=== PATIENT | male | born 1945 | race Caucasian/White ===

== ENCOUNTER → 2020-07-21 10:27 | Outpatient (BNVA) | payer MEDICARE, SELFPAY | PROVIDERS: PCP Internal Medicine; Visit Provider Internal Medicine | DX: J45.909 Unspecified asthma, uncomplicated (principal); G47.33 Obstructive sleep apnea (adult) (pediatric); E66.9 Obesity, unspecified; Z68.39 Body mass index [BMI] 39.0-39.9, adult; Z99.89 Dependence on other enabling machines and devices | CPT/HCPCS: 99213 ==

== ENCOUNTER → 2020-08-18 09:42 | Outpatient (BNVA) | payer MEDICARE, SELFPAY | PROVIDERS: PCP Internal Medicine; Visit Provider Internal Medicine | DX: J45.909 Unspecified asthma, uncomplicated (principal); G47.33 Obstructive sleep apnea (adult) (pediatric); E66.9 Obesity, unspecified; Z68.38 Body mass index [BMI] 38.0-38.9, adult; Z99.89 Dependence on other enabling machines and devices | CPT/HCPCS: 99212 ==

== ENCOUNTER → 2020-11-18 10:21 | Outpatient (BNVA) | payer MEDICARE, SELFPAY | PROVIDERS: PCP Internal Medicine; Visit Provider Internal Medicine | DX: E66.9 Obesity, unspecified (principal); G47.33 Obstructive sleep apnea (adult) (pediatric); J45.20 Mild intermittent asthma, uncomplicated; J30.9 Allergic rhinitis, unspecified | CPT/HCPCS: 99212 ==

== ENCOUNTER 2020-12-15 09:33 | Outpatient (REF) | payer MEDICARE, SELFPAY ==
[2020-12-15 11:18] LABS: MANUAL DIFF FLAG NO
[2020-12-15 11:33] LABS: Basophils Percent Auto 0.5 % (0-2); Eosinophils Absolute Auto 0.4 X10*3/uL (0.0-0.4); Eosinophils Percent Auto 6.4 % (0-4); Hematocrit 39.7 % (42-52); Imm Gran Abs Auto 0.01 X10*3/uL (0.00-0.03); Imm Gran Pct Auto 0.2 % (0.0-0.4); Lymphocytes Absolute Auto 1.7 X10*3/uL (1.2-4.9); Lymphocytes Percent Auto 30.5 % (20-40); Mean Corpuscular HGB Conc 32.7 g/dl (31.0-36.0); Mean Corpuscular Hemoglobin 27.8 pg (27.0-33.0); Mean Platelet Volume 11.2 fL (9.4-12.4); Monocytes Absolute Auto 0.6 X10*3/uL (0.1-1.2); Monocytes Percent Auto 10.4 % (2-11); Neutrophils Absolute Auto 2.9 X10*3/uL (2.0-8.3); Platelet Count 146 X10*3/uL (160-400); Red Blood Count 4.67 X10*6/uL (4.60-5.80); Red Cell Distribution Width 13.7 % (11.0-16.0); White Blood Count 5.5 X10*3/uL (4.8-10.8)
[2020-12-15 11:48] LABS: Estimated Average Glucose 194 mg/dL; Hemoglobin A1c % 8.4 %
[2020-12-15 12:05] LABS: Alanine Aminotransferase 31 U/L (0-40); Alkaline Phosphatase 93 U/L (39-117); Anion Gap 14 (12-20); Aspartate Amino Transferase 21 U/L (5-37); Bilirubin Total 1.3 mg/dL (0.0-1.0); Blood Urea Nitrogen 16 mg/dL (9-16); Calcium 8.1 mg/dL (8.4-10.2); Carbon Dioxide 26 mmol/L (22-29); Chloride 103 mmol/L (96-108); Cholesterol 124 mg/dL; Estimated Glomerular Filt Rate > 60; Glucose Random 177 mg/dL (60-115); HDL Cholesterol 26 mg/dL; LDL Cholesterol Calculated 71 mg/dl; Potassium 4.3 mmol/L (3.3-5.1); Sodium 139 mmol/L (135-145); Total Protein 6.6 g/dL (6.5-8.0); Triglycerides 138 mg/dL
== END 2020-12-15 09:34 | disposition home or self-care (01) ==
LOC: HO.HMGCLDS 09:33
PROVIDERS: PCP Internal Medicine; Visit Provider Internal Medicine
DX: E11.65 Type 2 diabetes mellitus with hyperglycemia (principal); Z79.4 Long term (current) use of insulin; E87.5 Hyperkalemia; E78.00 Pure hypercholesterolemia, unspecified
CPT/HCPCS: 36415; 80053; 80061; 83036; 85025

== ENCOUNTER → 2021-03-31 09:38 | Outpatient (BNVA) | payer MEDICARE, SELFPAY | PROVIDERS: PCP Internal Medicine; Visit Provider Internal Medicine | DX: G47.33 Obstructive sleep apnea (adult) (pediatric) (principal); J45.20 Mild intermittent asthma, uncomplicated; E66.9 Obesity, unspecified | CPT/HCPCS: 99212 ==

== ENCOUNTER 2021-08-13 05:00 | Outpatient (REF) | payer MEDICARE, SELFPAY ==
--- NOTE | ~2021-08-13 | XR_ITS ---
EXAMINATION: XR SHOULDER, RIGHT CLINICAL INFORMATION: Pain COMPARISON: Previous x-ray July 2014 TECHNIQUE: Two views of the right shoulder. FINDINGS: Bone alignment is normal. No fracture or dislocation is seen. The glenohumeral joint is normal. There is arthritis at the acromioclavicular joint. Soft tissues are unremarkable. 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
== END 2021-08-13 05:01 | disposition home or self-care (01) ==
LOC: HO.HOSX 05:00
PROVIDERS: Visit Provider Physician Assistant
DX: M75.41 Impingement syndrome of right shoulder (principal)
CPT/HCPCS: 20610; 73030; 99212; J1020

== ENCOUNTER → 2021-09-23 09:16 | Outpatient (BNVA) | payer MEDICARE, SELFPAY | PROVIDERS: PCP Internal Medicine; Visit Provider Internal Medicine | DX: G47.33 Obstructive sleep apnea (adult) (pediatric) (principal); J30.9 Allergic rhinitis, unspecified; J45.20 Mild intermittent asthma, uncomplicated; E66.9 Obesity, unspecified; Z68.38 Body mass index [BMI] 38.0-38.9, adult | CPT/HCPCS: 99212 ==

== ENCOUNTER 2021-12-13 07:06 | Inpatient (IN) | payer MEDICARE, SELFPAY ==
[2021-12-13] VITALS (12 sets, daily range): BP systolic 120–188; BP diastolic 62–101; PULSE 79–105; RESP 14–20; TEMP 36.1–37.2; O2SAT 86–98; BMI 38.0
--- NOTE | ~2021-12-13 | CT_ITS ---
EXAMINATION: CT ABDOMEN AND PELVIS WITHOUT CONTRAST CLINICAL INFORMATION: Right-sided abdominal pain. History of stones. COMPARISON: Previous CT of the abdomen and pelvis December 2017 TECHNIQUE: Multidetector volumetric imaging was performed from the superior aspect of the liver through the pubic symphysis. Sagittal and coronal reformatted images were obtained on the technologist's workstation. This CT examination was performed using dose optimization techniques as appropriate, variously including the following: *Automated exposure control *Adjustment of mA and/or kV according to patient size (this includes techniques or standardized protocols for targeted exams where dose is matched to indication/reason for exam; i.e. extremities or head) *Use of iterative reconstruction technique DLP: 886 mGy-cm FINDINGS: LUNG BASES: There are increased peripheral interstitial markings at the lung bases suggestive of interstitial lung disease. LIVER, GALLBLADDER, AND BILIARY TREE: The liver is normal in size, shape, and attenuation. No focal hepatic lesion or biliary ductal dilatation is present. The gallbladder is unremarkable with no evidence of radiopaque gallstones, gallbladder wall thickening, or obvious pericholecystic inflammatory changes. PANCREAS: Unremarkable. SPLEEN: Unremarkable. ADRENAL GLANDS: Unremarkable. KIDNEYS AND URETERS: There is moderate right hydronephrosis and ureteral dilatation from a 5 mm right mid ureteral stone. There is a small 1 mm stone in the central right kidney. There is stranding of the fat surrounding the right kidney and maximal ureter. There are multiple left renal stones. Largest stones measure 3 to 4 mm in the upper and lower pole of the left kidney. There are bilateral peripelvic cysts. There is a 10 mm left pelvic calcification axial image 74 series 3 coronal reconstructed image 76. There is no left hydronephrosis. The left proximal ureter does not appear dilated. There may be some dilatation of the left distal ureter adjacent to the calcification. Calcification is increased in size from approximately 5 mm and 2018 exam. It is uncertain whether this represents a calcified phlebolith next to the ureter or could represent a distal left ureteral stone. BLADDER: Unremarkable. GASTROINTESTINAL TRACT: There is mild diverticulosis of the colon. Small and large bowel is otherwise unremarkable. There is a low-attenuation lesion in the right lateral abdomen adjacent to the ascending colon with peripheral calcification. The peripheral calcification is new or increased from previous exam. This is stable in size from previous exam and measures approximately 1.5 cm axial image 43 series 3 is probably represents change from old inflammation or fat necrosis. The appendix is not seen. ABDOMINAL WALL: There is a very small umbilical hernia containing fat. LYMPH NODES: Normal. VASCULAR: There is evidence of atherosclerotic disease. No aneurysm is seen. PELVIC VISCERA: Unremarkable. OSSEOUS STRUCTURES: There are degenerative changes of the spine. CT/CT abdomen pelvis wo con IMPRESSION: Right hydronephrosis and ureteral dilatation from a 5 mm right mid ureteral stone. Bilateral renal stones, left greater than right. No left hydronephrosis or proximal ureteral dilatation. 10 mm calcification in the left pelvis, question representing a left distal ureteral stone versus calcified phlebolith. This is increased in size from 5 mm on December 2017 exam. Fleischner guidelines were followed.
--- NOTE | ~2021-12-13 | FL_ITS ---
EXAMINATION: XR FLUOROSCOPY WITH IMAGES CLINICAL INFORMATION: Urinary tract calculi. Urologic procedure is, cystoscopy, ureteroscopy, retro, laser, stent right COMPARISON: CT abdomen and pelvis noncontrast 12/13/2021 TECHNIQUE: Fluoroscopy performed by Dr. Nakul Serna. Fluoroscopy time: 0.7 minutes DAP: 12.3 Gycm2 Images: 3 FINDINGS: There is guidewire right urinary tract. Contrast is present in distended extrarenal pelvis. FL/FL guidance in OR IMPRESSION: Fluoroscopy for urologic procedures.
--- NOTE | 2021-12-13 07:19 | ED.ABDPAIN ---
HPI - Abdominal Pain General Chief Complaint: Abdominal Pain Stated Complaint: abd pain Time Seen by Provider: 12/13/21 07:12 Source: patient Mode of arrival: ambulatory Limitations: no limitations History of Present Illness MD elicited complaint: abdominal pain Pertinent past history: kidney stones Onset (ago): day(s) (7) Pain Consistency: constant Location: R flank (R middle abdomen) Severity: severe Quality: stabbing Radiation: none Migration to: no migration Exacerbating factors: movement Relieving factors: nothing Context: history of similar episodes (?unsure if it was a stone, tried to drink a lot of water) Associated symptoms: nausea and vomiting Related Data Home Medications Medication Instructions Recorded Confirmed insulin degludec 200 unit/mL (3 50 unit SUBCUT DAILY cap 05/31/21 12/13/21 mL) subcutaneous pen (Tresiba FlexTouch U-200 insulin) albuterol sulfate 2.5 mg INHALATION Q6H 08/13/21 12/13/21 cetirizine 10 mg tablet (Zyrtec) 10 mg PO DAILY 08/13/21 12/13/21 Prevagen 1 cap PO DAILY 12/13/21 12/13/21 aspirin 81 mg chewable tablet 81 mg PO DAILY 12/13/21 12/13/21 cholecalciferol (vitamin D3) 25 25 mcg PO DAILY 12/13/21 12/13/21 mcg (1,000 unit) tablet (Vitamin D3) cyanocobalamin (vitamin B-12) 1,000 mcg PO DAILY 12/13/21 12/13/21 1,000 mcg tablet dulaglutide 0.75 mg/0.5 mL 0.75 mg SUBCUT MO 12/13/21 12/13/21 subcutaneous pen injector (Trulicity) prednisolone acetate 1 % eye 1 drp OPHTHALMIC (EYE) DAILY 12/13/21 12/13/21 drops,suspension vit C 250 mg-vit E 90 mg-zinc 40 2 tab PO DAILY 12/13/21 12/13/21 mg-copper 1 [id number] capsule (PreserVision AREDS-2) Previous Rx's Medication Instructions Recorded blood-glucose meter (OneTouch #1 ea 11/18/20 Ultra2 Meter) lancets (OneTouch UltraSoft #4 box 11/18/20 Lancets) metformin 1,000 mg tablet 1,000 mg PO BID #180 cap 12/14/20 fluticasone 250 mcg-salmeterol 50 1 inh INHALATION BID 90 Days #3 ea 03/09/21 mcg/dose blistr powdr for inhalation tamsulosin 0.4 mg capsule 0.4 mg PO DAILY #90 cap 05/28/21 albuterol sulfate 90 mcg/actuation 2 puff INHALATION Q4-6H PRN #8.5 g 09/08/21 aerosol inhaler (ProAir HFA) blood sugar diagnostic #4 09/17/21 metoprolol succinate 100 mg 100 mg PO DAILY #90 cap 10/01/21 tablet,extended release 24 hr atorvastatin 40 mg tablet 40 mg PO DAILY 90 Days #90 tab 11/04/21 Allergies Allergy/AdvReac Type Severity Reaction Status Date / Time azithromycin [AZITHROMYCIN] Allergy Unknown HIVES Verified 09/23/21 09:37 lisinopril [LISINOPRIL] Allergy Unknown HIVES Verified 09/23/21 09:37 losartan [LOSARTAN] Allergy Unknown HIVES Verified 09/23/21 09:37 oxycodone [OXYCODONE] Allergy Unknown HIVES Verified 09/23/21 09:37 Review of Systems Review of Systems Constitutional : No Weight loss, No Fever, No Chills ENT/Mouth : No sore throat, No Rhinorrhea Eyes: No Swelling, No Redness Cardiovascular : No Chest Pain, No SOB, NoEdema Respiratory : No Cough, No Sputum, No Wheezing Gastrointestinal : Positive Nausea, Positive Vomiting, no Diarrhea, positive abdominal Pain, No Hematochezia, No Melena, no constipation Genitourinary : No Dysuria, No Urinary Frequency, No Hematuria, No Urgency Musculoskeletal : No joint pain, No Myalgias, No Joint Swelling Skin : No Skin Lesions, No rash Neuro : No Weakness, No Numbness, No Dizziness, No Headache Psych : No Anxiety/Panic, No Depression Heme/Lymph: No Bruising, No Lymphadenopathy Endocrine : No Polyuria, No Polydipsia All other systems reviewed and are negative. [facility], [facility] Past Medical History Attestation statement: The following information was validated with the patient. Medical History (Updated 12/13/21 @ 08:35 by Ann Marie Salgado DO) Allergic rhinitis Ankle fracture Atrial flutter BPH (benign prostatic hyperplasia) Bronchial asthma Fatty liver History of pericarditis Hypercholesterolemia Hypertension Mass of right lung Obesity (BMI 30-39.9) Obstructive sleep apnea Type 2 diabetes mellitus with hyperglycemia Vitamin B12 deficiency Vitamin D deficiency Surgical History (Updated 12/13/21 @ 07:35 by Ann Marie Salgado DO) H/O spinal fusion History of appendectomy History of appendectomy History of bilateral inguinal hernia repair History of lithotripsy History of tooth extraction Lumbar spinal stenosis Family History Family History Father No problems noted. Mother No problems noted. Son No problems noted. Son No problems noted. Daughter No problems noted. Daughter No problems noted. Social History Social History Housing: House Patient Tobacco Use Status: Former Tobacco user Tobacco use type: Cigarette e-Cigarette/Vaping Use: Never Used Second Hand Smoke Exposure: No Advance Directives: No Advance Directives Information Provided: Yes service: Yes Current occupational status: retired Physical Exam ED Vital Signs: Vital Signs - 24 hr 12/13/21 07:12 12/13/21 07:24 12/13/21 08:49 Temperature 97.4 F Pulse Rate 79 90 101 H Respiratory Rate 18 18 16 Blood Pressure 174/96 H 188/95 H 159/90 H Pulse Oximetry 98 95 86 L 12/13/21 08:52 Temperature Pulse Rate Respiratory Rate Blood Pressure Pulse Oximetry 95 BMI result Body Mass Index 38.0 Appearance: Alert. Oriented X3. No acute distress. Eyes: Pupils equal, round and reactive to light. ENT: Pharynx normal. Neck: Normal inspection. Neck supple. CVS: Normal heart rate and rhythm. Pulses normal. Respiratory: No respiratory distress. Breath sounds normal. Abdomen: Distended moderate ttp in R middle abdomen with mild guarding no rebound Skin: Skin warm and dry. Normal skin color. Normal skin turgor. Extremities: No lower extremity edema. No calf ttp Neuro: Oriented X 3. No motor deficit. No sensory deficit. Course Course Course Narrative: lactic acidosis due to dehydration and not infection or severe sepsis message sent to Urology [id number] - I do not think patinet will pass stone given symptoms x 7 days at home to admit patient MDM - Abdominal Pain MDM Narrative Medical decision making narrative: 76 yo male hx of asthma, HTN, prior renal colic that required no intervention comes in with c/o R sided abdominal pain with n/v for 7 days he had BM and flatus this AM - at this time will obtain basic labs, UA, CT scan for renal colic, obstruction if negative will obtain US to evaluate GB. Dispo per results and findings. Differential Diagnosis Differential diagnosis: Likely abdominal pain, calculus of kidney, diverticulitis, renal colic and small bowel obstruction; Unlikely aortic dissection, acute appendicitis or mesenteric ischemia Lab Data Result diagrams: 12/13/21 07:35 12/13/21 07:35 Labs: Lab Results 12/13/21 12/13/21 12/13/21 Range/Units 07:35 07:35 07:35 WBC 8.7 (4.8-10.8) X10*3/uL RBC 4.94 (4.60-5.80) X10*6/uL Hgb 14.5 (14.0-18.0) g/dl Hct 41.7 L (42.0-52.0) % MCV 84.4 (80.0-98.0) fL MCH 29.4 (27.0-33.0) pg MCHC 34.8 (31.0-36.0) g/dl RDW 12.9 (11.0-16.0) % Plt Count 162 (160-400) X10*3/uL MPV 10.2 (9.4-12.4) fL Immature Gran % (Auto) 0.2 (0.0-0.4) % Neut % (Auto) 68.1 (45-73) % Lymph % (Auto) 21.6 (20-40) % [place] % (Auto) 8.4 (2-11) % Eos % (Auto) 1.4 (0-4) % Baso % (Auto) 0.3 (0-2) % Lymph # (Auto) 1.9 (1.2-4.9) X10*3/uL [place] # (Auto) 0.7 (0.1-1.2) X10*3/uL Eos # (Auto) 0.1 (0.0-0.4) X10*3/uL Baso # (Auto) 0.0 (0.0-0.2) X10*3/uL Abs Immat Gran (auto) 0.02 (0.00-0.03) X10*3/uL Absolute Neuts (auto) 5.9 (2.0-8.3) x10*3/uL Absolute Nucleated RBC 0.000 (0.0-0.012) X10*3/uL Nucleated RBC % (auto) 0.0 (0.0-0.2) /100WBC Sodium 139 (135-145) mmol/L Potassium 4.0 (3.3-5.1) mmol/L Chloride 103 (96-108) mmol/L Carbon Dioxide 26 (22-29) mmol/L Anion Gap 14 (12-20) BUN 15 (9-16) mg/dL Creatinine 1.49 H (0.5-1.4) mg/dL Estim Creat Clear Calc 48.4 Estimated GFR 46 Random Glucose 158 H (60-115) mg/dL Lactic Acid 2.1 H* (0.5-2.0) mmol/L Calcium 9.1 D (8.4-10.2) mg/dL Magnesium 1.5 L (1.6-2.6) mg/dL Total Bilirubin 1.2 H (0.0-1.0) mg/dL Direct Bilirubin 0.4 (0.0-0.5) mg/dL AST 15 (5-37) U/L ALT 25 (0-40) U/L Alkaline Phosphatase 91 (39-117) U/L Total Protein 6.9 (6.5-8.0) g/dL Albumin 4.2 (3.5-5.0) g/dL Lipase 92 H (8-78) U/L Urine Color Urine Appearance Urine pH (5.0-8.0) Ur Specific [place] (1.005-1.025) Urine Protein (NEG-TRACE) MG/DL Urine Glucose (UA) (NEG) MG/DL Urine Ketones (NEG) MG/DL Urine Blood (NEG) Urine Nitrite (NEG) Ur Leukocyte Esterase (NEG) Urine RBC (0) /HPF Urine WBC (0-4) /HPF Ur Squamous Epith Cells /LPF Urine Bacteria /LPF Urine Mucus /LPF COVID-19 (JEANNE) (Negative) COVID-19 Clin Com 12/13/21 12/13/21 Range/Units 08:35 08:35 WBC (4.8-10.8) X10*3/uL RBC (4.60-5.80) X10*6/uL Hgb (14.0-18.0) g/dl Hct (42.0-52.0) % MCV (80.0-98.0) fL MCH (27.0-33.0) pg MCHC (31.0-36.0) g/dl RDW (11.0-16.0) % Plt Count (160-400) X10*3/uL MPV (9.4-12.4) fL Immature Gran % (Auto) (0.0-0.4) % Neut % (Auto) (45-73) % Lymph % (Auto) (20-40) % [place] % (Auto) (2-11) % Eos % (Auto) (0-4) % Baso % (Auto) (0-2) % Lymph # (Auto) (1.2-4.9) X10*3/uL [place] # (Auto) (0.1-1.2) X10*3/uL Eos # (Auto) (0.0-0.4) X10*3/uL Baso # (Auto) (0.0-0.2) X10*3/uL Abs Immat Gran (auto) (0.00-0.03) X10*3/uL Absolute Neuts (auto) (2.0-8.3) x10*3/uL Absolute Nucleated RBC (0.0-0.012) X10*3/uL Nucleated RBC % (auto) (0.0-0.2) /100WBC Sodium (135-145) mmol/L Potassium (3.3-5.1) mmol/L Chloride (96-108) mmol/L Carbon Dioxide (22-29) mmol/L Anion Gap (12-20) BUN (9-16) mg/dL Creatinine (0.5-1.4) mg/dL Estim Creat Clear Calc Estimated GFR Random Glucose (60-115) mg/dL Lactic Acid (0.5-2.0) mmol/L Calcium (8.4-10.2) mg/dL Magnesium (1.6-2.6) mg/dL Total Bilirubin (0.0-1.0) mg/dL Direct Bilirubin (0.0-0.5) mg/dL AST (5-37) U/L ALT (0-40) U/L Alkaline Phosphatase (39-117) U/L Total Protein (6.5-8.0) g/dL Albumin (3.5-5.0) g/dL Lipase (8-78) U/L Urine Color YELLOW Urine Appearance CLEAR Urine pH 5.5 (5.0-8.0) Ur Specific [place] 1.020 (1.005-1.025) Urine Protein NEG (NEG-TRACE) MG/DL Urine Glucose (UA) NEG (NEG) MG/DL Urine Ketones NEG (NEG) MG/DL Urine Blood 1+ H (NEG) Urine Nitrite NEG (NEG) Ur Leukocyte Esterase NEG (NEG) Urine RBC 10-14 H (0) /HPF Urine WBC 0 (0-4) /HPF Ur Squamous Epith Cells NONE /LPF Urine Bacteria NONE /LPF Urine Mucus TRACE /LPF COVID-19 (JEANNE) Negative (Negative) COVID-19 Clin Com See Note ECG Data Attestation: I personally reviewed and interpreted this ECG as follows: ECG interpretation date: 12/13/21 ECG interpretation time: 07:38 Interpretation: Rate: 83 Rhythm: NSR [place]: normal Normal P waves. Normal DONOVAN. Normal QRS complex. ST T wave : no RADHA, nonspecific flat in anterior V1-V3 qTC: normal prior studies: no acute ischemia The study has been interpreted contemporaneously by me. . Discharge Plan Discharge Clinical Impression: Acidosis, lactic, Acute dehydration, Right ureteral stone Patient Disposition: Admitted As Inpatient
--- NOTE | 2021-12-13 07:24 | PC.NURSE ---
Pt received fro triage: Pt AOx4 and offers moderate pain and tenderness to RLQ since Monday. Pt hx of Kidney stones. Heart sound normal and lungs clear. Pt abd round, soft. Pt able to have BM today and urine normal.
--- NOTE | 2021-12-13 07:25 | ECG_ITS ---
Test Reason : abd pain Blood Pressure : / mmHG Vent. Rate : 083 BPM Atrial Rate : 083 BPM P-R Int : 178 ms QRS Dur : 086 ms QT Int : 382 ms P-R-T Axes : 047 -02 015 degrees QTc Int : 448 ms Normal sinus rhythm Minimal voltage criteria for LVH, may be normal variant ( R in aVL ) Borderline ECG When compared with ECG of 28-NOV-2018 09:31, No significant change was found Referred By: Ann Marie Salgado Electronically Signed By:Ruben North
[2021-12-13 07:41] LABS: MANUAL DIFF FLAG NO
[2021-12-13 07:42] LABS: Basophils Percent Auto 0.3 % (0-2); Eosinophils Absolute Auto 0.1 X10*3/uL (0.0-0.4); Eosinophils Percent Auto 1.4 % (0-4); Hematocrit 41.7 % (42.0-52.0); Hemoglobin 14.5 g/dl (14.0-18.0); Imm Gran Abs Auto 0.02 X10*3/uL (0.00-0.03); Imm Gran Pct Auto 0.2 % (0.0-0.4); Lymphocytes Absolute Auto 1.9 X10*3/uL (1.2-4.9); Lymphocytes Percent Auto 21.6 % (20-40); Mean Corpuscular HGB Conc 34.8 g/dl (31.0-36.0); Mean Corpuscular Hemoglobin 29.4 pg (27.0-33.0); Mean Corpuscular Volume 84.4 fL (80.0-98.0); Mean Platelet Volume 10.2 fL (9.4-12.4); Monocytes Absolute Auto 0.7 X10*3/uL (0.1-1.2); Monocytes Percent Auto 8.4 % (2-11); Neutrophils Absolute Auto 5.9 x10*3/uL (2.0-8.3); Neutrophils Percent Auto 68.1 % (45-73); Platelet Count 162 X10*3/uL (160-400); Red Blood Count 4.94 X10*6/uL (4.60-5.80); Red Cell Distribution Width 12.9 % (11.0-16.0); White Blood Count 8.7 X10*3/uL (4.8-10.8)
[2021-12-13] MEDS: Morphine Sulfate 4 MG/ML CARTRIDGE IVPUSH (07:42)
[2021-12-13] MEDS: ondansetron HCL 4 MG/2 ML VIAL IVPUSH (07:42)
[2021-12-13 08:04] LABS: Lactic Acid 2.1 mmol/L (0.5-2.0)
[2021-12-13 08:11] LABS: Alanine Aminotransferase 25 U/L (0-40); Albumin Level 4.2 g/dL (3.5-5.0); Alkaline Phosphatase 91 U/L (39-117); Anion Gap 14 (12-20); Aspartate Amino Transferase 15 U/L (5-37); Bilirubin Direct 0.4 mg/dL (0.0-0.5); Bilirubin Total 1.2 mg/dL (0.0-1.0); Blood Urea Nitrogen 15 mg/dL (9-16); Calcium 9.1 mg/dL (8.4-10.2); Carbon Dioxide 26 mmol/L (22-29); Chloride 103 mmol/L (96-108); Creatinine Clr Calc Pharmacy 48.4; Estimated Glomerular Filt Rate 46; Glucose Random 158 mg/dL (60-115); Lipase 92 U/L (8-78); Magnesium 1.5 mg/dL (1.6-2.6); Sodium 139 mmol/L (135-145); Total Protein 6.9 g/dL (6.5-8.0)
[2021-12-13 08:41] LABS: Appearance Urine CLEAR; Color Urine YELLOW; Glucose Urine UA NEG (NEG); Leukocyte Esterase Urine NEG (NEG); Nitrite Urine NEG (NEG); PH 5.5 (5.0-8.0); UACC Culture Trigger NO; Urine Blood 1+ (NEG); Urine Ketones NEG (NEG); Urine Protein NEG (NEG-TRACE)
[2021-12-13] MEDS: Tamsulosin HCL 0.4 MG CAPSULE PO (08:43)
[2021-12-13] MEDS: HYDROmorphone HCl 1 MG/ML SYRINGE IVPUSH (08:43)
[2021-12-13] MEDS: Magnesium Sulfate/H2O 2 GM/50 ML PIGGYBACK IV (08:43)
[2021-12-13] MEDS: methylPREDNISolone Sod Succ 125 MG/2 ML VIAL IVPUSH (08:43)
[2021-12-13] MEDS: 0.9 % Sodium Chloride 500 ML IV ×2 (08:44)
[2021-12-13 08:50] LABS: Mucus Urine TRACE /LPF; WBC Urine 0 /HPF (0-4)
[2021-12-13 08:56] LABS: COVID-19 Test Negative (Negative); IDNOW Serial# 16C4AD1C
[2021-12-13 09:38] LABS: Reflex Lactate? Lactic Acid Added
--- NOTE | 2021-12-13 10:22 | PM.UROCN ---
History of Present Illness Consult details Consult date: 12/13/21 Narrative: Silvano is a 76-year-old male Presents emergency room with persistent right flank pain, nausea, vomiting unable to take oral intake Creatinine 1.5, WBC 8.7 Imaging shows There is moderate right hydronephrosis and ureteral dilatation from a 5 mm right mid ureteral stone. There is a small 1 mm stone in the central right kidney. There is stranding of the fat surrounding the right kidney and maximal ureter. There are multiple left renal stones. Largest stones measure 3 to 4 mm in the upper and lower pole of the left kidney. imaging reviewed in person Discussed findings with Silvano Recommend ureteroscopy with laser lithotripsy and stent placement Review of Systems Constitutional: Constitutional: Reports as per HPI and Reports no additional constitutional complaints Cardiovascular: Cardiovascular: Reports as per HPI and Reports no additional cardiovascular complaints Respiratory: Respiratory: Reports as per HPI and Reports no additional respiratory complaints Gastrointestinal: Gastrointestinal: Reports as per HPI and Reports no additional gastrointestinal complaints Genitourinary: Genitourinary: Reports as per HPI Musculoskeletal: Musculoskeletal: Reports no additional musculoskeletal complaints and Reports as per HPI Neurologic: Reports system reviewed and no additional complaints, except as documented and Reports as per HPI [facility] Past Medical History Medical History (Updated 12/13/21 @ 10:25 by Nakul Serna MD) Allergic rhinitis Ankle fracture Atrial flutter BPH (benign prostatic hyperplasia) Bronchial asthma Fatty liver History of pericarditis Hypercholesterolemia Hypertension Mass of right lung Obesity (BMI 30-39.9) Obstructive sleep apnea Type 2 diabetes mellitus with hyperglycemia Vitamin B12 deficiency Vitamin D deficiency Family History Family History Father No problems noted. Mother No problems noted. Son No problems noted. Son No problems noted. Daughter No problems noted. Daughter No problems noted. Surgical History Surgical History (Updated 12/13/21 @ 07:35 by Ann Marie Salgado DO) H/O spinal fusion History of appendectomy History of appendectomy History of bilateral inguinal hernia repair History of lithotripsy History of tooth extraction Lumbar spinal stenosis Social History Social History Housing: House Patient Tobacco Use Status: Former Tobacco user Tobacco use type: Cigarette e-Cigarette/Vaping Use: Never Used Second Hand Smoke Exposure: No Advance Directives: No Advance Directives Information Provided: Yes service: Yes Current occupational status: retired Meds Allergies Allergy/AdvReac Type Severity Reaction Status Date / Time azithromycin [AZITHROMYCIN] Allergy Unknown HIVES Verified 09/23/21 09:37 lisinopril [LISINOPRIL] Allergy Unknown HIVES Verified 09/23/21 09:37 losartan [LOSARTAN] Allergy Unknown HIVES Verified 09/23/21 09:37 oxycodone [OXYCODONE] Allergy Unknown HIVES Verified 09/23/21 09:37 Active Medications: Current Medications Hydromorphone HCl (Hydromorphone Hcl 0.5 Mg/0.5 Ml Syringe) 0.5 mg IVPUSH QID PRN; Protocol PRN Reason: Pain, Moderate (Pain Scale 4-6 Sodium Chloride (Ns) 1,000 mls @ 100 mls/hr IVCONT .Q10H CATHIE Ondansetron HCl (Ondansetron Hcl 4 Mg/2 Ml Vial) 4 mg IVPUSH Q8H CATHIE Home Medications Medication Instructions Recorded Confirmed Last Taken Type insulin degludec 200 unit/mL (3 50 unit SUBCUT DAILY cap 05/31/21 12/13/21 12/12/21 History mL) subcutaneous pen (Tresiba FlexTouch U-200 insulin) albuterol sulfate 2.5 mg INHALATION Q6H 08/13/21 12/13/21 Unknown History cetirizine 10 mg tablet (Zyrtec) 10 mg PO DAILY 08/13/21 12/13/21 12/12/21 History Prevagen 1 cap PO DAILY 12/13/21 12/13/21 12/12/21 History aspirin 81 mg chewable tablet 81 mg PO DAILY 12/13/21 12/13/21 12/12/21 History cholecalciferol (vitamin D3) 25 25 mcg PO DAILY 12/13/21 12/13/21 12/12/21 History mcg (1,000 unit) tablet (Vitamin D3) cyanocobalamin (vitamin B-12) 1,000 mcg PO DAILY 12/13/21 12/13/21 12/12/21 History 1,000 mcg tablet dulaglutide 0.75 mg/0.5 mL 0.75 mg SUBCUT MO 12/13/21 12/13/21 12/06/21 History [facility] prednisolone acetate 1 % eye 1 drp OPHTHALMIC (EYE) DAILY 12/13/21 12/13/21 12/12/21 History drops,suspension vit C 250 mg-vit E 90 mg-zinc 40 2 tab PO DAILY 12/13/21 12/13/21 12/12/21 History mg-copper 1 [id number] capsule (PreserVision AREDS-2) Physical Exam Vital Signs: Vital Signs: Last Vital Signs Temp 97.4 F 12/13/21 07:12 Pulse 101 H 12/13/21 08:49 Resp 16 12/13/21 08:49 BP 159/90 H 12/13/21 08:49 Pulse Ox 95 12/13/21 08:52 BMI result Body Mass Index 38.0 Const: General: cooperative, healthy appearing, comfortable and no acute distress Orientation/consciousness: patient oriented x3 HENMT: Face and sinus: Yes normal facial exam Mouth: moist mucous membranes Neck: Neck: Yes normal visual inspection, Yes full ROM and Yes trachea midline Chest: Chest palpation & inspection: normal inspection of the chest Resp: Effort & Inspection: normal respiratory effort, able to speak in complete sentences and no respiratory distress GI: Inspection: Yes normal to inspection Back/Spine/Pelvis: Cervical Spine: normal cervical lordosis Thoracic/Lumbar Spine: thoracic and lumbar spine normal to inspection Skin: General skin exam: no rashes or lesions noted Neuro: General: patient oriented x3, tone normal and moves all extremities Extrem: General: Yes normal to inspection and Yes capillary refill normal Results Labs Result diagrams: 12/13/21 07:35 12/13/21 07:35 Labs: Abnormal lab results 12/13/21 12/13/21 12/13/21 Range/Units 07:35 07:35 07:35 Hct 41.7 L (42.0-52.0) % Creatinine 1.49 H (0.5-1.4) mg/dL Random Glucose 158 H (60-115) mg/dL Lactic Acid 2.1 H* (0.5-2.0) mmol/L Magnesium 1.5 L (1.6-2.6) mg/dL Total Bilirubin 1.2 H (0.0-1.0) mg/dL Lipase 92 H (8-78) U/L Urine Blood (NEG) Urine RBC (0) /HPF 12/13/21 Range/Units 08:35 Hct (42.0-52.0) % Creatinine (0.5-1.4) mg/dL Random Glucose (60-115) mg/dL Lactic Acid (0.5-2.0) mmol/L Magnesium (1.6-2.6) mg/dL Total Bilirubin (0.0-1.0) mg/dL Lipase (8-78) U/L Urine Blood 1+ H (NEG) Urine RBC 10-14 H (0) /HPF Short CBC 12/13/21 Range/Units 07:35 WBC 8.7 (4.8-10.8) X10*3/uL Hgb 14.5 (14.0-18.0) g/dl Hct 41.7 L (42.0-52.0) % Plt Count 162 (160-400) X10*3/uL BMP 12/13/21 07:35 Sodium 139 Potassium 4.0 Chloride 103 Carbon Dioxide 26 BUN 15 Creatinine 1.49 H Calcium 9.1 D Liver Function 12/13/21 Range/Units 07:35 Total Bilirubin 1.2 H (0.0-1.0) mg/dL Direct Bilirubin 0.4 (0.0-0.5) mg/dL AST 15 (5-37) U/L ALT 25 (0-40) U/L Alkaline Phosphatase 91 (39-117) U/L Albumin 4.2 (3.5-5.0) g/dL Urine 12/13/21 Range/Units 08:35 Urine Color YELLOW Urine Appearance CLEAR Urine pH 5.5 (5.0-8.0) Ur Specific [place] 1.020 (1.005-1.025) Urine Protein NEG (NEG-TRACE) MG/DL Urine Glucose (UA) NEG (NEG) MG/DL All other labs normal. Assessment and Plan (1) Right ureteral stone: Status: Acute (2) Acute renal injury: Status: Acute Plan Ureteroscopy We discussed the nature of the decision and reasonable alternatives for performing the above surgery. Interventions include chemical dissolution, ESWL, ureteroscopy with laser lithotripsy and stent placement, PCNL. Options such as medical therapy were discussed. The relative uncertainties and benefits related to each alternate procedure were adequately discussed. General surgical risks including, but not limited to, pain, bleeding, infection, myocardial infarction, pulmonary embolus, deep vein thrombosis and cerebrovascular accident which may result in further hospitalization were discussed. Full disclosure of the procedure as well as all major risks, benefits and complications were discussed including but not limited to damage to the urethra, bladder and kidney infection, damage to the ureter, stent migration or malposition, scarring to the renal pelvis, remnant stone fragments, subsequent stone passage with need for secondary procedures. The overall secondary procedure rate is approximately 10-15%. The success rate of the procedure was discussed. Success of the procedure in the short-term does not necessarily guarantee that long-term success will be maintained. Suitable follow up will need to be maintained. The patient showed understanding of discussion and wishes to proceed with - cystoscopy, retrograde, ureteroscopy, possible lithotripsy/stone basketing and stent on the right side Procedures Date of Service Date of Service: 12/13/21
[2021-12-13] MEDS: 0.9 % Sodium Chloride 1,000 ML 100 ML IVCONT (10:30)
[2021-12-13 10:38] LABS: ~Lactic Acid-LAB USE ONLY 0.9 mmol/L (0.5-2.0)
--- NOTE | 2021-12-13 11:03 | PC.NURSE ---
1000: Nurse to nurse report given to SSS. As per SSS, pt will have procedure later in the day but no specific time given. RN will continue to monitor. Pt to remain NPO.
--- NOTE | 2021-12-13 13:41 | PC.NURSE ---
[facility] PCT at bedside for pickup and transport for procedure.
[2021-12-13 13:44] LABS: Glucose, Whole Blood 161 mg/dL (60-115)
--- NOTE | 2021-12-13 15:17 | HO.ANESPROP2 ---
HPI - Anesthesia Eval Consult details Narrative: 76 M for cystoscopy and stent placement COPD PMFSH Active Problems Active Problems: All Active Problems (Updated 12/13/21 @ 10:25 by Nakul Serna MD) Acute renal injury (Acute) Acidosis, lactic (Acute) Acute dehydration (Acute) Right ureteral stone (Acute) Bronchitis (Acute) Pharyngitis (Acute) Impingement syndrome of right shoulder (Acute) History of pericarditis (Acute) Allergic rhinitis (Acute) Bronchial asthma (Acute) Hyperkalemia (Acute) Hypertension (Acute) Obesity (BMI 30-39.9) (Acute) Obstructive sleep apnea (Acute) BPH (benign prostatic hyperplasia) (Acute) Hypercholesterolemia (Acute) Type 2 diabetes mellitus with hyperglycemia (Acute) Past Medical History Medical History (Updated 12/13/21 @ 10:25 by Nakul Serna MD) Allergic rhinitis Ankle fracture Atrial flutter BPH (benign prostatic hyperplasia) Bronchial asthma Fatty liver History of pericarditis Hypercholesterolemia Hypertension Mass of right lung Obesity (BMI 30-39.9) Obstructive sleep apnea Type 2 diabetes mellitus with hyperglycemia Vitamin B12 deficiency Vitamin D deficiency Family History Family History Father No problems noted. Mother No problems noted. Son No problems noted. Son No problems noted. Daughter No problems noted. Daughter No problems noted. Family history of problems with anesthesia: No Surgical History Surgical History (Updated 12/13/21 @ 07:35 by Ann Marie Salgado DO) H/O spinal fusion History of appendectomy History of appendectomy History of bilateral inguinal hernia repair History of lithotripsy History of tooth extraction Lumbar spinal stenosis History of Problems with Anesthesia: No Social History Social History Housing: House Patient Tobacco Use Status: Former Tobacco user Tobacco use type: Cigarette e-Cigarette/Vaping Use: Never Used Second Hand Smoke Exposure: No Are you DNR?: No Advance Directives: No Advance Directives Information Provided: Yes service: Yes Current occupational status: retired Meds Allergies Allergy/AdvReac Type Severity Reaction Status Date / Time azithromycin [AZITHROMYCIN] Allergy Unknown HIVES Verified 09/23/21 09:37 lisinopril [LISINOPRIL] Allergy Unknown HIVES Verified 09/23/21 09:37 losartan [LOSARTAN] Allergy Unknown HIVES Verified 09/23/21 09:37 oxycodone [OXYCODONE] Allergy Unknown HIVES Verified 09/23/21 09:37 Active Medications: Current Medications Hydromorphone HCl (Hydromorphone Hcl 0.5 Mg/0.5 Ml Syringe) 0.5 mg IVPUSH QID PRN; Protocol PRN Reason: Pain, Moderate (Pain Scale 4-6 Sodium Chloride (Ns) 1,000 mls @ 100 mls/hr IVCONT .Q10H CATHIE Last Admin: 12/13/21 10:30 Dose: 100 mls/hr Documented by: Ondansetron HCl (Ondansetron Hcl 4 Mg/2 Ml Vial) 4 mg IVPUSH Q8H [facility] Home Medications Medication Instructions Recorded Confirmed Last Taken Type insulin degludec 200 unit/mL (3 50 unit SUBCUT DAILY cap 05/31/21 12/13/21 12/12/21 History mL) subcutaneous pen (Tresiba FlexTouch U-200 insulin) albuterol sulfate 2.5 mg INHALATION Q6H 08/13/21 12/13/21 Unknown History cetirizine 10 mg tablet (Zyrtec) 10 mg PO DAILY 08/13/21 12/13/21 12/12/21 History Prevagen 1 cap PO DAILY 12/13/21 12/13/21 12/12/21 History aspirin 81 mg chewable tablet 81 mg PO DAILY 12/13/21 12/13/21 12/12/21 History cholecalciferol (vitamin D3) 25 25 mcg PO DAILY 12/13/21 12/13/21 12/12/21 History mcg (1,000 unit) tablet (Vitamin D3) cyanocobalamin (vitamin B-12) 1,000 mcg PO DAILY 12/13/21 12/13/21 12/12/21 History 1,000 mcg tablet dulaglutide 0.75 mg/0.5 mL 0.75 mg SUBCUT MO 12/13/21 12/13/21 12/06/21 History subcutaneous pen injector (Trulicity) prednisolone acetate 1 % eye 1 drp OPHTHALMIC (EYE) DAILY 12/13/21 12/13/21 12/12/21 History drops,suspension vit C 250 mg-vit E 90 mg-zinc 40 2 tab PO DAILY 12/13/21 12/13/2122 History mg-copper 1 or-[id number] capsule (PreserVision AREDS-2) Exam Exam Date and Time: December 13, 2021 1517 Height,Weight and Vital Signs: Height 5 ft 7 in Weight 110.223 kg Last Vital Signs Temp 98.9 F 12/13/21 13:46 Pulse 95 12/13/21 13:46 Resp 18 12/13/21 13:46 BP 167/101 H 12/13/21 13:46 Pulse Ox 96 12/13/21 13:46 Pertinent Lab Results Pertinent Lab Results: Laboratory Tests 12/13/21 12/13/21 12/13/21 07:35 07:35 07:35 WBC 8.7 RBC 4.94 Hgb 14.5 Hct 41.7 L MCV 84.4 MCH 29.4 MCHC 34.8 RDW 12.9 Plt Count 162 MPV 10.2 Immature Gran % (Auto) 0.2 Neut % (Auto) 68.1 Lymph % (Auto) 21.6 [place] % (Auto) 8.4 Eos % (Auto) 1.4 Baso % (Auto) 0.3 Lymph # (Auto) 1.9 [place] # (Auto) 0.7 Eos # (Auto) 0.1 Baso # (Auto) 0.0 Abs Immat Gran (auto) 0.02 Absolute Neuts (auto) 5.9 Absolute Nucleated RBC 0.000 Nucleated RBC % (auto) 0.0 Sodium 139 Potassium 4.0 Chloride 103 Carbon Dioxide 26 Anion Gap 14 BUN 15 Creatinine 1.49 H Estim Creat Clear Calc 48.4 Estimated GFR 46 POC Glucose Random Glucose 158 H Lactic Acid 2.1 H* Lactic Acid F/U @ 2Hr Calcium 9.1 D Magnesium 1.5 L Total Bilirubin 1.2 H Direct Bilirubin 0.4 AST 15 ALT 25 Alkaline Phosphatase 91 Total Protein 6.9 Albumin 4.2 Lipase 92 H Urine Color Urine Appearance Urine pH Ur Specific [place] Urine Protein Urine Glucose (UA) Urine Ketones Urine Blood Urine Nitrite Ur Leukocyte Esterase Urine RBC Urine WBC Ur Squamous Epith Cells Urine Bacteria Urine Mucus COVID-19 (JEANNE) COVID-19 Clin Com 12/13/21 12/13/21 12/13/21 08:35 08:35 10:20 WBC RBC Hgb Hct MCV MCH MCHC RDW Plt Count MPV Immature Gran % (Auto) Neut % (Auto) Lymph % (Auto) [place] % (Auto) Eos % (Auto) Baso % (Auto) Lymph # (Auto) [place] # (Auto) Eos # (Auto) Baso # (Auto) Abs Immat Gran (auto) Absolute Neuts (auto) Absolute Nucleated RBC Nucleated RBC % (auto) Sodium Potassium Chloride Carbon Dioxide Anion Gap BUN Creatinine Estim Creat Clear Calc Estimated GFR POC Glucose Random Glucose Lactic Acid Lactic Acid F/U @ 2Hr 0.9 Calcium Magnesium Total Bilirubin Direct Bilirubin AST ALT Alkaline Phosphatase Total Protein Albumin Lipase Urine Color YELLOW Urine Appearance CLEAR Urine pH 5.5 Ur Specific [place] 1.020 Urine Protein NEG Urine Glucose (UA) NEG Urine Ketones NEG Urine Blood 1+ H Urine Nitrite NEG Ur Leukocyte Esterase NEG Urine RBC 10-14 H Urine WBC 0 Ur Squamous Epith Cells NONE Urine Bacteria NONE Urine Mucus TRACE COVID-19 (JEANNE) Negative COVID-19 Clin Com See Note 12/13/21 13:40 WBC RBC Hgb Hct MCV MCH MCHC RDW Plt Count MPV Immature Gran % (Auto) Neut % (Auto) Lymph % (Auto) [place] % (Auto) Eos % (Auto) Baso % (Auto) Lymph # (Auto) [place] # (Auto) Eos # (Auto) Baso # (Auto) Abs Immat Gran (auto) Absolute Neuts (auto) Absolute Nucleated RBC Nucleated RBC % (auto) Sodium Potassium Chloride Carbon Dioxide Anion Gap BUN Creatinine Estim Creat Clear Calc Estimated GFR POC Glucose 161 H Random Glucose Lactic Acid Lactic Acid F/U @ 2Hr Calcium Magnesium Total Bilirubin Direct Bilirubin AST ALT Alkaline Phosphatase Total Protein Albumin Lipase Urine Color Urine Appearance Urine pH Ur Specific [place] Urine Protein Urine Glucose (UA) Urine Ketones Urine Blood Urine Nitrite Ur Leukocyte Esterase Urine RBC Urine WBC Ur Squamous Epith Cells Urine Bacteria Urine Mucus COVID-19 (JEANNE) COVID-19 Clin Com Airway Mallampati Class: II TM Dist: >3cm Neck ROM: Full Denture: Upper Partial: Lower Loose/Missing/Broken Teeth: Yes Heart: rrr Lungs: bl breath sounds Assessment and Plan Assessment Anesthesia Assessment: Anesthesia Plan Discussed Final Anesthetic Review Family History of Problems with Anesthesia: No History of Problems with Anesthesia: No NPO: Yes ASA Class: III Final Preanesthetic Review: Meds/Allgs Chart Reviewed, Consent Obtained/Reviewed and Anes Risks/Benef Reviewed Patient Risk: Intermediate Procedure Risk: Intermediate Anesthetic Plan Anesthetic Plan: GA Disposition: Standard PACU and Inp. Admit - Standard Bed
--- NOTE | 2021-12-13 15:20 | MHC.SHP ---
Pre-Procedural Eval Section A Date of Service: 12/13/21 The patient is an INPATIENT: No Changes since office visit: No Cold of Flu in the past 2 weeks, No New Medical Problems, No Changes in Medication and No Patient answered all questions The History & Physical has been completed within 30 days and I have reviewed it.: Yes Section B Chief Complaint: abd pain Allergies: Allergies Allergy/AdvReac Type Severity Reaction Status Date / Time azithromycin [AZITHROMYCIN] Allergy Unknown HIVES Verified 09/23/21 09:37 lisinopril [LISINOPRIL] Allergy Unknown HIVES Verified 09/23/21 09:37 losartan [LOSARTAN] Allergy Unknown HIVES Verified 09/23/21 09:37 oxycodone [OXYCODONE] Allergy Unknown HIVES Verified 09/23/21 09:37 Plan Diagnosis/Plan: Unchanged ( cystoscopy, right retrograde, right ureteroscopy with laser lithotripsy and stent placement) I have reviewed the history and physical and performed a pertinent physical examination on my patient. No changes have occurred unless specified.
--- NOTE | 2021-12-13 16:24 | P.OP_ITS ---
Operative Note Operative Note Date of Service: 12/13/21 Narrative: PreOperative Diagnosis: right proximal ureteric stone Post Operative Diagnosis: right proximal ureteric stone Procedure: - cystoscopy, right retrograde - right dilatation of ureteric orifice under fluoroscopy - right ureteroscopy - right stent placement Surgeon: Dr Nakul Serna Anesthesia: General Indications for procedure: 76-year-old male. Presented with right-sided flank pain nausea and vomiting. Imaging showed 5 mm right proximal ureteric stone with hydroureteronephrosis. Procedure: After informed consent was verified patient was brought to the operating placed in supine position. Anesthesia was administered per protocol. Patient was placed in modified dorsal lithotomy position and prepped and draped in a sterile fashion. Safety pause time-out and side of surgery confirmed. Antibiotics confirmed. A 22 Trin[place] cystoscope was inserted per urethra. Bladder was normal in its entirety. Both ureteric orifices were in normal position. The Right ureteric orifice was cannulated and a retrograde examination was performed. filling defects seen in proximal right ureteric stone . A Sensor guidewire was placed up to the level of the renal pelvis under fluoroscopy. The rigid cystoscope was removed. A Kimmy dilator was placed over the Sensor guidewire and used to dilate the ureteric orifice under fluoroscopy. The dilator was removed. The semi rigid ureteral scope was placed alongside the Sensor guidewire. stone appeared to have migrated up into the right renal pelvis. There was no stone within the ureter. Decision was made for placement of a stent. A 6 [place] by 24 cm double-J stent was placed into the renal pelvis and bladder under a combination of fluoroscopy and direct visualization. The bladder was emptied. The patient tolerated the procedure well and was extubated in the operating room, and transferred in stable condition to the recovery area. Pathology: none Drains: 6 Trin[place] by 24 cm double-J stent
[2021-12-13] MEDS: Phenazopyridine HCL 100 MG TABLET PO (17:01)
[2021-12-13] MEDS: Acetaminophen 325 MG TABLET 650 MG PO (17:02)
[2021-12-13 18:04] LABS: Glucose, Whole Blood 234 mg/dL (60-115)
--- NOTE | 2021-12-14 08:14 | MHC.CM.PN ---
Patient was d/c'd home prior to being seen by case management.
--- NOTE | 2022-02-18 08:27 | PM.DS ---
DS: Providers Provider Date of Service: 12/13/21 Date of admission: 12/13/21 17:14 Primary care physician: Homer Akers MD DS: Diagnosis Discharge Diagnosis (1) Right ureteral stone: Status: Acute (2) Acute renal injury: Status: Resolved DS: Summary Hospital Course Hospital Course: Admitted to hospital 5 mm right proximal ureteric stone Underwent ureteroscopy and stone had moved into kidney so stent placed Has follow-up planned Time spent discussing smoking cessation with patient: 3 to 10 minutes Status at Discharge Functional status at discharge: independent ambulation Overall status at discharge: patient is back to baseline Time Spent with Patient Time attestation: Total time spent providing and/or coordinating discharge services: Discharge coordination time: Less than 30 minutes Quality: Safe Use of Opioids Does Pt have an Active Cancer Diagnosis on the Problem List?: No Quality: Stroke Does the patient have a stroke diagnosis?: No Physical Exam Vital Signs: Vital Signs: Last Vital Signs Temp 97.0 F 12/13/21 17:25 Pulse 101 H 12/13/21 17:25 Resp 20 12/13/21 17:25 BP 139/77 12/13/21 17:25 Pulse Ox 94 12/13/21 17:25 BMI result Body Mass Index 38.0 DS: Data Data Completed and Pending Completed studies during hospitalization [Text1]: Procedures Dilation of Right Ureter with Intraluminal Device, Via Natural or Artificial Opening Endoscopic (12/13/21) Fluoroscopy of Right Kidney, Ureter and Bladder (12/13/21) Imaging CT scan - abdomen: Radiologist's impression: ITS Impressions Abdomen/Pelvis CT 12/13/21 08:00 IMPRESSION: Right hydronephrosis and ureteral dilatation from a 5 mm right mid ureteral stone. Bilateral renal stones, left greater than right. No left hydronephrosis or proximal ureteral dilatation. 10 mm calcification in the left pelvis, question representing a left distal ureteral stone versus calcified phlebolith. This is increased in size from 5 mm on December 2017 exam. Fleischner guidelines were followed. Guidance Fluoroscopy 12/13/21 16:35 IMPRESSION: Fluoroscopy for urologic procedures. Discharge Plan Discharge Patient Disposition: Home, Self-Care Discharge Diagnosis: ureteric stone Referrals: Homer Akers MD [Primary Care Provider] - 2 days Discharge Medications: New tamsulosin 0.4 mg capsule 0.4 mg PO BEDTIME 14 Days Qty: 14 0RF Continued (DME) blood-glucose meter [OneTouch Ultra2 Meter] Kit See Rx Instructions .ROUTE .MEDSUPPLY Qty: 1 0RF Rx Instructions: As directed (DME) lancets [OneTouch UltraSoft Lancets] Misc See Rx Instructions .ROUTE .MEDSUPPLY Qty: 4 0RF Rx Instructions: As directed check the blood sugars 4 times a day fluticasone propion-salmeterol 250-50 mcg/dose blister with device 1 inh inhalation BID 90 Days Qty: 3 3RF (DME) blood sugar diagnostic Strip See Rx Instructions .ROUTE .MEDSUPPLY Qty: 4 3RF Rx Instructions: As directed check the blood sugars 4 times a day metoprolol succinate 100 mg tablet extended release 24 hr 100 mg PO DAILY Qty: 90 3RF atorvastatin 40 mg tablet 40 mg PO DAILY 90 Days Qty: 90 3RF prednisolone acetate 1 % drops,suspension 1 drp ophthalmic (eye) DAILY 0RF cyanocobalamin (vitamin B-12) 1,000 mcg Tablet 1,000 mcg PO DAILY 0RF aspirin 81 mg Tablet,Chewable 81 mg PO DAILY 0RF cholecalciferol (vitamin D3) [Vitamin D3] 25 mcg (1,000 unit) Tablet 25 mcg PO DAILY 0RF PreserVision AREDS-2 250-90-40-1 mg Capsule 2 tab PO DAILY 0RF Prevagen 1 cap PO DAILY 0RF Trulicity 0.75 mg/0.5 mL pen injector 0.75 mg subcut MO 0RF albuterol sulfate [ProAir HFA] 90 mcg/actuation HFA aerosol inhaler 2 puff inhalation Q4-6H PRN (Reason: bronchospasm) Qty: 8.5 0RF cetirizine [Zyrtec] 10 mg tablet 10 mg PO DAILY 0RF albuterol sulfate 2.5 mg /3 mL (0.083 %) solution for nebulization 2.5 mg inhalation Q6H 0RF No Action Tresiba FlexTouch U-200 200 unit/mL (3 mL) insulin pen 50 unit subcut DAILY 90 Days Qty: 15 3RF metformin 1,000 mg tablet 1,000 mg PO BID Qty: 180 3RF tramadol 50 mg tablet 50 mg PO Q6H PRN (Reason: pain (scale score 1-3)) Qty: 8 0RF naproxen 500 mg tablet 500 mg PO BID PRN (Reason: pain) 7 Days Qty: 14 0RF phenazopyridine [Pyridium] 100 mg tablet 100 mg PO TID PRN (Reason: spasm) 4 Days Qty: 12 0RF sulfamethoxazole-trimethoprim [Bactrim] 400-80 mg tablet 1 tab PO DAILY 5 Days Qty: 5 0RF tamsulosin 0.4 mg capsule 0.4 mg PO BEDTIME 14 Days Qty: 14 0RF naproxen 500 mg tablet 500 mg PO BID PRN (Reason: pain) 7 Days Qty: 14 0RF potassium citrate 10 mEq (1,080 mg) tablet extended release 20 meq PO BID 90 Days Qty: 360 1RF Discharge Orders: Discharge Order (Routine); Ordered 12/13/21 Ordered By: Nakul Serna Diet: advance to usual diet and diabetic diet Activity on Discharge: As tolerated Stand Alone Forms: Patient Portal Discharge page Care Plan Goals: stones Health Concerns: stones Plan of Treatment: stones Assessment: stones Patient Instructions: Ureteroscopy (GEN) Discharge Date/Time: 12/13/21 18:44
== END 2021-12-13 18:44 | disposition home or self-care (01) | DRG 660 ==
LOC: HO.ED 16:21 → HO.S3 17:31
PROVIDERS: Admitting Provider Urology; Emergency Provider Emergency Medicine; PCP Internal Medicine; Visit Provider Urology
PROC: 0T768DZ Dilation of Right Ureter with Intraluminal Device, Via Natural or Artificial Opening Endoscopic (ICD-10-PCS; principal; 2021-12-13 17:50)
DX: N13.2 Hydronephrosis with renal and ureteral calculous obstruction (principal); E87.2 Acidosis; I48.92 Unspecified atrial flutter; N17.9 Acute kidney failure, unspecified; E86.0 Dehydration; N40.0 Benign prostatic hyperplasia without lower urinary tract symptoms; I10 Essential (primary) hypertension; E11.9 Type 2 diabetes mellitus without complications; E78.00 Pure hypercholesterolemia, unspecified; G47.33 Obstructive sleep apnea (adult) (pediatric); E66.9 Obesity, unspecified; E53.8 Deficiency of other specified B group vitamins; E55.9 Vitamin D deficiency, unspecified; Z20.822 Contact with and (suspected) exposure to COVID-19; Z87.442 Personal history of urinary calculi; Z87.891 Personal history of nicotine dependence; Z88.5 Allergy status to narcotic agent; Z79.1 Long term (current) use of non-steroidal anti-inflammatories (NSAID); Z79.51 Long term (current) use of inhaled steroids; Z79.82 Long term (current) use of aspirin; Z79.84 Long term (current) use of oral hypoglycemic drugs; Z79.899 Other long term (current) drug therapy; Z68.38 Body mass index [BMI] 38.0-38.9, adult; Z98.1 Arthrodesis status; Z79.4 Long term (current) use of insulin
CPT/HCPCS: 36415; 74176; 80048; 80076; 81001; 82947; 83605; 83690; 83735; 85025; 87635; 93005; 96361; 96374; 96375; 96376; 99285; C1758; C1769; C2617; J1170; J1956; J2270; J2405; J2930; J3010; J3475; Q9967

== ENCOUNTER 2021-12-20 13:25 | Day surgery (SDC) | payer MEDICARE, SELFPAY ==
[2021-12-20] VITALS (7 sets, daily range): BP systolic 150–171; BP diastolic 82–96; PULSE 79–86; RESP 17–20; TEMP 36.2–36.3; O2SAT 94–98; BMI 38.0
--- NOTE | ~2021-12-20 | FL_ITS ---
EXAMINATION: XR FLUOROSCOPY WITH IMAGES CLINICAL INFORMATION: Cystoscopy, laser, retrograde, ureteroscopy COMPARISON: Fluoroscopic spot views 12/13/2021, CT abdomen and pelvis noncontrast 12/13/2021 TECHNIQUE: Fluoroscopy performed by Dr. Nakul Serna. Fluoroscopy time: 21 seconds Cumulative dose: 13.54 mGy Images: 3 FINDINGS: Initial images show guidewire ascending right urinary tract and looped overlying right renal fossa. Final image shows right ureteral stent in position overlying right renal fossa and extending caudally beyond the [id number]. There are degenerative changes lumbar spine. FL/FL guidance in OR IMPRESSION: Fluoroscopy for urologic procedure.
[2021-12-20 14:41] LABS: Glucose, Whole Blood 109 mg/dL (60-115)
--- NOTE | 2021-12-20 14:44 | HO.ANESPROP2 ---
HPI - Anesthesia Eval Consult details Narrative: 76 yo male patient for cysto, ureteroscopy, retrograde and laser PMFSH Active Problems Active Problems: All Active Problems (Updated 12/16/21 @ 11:29 by Homer Akers MD) Renal calculi (Acute) Acute renal injury (Acute) Acidosis, lactic (Acute) Acute dehydration (Acute) Right ureteral stone (Acute) Bronchitis (Acute) Pharyngitis (Acute) Impingement syndrome of right shoulder (Acute) History of pericarditis (Acute) Allergic rhinitis (Acute) Bronchial asthma (Acute) Hyperkalemia (Acute) Hypertension (Acute) Obesity (BMI 30-39.9) (Acute) Obstructive sleep apnea (Acute) BPH (benign prostatic hyperplasia) (Acute) Hypercholesterolemia (Acute) Type 2 diabetes mellitus with hyperglycemia (Acute) Past Medical History Medical History Allergic rhinitis Ankle fracture Atrial flutter BPH (benign prostatic hyperplasia) Bronchial asthma Fatty liver History of pericarditis Hypercholesterolemia Hypertension Mass of right lung Obesity (BMI 30-39.9) Obstructive sleep apnea Type 2 diabetes mellitus with hyperglycemia Vitamin B12 deficiency Vitamin D deficiency Family History Family History Father No problems noted. Mother No problems noted. Son No problems noted. Son No problems noted. Daughter No problems noted. Daughter No problems noted. Family history of problems with anesthesia: No Surgical History Surgical History H/O spinal fusion History of appendectomy History of appendectomy History of bilateral inguinal hernia repair History of lithotripsy History of tooth extraction Lumbar spinal stenosis History of Problems with Anesthesia: No Social History Social History Housing: House Patient Tobacco Use Status: Former Tobacco user Tobacco use type: Cigarette Years Smoked: 1993 e-Cigarette/Vaping Use: Never Used Second Hand Smoke Exposure: No Use of substances other than those prescribed or required for medical reasons: No Advance Directives: No Advance Directives Information Provided: Yes service: Yes Current occupational status: retired Meds Allergies Allergy/AdvReac Type Severity Reaction Status Date / Time azithromycin [AZITHROMYCIN] Allergy Unknown HIVES Verified 12/20/21 14:35 lisinopril [LISINOPRIL] Allergy Unknown HIVES Verified 12/20/21 14:35 losartan [LOSARTAN] Allergy Unknown HIVES Verified 12/20/21 14:35 oxycodone [OXYCODONE] Allergy Unknown HIVES Verified 12/20/21 14:35 Home Medications Medication Instructions Recorded Confirmed Last Taken Type insulin degludec 200 unit/mL (3 50 unit SUBCUT DAILY cap 05/31/21 12/13/21 12/12/21 History mL) subcutaneous pen (Tresiba FlexTouch U-200 insulin) albuterol sulfate 2.5 mg INHALATION Q6H 08/13/21 12/13/21 Unknown History cetirizine 10 mg tablet (Zyrtec) 10 mg PO DAILY 08/13/21 12/13/21 12/12/21 History Prevagen 1 cap PO DAILY 12/13/21 12/13/21 12/12/21 History aspirin 81 mg chewable tablet 81 mg PO DAILY 12/13/21 12/13/21 12/12/21 History cholecalciferol (vitamin D3) 25 25 mcg PO DAILY 12/13/21 12/13/21 12/12/21 History mcg (1,000 unit) tablet (Vitamin D3) cyanocobalamin (vitamin B-12) 1,000 mcg PO DAILY 12/13/21 12/13/21 12/12/21 History 1,000 mcg tablet dulaglutide 0.75 mg/0.5 mL 0.75 mg SUBCUT MO 12/13/21 12/13/21 12/06/21 History subcutaneous pen injector (Trulicity) prednisolone acetate 1 % eye 1 drp OPHTHALMIC (EYE) DAILY 12/13/21 12/13/21 12/12/21 History drops,suspension vit C 250 mg-vit E 90 mg-zinc 40 2 tab PO DAILY 12/13/21 12/13/21 12/12/21 History mg-copper 1 [id number] capsule (PreserVision AREDS-2) Exam Exam Date and Time: December 20, 2021 1444 Height,Weight and Vital Signs: Height 5 ft 7 in Weight 110.223 kg Last Vital Signs Temp 97.1 F 12/20/21 14:12 Pulse 85 12/20/21 14:12 Resp 18 12/20/21 14:12 BP 150/91 H 12/20/21 14:12 Pulse Ox 95 12/20/21 14:12 Pertinent Lab Results Pertinent Lab Results: Laboratory Tests 12/20/21 14:05 POC Glucose 109 Airway Mallampati Class: II TM Dist: >3cm Neck ROM: Full Partial: Upper and Lower Heart: RRR Lungs: CTAB post albuterol treatment Assessment and Plan Assessment Anesthesia Assessment: Anesthesia Plan Discussed and Chart Reviewed Final Anesthetic Review Family History of Problems with Anesthesia: No History of Problems with Anesthesia: No NPO: Yes ASA Class: III Final Preanesthetic Review: No Changes in Pt Med Stat, Meds/Allgs Chart Reviewed, Consent Obtained/Reviewed and Anes Risks/Benef Reviewed Patient Risk: Intermediate Procedure Risk: Low Assessment/Block/Sedation in SS: Assess/Block/Sedation-SS Anesthetic Plan Anesthetic Plan: GA Disposition: Standard PACU
[2021-12-20] MEDS: Albuterol Sulfate (0.083%) 2.5 MG/3 ML VIAL.NEB INHALE (14:55)
[2021-12-20] MEDS: levoFLOXacin 500 MG TABLET PO (16:02)
--- NOTE | 2021-12-20 17:01 | MHC.SHP ---
Pre-Procedural Eval Section A Date of Service: 12/20/21 The patient is an INPATIENT: No Changes since office visit: No Cold of Flu in the past 2 weeks, No New Medical Problems, No Changes in Medication and No Patient answered all questions The History & Physical has been completed within 30 days and I have reviewed it.: Yes Section B Chief Complaint: Calculus of kidney Details of Present Illness: seen last week in hospital for obstructing right proximal ureteric stone. Stent was placed. Here today for completion procedure with ureteroscopy, laser lithotripsy and possible stent on the right side. Relevant Family History (Specify if Yes): No Relevant Social History: None Present Medications: see Short Stay Collaborative assessment Medical History: No relevant PMH History of Previous Operations: Relevant previous surgery/procedure and date(s) Allergies: Allergies Allergy/AdvReac Type Severity Reaction Status Date / Time azithromycin [AZITHROMYCIN] Allergy Unknown HIVES Verified 12/20/21 14:35 lisinopril [LISINOPRIL] Allergy Unknown HIVES Verified 12/20/21 14:35 losartan [LOSARTAN] Allergy Unknown HIVES Verified 12/20/21 14:35 oxycodone [OXYCODONE] Allergy Unknown HIVES Verified 12/20/21 14:35 Review of Systems Sugical H&P ROS: Negative: Constitution, Cardiovascular, Respiratory, Neurological, Psychiatric, Hem-Onc, Allergic/Immunologic, Gastrointestinal, Genitourinary, Musculoskeletal, Integumentary, Endocrine and Eyes/Ears/Nose/Throat Exam Surgical H&P Exam: Normal: HEENT, Normal: Heart, Normal: Lungs, Normal: Extremities, Normal: Abdomen, Normal: Skin and Normal: Neurological Plan Diagnosis/Plan: Unchanged ( Cystoscopy, right stent removal, right ureteroscopy with laser lithotripsy and stent placement.) I have reviewed the history and physical and performed a pertinent physical examination on my patient. No changes have occurred unless specified.
--- NOTE | 2021-12-20 17:39 | W.PM.OPN ---
Operative Note Operative Note Date of Service: 12/20/21 Narrative: PreOperative Diagnosis: Right proximal ureteric stone Post Operative Diagnosis: right proximal ureter stone Procedure: - cystoscopy, placement of wire, removal of indwelling right stent - right dilatation of ureteric orifice under fluoroscopy - right ureteroscopy, laser lithotripsy, stone basketing - right stent placement Surgeon: Dr Nakul Serna Anesthesia: General Indications for procedure: 76-year-old male. Proximal right ureteric stone imbedded with stent placement last week for elevated creatinine and possible infection. This is now resolved. Here for definitive procedure. Procedure: After informed consent was verified patient was brought to the operating placed in supine position. Anesthesia was administered per protocol. Patient was placed in modified dorsal lithotomy position and prepped and draped in a sterile fashion. Safety pause time-out and side of surgery confirmed. Antibiotics confirmed. 22 [place]ian cystoscope was inserted per urethra. Bladder was normal in its entirety. Both ureteric orifices were in normal position. The Right ureteric orifice was cannulated and a a wire placed alongside the wire up to the kidney alongside the indwelling stent. The rigid cystoscope was removed and the inner cannula of ureteric access sheath was used under fluoroscopy to dilate the ureteric orifice. The ureteric access sheath was placed and the inner cannula with access wire removed. The digital flexible ureteral scope was placed. The stone was encountered in the proximal portion of the ureter. This was broken with the laser. Fragments were then removed using a 0 tip basket. These were% for analysis. The kidney itself was examined in detail. There were numerous areas where there was seen to be small stones emerging from the renal parenchyma. The Sensor guidewire was placed. The access sheath was removed. A 6 [place] by 26 cm double-J stent was placed into the renal pelvis and bladder under a combination of fluoroscopy and direct visualization. The bladder was emptied. The patient tolerated the procedure well and was extubated in the operating room, and transferred in stable condition to the recovery area. Pathology: stones Drains: 6 [place] by 26 cm double-J stent
[2021-12-20] MEDS: Phenazopyridine HCL 100 MG TABLET PO (18:11)
--- NOTE | 2021-12-20 18:35 | PC.NURSE ---
1830 OOB ASSISTED TO DRESS AT BEDSIDE. MONITORS OFF. OOB AMBULATED TO BATHROOM TO VOIDX1 RED TINGED URINE NO CLOTS. RETURNED BACK TO WHEELCHAIR AWAIT DISCHARGE TO HOME. TAKING MORE SIPS PO FLUID.
[2021-12-24 20:51] LABS: Stone Source KIDNEY STONE
== END 2021-12-20 18:46 | disposition home or self-care (01) ==
PROVIDERS: PCP Internal Medicine; Visit Provider Urology
PROC: (CPT 52356; principal; 2021-12-20 16:40)
DX: N20.0 Calculus of kidney (principal); N20.1 Calculus of ureter; Z87.442 Personal history of urinary calculi; E11.65 Type 2 diabetes mellitus with hyperglycemia; N40.0 Benign prostatic hyperplasia without lower urinary tract symptoms; I10 Essential (primary) hypertension; G47.33 Obstructive sleep apnea (adult) (pediatric); E78.00 Pure hypercholesterolemia, unspecified; E55.9 Vitamin D deficiency, unspecified; E53.8 Deficiency of other specified B group vitamins; Z79.4 Long term (current) use of insulin; Z79.82 Long term (current) use of aspirin; Z79.899 Other long term (current) drug therapy; Z88.1 Allergy status to other antibiotic agents; Z88.8 Allergy status to other drugs, medicaments and biological substances; Z87.891 Personal history of nicotine dependence
CPT/HCPCS: 52356; 52352; 82365; 82947; 88300; 94640; C1758; C1769; C1894; C2617; J2405; J3010; Q9967

== ENCOUNTER 2021-12-24 08:54 | Outpatient (REF) | payer MEDICARE, SELFPAY ==
[2021-12-24 11:37] LABS: MANUAL DIFF FLAG NO
[2021-12-24 11:51] LABS: Basophils Percent Auto 0.7 % (0-2); Eosinophils Absolute Auto 0.1 X10*3/uL (0.0-0.4); Eosinophils Percent Auto 1.9 % (0-4); Hematocrit 41.4 % (42.0-52.0); Hemoglobin 13.7 g/dl (14.0-18.0); Imm Gran Abs Auto 0.03 X10*3/uL (0.00-0.03); Imm Gran Pct Auto 0.5 % (0.0-0.4); Lymphocytes Absolute Auto 1.8 X10*3/uL (1.2-4.9); Lymphocytes Percent Auto 30.5 % (20-40); Mean Corpuscular HGB Conc 33.1 g/dl (31.0-36.0); Mean Corpuscular Hemoglobin 28.7 pg (27.0-33.0); Mean Corpuscular Volume 86.8 fL (80.0-98.0); Mean Platelet Volume 10.9 fL (9.4-12.4); Monocytes Absolute Auto 0.5 X10*3/uL (0.1-1.2); Monocytes Percent Auto 9.2 % (2-11); Neutrophils Absolute Auto 3.3 x10*3/uL (2.0-8.3); Neutrophils Percent Auto 57.2 % (45-73); Platelet Count 181 X10*3/uL (160-400); Red Blood Count 4.77 X10*6/uL (4.60-5.80); White Blood Count 5.8 X10*3/uL (4.8-10.8)
[2021-12-24 12:23] LABS: Alanine Aminotransferase 27 U/L (0-40); Alkaline Phosphatase 89 U/L (39-117); Anion Gap 14 (12-20); Aspartate Amino Transferase 17 U/L (5-37); Bilirubin Total 1.1 mg/dL (0.0-1.0); Blood Urea Nitrogen 12 mg/dL (9-16); Calcium 8.9 mg/dL (8.4-10.2); Carbon Dioxide 26 mmol/L (22-29); Chloride 104 mmol/L (96-108); Cholesterol 147 mg/dL; Estimated Glomerular Filt Rate > 60; Glucose Random 164 mg/dL (60-115); HDL Cholesterol 33 mg/dL; LDL Cholesterol Calculated 93 mg/dl; Potassium 4.4 mmol/L (3.3-5.1); Sodium 140 mmol/L (135-145); Total Protein 6.6 g/dL (6.5-8.0); Triglycerides 107 mg/dL
[2021-12-24 12:32] LABS: Free T4 (Free Thyroxine) 0.95 ng/dL (0.71-1.85); Thyroid Stimulating Hormone 2.34 uIU/mL (0.32-4.0)
[2021-12-24 12:38] LABS: Estimated Average Glucose 157 mg/dL; Hemoglobin A1c % 7.1 %
[2021-12-24 12:44] LABS: Creatinine Urine 161.78 mg/dL
[2021-12-24 13:37] LABS: Folate 14.7 ng/mL (> or = 4.0); Vitamin B12 866 pg/mL (200-900)
== END 2021-12-24 08:55 | disposition home or self-care (01) ==
LOC: HO.HMGCLDS 08:54
PROVIDERS: Visit Provider Internal Medicine
DX: E11.65 Type 2 diabetes mellitus with hyperglycemia (principal); I10 Essential (primary) hypertension; E78.00 Pure hypercholesterolemia, unspecified; Z79.4 Long term (current) use of insulin
CPT/HCPCS: 36415; 80053; 80061; 82043; 82607; 82746; 83036; 84439; 84443; 85025

== ENCOUNTER → 2021-12-28 10:44 | Outpatient (BNVA) | payer MEDICARE, SELFPAY | PROVIDERS: PCP Internal Medicine; Visit Provider Urology | DX: Z48.816 Encounter for surgical aftercare following surgery on the genitourinary system (principal); Z87.442 Personal history of urinary calculi | CPT/HCPCS: 52310; 99212 ==

== ENCOUNTER 2022-01-24 12:45 | Day surgery (SDC) | payer MEDICARE, SELFPAY ==
--- NOTE | 2022-01-21 13:04 | P.CONAN_ITS ---
Documented by User: Rosemary Beaver NP 01/21/22 13:08 HPI - Anesthesia Eval Consult details Narrative: 76yo M for Left Cystoscopy, Ureteroroscopy, Retro, Laser,poss stent,flexible scope s/p Right side cysto, etc 12/21/21 with GA-LMA 5 PMFSH Active Problems Active Problems: All Active Problems (Updated 01/18/22 @ 12:49 by Yanique Glaser RN) Hyperkalemia (Acute) Impingement syndrome of right shoulder (Acute) Pharyngitis (Acute) Bronchitis (Acute) Right ureteral stone (Acute) Renal calculi (Acute) Medicare annual wellness visit, initial (Acute) Family history of abdominal aortic aneurysm (AAA) (Acute) History of pericarditis (Acute) Allergic rhinitis (Acute) Bronchial asthma (Acute) Hypertension (Acute) Obesity (BMI 30-39.9) (Acute) Obstructive sleep apnea (Acute) BPH (benign prostatic hyperplasia) (Acute) Hypercholesterolemia (Acute) Type 2 diabetes mellitus with hyperglycemia (Acute) Past Medical History Medical History Allergic rhinitis Ankle fracture Atrial flutter BPH (benign prostatic hyperplasia) Bronchial asthma Fatty liver History of pericarditis Hypercholesterolemia Hypertension Mass of right lung Obesity (BMI 30-39.9) Obstructive sleep apnea On beta min at home Type 2 diabetes mellitus with hyperglycemia Vitamin B12 deficiency Vitamin D deficiency Family History Family History Father No problems noted. Mother No problems noted. Son No problems noted. Son No problems noted. Daughter No problems noted. Daughter No problems noted. Family history of problems with anesthesia: No Surgical History Surgical History H/O spinal fusion History of appendectomy History of bilateral inguinal hernia repair History of cystoscopy History of lithotripsy History of tooth extraction Lumbar spinal stenosis History of Problems with Anesthesia: No Social History Social History Housing: House Patient Tobacco Use Status: Never used Tobacco Tobacco use type: Cigarette Years Smoked: 1993 e-Cigarette/Vaping Use: Never Used Second Hand Smoke Exposure: No Use of substances other than those prescribed or required for medical reasons: No Are you DNR?: No Advance Directives: No Advance Directives Information Provided: Yes service: Yes Current occupational status: retired Meds Allergies Allergy/AdvReac Type Severity Reaction Status Date / Time azithromycin [AZITHROMYCIN] Allergy Unknown HIVES Verified 01/18/22 12:52 lisinopril [LISINOPRIL] Allergy Unknown HIVES Verified 01/18/22 12:52 losartan [LOSARTAN] Allergy Unknown HIVES Verified 01/18/22 12:52 oxycodone [OXYCODONE] Allergy Unknown HIVES Verified 01/18/22 12:52 Home Medications Medication Instructions Recorded Confirmed Last Taken Type albuterol sulfate 2.5 mg INHALATION Q6H 08/13/21 01/18/22 Unknown History cetirizine 10 mg tablet (Zyrtec) 10 mg PO DAILY 08/13/21 01/18/22 12/12/21 History Prevagen 1 cap PO DAILY 12/13/21 12/28/21 12/12/21 History aspirin 81 mg chewable tablet 81 mg PO DAILY 12/13/21 01/18/22 12/12/21 History cholecalciferol (vitamin D3) 25 25 mcg PO DAILY 12/13/21 01/18/22 12/12/21 History mcg (1,000 unit) tablet (Vitamin D3) cyanocobalamin (vitamin B-12) 1,000 mcg PO DAILY 12/13/21 01/18/22 12/12/21 History 1,000 mcg tablet dulaglutide 0.75 mg/0.5 mL 0.75 mg SUBCUT MO 12/13/21 01/18/22 12/06/21 History subcutaneous pen injector (Trulicity) prednisolone acetate 1 % eye 1 drp OPHTHALMIC (EYE) DAILY 12/13/21 01/18/22 12/12/21 History drops,suspension vit C 250 mg-vit E 90 mg-zinc 40 2 tab PO DAILY 12/13/21 01/18/22 12/12/21 History mg-copper 1 [id number] capsule (PreserVision AREDS-2) Exam Exam Date and Time: January 21, 2022 1304 Pertinent Lab Results Pertinent Lab Results: Laboratory Tests 12/24/21 12/24/21 09:00 09:00 WBC 5.8 Hgb 13.7 L Hct 41.4 L Plt Count 181 Sodium 140 Potassium 4.4 Chloride 104 Carbon Dioxide 26 BUN 12 Creatinine 1.08 Narrative Narrative: EKG 11/2021 Vent. Rate : 083 BPM ? ? Atrial Rate : 083 BPM ?? P-R Int : 178 ms? QRS Dur : 086 ms ? ? QT Int : 382 ms ? ? ? P-R-T Axes : 047 -02 015 degrees ?? QTc Int : 448 ms ? Normal sinus rhythm Minimal voltage criteria for LVH, may be normal variant ( R in aVL ) Borderline ECG When compared with ECG of 28-NOV-2018 09:31, No significant change was found Assessment and Plan Assessment Anesthesia Assessment: Chart Reviewed Final Anesthetic Review Family History of Problems with Anesthesia: No History of Problems with Anesthesia: No Documented by User: Zandra Ellis MD 01/24/22 17:41 [facility] Past Medical History Medical History Allergic rhinitis Ankle fracture Atrial flutter BPH (benign prostatic hyperplasia) Bronchial asthma Fatty liver History of pericarditis Hypercholesterolemia Hypertension Mass of right lung Obesity (BMI 30-39.9) Obstructive sleep apnea On beta min at home Type 2 diabetes mellitus with hyperglycemia Vitamin B12 deficiency Vitamin D deficiency Functional capacity: independent ambulation Family History Family History Father No problems noted. Mother No problems noted. Son No problems noted. Son No problems noted. Daughter No problems noted. Daughter No problems noted. Surgical History Surgical History H/O spinal fusion History of appendectomy History of bilateral inguinal hernia repair History of cystoscopy History of lithotripsy History of tooth extraction Lumbar spinal stenosis Social History Social History Housing: House Patient Tobacco Use Status: Never used Tobacco Tobacco use type: Cigarette Years Smoked: 1993 e-Cigarette/Vaping Use: Never Used Second Hand Smoke Exposure: No Use of substances other than those prescribed or required for medical reasons: No Are you DNR?: No Advance Directives: No Advance Directives Information Provided: Yes service: Yes Current occupational status: retired Meds Allergies Allergy/AdvReac Type Severity Reaction Status Date / Time azithromycin [AZITHROMYCIN] Allergy Unknown HIVES Verified 01/18/22 12:52 lisinopril [LISINOPRIL] Allergy Unknown HIVES Verified 01/18/22 12:52 losartan [LOSARTAN] Allergy Unknown HIVES Verified 01/18/22 12:52 oxycodone [OXYCODONE] Allergy Unknown HIVES Verified 01/18/22 12:52 Home Medications Medication Instructions Recorded Confirmed Last Taken Type albuterol sulfate 2.5 mg INHALATION Q6H 08/13/21 01/18/22 Unknown History cetirizine 10 mg tablet (Zyrtec) 10 mg PO DAILY 08/13/21 01/18/22 12/12/21 History Prevagen 1 cap PO DAILY 12/13/21 12/28/21 12/12/21 History aspirin 81 mg chewable tablet 81 mg PO DAILY 12/13/21 01/18/22 12/12/21 History cholecalciferol (vitamin D3) 25 25 mcg PO DAILY 12/13/21 01/18/22 12/12/21 History mcg (1,000 unit) tablet (Vitamin D3) cyanocobalamin (vitamin B-12) 1,000 mcg PO DAILY 12/13/21 01/18/22 12/12/21 History 1,000 mcg tablet dulaglutide 0.75 mg/0.5 mL 0.75 mg SUBCUT MO 12/13/21 01/18/22 12/06/21 History subcutaneous pen injector (Trulicity) prednisolone acetate 1 % eye 1 drp OPHTHALMIC (EYE) DAILY 12/13/21 01/18/22 12/12/21 History drops,suspension vit C 250 mg-vit E 90 mg-zinc 40 2 tab PO DAILY 12/13/21 01/18/22 12/12/21 History mg-copper 1 [id number] capsule (PreserVision AREDS-2) Exam Airway Mallampati Class: IV TM Dist: >3cm Neck ROM: Full Partial: Upper Heart: RRR Lungs: CTA Assessment and Plan Final Anesthetic Review NPO: Yes ASA Class: III Final Preanesthetic Review: No Changes in Pt Med Stat Patient Risk: Intermediate Procedure Risk: Low Anesthetic Plan Anesthetic Plan: GA Disposition: Standard PACU
[2022-01-24] VITALS (7 sets, daily range): BP systolic 156–181; BP diastolic 85–93; PULSE 75–87; RESP 14–20; TEMP 36.1–36.3; O2SAT 93–97; BMI 38.3
--- NOTE | ~2022-01-24 | FL_ITS ---
EXAMINATION: XR FLUOROSCOPY WITH IMAGES CLINICAL INFORMATION: Urinary tract calculi, right hydronephrosis. COMPARISON: CT abdomen and pelvis noncontrast 12/13/2021 TECHNIQUE: Fluoroscopy performed by Dr. Nakul Serna. Fluoroscopy time: 2.0 minutes Cumulative dose: 92.94 mGy Images: 4 FINDINGS: There is contrast in the left urinary tract. No hydronephrosis. There is compound calyx upper pole. Left ureteral stent placed. FL/FL guidance in OR IMPRESSION: Fluoroscopy for urologic procedures.
[2022-01-24 15:25] LABS: Glucose, Whole Blood 91 mg/dL (60-115)
[2022-01-24] MEDS: levoFLOXacin 500 MG TABLET PO (15:40)
[2022-01-24] MEDS: Lactated Ringers 1,000 ML 100 ML IVCONT (15:43)
--- NOTE | 2022-01-24 17:24 | MHC.SHP ---
Pre-Procedural Eval Section A Date of Service: 01/24/22 The patient is an INPATIENT: No Changes since office visit: No Cold of Flu in the past 2 weeks, No New Medical Problems, No Changes in Medication and No Patient answered all questions The History & Physical has been completed within 30 days and I have reviewed it.: Yes Section B Chief Complaint: Calculus of kidney Details of Present Illness: left renal calculi Relevant Family History (Specify if Yes): No Relevant Social History: None Present Medications: see Short Stay Collaborative assessment Medical History: No relevant PMH History of Previous Operations: Relevant previous surgery/procedure and date(s) Allergies: Allergies Allergy/AdvReac Type Severity Reaction Status Date / Time azithromycin [AZITHROMYCIN] Allergy Unknown HIVES Verified 01/18/22 12:52 lisinopril [LISINOPRIL] Allergy Unknown HIVES Verified 01/18/22 12:52 losartan [LOSARTAN] Allergy Unknown HIVES Verified 01/18/22 12:52 oxycodone [OXYCODONE] Allergy Unknown HIVES Verified 01/18/22 12:52 Review of Systems Sugical H&P ROS: Negative: Constitution, Cardiovascular, Respiratory, Neurological, Psychiatric, Hem-Onc, Allergic/Immunologic, Gastrointestinal, Genitourinary, Musculoskeletal, Integumentary, Endocrine and Eyes/Ears/Nose/Throat Exam Surgical H&P Exam: Normal: HEENT, Normal: Heart, Normal: Lungs, Normal: Extremities, Normal: Abdomen, Normal: Skin and Normal: Neurological Plan Diagnosis/Plan: Unchanged ( cystoscopy, left retrograde, left ureteroscopy with laser lithotripsy stent placement) I have reviewed the history and physical and performed a pertinent physical examination on my patient. No changes have occurred unless specified.
--- NOTE | 2022-01-24 18:36 | W.PM.OPN ---
Operative Note Operative Note Date of Service: 01/24/22 Narrative: PreOperative Diagnosis: left renal stones Post Operative Diagnosis: left renal stones 3 stones Procedure: - cystoscopy, left retrograde - left dilatation of ureteric orifice under fluoroscopy - left ureteroscopy, laser lithotripsy, stone basketing - left stent placement Surgeon: Dr Nakul Serna Anesthesia: General Indications for procedure: stones in left lower pole in CT scan when admitted for right-sided stones Procedure: After informed consent was verified patient was brought to the operating placed in supine position. Anesthesia was administered per protocol. Patient was placed in modified dorsal lithotomy position and prepped and draped in a sterile fashion. Safety pause time-out and side of surgery confirmed. Antibiotics confirmed. 22 [place] cystoscope was inserted per urethra. Bladder was normal in its entirety. Both ureteric orifices were in normal position. The left ureteric orifice was cannulated and a retrograde examination was performed. filling defects seen in left lower pole . A Sensor guidewire was placed up to the level of the renal pelvis under fluoroscopy. The rigid cystoscope was removed and the inner cannula of ureteric access sheath was used under fluoroscopy to dilate the ureteric orifice. The ureteric access sheath was placed and the inner cannula with access wire removed. The digital flexible ureteral scope was placed. While it was challenging were able to access the left lower pole. Three stones were found. stones removed to the upper pole with a Zero tip basket. Laser was performed on the stones to break them into small pieces. Stone pieces were then removed with the basket. At completion a double-J stent was placed. A 6 [place] by Twenty for cm double-J stent was placed into the renal pelvis and bladder under a combination of fluoroscopy and direct visualization. The bladder was emptied. The patient tolerated the procedure well and was extubated in the operating room, and transferred in stable condition to the recovery area. Pathology: stones Drains: 6 [place] by 24 cm double-J stent left side
[2022-01-24] MEDS: Phenazopyridine HCL 100 MG TABLET PO (19:10)
[2022-01-24] MEDS: Ketorolac Tromethamine 15 MG/ML VIAL IVPUSH (19:10)
[2022-01-24] MEDS: traMADoL HCL 50 MG TABLET PO (19:14)
--- NOTE | 2022-01-24 20:57 | HO.POSTANES ---
Post Anesthesia Evaluation Post Anesthesia Evaluation Vital Signs: Vital Signs Temp Pulse Resp BP Pulse Ox 01/24/22 19:32 77 18 174/89 H 96 01/24/22 19:17 75 16 181/93 H 94 01/24/22 19:02 97.0 F 80 14 169/90 H 93 01/24/22 18:57 75 14 171/91 H 95 01/24/22 18:52 79 14 167/91 H 97 01/24/22 18:47 97.3 F 84 14 156/85 H 94 01/24/22 15:23 97.1 F 87 20 160/92 H 97 Anesthesia: General LMA Mental Status: Awake Pain Control: Satisfactory Nausea/Vomiting: None Hydration: Adequate Anesthesia-Related Issues: No Anes. Related Issues
[2022-01-29 02:16] LABS: Stone Source KIDNEY STONE
== END 2022-01-24 19:41 | disposition home or self-care (01) ==
PROVIDERS: PCP Internal Medicine; Visit Provider Urology
PROC: (CPT 52356; principal; 2022-01-24 14:40)
DX: N20.0 Calculus of kidney (principal); E11.9 Type 2 diabetes mellitus without complications; I10 Essential (primary) hypertension; I48.92 Unspecified atrial flutter; Z79.82 Long term (current) use of aspirin; Z79.899 Other long term (current) drug therapy; Z88.1 Allergy status to other antibiotic agents; Z88.5 Allergy status to narcotic agent; Z88.8 Allergy status to other drugs, medicaments and biological substances
CPT/HCPCS: 52356; 82365; 82947; 88300; C1758; C1769; C1894; C2617; J1885; J2405; J3010; Q9967

== ENCOUNTER → 2022-02-02 12:50 | Outpatient (BNVA) | payer MEDICARE, SELFPAY | PROVIDERS: PCP Internal Medicine; Visit Provider Urology | DX: R82.991 Hypocitraturia (principal); E83.59 Other disorders of calcium metabolism | CPT/HCPCS: 52310; 99212 ==

== ENCOUNTER 2022-02-23 10:26 | Outpatient (REF) | payer MEDICARE, SELFPAY | END 2022-02-23 10:27 | disposition home or self-care (01) | LOC: HO.US 10:26 | PROVIDERS: Visit Provider Nurse Practitioner Family | DX: Z13.89 Encounter for screening for other disorder (principal) ==

== ENCOUNTER → 2022-03-21 09:19 | Outpatient (BNVA) | payer MEDICARE, SELFPAY | PROVIDERS: PCP Internal Medicine; Visit Provider Internal Medicine | DX: J45.20 Mild intermittent asthma, uncomplicated (principal); J30.9 Allergic rhinitis, unspecified; G47.33 Obstructive sleep apnea (adult) (pediatric); E66.9 Obesity, unspecified; Z68.38 Body mass index [BMI] 38.0-38.9, adult; Z99.89 Dependence on other enabling machines and devices | CPT/HCPCS: 99212 ==

== ENCOUNTER 2022-04-14 13:47 | Outpatient (REF) | payer MEDICARE, SELFPAY ==
--- NOTE | ~2022-04-14 | US_ITS ---
EXAMINATION: US RETROPERITONEAL LIMITED (RENAL ONLY) CLINICAL INFORMATION: Renal stones. COMPARISON: CT of the abdomen and pelvis 12/13/2021. Ultrasound of the urinary bladder. 01/16/2020. Ultrasound renals only 02/05/2019. X-ray KUB 04/20/2011. TECHNIQUE: Real-time imaging of the kidneys. FINDINGS: RIGHT KIDNEY: 11.6 x 6.6 x 6.5 cm (SAG x AP x TRV). The kidney is normal in size, contour, and echogenicity. Renal cortical thickness is normal. There are echogenic stones in the lower pole measuring 0.5 x 0.4 x 0.6 cm and in the mid to lower pole measuring 0.8 x 0.4 x 0.5 cm. There is no caliectasis. There is no hydronephrosis. No cystic or solid lesion seen. LEFT KIDNEY: 12.6 x 5.5 x 6.2 cm (SAG x AP x TRV). The kidney is normal in size, contour, and echogenicity. Renal cortical thickness is normal. There is an echogenic stone in the lower pole measuring 0.7 x 0.5 x 1.2 cm and in the midpole measuring 0.9 x 0.7 x 0.6 cm. There is no caliectasis or hydronephrosis. There are peripelvic midpole cysts measuring 3.2 x 1.53 and 3.19 x 1.20 cm. US/US renal BI IMPRESSION: Nonobstructive bilateral echogenic renal calculi. Left renal peripelvic cysts.
== END 2022-04-14 13:48 | disposition home or self-care (01) ==
LOC: HO.US 13:47
PROVIDERS: Visit Provider Urology
DX: N20.0 Calculus of kidney (principal)
CPT/HCPCS: 76775

== ENCOUNTER → 2022-05-11 11:40 | Outpatient (BNVA) | payer MEDICARE, SELFPAY | PROVIDERS: PCP Internal Medicine; Visit Provider Urology | DX: E83.59 Other disorders of calcium metabolism (principal); N40.0 Benign prostatic hyperplasia without lower urinary tract symptoms; R82.991 Hypocitraturia; E11.65 Type 2 diabetes mellitus with hyperglycemia; Z79.4 Long term (current) use of insulin | CPT/HCPCS: 99212 ==

== ENCOUNTER → 2022-07-27 12:38 | Outpatient (BNVA) | payer MEDICARE, SELFPAY | PROVIDERS: PCP Internal Medicine; Visit Provider Physician Assistant | DX: M75.41 Impingement syndrome of right shoulder (principal) | CPT/HCPCS: 20610; 99212; J1020 ==

== ENCOUNTER → 2022-09-27 09:09 | Outpatient (BNVA) | payer MEDICARE, SELFPAY | PROVIDERS: PCP Internal Medicine; Visit Provider Internal Medicine | DX: J45.20 Mild intermittent asthma, uncomplicated (principal); J30.9 Allergic rhinitis, unspecified; E66.9 Obesity, unspecified; Z68.38 Body mass index [BMI] 38.0-38.9, adult; G47.33 Obstructive sleep apnea (adult) (pediatric); Z99.89 Dependence on other enabling machines and devices | CPT/HCPCS: 99212 ==

== ENCOUNTER 2022-11-04 09:15 | Outpatient (REF) | payer MEDICARE, SELFPAY ==
--- NOTE | ~2022-11-04 | XR_ITS ---
EXAMINATION: XR ABDOMEN KUB CLINICAL INDICATION: Stones COMPARISON: None TECHNIQUE: AP view of the abdomen. FINDINGS: The bowel gas pattern is normal with no evidence of ileus or obstruction. 5 mm calcified lesion projecting over the inferior pole of left renal shadow likely reflects a nonobstructing stone. No abnormal calcifications along the expected course of ureters. Calcification measuring 1.0 cm over the expected location of the bladder may reflect a urinary bladder stone. XR/XR KUB IMPRESSION: 5 mm calcified lesion projecting over the inferior pole of left renal shadow likely reflects a nonobstructing stone. Calcification measuring 1.0 cm over the expected location of the bladder may reflect a urinary bladder stone.
== END 2022-11-04 09:16 | disposition home or self-care (01) ==
LOC: HO.XRAY 09:15
PROVIDERS: PCP Internal Medicine; Visit Provider Urology
DX: N20.0 Calculus of kidney (principal)
CPT/HCPCS: 74018

== ENCOUNTER → 2022-11-15 09:41 | Outpatient (BNVA) | payer MEDICARE, SELFPAY | PROVIDERS: PCP Internal Medicine; Visit Provider Urology | DX: Z13.9 Encounter for screening, unspecified (principal); E83.59 Other disorders of calcium metabolism | CPT/HCPCS: 51798; 99212 ==

== ENCOUNTER 2022-12-26 09:11 | Outpatient (REF) | payer MEDICARE, SELFPAY ==
[2022-12-26 11:44] LABS: Basophils Percent Auto 0.6 % (0-2); Eosinophils Absolute Auto 0.2 X10*3/uL (0.0-0.4); Eosinophils Percent Auto 2.6 % (0-4); Hematocrit 40.6 % (42.0-52.0); Hemoglobin 13.6 g/dl (14.0-18.0); Imm Gran Abs Auto 0.01 X10*3/uL (0.00-0.03); Imm Gran Pct Auto 0.2 % (0.0-0.4); Immature Retic Fraction 11.9 % (2.3-13.4); Lymphocytes Absolute Auto 2.5 X10*3/uL (1.2-4.9); Lymphocytes Percent Auto 38.1 % (20-40); MANUAL DIFF FLAG NO; Mean Corpuscular HGB Conc 33.5 g/dl (31.0-36.0); Mean Corpuscular Hemoglobin 28.7 pg (27.0-33.0); Mean Corpuscular Volume 85.7 fL (80.0-98.0); Mean Platelet Volume 11.4 fL (9.4-12.4); Monocytes Absolute Auto 0.5 X10*3/uL (0.1-1.2); Neutrophils Absolute Auto 3.4 x10*3/uL (2.0-8.3); Neutrophils Percent Auto 50.5 % (45-73); Platelet Count 152 X10*3/uL (160-400); Red Blood Count 4.74 X10*6/uL (4.60-5.80); Red Cell Distribution Width 13.1 % (11.0-16.0); Retic HGB Equivalent 32.8 pg (30.0-35.0); Reticulocyte Percent 1.4 % (0.5-1.8); Reticulocytes Absolute 0.066 X10*6/uL (0.026-0.095); White Blood Count 6.6 X10*3/uL (4.8-10.8)
[2022-12-26 12:09] LABS: Estimated Average Glucose 157 mg/dL; Hemoglobin A1c % 7.1 %
[2022-12-26 12:43] LABS: Alanine Aminotransferase 42 U/L (0-40); Albumin Level 4.1 g/dL (3.5-5.0); Alkaline Phosphatase 89 U/L (39-117); Anion Gap 14 (12-20); Aspartate Amino Transferase 28 U/L (5-37); Bilirubin Total 1.4 mg/dL (0.0-1.0); Blood Urea Nitrogen 18 mg/dL (9-16); Calcium 8.7 mg/dL (8.4-10.2); Carbon Dioxide 27 mmol/L (22-29); Chloride 105 mmol/L (96-108); Cholesterol 137 mg/dL; Estimated Glomerular Filt Rate > 60; Glucose Random 164 mg/dL (60-115); HDL Cholesterol 27 mg/dL; Iron 88 mcg/dL (45-160); LDL Cholesterol Calculated 77 mg/dl; Percent Iron Saturation 25 % (15-50); Potassium 4.4 mmol/L (3.3-5.1); Sodium 142 mmol/L (135-145); Total Iron Binding Capacity 350 mcg/dL (228-428); Total Protein 6.6 g/dL (6.5-8.0); Triglycerides 165 mg/dL; Unsaturated Iron Binding 262 ug/dL
[2022-12-26 12:51] LABS: Ferritin 51 ng/mL (20-250); Folate 12.7 ng/mL (> or = 4.0); Free T4 (Free Thyroxine) 0.84 ng/dL (0.71-1.85); Thyroid Stimulating Hormone 6.36 uIU/mL (0.32-4.0); Vitamin B12 543 pg/mL (200-900)
[2022-12-26 13:35] LABS: Creatinine Urine 274.29 mg/dL; Microalbum/Creatinine Ratio Ur 9.8 ug/mg cr
== END 2022-12-26 09:12 | disposition home or self-care (01) ==
LOC: HO.HMGCLDS 09:11
PROVIDERS: PCP Internal Medicine; Visit Provider Internal Medicine
DX: E11.65 Type 2 diabetes mellitus with hyperglycemia (principal); I10 Essential (primary) hypertension; E78.00 Pure hypercholesterolemia, unspecified; Z79.4 Long term (current) use of insulin
CPT/HCPCS: 36415; 80053; 80061; 82043; 82607; 82728; 82746; 83036; 83540; 84439; 84443; 85025; 85045

== ENCOUNTER → 2023-01-18 13:31 | Outpatient (BNVA) | payer MEDICARE, SELFPAY | PROVIDERS: PCP Internal Medicine; Visit Provider Internal Medicine | DX: G47.33 Obstructive sleep apnea (adult) (pediatric) (principal); J45.20 Mild intermittent asthma, uncomplicated; J30.9 Allergic rhinitis, unspecified; E66.9 Obesity, unspecified; Z68.39 Body mass index [BMI] 39.0-39.9, adult | CPT/HCPCS: 99212 ==

== ENCOUNTER → 2023-03-21 09:20 | Outpatient (BNVA) | payer MEDICARE, SELFPAY | PROVIDERS: PCP Internal Medicine; Visit Provider Internal Medicine | DX: G47.33 Obstructive sleep apnea (adult) (pediatric) (principal); J45.20 Mild intermittent asthma, uncomplicated; J30.9 Allergic rhinitis, unspecified; E66.9 Obesity, unspecified; Z68.39 Body mass index [BMI] 39.0-39.9, adult | CPT/HCPCS: 99212 ==

== ENCOUNTER 2023-05-24 08:59 | Outpatient (AMB) | payer MEDICARE, SELFPAY ==
[2023-05-24 09:06] VITALS: BP 142/80; PULSE 90; O2SAT 94; BMI 38.5
--- NOTE | 2023-05-24 09:06 | MHC.PC.OV ---
Vital Signs 05/24/23 09:06 Height 5 ft 7 in Weight 246 lb BMI 38.5 BP 142/80 H Blood Pressure Location Lt brachial Position Sitting Pulse 90 Pulse Source Pulse Oximeter Pulse Oximetry (%) 94 Oxygen Delivery Method Room Air Intake Visit Reasons: DM Allergies azithromycin [AZITHROMYCIN] Allergy (Unknown, Verified 05/24/23 09:07) HIVES lisinopril [LISINOPRIL] Allergy (Unknown, Verified 05/24/23 09:07) HIVES losartan [LOSARTAN] Allergy (Unknown, Verified 05/24/23 09:07) HIVES oxycodone [OXYCODONE] Allergy (Unknown, Verified 05/24/23 09:07) HIVES Medication List - Last Reconciled 05/24/23 by Homer Akers MD albuterol sulfate 90 mcg/actuation (ProAir HFA) 2 puffs inhalation Q4-6H PRN albuterol sulfate 2.5 mg inhalation Q6H atorvastatin 40 mg PO DAILY 90 days blood sugar diagnostic ([employer] Ultra Test strips) test 2 times per day blood sugar diagnostic One touch ULTRA TEst Strips check the BS 2x a day blood-glucose meter ([employer] Ultra2 Meter kit) As directed cetirizine (Zyrtec) 10 mg PO DAILY cholecalciferol (vitamin D3) (Vitamin D3) 25 mcg PO DAILY cyanocobalamin (vitamin B-12) 1,000 mcg PO DAILY dulaglutide (Trulicity) 1.5 mg (0.5 mL) subcut QWEEK 30 days fluticasone propion-salmeterol 250-50 mcg/dose 1 inh inhalation BID 90 days insulin degludec (Tresiba FlexTouch U-200 insulin) 50 units (0.25 mL) subcut DAILY 90 days lancets ([employer] UltraSoft Lancets) As directed check the blood sugars 4 times a day metformin 1,000 mg PO BID metoprolol succinate ER 100 mg PO DAILY naproxen 500 mg PO BID PRN 7 days pen needle, diabetic (Easy Touch) As directed pen needle, diabetic, safety (Easy Touch Safety Pen Needle) As directed inject twice a day potassium citrate ER 20 mEq (2 x 10 mEq (1,080 mg)) PO BID 90 days prednisolone acetate 1% 1 drp ophthalmic (eye) DAILY [Prevagen 1 cap PO DAILY] tamsulosin 0.4 mg PO BEDTIME 90 days vit C,N-Zo-divpl-lutein-zeaxan 250-90-40-1 mg (PreserVision AREDS-2) 2 tabs PO DAILY Tobacco use date assessed: 11/04/22 Fall risk assessment: No Falls in past year Last assessed Fall Risk: 05/24/23 Dental Screening Dental Screen Date: 05/24/23 Did you have a dental visit in the last 12 months?: No Did you have a dental problem in the last 6 months where you did not have access to dental care?: No Was dental information given to patient?: Patient has dentist HPI DM HPI Details 78-year-old obese male with diabetes mellitus hypertension hypercholesterolemia obstructive sleep apnea BPH asthma fatty liver coming in for follow-up last seen in January 2023. Review of the notes has seen Pulmonary in March for the COPD follow-up and sleep apnea on the CPAP regularly continuing with Advair and remember to rinse mouth after using it patient is on Zyrtec also December showing blood work had an elevated TSH and advised to follow-up [facility] Medical History Abnormal LFTs Allergic rhinitis Ankle fracture Atrial flutter BPH (benign prostatic hyperplasia) Bronchial asthma Bronchitis Calcium oxalate calculus Fatty liver History of pericarditis Hypercholesterolemia Hyperkalemia Hypertension Hypocitraturia Impingement syndrome of right shoulder Mass of right lung Medicare annual wellness visit, initial Obesity (BMI 30-39.9) Obstructive sleep apnea On beta min at home Pharyngitis Type 2 diabetes mellitus with hyperglycemia Vitamin B12 deficiency Vitamin D deficiency Surgical History H/O spinal fusion History of appendectomy History of bilateral inguinal hernia repair History of cystoscopy History of lithotripsy History of tooth extraction Lumbar spinal stenosis Family History Father No problems noted. Mother No problems noted. Son No problems noted. Son No problems noted. Daughter No problems noted. Daughter No problems noted. Social History Housing: House Patient Tobacco Use Status: Former Tobacco user Tobacco use type: Cigarette Years Smoked: 1993 e-Cigarette/Vaping Use: Never Used Second Hand Smoke Exposure: No service: Yes Current occupational status: retired Cognitive needs: No Hearing needs: No Vision needs: Yes Questionnaire PHQ-9 Over the last 2 weeks, how often have you been bothered by any of the following problems? 1. Little interest or pleasure in doing things: not at all 2. Feeling down, depressed, or hopeless: not at all 3. Trouble falling or staying asleep, or sleeping too much: not at all 4. Feeling tired or having little energy: not at all 5. Poor appetite or overeating: not at all 6. Feeling bad about yourself - or that you are a failure or have let yourself or your family down: not at all 7. Trouble concentrating on things, such as reading the newspaper or watching television: not at all 8. Moving or speaking so slowly that other people could have noticed. Or the opposite - being so fidgety or restless that you have been moving around a lot more than usual: not at all 9. Thoughts that you would be better off or of hurting yourself in some way: not at all Total score: 0 Depression Screening Interpretation: Negative 31948 - PHQ-9 Billing: Yes Source: Developed by Drs. Lenny Jimenez, Norma Murdock, Rk Holloway and colleagues, with an educational alfredo from [employer]. Thrive Questionnaire Date Thrive assessed: 11/04/22 AUDIT C Alcohol Use Questionnaire (AUDIT-C) 1. How often do you have a drink containing alcohol?: Never Total Score: 0 Score Reviewed/Action Taken: No VIDHYA-7 AMB Questionnaire VIDHYA-7 Date VIDHYA - 7 assessed: 11/04/22 Source: Developed by Drs. Lenny Jimenez, Rk Amador and colleagues, with an educational alfredo from [employer]. Physical exam (Primary Care) Vital Signs: Last Vital Signs Pulse 90 05/24/23 09:06 BP 142/80 H 05/24/23 09:06 Pulse Ox 94 05/24/23 09:06 Oxygen Delivery Method Room Air 05/24/23 09:06 BMI result Body Mass Index 38.5 Tobacco/Smoking Status: Tobacco use Status Tobacco use date assessed 11/04/22 05/24/23 09:08 Patient Tobacco Use Status Former Tobacco user 05/24/23 09:08 Tobacco use type Cigarette 05/24/23 09:08 e-Cigarette/Vaping Use Never Used 05/24/23 09:08 PHQ-9: PHQ-9 Score PHQ-9: Total score 0 05/24/23 09:16 Depression Screening Interpretation: Negative Thrive Assessment: Date of Thrive Assessment Date Thrive assessed 11/04/22 05/24/23 09:08 Const General: alert; No acute distress Eyes Conjunctivae: conjunctivae normal Resp Auscultation: clear to auscultation bilaterally Cardio Rate: regular rate Rhythm: regular rhythm GI Inspection: Yes normal to inspection Extrem General: Yes normal to inspection and No edema Results AMB Hemoglobin A1c AMB Hemoglobin A1c 7.5 % Last Edit by Humera Poe CMA on 05/24/23 09:18 Assessment and Plan Assessment & Plan (1) Type 2 diabetes mellitus with hyperglycemia: Comment: Dr. Vanessa Code(s): E11.65 - Type 2 diabetes mellitus with hyperglycemia Qualifiers: Diabetes mellitus vermin exterminator insulin use: with group home use Qualified Code(s): E11.65 - Type 2 diabetes mellitus with hyperglycemia; Z79.4 - intermission coordinator (current) use of insulin Plan: Decrease the amount of carbohydrate intake, pasta, bread, rice and potatoes are all sugar and that is aside from all the sweet stuff, remember that fruits are good but they are Sweet also. Hemoglobin A1c goal of less than 7.December last blood work 7.1 based A1c is 7.4. Will increase Trulicity does (2) Hypercholesterolemia: Code(s): E78.00 - Pure hypercholesterolemia, unspecified Plan: Avoid fried foods, chicken skin, eggs, butter margarine, pastries and meat. Be it pork or beef they have a lot of cholesterol LDL goal of less than 70 and triglyceride of less than 150 patient is on atorvastatin 40 mg once a day December 2022 last blood work at goal (3) BPH (benign prostatic hyperplasia): Code(s): N40.0 - Benign prostatic hyperplasia without lower urinary tract symptoms Plan: Stable on tamsulosin 0.4 mg once a day (4) Obstructive sleep apnea: Comment: Being treated with CPAP , and he is very compliant/ benefitting . Continue to use CPAP daily . His new CPAP device is working good. Code(s): G47.33 - Obstructive sleep apnea (adult) (pediatric) Plan: Noted compliance report follows up with Pulmonary continue with CPAP more than 4 hours a night and benefits from this (5) Obesity (BMI 30-39.9): Comment: Patient is aware of the fact that he needs to loose weight. advised to cut down the calories intake and also do walking on a daily basis. Encouraged to start walking every day and do some physical exercise. Code(s): E66.9 - Obesity, unspecified Plan: Diet and exercise noted weight loss (6) Hypertension: Code(s): I10 - Essential (primary) hypertension Qualifiers: Hypertension type: essential hypertension Qualified Code(s): I10 - Essential (primary) hypertension Plan: Continue with blood pressure medication. Decrease salt intake and exercise patient takes metoprolol 100 mg once a day. Ramesh inhibitor intolerant. Blood pressure remains to be a mildly elevated advised to check the blood pressure at home. Blood pressure monitor prescription given (7) Bronchial asthma: Comment: Br. Asthma in his case is Cough / Asthma Variant and is well controlled at this time . TX: Advair 250-50 one inh bid and Proair 2 puffs Q 4-6 hours p.r.n., or Albuterol in Neb . as needed. Code(s): J45.909 - Unspecified asthma, uncomplicated Qualifiers: Asthma severity: mild Asthma persistence: intermittent Asthma complication type: uncomplicated Qualified Code(s): J45.20 - Mild intermittent asthma, uncomplicated Plan: Continue with Advair and albuterol. Reminder to rinse mouth after using (8) TSH elevation: Code(s): R79.89 - Other specified abnormal findings of blood chemistry Plan: Last blood work showing TSH elevation advised repeat testing Orders: Orders AMB Hemoglobin A1c Today Z13.9 - Encounter for screening, unspecified Medications: New blood pressure monitor (Blood Pressure Kit) As directed 1 ea 0RF I10 - Essential (primary) hypertension Changed From dulaglutide (Trulicity) 1.5 mg (0.5 mL) subcut QWEEK 30 days 2.5 mL 3RF E11.65 - Type 2 diabetes mellitus with hyperglycemia, Z79.4 - retirement (current) use of insulin To dulaglutide 3 mg (0.5 mL) subcut QWEEK 30 days 2.5 mL 3RF E11.65 - Type 2 diabetes mellitus with hyperglycemia, Z79.4 - intermission coordinator (current) use of insulin Coding Level of Care Code Est Pt Level 4 (01224) Diagnoses Type 2 diabetes mellitus with hyperglycemia E11.65; Z79.4 Diabetes mellitus vermin exterminator insulin use: with vermin exterminator use Hypercholesterolemia E78.00 BPH (benign prostatic hyperplasia) N40.0 Obstructive sleep apnea G47.33 Obesity (BMI 30-39.9) E66.9 Hypertension I10 Hypertension type: essential hypertension Bronchial asthma J45.20 Asthma severity: mild Asthma persistence: intermittent Asthma complication type: uncomplicated TSH elevation R79.89
== END 2023-05-24 09:39 | disposition home or self-care (01) ==
PROVIDERS: Visit Provider Internal Medicine
DX: E11.65 Type 2 diabetes mellitus with hyperglycemia (principal); Z79.4 Long term (current) use of insulin; I10 Essential (primary) hypertension; J45.20 Mild intermittent asthma, uncomplicated; E78.00 Pure hypercholesterolemia, unspecified; N40.0 Benign prostatic hyperplasia without lower urinary tract symptoms; G47.33 Obstructive sleep apnea (adult) (pediatric); E66.9 Obesity, unspecified; R79.89 Other specified abnormal findings of blood chemistry
CPT/HCPCS: 83036; 99214

== ENCOUNTER 2023-07-10 11:11 | Outpatient (REF) | payer MEDICARE, SELFPAY ==
[2023-07-10 13:48] LABS: Alanine Aminotransferase 29 U/L (0-40); Albumin Level 4.1 g/dL (3.5-5.0); Alkaline Phosphatase 82 U/L (39-117); Aspartate Amino Transferase 24 U/L (5-37); Bilirubin Direct 0.4 mg/dL (0.0-0.5); Bilirubin Total 1.1 mg/dL (0.0-1.0); Total Protein 7.2 g/dL (6.5-8.0)
[2023-07-10 13:50] LABS: Free T4 (Free Thyroxine) 0.86 ng/dL (0.71-1.85); Thyroid Stimulating Hormone 3.95 uIU/mL (0.32-4.0)
[2023-07-11 05:30] LABS: HBc Num1 0.08 S/CO (0.00-0.79); HBsAGNum1 0.42 S/CO (0.00-0.99); Hepatitis B Core Antibody Nonreactive (Nonreactive); Hepatitis B Surface Antigen Negative (Negative); ~HepC Num1 0.09 S/CO (0.00-0.79); ~Hepatitis B Surface Antibody NONREACTIVE (Nonreactive); ~Hepatitis C Antibody Nonreactive (Nonreactive)
== END 2023-07-10 11:12 | disposition home or self-care (01) ==
LOC: HO.HMGCLDS 11:11
PROVIDERS: PCP Internal Medicine; Visit Provider Internal Medicine
DX: R94.6 Abnormal results of thyroid function studies (principal)
CPT/HCPCS: 36415; 80076; 84439; 84443; 86704; 86706; 86803; 87340

== ENCOUNTER 2023-08-29 08:38 | Outpatient (AMB) | payer MEDICARE, SELFPAY ==
--- NOTE | 2023-08-29 08:40 | MHC.PC.OV ---
Vital Signs 08/29/23 08:42 Height 5 ft 7 in Weight 242 lb 8 oz BMI 38.0 BP 120/80 Blood Pressure Location Lt brachial Position Sitting Pulse 91 Pulse Source Pulse Oximeter Pulse Oximetry (%) 91 L Oxygen Delivery Method Room Air Intake Visit Reasons: 3mon f/u Intake Note: Patient is here to follow up on DM, HTN, AMY. 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 Required: No Antenna Engineer: Not Required per policy Accompanied by: Self / Same As Patient Allergies azithromycin [AZITHROMYCIN] Allergy (Unknown, Verified 08/29/23 08:42) HIVES lisinopril [LISINOPRIL] Allergy (Unknown, Verified 08/29/23 08:42) HIVES losartan [LOSARTAN] Allergy (Unknown, Verified 08/29/23 08:42) HIVES oxycodone [OXYCODONE] Allergy (Unknown, Verified 08/29/23 08:42) HIVES Tobacco use date assessed: 08/29/23 Fall risk assessment: 1 Fall in past year Last assessed Fall Risk: 08/29/23 Dental Screening Dental Screen Date: 08/29/23 Did you have a dental visit in the last 12 months?: Yes Did you have a dental problem in the last 6 months where you did not have access to dental care?: No Was dental information given to patient?: Patient has dentist HPI 3mon f/u HPI Details 78-year-old obese male with diabetes mellitus hypercholesterolemia obstructive sleep apnea BPH hypertension and asthma last seen in May 2023. Patient is here for follow-up. Colonoscopy is up-to-date 2016 [facility] Medical History Abnormal LFTs Allergic rhinitis Ankle fracture Atrial flutter BPH (benign prostatic hyperplasia) Bronchial asthma Bronchitis Calcium oxalate calculus Fatty liver History of pericarditis Hypercholesterolemia Hyperkalemia Hypertension Hypocitraturia Impingement syndrome of right shoulder Mass of right lung Medicare annual wellness visit, initial Obesity (BMI 30-39.9) Obstructive sleep apnea On beta min at home Pharyngitis Type 2 diabetes mellitus with hyperglycemia Vitamin B12 deficiency Vitamin D deficiency Surgical History History of cystoscopy Lumbar spinal stenosis History of lithotripsy History of tooth extraction History of bilateral inguinal hernia repair H/O spinal fusion History of appendectomy Family History Father No problems noted. Mother No problems noted. Son No problems noted. Son No problems noted. Daughter No problems noted. Daughter No problems noted. Social History (Updated 08/29/23 @ 08:50 by EDMOND Crawley) Housing: House Alcohol intake: never Patient Tobacco Use Status: Former Tobacco user Tobacco use type: Cigarette Years Smoked: 1993 e-Cigarette/Vaping Use: Never Used Second Hand Smoke Exposure: No service: Yes Current occupational status: retired Cognitive needs: No Hearing needs: No Vision needs: Yes Questionnaire Thrive Questionnaire Date Thrive assessed: 11/04/22 VIDHYA-7 AMB Questionnaire VIDHYA-7 Date VIDHYA - 7 assessed: 11/04/22 Source: Developed by Drs. Lenny Jimenez, Norma Murdock, Rk Holloway and colleagues, with an educational alfredo from [employer]. Physical exam (Primary Care) Vital Signs: Last Vital Signs Pulse 91 08/29/23 08:42 BP 120/80 08/29/23 08:42 Pulse Ox 91 L 08/29/23 08:42 Oxygen Delivery Method Room Air 08/29/23 08:42 BMI result Body Mass Index 38.0 Tobacco/Smoking Status: Tobacco use Status Tobacco use date assessed 08/29/23 08/29/23 08:51 Patient Tobacco Use Status Former Tobacco user 08/29/23 08:50 Tobacco use type Cigarette 08/29/23 08:50 e-Cigarette/Vaping Use Never Used 08/29/23 08:50 Thrive Assessment: Date of Thrive Assessment Date Thrive assessed 11/04/22 08/29/23 08:40 Const General: alert; No acute distress Eyes Conjunctivae: conjunctivae normal Resp Auscultation: clear to auscultation bilaterally Cardio Rate: regular rate Rhythm: regular rhythm GI Inspection: Yes normal to inspection Extrem General: Yes normal to inspection and No edema Results AMB Hemoglobin A1c AMB Hemoglobin A1c 7.2 % Last Edit by EDMOND Crawley on 08/29/23 08:59 Results Reviewed Results Reviewed: Laboratory Last Values Hgb A1c (Clinic) 7.2 % (4.0-6.0) H 08/29/23 08:41 Assessment and Plan Assessment & Plan (1) Type 2 diabetes mellitus with hyperglycemia: Comment: Dr. Vanessa Code(s): E11.65 - Type 2 diabetes mellitus with hyperglycemia Qualifiers: Diabetes mellitus senior care insulin use: with long term acute care registered nurse use Qualified Code(s): E11.65 - Type 2 diabetes mellitus with hyperglycemia; Z79.4 - half-way (current) use of insulin Plan: Decrease the amount of carbohydrate intake, pasta, bread, rice and potatoes are all sugar and that is aside from all the sweet stuff, remember that fruits are good but they are Sweet also. Hemoglobin A1c goal of less than 7.0. Patient is on Trulicity 3 mg Tresiba at 50 units metformin a 1000 mg twice a day (2) Hypercholesterolemia: Code(s): E78.00 - Pure hypercholesterolemia, unspecified Plan: Avoid fried foods, chicken skin, eggs, butter margarine, pastries and meat. Be it pork or beef they have a lot of cholesterol LDL goal of less than 100 and triglyceride of less than 150 patient's last blood work was done in December 2022 (3) BPH (benign prostatic hyperplasia): Code(s): N40.0 - Benign prostatic hyperplasia without lower urinary tract symptoms Plan: Continue with tamsulosin (4) Obstructive sleep apnea: Comment: Being treated with CPAP , and he is very compliant/ benefitting . Continue to use CPAP daily . His new CPAP device is working good. Code(s): G47.33 - Obstructive sleep apnea (adult) (pediatric) Plan: Continue with the CPAP more than 4 hours a night and benefits from this (5) Obesity (BMI 30-39.9): Comment: Patient is aware of the fact that he needs to loose weight. advised to cut down the calories intake and also do walking on a daily basis. Encouraged to start walking every day and do some physical exercise. Code(s): E66.9 - Obesity, unspecified Plan: Diet and exercise (6) Hypertension: Code(s): I10 - Essential (primary) hypertension Qualifiers: Hypertension type: essential hypertension Qualified Code(s): I10 - Essential (primary) hypertension Plan: Continue with blood pressure medication. Decrease salt intake and exercise patient is on metoprolol 100 mg once a day Orders: Orders AMB Hemoglobin A1c Today E11.65 - Type 2 diabetes mellitus with hyperglycemia Complete Blood Count Auto Diff 4 Months E11.65 - Type 2 diabetes mellitus with hyperglycemia, Z79.4 - half-way (current) use of insulin Thyroid Stimulating Hormone 4 Months E11.65 - Type 2 diabetes mellitus with hyperglycemia, Z79.4 - terminal system operator (current) use of insulin Vitamin B12 and Folate 4 Months E11.65 - Type 2 diabetes mellitus with hyperglycemia, Z79.4 - terminal system operator (current) use of insulin Hemoglobin A1c 4 Months E11.65 - Type 2 diabetes mellitus with hyperglycemia, Z79.4 - terminal system operator (current) use of insulin Ferritin 4 Months I10 - Essential (primary) hypertension IRON PROFILE 4 Months I10 - Essential (primary) hypertension Free T4 (Free Thyroxine) 4 Months E11.65 - Type 2 diabetes mellitus with hyperglycemia, Z79.4 - half-way (current) use of insulin Comprehensive Met. Panel 4 Months E11.65 - Type 2 diabetes mellitus with hyperglycemia, Z79.4 - terminal system operator (current) use of insulin Lipid Panel 4 Months E11.65 - Type 2 diabetes mellitus with hyperglycemia, E78.00 - Pure hypercholesterolemia, unspecified, Z79.4 - half-way (current) use of insulin Microalbumin, Random (w Creat) 4 Months E11.65 - Type 2 diabetes mellitus with hyperglycemia, Z79.4 - half-way (current) use of insulin Creatinine Urine 4 Months E11.65 - Type 2 diabetes mellitus with hyperglycemia, Z79.4 - terminal system operator (current) use of insulin Reticulocyte Count 4 Months I10 - Essential (primary) hypertension Coding Level of Care Code Est Pt Level 4 (14252) Diagnoses Type 2 diabetes mellitus with hyperglycemia, with long-term current use of insulin E11.65; Z79.4 Diabetes mellitus senior care insulin use: with long term acute care registered nurse use Hypercholesterolemia E78.00 BPH (benign prostatic hyperplasia) N40.0 Obstructive sleep apnea G47.33 Obesity (BMI 30-39.9) E66.9 Essential hypertension I10 Hypertension type: essential hypertension
[2023-08-29 08:42] VITALS: BP 120/80; PULSE 91; O2SAT 91; BMI 38.0
== END 2023-08-29 09:25 | disposition home or self-care (01) ==
PROVIDERS: PCP Internal Medicine; Visit Provider Internal Medicine
DX: E11.65 Type 2 diabetes mellitus with hyperglycemia (principal); Z79.4 Long term (current) use of insulin; Z68.38 Body mass index [BMI] 38.0-38.9, adult; E66.9 Obesity, unspecified; E78.00 Pure hypercholesterolemia, unspecified; N40.0 Benign prostatic hyperplasia without lower urinary tract symptoms; G47.33 Obstructive sleep apnea (adult) (pediatric); I10 Essential (primary) hypertension
CPT/HCPCS: 83036; 99214

== ENCOUNTER 2023-09-19 09:12 | Outpatient (REF) | payer MEDICARE, SELFPAY ==
--- NOTE | ~2023-09-19 | XR_ITS ---
EXAMINATION: XR CHEST CLINICAL INFORMATION: Hypoxemia COMPARISON: Chest radiograph from 04/16/2020 TECHNIQUE: 2 views of the chest were obtained. FINDINGS: Emphysematous changes. Chronic reticular and interstitial opacities. Bibasilar atelectasis versus scarring. No pneumothorax. Trachea is midline. Cardiac mediastinal silhouette is stable. Aorta demonstrates atherosclerotic calcifications. No large pleural effusion. Degenerative changes of the thoracolumbar spine. Soft tissues are unremarkable. XR/XR chest 2V IMPRESSION: 1. Emphysematous changes. 2. Chronic reticular and interstitial opacities. 3. Bibasilar atelectasis versus scarring.
== END 2023-09-19 09:13 | disposition home or self-care (01) ==
LOC: HO.XRAY 09:12
PROVIDERS: PCP Internal Medicine; Visit Provider Internal Medicine
DX: J30.9 Allergic rhinitis, unspecified (principal); J45.20 Mild intermittent asthma, uncomplicated; E66.9 Obesity, unspecified; J98.4 Other disorders of lung; R09.02 Hypoxemia; G47.33 Obstructive sleep apnea (adult) (pediatric)
CPT/HCPCS: 71046; 94010; 94618; 99212

== ENCOUNTER 2023-09-19 09:12 | Outpatient (AMB) | payer MEDICARE, SELFPAY ==
--- NOTE | 2023-09-19 09:18 | A.OFFVIS_ITS ---
Intake Vital Signs 09/19/23 09:19 Height 5 ft 7 in Weight 243 lb BMI 38.1 BP 140/80 H Blood Pressure Location Lt brachial Position Sitting Pulse 99 Pulse Source Pulse Oximeter Pulse Oximetry (%) 91 L Oxygen Delivery Method Room Air Intake Visit Reasons: COPD follow-up Intake Note: pt is here for follow up and having shortness of breath with any exertion, especially stairs and he is having an issue with balance and back, cpap usage is very good. Business Unit Leader Required: No Allergies azithromycin [AZITHROMYCIN] Allergy (Unknown, Verified 09/19/23 09:48) HIVES lisinopril [LISINOPRIL] Allergy (Unknown, Verified 09/19/23 09:48) HIVES losartan [LOSARTAN] Allergy (Unknown, Verified 09/19/23 09:48) HIVES oxycodone [OXYCODONE] Allergy (Unknown, Verified 09/19/23 09:48) HIVES Medication List - Last Reconciled 09/19/23 by Aylin Duque MD albuterol sulfate 90 mcg/actuation (ProAir HFA) 2 puffs inhalation Q4-6H PRN albuterol sulfate 2.5 mg inhalation Q6H atorvastatin 40 mg PO DAILY 90 days blood pressure monitor (Blood Pressure Kit) As directed blood sugar diagnostic (Airstoneuch Ultra Test strips) test 2 times per day blood sugar diagnostic One touch ULTRA TEst Strips check the BS 2x a day blood-glucose meter (Airstoneuch Ultra2 Meter kit) As directed cetirizine (Zyrtec) 10 mg PO DAILY cholecalciferol (vitamin D3) (Vitamin D3) 25 mcg PO DAILY cyanocobalamin (vitamin B-12) 1,000 mcg PO DAILY dulaglutide 3 mg (0.5 mL) subcut QWEEK 30 days fluticasone propion-salmeterol 250-50 mcg/dose 1 inh inhalation BID 90 days insulin degludec (Tresiba FlexTouch U-200 insulin) 50 units (0.25 mL) subcut DAILY 90 days lancets (Airstoneuch UltraSoft Lancets) As directed check the blood sugars 4 times a day metformin 1,000 mg PO BID metoprolol succinate ER 100 mg PO DAILY naproxen 500 mg PO BID PRN 7 days pen needle, diabetic (Easy Touch) As directed pen needle, diabetic, safety (Easy Touch Safety Pen Needle) As directed inject twice a day potassium citrate ER 20 mEq (2 x 10 mEq (1,080 mg)) PO BID 90 days prednisolone acetate 1% 1 drp ophthalmic (eye) DAILY [Prevagen 1 cap PO DAILY] tamsulosin 0.4 mg PO BEDTIME 90 days vit C,W-Lb-encwa-lutein-zeaxan 250-90-40-1 mg (PreserVision AREDS-2) 2 tabs PO DAILY Do you need a note to return to daycare/school/sports/work: No HPI COPD follow-up HPI Details 78 years old very pleasant gentleman is here for 6 months follow-up. He is a case of gross obesity especially abdominal obesity and protuberance, and obstructive sleep apnea. He is also case of restrictive/obstructive pulmonary disorder. He is using CPAP very regularly every night and sleeps about 9-10 hours daily. He has no issues with the use of CPAP. He walked into the office and was noted to be short of breath. According to his son he is short winded in the house when he is going up and downstairs. He does not move around much and remains mostly in the house. He has had no recent respiratory infection. He does have Advair 250-50 at home but uses only once in a while. [facility] Medical History (Updated 09/19/23 @ 12:24 by Aylin Duque MD) Hypoxemia Restrictive lung disease Abnormal LFTs Calcium oxalate calculus 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 Medicare annual wellness visit, initial Bronchitis Pharyngitis Impingement syndrome of right shoulder History of pericarditis Vitamin D deficiency Vitamin B12 deficiency Fatty liver Allergic rhinitis Bronchial asthma Hyperkalemia Mass of right lung Atrial flutter Ankle fracture Hypertension Obesity (BMI 30-39.9) Obstructive sleep apnea BPH (benign prostatic hyperplasia) Hypercholesterolemia Type 2 diabetes mellitus with hyperglycemia Surgical History History of cystoscopy Lumbar spinal stenosis History of lithotripsy History of tooth extraction History of bilateral inguinal hernia repair H/O spinal fusion History of appendectomy Family History Father No problems noted. Mother No problems noted. Son No problems noted. Son No problems noted. Daughter No problems noted. Daughter No problems noted. Social History Housing: House Alcohol intake: never Patient Tobacco Use Status: Former Tobacco user Tobacco use type: Cigarette Years Smoked: 1993 e-Cigarette/Vaping Use: Never Used Second Hand Smoke Exposure: No service: Yes Current occupational status: retired Cognitive needs: No Hearing needs: No Vision needs: Yes Review of Systems Const All systems reviewed & are unremarkable except as noted in HPI and below Eyes Reports no additional complaints ENT Reports nasal congestion (Mild off and on) Card Reports no additional complaints Resp Reports as per HPI GI Reports no additional complaints Reports no additional complaints Musc Reports no additional complaints Skin/Breast Reports system reviewed and no additional complaints, except as documented Neuro Reports no additional complaints Psych Reports no additional complaints Physical Exam Vital Signs: Last Vital Signs Pulse 99 09/19/23 09:19 BP 140/80 H 09/19/23 09:19 Pulse Ox 91 L 09/19/23 09:19 Oxygen Delivery Method Room Air 09/19/23 09:19 BMI result Body Mass Index 38.1 Grossly obese and only 2 lb less than last visit Const General: comfortable, no acute distress, alert and awake Orientation/consciousness: patient oriented x3 HEENT Head: Yes normal to inspection General nose exam: No nasal polyps present and No nasal discharge present Face and sinus: Yes sinuses nontender Mouth: oropharynx normal Throat: Yes posterior oropharynx normal Eyes General: appearance normal, both eyes and all related structures Neck Neck: Yes normal visual inspection, Yes no lymphadenopathy, Yes trachea midline and Yes no JVD Thyroid: Thyroid normal Chest Chest palpation & inspection: normal inspection of the chest, normal palpation of entire chest wall and no tenderness Resp Other: Percussion note is resonant. Breath sounds are distant with prolonged expiratory phase, Breath sounds are especially diminished over the basilar areas. No wheezes rhonchi or crepitations are heard. Cardio Palpation: normal PMI Rate: regular rate Rhythm: regular rhythm Heart sounds: no gallops and no murmurs Peripheral pulses: Peripheral pulses 2+ throughout GI Palpation (GI): Soft to palpation, nontender, No hepatosplenomegaly present, no masses and Other GI palpation findings present (Abdomen is moderately obese and protuberant.) Auscultation: normal bowel sounds Back/Spine/Pelvis Thoracic/Lumbar Spine: thoracic and lumbar spine normal to inspection Skin General skin exam: no rashes or lesions noted Neuro General: patient oriented x3 and no focal motor deficits Cranial nerves: Yes CN's II-XII intact bilaterally Extrem General: Yes normal to inspection, Yes no clubbing, cyanosis or edema and Yes no calf tenderness Psych Speech and movement: Normal speech and movement present Office Procedures Spirometry Testing Spirometry Comments: Spirometry done in the office, Dr. Duque has the results results scanned to his chart. Test performed by Kierra Cheek [facility] [id number]- Spirometry Results Reviewed Results Reviewed: COMPLIANCE REPORT FOR THE LAST 30 DAYS IS REVIEWED AND IT IS EXCELLENT. HE USES EVERY NIGHT FOR ABOUT 10 HOURS ON AN AVERAGE. PRESSURE 12 CM NO AIR LEAK. RESIDUAL AHI 2.1 . RESTING O2 SAT 89-90%. 6 MINUTES WALK SPIROMETRY IN THE OFFICE. ONLY MILD SMALL AIRWAYS OBSTRUCTIVE DISORDER CHEST X-RAY : CENTRILOBULAR EMPHYSEMA , AND MINIMAL CHRONIC FIBROSIS Assessment & Plan Assessment & Plan (1) Allergic rhinitis: Comment: Mild and well controlled . Code(s): J30.9 - Allergic rhinitis, unspecified Plan: XYRTEC 10 MG PO ONCE A DAY ,PRN (2) Bronchial asthma: Comment: Br. Asthma in his case is Cough / Asthma Variant and is well controlled at this time . Code(s): J45.909 - Unspecified asthma, uncomplicated Qualifiers: Asthma severity: mild Asthma persistence: intermittent Asthma complication type: uncomplicated Qualified Code(s): J45.20 - Mild intermittent asthma, uncomplicated Plan: ADVAIR 250-50. ONE INHALATION B.I.D., USE REGULARLY. ALBUTEROL HFA 2 PUFFS Q 4-6 HOURS P.R.N. (3) Obesity (BMI 30-39.9): Comment: Patient is aware of the fact that he needs to loose weight. advised to cut down the calories intake and also do walking on a daily basis. Encouraged to start walking every day and do some physical exercise. Code(s): E66.9 - Obesity, unspecified Plan: PATIENT'S LIFESTYLE IS SEDENTARY, NOT ABLE TO DO MUCH EXERCISE. HE IS TRYING TO WATCH HIS. DIET THERE IS NO BIG POTENTIAL FOR HIM TO LOSE WEIGHT (4) Restrictive lung disease: Comment: BECAUSE OF HIS OBESITY ESPECIALLY ABDOMINAL OBESITY, AND MINIMAL FIBROSIS , HE DOES HAVE MODERATE DEGREE OF RESTRICTIVE LUNG DISEASE, PER PFT IN 2020. Code(s): J98.4 - Other disorders of lung Plan: CHEST X-RAY ORDERED TODAY. ADVISED TO DO DEEP BREATHING EXERCISES 3 TIMES A DAY (5) Obstructive sleep apnea: Comment: Being treated with CPAP , and he is very compliant/ benefitting . Continue to use CPAP daily . His new CPAP device is working good. Code(s): G47.33 - Obstructive sleep apnea (adult) (pediatric) Plan: COMMENDED FOR GOOD COMPLIANCE AND ADVISED TO CONTINUE USING CPAP REGULARLY EVERY NIGHT (6) Hypoxemia: Comment: EXERCISE INDUCED HYPOXEMIA. Code(s): R09.02 - Hypoxemia Plan: PATIENT WALKED INTO THE OFFICE AND O2 SAT WAS BELOW 90%. 6 MINUTES WALK CONFIRMS THAT HE DESATURATES AFTER WALKING FOR A FEW MINUTES. O2 SAT 88% AFTER WALKING 2 MINUTES. STARTED ON O2 2 L/MINUTE, AND O2 SAT MAINTAINED AT 94% EVEN ON WALKING Plan PATIENT IS PRESCRIBED O2, STATIONARY CONCENTRATOR AT HOME AND ALSO PORTABLE UNITS. HE IS ADVISED TO USE O2 2 L/MINUTE WITH ANY PHYSICAL ACTIVITY OR GOING OUTDOORS. Orders: Orders AMB Spirometry Testing Today J98.4 - Other disorders of lung XR chest 2V Today J45.909 - Unspecified asthma, uncomplicated, J98.4 - Other disorders of lung, R09.02 - Hypoxemia Coding Level of Care Code Est Pt Level 4 (77985) Diagnoses Allergic rhinitis J30.9 Mild intermittent asthma without complication J45.20 Asthma severity: mild Asthma persistence: intermittent Asthma complication type: uncomplicated Obesity (BMI 30-39.9) E66.9 Restrictive lung disease J98.4 Obstructive sleep apnea G47.33 Hypoxemia R09.02 CPT Codes Spirometry - CPT: 22547- Spirometry ([id number])
[2023-09-19 09:19] VITALS: BP 140/80; PULSE 99; O2SAT 91; BMI 38.1
[2023-09-19 14:58] VITALS: PULSE 92; O2SAT 90
== END 2023-09-19 10:33 | disposition home or self-care (01) ==
PROVIDERS: PCP Internal Medicine; Visit Provider Internal Medicine
DX: J30.9 Allergic rhinitis, unspecified (principal); J45.20 Mild intermittent asthma, uncomplicated; E66.9 Obesity, unspecified; J98.4 Other disorders of lung; G47.33 Obstructive sleep apnea (adult) (pediatric); R09.02 Hypoxemia
CPT/HCPCS: 94010; 94618; 99214

== ENCOUNTER 2023-09-26 10:25 | Outpatient (AMB) | payer MEDICARE, SELFPAY ==
[2023-09-26 10:32] VITALS: BP 140/74; PULSE 97; O2SAT 103; BMI 36.8
--- NOTE | 2023-09-26 10:32 | A.OFFPC_ITS ---
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: Present Accompanied by: Son Allergies azithromycin [AZITHROMYCIN] Allergy (Unknown, Verified 09/26/23 10:33) HIVES lisinopril [LISINOPRIL] Allergy (Unknown, Verified 09/26/23 10:33) HIVES losartan [LOSARTAN] Allergy (Unknown, Verified 09/26/23 10:33) HIVES oxycodone [OXYCODONE] Allergy (Unknown, Verified 09/26/23 10:33) HIVES Tobacco use date assessed: 08/29/23 Fall risk assessment: 2 + Falls in past year Last assessed Fall Risk: 09/26/23 Dental Screening Dental Screen Date: 09/26/23 Did you have a dental visit in the last 12 months?: Yes Did you have a dental problem in the last 6 months where you did not have access to dental care?: No Was dental information given to patient?: Patient has dentist HPI HPI Comments History of Present Illness Details 78-year-old male past medical history si gnificant for type 2 diabetes mellitus, hypercholesteremia, AMY, BPH, hypertension, asthma. Patient last seen last month. Patient presents today for increased weakness and multiple falls. Patient reports tested positive for COVID last week. Was started on Paxlovid by pcp. Patient presents today with his son who expresses concerns that patient has experienced multiple falls when he bends down to quickly and stands on, denies any syncope or head strike. States falls are mechanical in nature. Discussed referral to physical therapy for gait instability however patient declines. Patient reports ongoing cough with chest congestion. Patient reports unable to get mucus up patient recommended to take [id number] Mucinex DM for chest congestion. Chest x-ray completed on 09/19/2023 showed IMPRESSION:1. Emphysematous changes.2. Chronic reticular and interstitial opacities.3. Bibasilar atelectasis versus scarring. Patient following with pulmonology Dr. Duque did at exercise test and was noted to desat patient was prescribed a O2. Patient was advised to use 2 L nasal cannula with physical activity or going outdoors however patient presents to appointment today with no oxygen. [facility] Medical History (Updated 09/26/23 @ 12:13 by ALMA Pal) Hypoxemia Restrictive lung disease Abnormal LFTs Calcium oxalate calculus 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 Medicare annual wellness visit, initial Bronchitis Pharyngitis Impingement syndrome of right shoulder History of pericarditis Vitamin D deficiency Vitamin B12 deficiency Fatty liver Allergic rhinitis Bronchial asthma Hyperkalemia Mass of right lung Atrial flutter Ankle fracture Hypertension Obesity (BMI 30-39.9) Obstructive sleep apnea BPH (benign prostatic hyperplasia) Hypercholesterolemia Type 2 diabetes mellitus with hyperglycemia Surgical History History of cystoscopy Lumbar spinal stenosis History of lithotripsy History of tooth extraction History of bilateral inguinal hernia repair H/O spinal fusion History of appendectomy Family History Father No problems noted. Mother No problems noted. Son No problems noted. Son No problems noted. Daughter No problems noted. Daughter No problems noted. Social History Housing: House Alcohol intake: never Patient Tobacco Use Status: Former Tobacco user Tobacco use type: Cigarette Years Smoked: 1993 e-Cigarette/Vaping Use: Never Used Second Hand Smoke Exposure: No service: Yes Current occupational status: retired Cognitive needs: No Hearing needs: No Vision needs: Yes Questionnaire Thrive Questionnaire Date Thrive assessed: 11/04/22 VIDHYA-7 AMB Questionnaire VIDHYA-7 Date VIDHYA - 7 assessed: 11/04/22 Source: Developed by Drs. Lenny Jimenez, Norma Murdock, Rk whitley nd colleagues, with an educational alfredo from [employer]. Review of Systems Const Denies chills, Denies fatigue, Denies fever(s), Reports frequent falls, Denies poor appetite and Reports weakness Eyes Denies no additional complaints ENT Reports Normal hearing present Card Denies chest pain, Denies syncope, Denies rapid heart rate and Denies dyspnea Resp Reports chest congestion, Reports cough and Denies dyspnea GI Denies change in stool character, Denies constipation, Denies diarrhea, Denies nausea and Denies vomiting Denies dysuria, Denies urinary frequency and Denies urinary urgency Neuro Reports Normal hearing present, Denies confusion, Denies syncope, Reports frequent falls and Reports weakness Psych Denies confusion Endo Denies fatigue Physical exam (Primary Care) Vital Signs: Last Vital Signs Pulse 97 09/26/23 10:32 BP 140/74 H 09/26/23 10:32 Pulse Ox 103 H 09/26/23 10:32 Oxygen Delivery Method Room Air 09/26/23 10:32 BMI result Body Mass Index 36.8 Tobacco/Smoking Status: Tobacco use Status Tobacco use date assessed 08/29/23 09/26/23 10:34 Patient Tobacco Use Status Former Tobacco user 09/26/23 10:34 Tobacco use type Cigarette 09/26/23 10:34 e-Cigarette/Vaping Use Never Used 09/26/23 10:34 Thrive Assessment: Date of Thrive Assessment Date Thrive assessed 11/04/22 09/26/23 10:34 Const General: No confusion Orientation/consciousness: No confusion HENMT Head: Yes normocephalic and Yes atraumatic Eyes Conjunctivae: conjunctivae normal Chest Chest palpation & inspection: normal inspection of the chest Resp Effort & Inspection: normal respiratory effort Auscultation: clear to auscultation bilaterally, no crackles, no rhonchi and wheezes Cardio Rate: regular rate Rhythm: regular rhythm Heart sounds: S1 normal heart sound present and S2 normal heart sound present GI Inspection: Yes normal to inspection Neuro General: No confusion Cranial nerves: Yes Normal hearing present Extrem General: No edema Assessment and Plan Assessment & Plan (1) COVID-19: Code(s): U07.1 - COVID-19 Plan: Complete Paxlovid. Patient advised to drink plenty of fluids and rest. Patient advised to treat cough with chest congestion with [id number] Mucinex DM. Signs and symptoms reviewed with patient when to seek emergency medical attention or follow-up with PCP (2) Obstructive sleep apnea: Comment: Being treated with CPAP , and he is very compliant/ benefitting . Continue to use CPAP daily . His new CPAP device is working good. Code(s): G47.33 - Obstructive sleep apnea (adult) (pediatric) Plan: Continue to use CPAP for greater than 4 hours a night and benefits from this. (3) Hypoxemia: Comment: EXERCISE INDUCED HYPOXEMIA. Code(s): R09.02 - Hypoxemia Plan: Continue to follow-up pulmonology. Continue on O2 2 L nasal cannula 2 L nasal cannula with physical activity or going outdoors. Patient advised that he should be taking his oxygen to his appointments with him. O2 sat repeated prior to discharge patient's oxygen 91% on room air. (4) Restrictive lung disease: Comment: BECAUSE OF HIS OBESITY ESPECIALLY ABDOMINAL OBESITY, AND MINIMAL FIBROSIS , HE DOES HAVE MODERATE DEGREE OF RESTRICTIVE LUNG DISEASE, PER PFT IN 2020. Code(s): J98.4 - Other disorders of lung Plan: Continue to follow with pulmonology (5) Frequent falls: Code(s): R29.6 - Repeated falls Plan: Offered referral to physical therapy for gait instability however patient declines at this time. Orders: Orders Complete Blood Count Auto Diff Today Z13.0 - Encounter for screening for diseases of the blood and blood-forming organs and certain disorders involving the immune mechanism Comprehensive Met. Panel Today U07.1 - COVID-19 Coding Level of Care Code Est Pt Level 4 (43786) Diagnoses COVID-19 U07.1 Obstructive sleep apnea G47.33 Hypoxemia R09.02 Restrictive lung disease J98.4 Frequent falls R29.6
== END 2023-09-26 11:13 | disposition home or self-care (01) ==
PROVIDERS: PCP Internal Medicine; Visit Provider Nurse Practitioner Family
DX: U07.1 COVID-19 (principal); G47.33 Obstructive sleep apnea (adult) (pediatric); R09.02 Hypoxemia; J98.4 Other disorders of lung; R29.6 Repeated falls
CPT/HCPCS: 99214

== ENCOUNTER 2023-10-30 08:56 | Outpatient (REF) | payer MEDICARE, SELFPAY ==
--- NOTE | ~2023-10-30 | US_ITS ---
EXAMINATION: US RETROPERITONEAL LIMITED (RENAL ONLY) CLINICAL INFORMATION: Other disorders of calcium metabolism. COMPARISON: Renal ultrasound 04/14/2022 and 02/05/2019. CT abdomen and pelvis 12/13/2021. TECHNIQUE: Real-time imaging of the kidneys. FINDINGS: RIGHT KIDNEY: 12.0 x 6.2 x 5.6 cm (SAG x AP x TRV). The kidney is normal in size, contour, and echogenicity. Renal cortical thickness is normal. No calculi or focal parenchymal lesions. No hydronephrosis. LEFT KIDNEY: 12.4 x 6.2 x 6.0 cm (SAG x AP x TRV). The kidney is normal in size, contour, and echogenicity. Renal cortical thickness is normal. No hydronephrosis. Multiple peripelvic cysts. No follow-up imaging is recommended. 6 mm lower pole calculus. 3 mm lower pole calculus. US/US renal BI IMPRESSION: Nonobstructing calculi in the lower left kidney. No hydronephrosis. Multiple left peripelvic cysts. No follow-up imaging is recommended.
[2023-10-30 11:13] LABS: Basophils Absolute Auto 0.1 X10*3/uL (0.0-0.2); Basophils Percent Auto 0.8 % (0-2); Eosinophils Absolute Auto 0.1 X10*3/uL (0.0-0.4); Eosinophils Percent Auto 2.2 % (0-4); Hematocrit 38.3 % (42.0-52.0); Hemoglobin 13.2 g/dl (14.0-18.0); Imm Gran Abs Auto 0.02 X10*3/uL (0.00-0.03); Imm Gran Pct Auto 0.3 % (0.0-0.4); Lymphocytes Absolute Auto 1.9 X10*3/uL (1.2-4.9); Lymphocytes Percent Auto 30.4 % (20-40); MANUAL DIFF FLAG SCAN; Mean Corpuscular HGB Conc 34.5 g/dl (31.0-36.0); Mean Corpuscular Hemoglobin 29.1 pg (27.0-33.0); Mean Corpuscular Volume 84.4 fL (80.0-98.0); Mean Platelet Volume 11.6 fL (9.4-12.4); Monocytes Absolute Auto 0.5 X10*3/uL (0.1-1.2); Monocytes Percent Auto 7.8 % (2-11); Neutrophils Absolute Auto 3.7 x10*3/uL (2.0-8.3); Neutrophils Percent Auto 58.5 % (45-73); PLT CLUMP 1; Red Blood Count 4.54 X10*6/uL (4.60-5.80); Red Cell Distribution Width 13.8 % (11.0-16.0); SCAN SMEAR FLAG 1
[2023-10-30 11:35] LABS: Alanine Aminotransferase 24 U/L (0-40); Alkaline Phosphatase 91 U/L (39-117); Anion Gap 16 (12-20); Aspartate Amino Transferase 21 U/L (5-37); Bilirubin Total 0.8 mg/dL (0.0-1.0); Blood Urea Nitrogen 11 mg/dL (9-16); Calcium 9.1 mg/dL (8.4-10.2); Carbon Dioxide 24 mmol/L (22-29); Chloride 102 mmol/L (96-108); Estimated Glomerular Filt Rate > 60; Glucose Random 139 mg/dL (60-115); Potassium 4.3 mmol/L (3.3-5.1); Sodium 138 mmol/L (135-145); Total Protein 7.1 g/dL (6.5-8.0)
[2023-10-30 12:04] LABS: Platelet Count 135 X10*3/uL (160-400); White Blood Count 6.3 X10*3/uL (4.8-10.8)
[2023-10-30 12:05] LABS: SLIDE REVIEW VERIFIED
== END 2023-10-30 08:57 | disposition home or self-care (01) ==
LOC: HO.HMGCX 08:56
PROVIDERS: Nurse Practitioner Family; PCP Internal Medicine; Referring Provider Internal Medicine; Visit Provider Urology
DX: Z13.0 Encounter for screening for diseases of the blood and blood-forming organs and certain disorders involving the immune mechanism (principal); E83.59 Other disorders of calcium metabolism; U07.1 COVID-19
CPT/HCPCS: 36415; 76775; 80053; 85025

== ENCOUNTER 2023-11-13 09:33 | Outpatient (AMB) | payer MEDICARE, SELFPAY ==
[2023-11-13 09:45] VITALS: BP 110/68; PULSE 85; O2SAT 95; BMI 38.0
--- NOTE | 2023-11-13 09:45 | MHC.OFFVIS ---
Intake Vital Signs 11/13/23 09:45 Height 5 ft 7 in Weight 242 lb 8.136 oz BMI 38.0 BP 110/68 Blood Pressure Location Lt brachial Position Sitting Pulse 85 Pulse Source Pulse Oximeter Pulse Oximetry (%) 95 Oxygen Delivery Method Nasal Cannula Oxygen Flow Rate 2.5 Intake Visit Reasons: COPD follow-up Intake Note: pt is here for follow up and states he is feeling good, using oxygen 24 hours a day. 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 Allergies azithromycin [AZITHROMYCIN] Allergy (Unknown, Verified 11/13/23 10:00) HIVES lisinopril [LISINOPRIL] Allergy (Unknown, Verified 11/13/23 10:00) HIVES losartan [LOSARTAN] Allergy (Unknown, Verified 11/13/23 10:00) HIVES oxycodone [OXYCODONE] Allergy (Unknown, Verified 11/13/23 10:00) HIVES Medication List - Last Reconciled 11/13/23 by Aylin Duque MD albuterol sulfate 90 mcg/actuation (ProAir HFA) 2 puffs inhalation Q4-6H PRN albuterol sulfate 2.5 mg inhalation Q6H atorvastatin 40 mg PO DAILY 90 days blood pressure monitor (Blood Pressure Kit) As directed blood sugar diagnostic ([email or web address] Ultra Test strips) test 2 times per day blood sugar diagnostic One touch ULTRA TEst Strips check the BS 2x a day blood-glucose meter (Accumuli SecurityTouch Ultra2 Meter kit) As directed cetirizine (Zyrtec) 10 mg PO DAILY cholecalciferol (vitamin D3) (Vitamin D3) 25 mcg PO DAILY cyanocobalamin (vitamin B-12) 1,000 mcg PO DAILY dulaglutide 3 mg (0.5 mL) subcut QWEEK 30 days fluticasone propion-salmeterol 250-50 mcg/dose 1 inh inhalation BID 90 days insulin degludec (Tresiba FlexTouch U-200 insulin) 50 units (0.25 mL) subcut DAILY 90 days lancets ([email or web address] UltraSoft Lancets) As directed check the blood sugars 4 times a day metformin 1,000 mg PO BID metoprolol succinate ER 100 mg PO DAILY naproxen 500 mg PO BID PRN 7 days nirmatrelvir-ritonavir 300 mg (150 mg x 2)-100 mg (Paxlovid) take TWO 150 mg tablets of nirmatrelvir with ONE 100 mg tablet of ritonavir twice daily for 5 days PO pen needle, diabetic (Easy Touch) As directed pen needle, diabetic, safety (Easy Touch Safety Pen Needle) As directed inject twice a day potassium citrate ER 20 mEq (2 x 10 mEq (1,080 mg)) PO BID 90 days prednisolone acetate 1% 1 drp ophthalmic (eye) DAILY [Prevagen 1 cap PO DAILY] tamsulosin 0.4 mg PO BEDTIME 90 days vit C,R-Bj-zrwts-lutein-zeaxan 250-90-40-1 mg (PreserVision AREDS-2) 2 tabs PO DAILY Do you need a note to return to daycare/school/sports/work: No HPI COPD follow-up HPI Details THIS 78 YEARS OLD GENTLEMAN, WITH GROSS OBESITY,, RESTRICTIVE/OBSTRUCTIVE AIRWAY DISORDER, AND SEVERE OBSTRUCTIVE SLEEP APNEA, IS HERE FOR FOLLOW-UP AFTER STARTING ON THE USE OF CPAP WELL O2. HE IS USING CPAP EVERY NIGHT ALONG WITH O2 2 L/MINUTE. HE IS SLEEPING BETWEEN 8-10 HOURS PER NIGHT WITH THE CPAP ON, AND IS FEELING GOOD. USES OXYGEN DURING THE DAY WITH PORTABLE CYLINDER, AND IS LOOKING FOR A LIGHTWEIGHT CYLINDER THAT HE CAN CARRYING A BACKPACK. DENIES ANY COUGH OR WHEEZING . HE HAS NO ISSUES WITH THE CPAP MASK, EXCEPT FOR MILD AIR LEAK. 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 Medicare annual wellness visit, initial Bronchitis Pharyngitis Impingement syndrome of right shoulder History of pericarditis Vitamin D deficiency Vitamin B12 deficiency Fatty liver Allergic rhinitis Bronchial asthma Hyperkalemia Mass of right lung Atrial flutter Ankle fracture Hypertension Obesity (BMI 30-39.9) Obstructive sleep apnea BPH (benign prostatic hyperplasia) Hypercholesterolemia Type 2 diabetes mellitus with hyperglycemia Surgical History History of cystoscopy Lumbar spinal stenosis History of lithotripsy History of tooth extraction History of bilateral inguinal hernia repair H/O spinal fusion History of appendectomy Family History Father No problems noted. Mother No problems noted. Son No problems noted. Son No problems noted. Daughter No problems noted. Daughter No problems noted. Social History Housing: House Alcohol intake: never Patient Tobacco Use Status: Former Tobacco user Tobacco use type: Cigarette Years Smoked: 1993 e-Cigarette/Vaping Use: Never Used Second Hand Smoke Exposure: No service: Yes Current occupational status: retired Cognitive needs: No Hearing needs: No Vision needs: Yes Review of Systems Const All systems reviewed & are unremarkable except as noted in HPI and below Eyes Reports no additional complaints ENT Reports nasal congestion (Mild off and on) Card Reports no additional complaints Resp Reports as per HPI GI Reports no additional complaints Reports no additional complaints Musc Reports no additional complaints Skin/Breast Reports system reviewed and no additional complaints, except as documented Neuro Reports no additional complaints Psych Reports no additional complaints Physical Exam Grossly obese and only 2 lb less than last visit Const General: comfortable, no acute distress, alert and awake Orientation/consciousness: patient oriented x3 HEENT Head: Yes normal to inspection General nose exam: No nasal polyps present and No nasal discharge present Face and sinus: Yes sinuses nontender Mouth: oropharynx normal Throat: Yes posterior oropharynx normal Eyes General: appearance normal, both eyes and all related structures Neck Neck: Yes normal visual inspection, Yes no lymphadenopathy, Yes trachea midline and Yes no JVD Thyroid: Thyroid normal Chest Chest palpation & inspection: normal inspection of the chest, normal palpation of entire chest wall and no tenderness Resp Other: Percussion note is resonant. Breath sounds are distant and especially diminished over the basilar areas. No wheezes rhonchi or crepitations are heard. Cardio Palpation: normal PMI Rate: regular rate Rhythm: regular rhythm Heart sounds: no gallops and no murmurs Peripheral pulses: Peripheral pulses 2+ throughout GI Palpation (GI): Soft to palpation, nontender, No hepatosplenomegaly present, no masses and Other GI palpation findings present (Abdomen is moderately obese and protuberant.) Auscultation: normal bowel sounds Back/Spine/Pelvis Thoracic/Lumbar Spine: thoracic and lumbar spine normal to inspection Skin General skin exam: no rashes or lesions noted Neuro General: patient oriented x3 and no focal motor deficits Cranial nerves: Yes CN's II-XII intact bilaterally Extrem General: Yes normal to inspection, Yes no clubbing, cyanosis or edema and Yes no calf tenderness Psych Speech and movement: Normal speech and movement present Results Reviewed Results Reviewed: Compliance report reviewed. He started using on October 16, and since then has missed only 1 night. His compliance is excellent, average use per night 10 hours 43 minutes. Residual AHI 2.7, there is a mild air leak. Assessment & Plan Assessment & Plan (1) Obesity (BMI 30-39.9): Comment: Patient is aware of the fact that he needs to loose weight. advised to cut down the calories intake and also do walking on a daily basis. Encouraged to start walking every day and do some physical exercise. Code(s): E66.9 - Obesity, unspecified Plan: Again discussed with him that he needs to lose some weight. He will have difficulty in losing weight as he cannot do much exercise. .Diet and explained (2) Obstructive sleep apnea: Comment: Being treated with CPAP , and he is very compliant/ benefitting . Code(s): G47.33 - Obstructive sleep apnea (adult) (pediatric) Plan: Continue to use CPAP daily . His new CPAP device is working good. (3) Bronchial asthma: Comment: Br. Asthma in his case is Cough / Asthma Variant and is well controlled at this time . Code(s): J45.909 - Unspecified asthma, uncomplicated Qualifiers: Asthma severity: mild Asthma persistence: intermittent Asthma complication type: uncomplicated Qualified Code(s): J45.20 - Mild intermittent asthma, uncomplicated Plan: Continue Advair 250-51 inhalation b.i.d.. And use albuterol HFA or in the nebulizer only p.r.n. (4) Allergic rhinitis: Comment: Mild and well controlled . Code(s): J30.9 - Allergic rhinitis, unspecified Plan: Cetirizine 10 mg 1 tablet once a day only p.r.n. if he has nasal congestion (5) Respiratory failure with hypoxia: Comment: This gentleman has nocturnal hypoxemia along with AMY, As well as exercise induced hypoxemia., corrected with the use of O2. Code(s): J96.91 - Respiratory failure, unspecified with hypoxia Plan: He is using O2 2 L/minute 24 hours a day, He has a small size portable cylinder. Looking to have a backpack sized cylinder for easy portability. Coding Level of Care Code Est Pt Level 3 (91841) Diagnoses Obesity (BMI 30-39.9) E66.9 Obstructive sleep apnea G47.33 Mild intermittent asthma without complication J45.20 Asthma severity: mild Asthma persistence: intermittent Asthma complication type: uncomplicated Allergic rhinitis J30.9 Respiratory failure with hypoxia J96.91
== END 2023-11-13 10:02 | disposition home or self-care (01) ==
PROVIDERS: PCP Internal Medicine; Visit Provider Internal Medicine
DX: E66.9 Obesity, unspecified (principal); G47.33 Obstructive sleep apnea (adult) (pediatric); J45.20 Mild intermittent asthma, uncomplicated; J30.9 Allergic rhinitis, unspecified; J96.91 Respiratory failure, unspecified with hypoxia
CPT/HCPCS: 99213

== ENCOUNTER → 2023-11-13 09:33 | Outpatient (BNVA) | payer MEDICARE, SELFPAY | PROVIDERS: PCP Internal Medicine; Visit Provider Internal Medicine | DX: J45.20 Mild intermittent asthma, uncomplicated (principal); G47.33 Obstructive sleep apnea (adult) (pediatric); E66.9 Obesity, unspecified; J30.9 Allergic rhinitis, unspecified; J96.91 Respiratory failure, unspecified with hypoxia; Z99.81 Dependence on supplemental oxygen; Z68.38 Body mass index [BMI] 38.0-38.9, adult | CPT/HCPCS: 99212 ==

== ENCOUNTER 2023-11-14 08:43 | Outpatient (AMB) | payer MEDICARE, SELFPAY ==
--- NOTE | 2023-11-14 08:53 | A.OFFVIS_ITS ---
Intake Intake Visit Reasons: 1Y US(SET) Intake Note: Patient presents today for a follow-up on: U/S Meds- Tamsulosin Allergies to Antibiotic- Azithromycin Blood Thinner- Aspirin Patient Symptoms: Patient was unable to give an urine sample, due to voided before appointment. Patient denies any pain, discomfort or difficulty urination. Lap Grinder Required: No Accompanied by: Self / Same As Patient Allergies azithromycin [AZITHROMYCIN] Allergy (Unknown, Verified 11/14/23 09:00) HIVES lisinopril [LISINOPRIL] Allergy (Unknown, Verified 11/14/23 09:00) HIVES losartan [LOSARTAN] Allergy (Unknown, Verified 11/14/23 09:00) HIVES oxycodone [OXYCODONE] Allergy (Unknown, Verified 11/14/23 09:00) HIVES Medication List - Last Reconciled 11/14/23 by Nakul Serna MD albuterol sulfate 90 mcg/actuation (ProAir HFA) 2 puffs inhalation Q4-6H PRN albuterol sulfate 2.5 mg inhalation Q6H aspirin 81 mg PO DAILY atorvastatin 40 mg PO DAILY 90 days blood pressure monitor (Blood Pressure Kit) As directed blood sugar diagnostic (OneTouch Ultra Test strips) test 2 times per day blood sugar diagnostic One touch ULTRA TEst Strips check the BS 2x a day blood-glucose meter (OneTouch Ultra2 Meter kit) As directed cetirizine (Zyrtec) 10 mg PO DAILY cetirizine (Zyrtec) 10 mg PO DAILY PRN cholecalciferol (vitamin D3) (Vitamin D3) 25 mcg PO DAILY cyanocobalamin (vitamin B-12) 1,000 mcg PO DAILY dulaglutide 3 mg (0.5 mL) subcut QWEEK 30 days dulaglutide (Trulicity) 0.75 mg subcut QWEEK fluticasone propion-salmeterol 250-50 mcg/dose 1 inh inhalation BID 90 days fluticasone propion-salmeterol 250-50 mcg/dose (Advair Diskus) 1 inh inhalation BID insulin degludec (Tresiba FlexTouch U-200 insulin) 50 units (0.25 mL) subcut DAILY 90 days lancets (OneTouch UltraSoft Lancets) As directed check the blood sugars 4 times a day metformin 1,000 mg PO BID metoprolol succinate ER 100 mg PO DAILY metoprolol succinate ER 100 mg PO DAILY naproxen 500 mg PO BID PRN 7 days nirmatrelvir-ritonavir 300 mg (150 mg x 2)-100 mg (Paxlovid) take TWO 150 mg tablets of nirmatrelvir with ONE 100 mg tablet of ritonavir twice daily for 5 days PO pen needle, diabetic (Easy Touch) As directed pen needle, diabetic, safety (Easy Touch Safety Pen Needle) As directed inject twice a day potassium citrate ER 20 mEq (2 x 10 mEq (1,080 mg)) PO BID 90 days prednisolone acetate 1% 1 drp ophthalmic (eye) DAILY [Prevagen 1 cap PO DAILY] tamsulosin 0.4 mg PO BEDTIME 90 days vit C,Q-Hp-updcv-lutein-zeaxan 250-90-40-1 mg (PreserVision AREDS-2) 2 tabs PO DAILY HPI HPI Comments History of Present Illness Details Silvano is a pleasant male. He is a patient of Dr. Akers. Seen for the following urologic conditions - nephrolithiasis Small stone on ultrasound Unlikely to be seen on KUB Would continue with potassium citrate and encourage 64 oz fluid per day Nephrolithiasis Minimal stone recurrence Twelve month follow-up imaging Encourage fluids Imaging - 12/07 right upper ureteric stone, multi ple stones left side - 04/06 renal ultrasound bilateral 6 mm s tones - 11/07 KUB 5mm left - 11/08 renal ultrasound small stone left side Intervention - 12/07 right ureteroscopy, 02/04 left ure [address]oscopy Stone composition - 12/07 calcium oxalate monohydrate 80% Twenty-four urine - 01/04 low volume, low sodium, moderate oxalate, low citrate, low pH - Associated comorbidities diabetes - 11/07 8.1 Therapeutic plan -continue potassium citrate, 12 month fo llow-up imaging [facility] Medical History (Updated 11/13/23 @ 10:11 by Aylin Duque MD) Hypoxemia Restrictive lung disease Abnormal LFTs Calcium oxalate calculus 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 Medicare annual wellness visit, initial Bronchitis Pharyngitis Impingement syndrome of right shoulder History of pericarditis Vitamin D deficiency Vitamin B12 deficiency Fatty liver Allergic rhinitis Bronchial asthma Hyperkalemia Mass of right lung Atrial flutter Ankle fracture Hypertension Obesity (BMI 30-39.9) Obstructive sleep apnea BPH (benign prostatic hyperplasia) Hypercholesterolemia Type 2 diabetes mellitus with hyperglycemia Surgical History History of cystoscopy Lumbar spinal stenosis History of lithotripsy History of tooth extraction History of bilateral inguinal hernia repair H/O spinal fusion History of appendectomy Family History Father No problems noted. Mother No problems noted. Son No problems noted. Son No problems noted. Daughter No problems noted. Daughter No problems noted. Social History Housing: House Alcohol intake: never Patient Tobacco Use Status: Former Tobacco user Tobacco use type: Cigarette Years Smoked: 1993 e-Cigarette/Vaping Use: Never Used Second Hand Smoke Exposure: No service: Yes Current occupational status: retired Cognitive needs: No Hearing needs: No Vision needs: Yes Review of Systems Const Denies chills and Denies fever(s) Card Reports no additional complaints and Denies syncope Resp Denies cough GI Denies abdominal pain and Denies heartburn Reports as per HPI and Denies change in libido Neuro Denies syncope Psych Denies change in libido Endo Denies change in libido Physical Exam Const General: cooperative, healthy appearing, comfortable and no acute distress Orientation/consciousness: patient oriented x3 HEENT Face and sinus: Yes normal facial exam Mouth: moist mucous membranes Neck Neck: Yes normal visual inspection, Yes full ROM and Yes trachea midline Chest Chest palpation & inspection: normal inspection of the chest Resp Effort & Inspection: normal respiratory effort, able to speak in complete sentences and no respiratory distress GI Inspection: Yes normal to inspection Back/Spine/Pelvis Cervical Spine: normal cervical lordosis Thoracic/Lumbar Spine: thoracic and lumbar spine normal to inspection Skin General skin exam: no rashes or lesions noted Neuro General: patient oriented x3, gait normal, tone normal and moves all extremities Extrem General: Yes normal to inspection and Yes capillary refill normal Assessment & Plan Assessment & Plan (1) Right ureteral stone: Comment: November 2021 cystoscopy with right stent placement Dr. Serna February 2022 right ureteral dilatation Code(s): N20.1 - Calculus of ureter Plan Twelve month follow-up imaging Orders: Orders XR KUB 364 Days N20.0 - Calculus of kidney Medications: Refilled potassium citrate ER 20 mEq (2 x 10 mEq (1,080 mg)) PO BID 360 tabs 3RF 90 days N20.0 - Calculus of kidney, R82.991 - Hypocitraturia Patient Instructions: Imaging studies, laboratory and physical exam results were discussed and reviewed in detail. No major barriers to patient understanding were identified. An opportunity to ask questions regarding the treatment plan was provided. All questions were answered. The patient expressed understanding and agreement with the above treatment plan. The patient is aware they should contact our office by phone for worsening of their current condition or the appearance of new urologic symptoms. Compliance is encouraged with any medications and followup testing that is ordered. It is a privilege to participate in the urologic care of your patient. If you have any questions or concerns regarding treatment for the above conditions, or other urologic issues, please do not hesitate to contact me. The office telephone contact is [phone]. This note is constructed using voice recognition software. While every effort has been made to ensure accuracy milking machine mechanic errors may have been included. Yours sincerely, Dr Nakul Serna MD, [facility] - Urology Providers of Expert, Compassionate Care for the Genitourinary System Coding Level of Care Code Est Pt Level 4 (87236) Diagnoses Right ureteral stone N20.1
== END 2023-11-14 09:15 | disposition home or self-care (01) ==
PROVIDERS: Visit Provider Urology
DX: N20.1 Calculus of ureter (principal)
CPT/HCPCS: 99213

== ENCOUNTER → 2023-11-14 08:43 | Outpatient (BNVA) | payer MEDICARE, SELFPAY | PROVIDERS: Visit Provider Urology | DX: N20.1 Calculus of ureter (principal) | CPT/HCPCS: 99212 ==

== ENCOUNTER 2023-12-22 10:12 | Outpatient (REF) | payer MEDICARE, SELFPAY ==
[2023-12-22 13:14] LABS: MANUAL DIFF FLAG NO
[2023-12-22 13:33] LABS: Basophils Absolute Auto 0.1 X10*3/uL (0.0-0.2); Eosinophils Absolute Auto 0.2 X10*3/uL (0.0-0.4); Eosinophils Percent Auto 3.8 % (0-4); Hematocrit 39.7 % (42.0-52.0); Hemoglobin 13.5 g/dl (14.0-18.0); Imm Gran Abs Auto 0.02 X10*3/uL (0.00-0.03); Imm Gran Pct Auto 0.3 % (0.0-0.4); Immature Retic Fraction 13.1 % (2.3-13.4); Lymphocytes Absolute Auto 2.3 X10*3/uL (1.2-4.9); Mean Corpuscular Volume 85.2 fL (80.0-98.0); Mean Platelet Volume 11.3 fL (9.4-12.4); Monocytes Absolute Auto 0.5 X10*3/uL (0.1-1.2); Neutrophils Absolute Auto 3.2 x10*3/uL (2.0-8.3); Neutrophils Percent Auto 50.9 % (45-73); Platelet Count 172 X10*3/uL (160-400); Red Blood Count 4.66 X10*6/uL (4.60-5.80); Red Cell Distribution Width 13.3 % (11.0-16.0); Retic HGB Equivalent 33.5 pg (30.0-35.0); Reticulocyte Percent 1.6 % (0.5-1.8); Reticulocytes Absolute 0.072 X10*6/uL (0.026-0.095); White Blood Count 6.3 X10*3/uL (4.8-10.8)
[2023-12-22 14:06] LABS: Estimated Average Glucose 157 mg/dL; Hemoglobin A1c % 7.1 % (<6.0)
[2023-12-22 14:12] LABS: Alanine Aminotransferase 29 U/L (0-40); Alkaline Phosphatase 93 U/L (39-117); Anion Gap 12 (12-20); Aspartate Amino Transferase 20 U/L (5-37); Blood Urea Nitrogen 11 mg/dL (9-16); Calcium 9.1 mg/dL (8.4-10.2); Carbon Dioxide 29 mmol/L (22-29); Chloride 104 mmol/L (96-108); Cholesterol 128 mg/dL (<200); Estimated Glomerular Filt Rate > 60; Glucose Random 127 mg/dL (60-115); HDL Cholesterol 29 mg/dL (>40); Iron 71 mcg/dL (45-160); LDL Cholesterol Calculated 72 mg/dL (<100); Percent Iron Saturation 22 % (15-50); Potassium 4.6 mmol/L (3.3-5.1); Sodium 140 mmol/L (135-145); Total Iron Binding Capacity 318 mcg/dL (228-428); Triglycerides 137 mg/dL (<150); Unsaturated Iron Binding 247 ug/dL
[2023-12-22 14:28] LABS: Ferritin 78 ng/mL (20-250); Free T4 (Free Thyroxine) 0.92 ng/dL (0.71-1.85); Thyroid Stimulating Hormone 4.42 uIU/mL (0.32-4.0)
[2023-12-22 14:40] LABS: Folate 4.3 ng/mL (> or = 4.0); Vitamin B12 554 pg/mL (200-900)
[2023-12-22 17:44] LABS: Microalbum/Creatinine Ratio Ur 18.1 ug/mg cr (<30)
== END 2023-12-22 10:13 | disposition home or self-care (01) ==
LOC: HO.HMGCLDS 10:12
PROVIDERS: PCP Internal Medicine; Visit Provider Internal Medicine
DX: E11.65 Type 2 diabetes mellitus with hyperglycemia (principal); I10 Essential (primary) hypertension; E78.00 Pure hypercholesterolemia, unspecified; Z79.4 Long term (current) use of insulin
CPT/HCPCS: 36415; 80053; 80061; 82043; 82570; 82607; 82728; 82746; 83036; 83540; 84439; 84443; 85025; 85045

== ENCOUNTER 2023-12-28 08:19 | Outpatient (AMB) | payer MEDICARE, SELFPAY ==
[2023-12-28 08:24] VITALS: BP 136/78; PULSE 87; O2SAT 95; BMI 37.9
--- NOTE | 2023-12-28 08:24 | MHC.PC.OV ---
Vital Signs 12/28/23 08:24 Height 5 ft 7 in Weight 242 lb BMI 37.9 BP 136/78 Blood Pressure Location Lt brachial Position Sitting Pulse 87 Pulse Source Pulse Oximeter Pulse Oximetry (%) 95 Oxygen Delivery Method Nasal Cannula Intake Visit Reasons: DM Allergies azithromycin [AZITHROMYCIN] Allergy (Unknown, Verified 12/28/23 08:24) HIVES lisinopril [LISINOPRIL] Allergy (Unknown, Verified 12/28/23 08:24) HIVES losartan [LOSARTAN] Allergy (Unknown, Verified 12/28/23 08:24) HIVES oxycodone [OXYCODONE] Allergy (Unknown, Verified 12/28/23 08:24) HIVES Tobacco use date assessed: 12/28/23 Fall risk assessment: 1 Fall in past year Last assessed Fall Risk: 12/28/23 Dental Screening Dental Screen Date: 12/28/23 Did you have a dental visit in the last 12 months?: Yes Did you have a dental problem in the last 6 months where you did not have access to dental care?: No Was dental information given to patient?: Patient has dentist HPI DM HPI Details 78-year-old obese male with diabetes mellitus obstructive sleep apnea hypercholesterolemia BPH hypertension asthma coming in for follow-up. Last seen in September patient's colonoscopy is up-to-date. Patient has bilateral nephrolithiasis and follows up with urology on tamsulosin on potassium citrate and fluid intake. Patient also follows up with Pulmonary obstructive sleep apnea on CPAP with oxygen continue with Advair and albuterol patient did see the nurse practitioner in September as patient has been having a lot of falls has been referred for gait physical therapy but declined. Patient denies falling a lot and complains about bilateral knee pain. Patient also was told by family has been forgetting a lot but mini-mental status exam showed 29/30. [facility] Medical History Hypoxemia Restrictive lung disease Abnormal LFTs Calcium oxalate calculus 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 Medicare annual wellness visit, initial Bronchitis Pharyngitis Impingement syndrome of right shoulder History of pericarditis Vitamin D deficiency Vitamin B12 deficiency Fatty liver Allergic rhinitis Bronchial asthma Hyperkalemia Mass of right lung Atrial flutter Ankle fracture Hypertension Obesity (BMI 30-39.9) Obstructive sleep apnea BPH (benign prostatic hyperplasia) Hypercholesterolemia Type 2 diabetes mellitus with hyperglycemia Surgical History (Reviewed 11/14/23 @ 09:07 by Priya Araya [facility] [address]) History of cystoscopy Lumbar spinal stenosis History of lithotripsy History of tooth extraction History of bilateral inguinal hernia repair H/O spinal fusion History of appendectomy Family History (Reviewed 11/14/23 @ 09:07 by Priya Araya [facility] [address]) Father No problems noted. Mother No problems noted. Son No problems noted. Son No problems noted. Daughter No problems noted. Daughter No problems noted. Social History (Reviewed 11/14/23 @ 09:07 by Priya Araya [facility] [address]) Housing: House Alcohol intake: never Patient Tobacco Use Status: Former Tobacco user Tobacco use type: Cigarette Years Smoked: 1993 e-Cigarette/Vaping Use: Never Used Second Hand Smoke Exposure: No service: Yes Current occupational status: retired Cognitive needs: No Hearing needs: No Vision needs: Yes Questionnaire PHQ-9 Over the last 2 weeks, how often have you been bothered by any of the following problems? 1. Little interest or pleasure in doing things: not at all 2. Feeling down, depressed, or hopeless: not at all 3. Trouble falling or staying asleep, or sleeping too much: not at all 4. Feeling tired or having little energy: not at all 5. Poor appetite or overeating: not at all 6. Feeling bad about yourself - or that you are a failure or have let yourself or your family down: not at all 7. Trouble concentrating on things, such as reading the newspaper or watching television: not at all 8. Moving or speaking so slowly that other people could have noticed. Or the opposite - being so fidgety or restless that you have been moving around a lot more than usual: not at all 9. Thoughts that you would be better off or of hurting yourself in some way: not at all Total score: 0 Depression Screening Interpretation: Negative Depression Screening Done: Yes 44266 - PHQ-9 Billing: Yes Source: Developed by Drs. Lenny Jimenez, Norma Murdock, Rk Holloway and colleagues, with an educational alfredo from [employer]. Thrive Questionnaire Date Thrive assessed: 12/28/23 I am a: Patient What is your living situation today?: I have a steady place to live Within the past 12 months, did the food you bought not last and you didn't have the money to get more?: Never true Within the past 12 months, did you worry whether your food would run out before you got money to buy more?: Never true Do you have trouble paying for medicines?: No Do you have trouble getting transportation to medical appointments?: No Do you have trouble paying your heating and electricity bill?: No Do you have trouble taking care of your child, family member or friend?: No Do you have trouble with day-to-day activities such as bathing, preparing meals, shopping, managing finances, etc.?: No Are you currently unemployed and looking for a job?: No Are you interested in more education?: No Currently or been in a relationship where the following occur: no concerns reported THRIVE Score: 0 AUDIT C Alcohol Use Questionnaire (AUDIT-C) 1. How often do you have a drink containing alcohol?: Never Total Score: 0 Score Reviewed/Action Taken: No VIDHYA-7 AMB Questionnaire VIDHYA-7 Date VIDHYA - 7 assessed: 12/28/23 Feeling nervous, anxious, or on edge: 0 = Not at all Not being able to stop or control worryin = Not at all Worrying too much about different things: 0 = Not at all Trouble relaxin = Not at all Being so restless that it is hard to sit still: 0 = Not at all Becoming easily annoyed or irritable: 0 = Not at all Feeling afraid as if something awful might happen: 0 = Not at all Total VIDHYA-7 score (0-4 normal; 5-9 mild; 10-14 moderate; 15-21 severe): 0 Source: Developed by Drs. Lenny Jimenez, Norma Murdock, Rk Holloway and colleagues, with an educational alfredo from [employer]. Physical exam (Primary Care) Vital Signs: Last Vital Signs Pulse 87 12/28/23 08:24 BP 136/78 12/28/23 08:24 Pulse Ox 95 12/28/23 08:24 Oxygen Delivery Method Nasal Cannula 12/28/23 08:24 BMI result Body Mass Index 37.9 Tobacco/Smoking Status: Tobacco use Status Tobacco use date assessed 12/28/23 12/28/23 08:33 Patient Tobacco Use Status Former Tobacco user 03/14/24 08:33 Tobacco use type Cigarette 12/28/23 08:33 e-Cigarette/Vaping Use Never Used 12/28/23 08:33 PHQ-9: PHQ-9 Score PHQ-9: Total score 0 12/28/23 09:25 Depression Screening Interpretation: Negative Thrive Assessment: Date of Thrive Assessment Date Thrive assessed 12/28/23 12/28/23 08:33 Currently or been in a relationship where the following occur: no concerns reported Const General: alert; No acute distress Eyes Conjunctivae: conjunctivae normal Resp Auscultation: clear to auscultation bilaterally Cardio Rate: regular rate Rhythm: regular rhythm GI Inspection: Yes normal to inspection Extrem General: Yes normal to inspection and No edema Immunizations tetanus-diphtheria toxoids-Td 2 Lf unit-2 Lf unit/0.5 mL IM suspension Performing Provider: Homer Akers MD Performing Location: [facility] Administered by: Humera Poe CMA on 12/28/23 09:20 Dose Route Admin Location Dispensed Lot Number Expiration Date [employer] 0.5 mL IM Right Deltoid 0.5 mL [id number] 11/21/24 [address]-6 [employer] VIS Given Date VIS Provided VIS Publication Date 12/28/23 Single Vaccine 21 Eligibility Eligibility Date Funding Source Not [facility] Eligible 12/28/23 [facility] Assessment and Plan Assessment & Plan (1) Type 2 diabetes mellitus with hyperglycemia: Comment: Dr. Vanessa Code(s): E11.65 - Type 2 diabetes mellitus with hyperglycemia Qualifiers: Diabetes mellitus alf insulin use: with alf use Qualified Code(s): E11.65 - Type 2 diabetes mellitus with hyperglycemia; Z79.4 - intermission coordinator (current) use of insulin Plan: Decrease the amount of carbohydrate intake, pasta, bread, rice and potatoes are all sugar and that is aside from all the sweet stuff, remember that fruits are good but they are Sweet also. Hemoglobin A1c goal of less than 7.0. Patient on Trulicity right now 0.75 once a week Tresiba 50 units once a day metformin 1000 mg twice a day (2) Hypercholesterolemia: Code(s): E78.00 - Pure hypercholesterolemia, unspecified Plan: Avoid fried foods, chicken skin, eggs, butter margarine, pastries and meat. Be it pork or beef they have a lot of cholesterol LDL goal of less than 100 and triglyceride of less than 150 on atorvastatin 40 mg once a (3) BPH (benign prostatic hyperplasia): Code(s): N40.0 - Benign prostatic hyperplasia without lower urinary tract symptoms Plan: Continue with tamsulosin. Patient follows up with urology (4) Obstructive sleep apnea: Comment: Being treated with CPAP , and he is very compliant/ benefitting . Code(s): G47.33 - Obstructive sleep apnea (adult) (pediatric) Plan: Continue to use the CPAP more than 4 hours a night and benefits from this patient follows up with Pulmonary (5) Obesity (BMI 30-39.9): Comment: Patient is aware of the fact that he needs to loose weight. advised to cut down the calories intake and also do walking on a daily basis. Encouraged to start walking every day and do some physical exercise. Code(s): E66.9 - Obesity, unspecified Plan: Diet and exercise (6) Hypertension: Code(s): I10 - Essential (primary) hypertension Qualifiers: Hypertension type: essential hypertension Qualified Code(s): I10 - Essential (primary) hypertension Plan: Continue with blood pressure medication. Decrease salt intake and exercise patient is on 100 mg once a day (7) Renal calculi: Comment: Right ureteroscopy with stent placement December 2021 Left stent placement laser lithotripsy January 2022 Code(s): N20.0 - Calculus of kidney Plan: Increase oral fluids (8) Frequent falls: Code(s): R29.6 - Repeated falls Plan: States that the problem is on both knees having pain. Discussed about pain relievers for the knee like Tylenol and diclofenac gel advised to use knee braces to help with the pain (9) Bilateral knee pain: Code(s): M25.561 - Pain in right knee; M25.562 - Pain in left knee Plan: X-rays request (10) Bilateral hip pain: Code(s): M25.551 - Pain in right hip; M25.552 - Pain in left hip Plan: X-rays requested Orders: Orders XR hip BI w [id number] Today M25.551 - Pain in right hip, M25.552 - Pain in left hip XR knee standing BI Today M25.561 - Pain in right knee, M25.562 - Pain in left knee Td State Immunization Today Z23 - Encounter for immunization Coding Level of Care Code Est Pt Level 4 (47615) Diagnoses Type 2 diabetes mellitus with hyperglycemia, with long-term current use of insulin E11.65; Z79.4 Diabetes mellitus alf insulin use: with alf use Hypercholesterolemia E78.00 BPH (benign prostatic hyperplasia) N40.0 Obstructive sleep apnea G47.33 Obesity (BMI 30-39.9) E66.9 Essential hypertension I10 Hypertension type: essential hypertension Renal calculi N20.0 Frequent falls R29.6 Bilateral knee pain M25.561; M25.562 Bilateral hip pain M25.551; M25.552
== END 2023-12-28 09:29 | disposition home or self-care (01) ==
PROVIDERS: PCP Internal Medicine; Visit Provider Internal Medicine
DX: Z23 Encounter for immunization (principal)
CPT/HCPCS: 90471; 90714; 99214

== ENCOUNTER 2024-01-01 12:15 | Outpatient (REF) | payer MEDICARE, SELFPAY ==
--- NOTE | ~2024-01-01 | XR_ITS ---
EXAMINATION: XR KNEE AP STANDING CLINICAL INFORMATION: Right knee pain. COMPARISON: None available. TECHNIQUE: AP bilateral standing view of the knees was obtained. FINDINGS: No fracture or joint effusion. Alignment is anatomic. Joint spaces are maintained. There is chondrocalcinosis. XR/XR knee standing BI IMPRESSION: 1. No fracture or dislocation is seen. 2. The lateral and medial joint space compartments of the bilateral knees are well-maintained. 3. There is chondrocalcinosis, which can be associated with gout, CPPD or hypercalcemia.
--- NOTE | ~2024-01-01 | XR_ITS ---
EXAMINATION: XR BILATERAL HIPS WITH AP PELVIS CLINICAL INFORMATION: Right hip pain. COMPARISON: KUB dated 11/04/2022. TECHNIQUE: AP view of the pelvis and AP and frog-leg lateral views of the bilateral hips were obtained. FINDINGS: No fracture. Hip joint spaces are maintained. Alignment is anatomic. Sacroiliac joints and pubic symphysis are normal. There are incompletely characterized degenerative changes of the lower lumbar spine. Within the left pelvis, a 1.4 cm calcification is redemonstrated, possibly a bladder calculus. XR/XR hip BI w PEL1V IMPRESSION: 1. Unremarkable pelvis and bilateral hips. 2. A 5 mm bladder calculus is again suspected. This could be further evaluated bladder ultrasound, if clinically indicated.
== END 2024-01-01 12:16 | disposition home or self-care (01) ==
LOC: HO.HMGCX 12:15
PROVIDERS: PCP Internal Medicine; Visit Provider Internal Medicine
DX: M25.551 Pain in right hip (principal); M25.561 Pain in right knee
CPT/HCPCS: 73521; 73565

== ENCOUNTER 2024-01-29 14:49 | Outpatient (AMB) | payer MEDICARE, SELFPAY ==
[2024-01-29 14:50] VITALS: BP 146/78; PULSE 101; O2SAT 94; BMI 38.1
--- NOTE | 2024-01-29 14:50 | A.OFFVIS_ITS ---
Intake Vital Signs 01/29/24 14:50 Height 5 ft 7 in Weight 243 lb 0.2 oz BMI 38.1 BP 146/78 H Blood Pressure Location Lt brachial Position Sitting Pulse 101 H Pulse Source Pulse Oximeter Pulse Oximetry (%) 94 Oxygen Delivery Method Nasal Cannula Intake Visit Reasons: SWV Intake Note: Patient is here for an Annual Wellness Visit. Public Employment Mediator Required: No Allergies azithromycin [AZITHROMYCIN] Allergy (Unknown, Verified 01/29/24 14:51) HIVES lisinopril [LISINOPRIL] Allergy (Unknown, Verified 01/29/24 14:51) HIVES losartan [LOSARTAN] Allergy (Unknown, Verified 01/29/24 14:51) HIVES oxycodone [OXYCODONE] Allergy (Unknown, Verified 01/29/24 14:51) HIVES Medication List - Last Reconciled 01/29/24 by Homer Akers MD albuterol sulfate 90 mcg/actuation (ProAir HFA) 2 puffs inhalation Q4-6H PRN albuterol sulfate 2.5 mg inhalation Q6H atorvastatin 40 mg PO DAILY 90 days blood pressure monitor (Blood Pressure Kit) As directed blood sugar diagnostic ([employer] Ultra Test strips) test 2 times per day blood sugar diagnostic One touch ULTRA TEst Strips check the BS 2x a day blood-glucose meter (OneTouch Ultra2 Meter kit) As directed cetirizine (Zyrtec) 10 mg PO DAILY PRN cholecalciferol (vitamin D3) 10 mcg PO DAILY cyanocobalamin (vitamin B-12) 1,000 mcg PO DAILY dulaglutide 3 mg (0.5 mL) subcut QWEEK 30 days fluticasone propion-salmeterol 250-50 mcg/dose 1 inh inhalation BID 90 days insulin degludec (Tresiba FlexTouch U-200 insulin) 52 units subcut DAILY lancets ([employer] SalesTouch UltraSoft Lancets) As directed check the blood sugars 4 times a day metformin 1,000 mg PO BID metoprolol succinate ER 100 mg PO DAILY naproxen 500 mg PO BID PRN 7 days pen needle, diabetic (Easy Touch) As directed pen needle, diabetic, safety (Easy Touch Safety Pen Needle) As directed inject twice a day prednisolone acetate 1% 1 drp ophthalmic (eye) DAILY [Prevagen 1 cap PO DAILY] tamsulosin 0.4 mg PO BEDTIME 90 days vit C,N-Tr-fubub-lutein-zeaxan 250-90-40-1 mg (PreserVision AREDS-2) 2 tabs PO DAILY HPI SWV HPI Details 78-year-old obese male with diabetes ernesto litus hypercholesterolemia BPH obstructive sleep apnea hypertension coming in for annual well visit last seen in December 2023. Colon test up-to-date 2017 blood work done December 2023, [facility] oxygen [facility] Medical History Hypoxemia Restrictive lung disease Abnormal LFTs Calcium oxalate calculus 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 Medicare annual wellness visit, initial Bronchitis Pharyngitis Impingement syndrome of right shoulder History of pericarditis Vitamin D deficiency Vitamin B12 deficiency Fatty liver Allergic rhinitis Bronchial asthma Hyperkalemia Mass of right lung Atrial flutter Ankle fracture Hypertension Obesity (BMI 30-39.9) Obstructive sleep apnea BPH (benign prostatic hyperplasia) Hypercholesterolemia Type 2 diabetes mellitus with hyperglycemia Surgical History History of cystoscopy Lumbar spinal stenosis History of lithotripsy History of tooth extraction History of bilateral inguinal hernia repair H/O spinal fusion History of appendectomy Family History Father No problems noted. Mother No problems noted. Son No problems noted. Son No problems noted. Daughter No problems noted. Daughter No problems noted. Social History Housing: House Alcohol intake: never Patient Tobacco Use Status: Former Tobacco user Tobacco use type: Cigarette Years Smoked: 1993 e-Cigarette/Vaping Use: Never Used Second Hand Smoke Exposure: No service: Yes Current occupational status: retired Cognitive needs: No Hearing needs: No Vision needs: Yes Questionnaire Medicare Wellness Checkup [age] What gender do you identify with?: male During the past 4 weeks, how much have you been bothered by emotional problems such as feeling anxious, depressed, irritable, sad or downhearted, and blue?: not at all During the past 4 weeks, has your physical & emotional health limited your social activities with family, friends, neighbors, or groups?: moderately During the past 4 weeks, how much bodily pain have you generally had?: mild pain During the past 4 weeks, was someone available to help you if you needed & wanted help?: yes, as much as I wanted During the past 4 weeks, what was the hardest physical activity you could do for at least 2 minutes?: very light Can you get to places out of walking distance without help? (For eg., can you travel alone on buses, taxis or drive your car?): Yes Can you go shopping for groceries or clothes without someone's help?: Yes Can you prepare your own meals?: Yes Can you do your housework without help?: Yes Because of any health problems, do you need the help of another person with your personal care needs such as eating, bathing, dressing or getting around the house?: No Can you handle your own money without help?: Yes During the past 4 weeks, how would you rate your health in general?: good During the past 4 weeks how have things been going for you?: pretty well Are you having difficulties driving your car?: no Do you always fasten your seat belt when you are in a car?: yes, usually During past 4 weeks, have you been bothered by the following: never: Trouble eating well?, Teeth or denture problems?, Problems using the telephone? and Tiredness or fatigue? and seldom: Falling or dizzy when standing up Have you fallen 2 or more times in the past year?: Yes Are you afraid of falling?: No Are you a smoker?: no During the past 4 weeks, how many drinks of wine, beer, or other alcoholic beverages did you have?: no alcohol at all Do you exercise for about 20 minutes 3 or more times a week?: no, I usually do not exercise this much Have you been given information to help with the following?: no: Hazards in your house that might hurt you? and no: Keeping track of your medications? How often do you have trouble taking medicines the way you have been told to take them?: I always take medicine as prescribed How confident are you that you can control & manage most of your health problems?: very confident What is your race?: White PHQ-9 Over the last 2 weeks, how often have you been bothered by any of the following problems? 1. Little interest or pleasure in doing things: not at all 2. Feeling down, depressed, or hopeless: not at all 3. Trouble falling or staying asleep, or sleeping too much: not at all 4. Feeling tired or having little energy: not at all 5. Poor appetite or overeating: not at all 6. Feeling bad about yourself - or that you are a failure or have let yourself or your family down: not at all 7. Trouble concentrating on things, such as reading the newspaper or watching television: not at all 8. Moving or speaking so slowly that other people could have noticed. Or the opposite - being so fidgety or restless that you have been moving around a lot more than usual: not at all 9. Thoughts that you would be better off or of hurting yourself in some way: not at all Total score: 0 Depression Screening Interpretation: Negative Depression Screening Done: Yes 52638 - PHQ-9 Billing: Yes Source: Developed by Drs. Lenny Jimenez, Norma Murdock, Rk Holloway and colleagues, with an educational alfredo from [employer]. Review of Systems Const Denies poor appetite and Denies weakness Eyes Denies no additional complaints ENT Reports Normal hearing present, Denies dizziness, Denies nasal congestion, Denies tinnitus and Denies sore throat Card Denies chest pain, Denies syncope, Denies rapid heart rate and Denies dyspnea Resp Denies cough and Denies dyspnea GI Denies change in stool character, Reports constipation, Denies diarrhea, Denies nausea and Denies vomiting Denies dysuria and Denies urinary frequency Neuro Reports Normal hearing present, Denies confusion, Denies dizziness, Denies syncope and Denies weakness Psych Denies confusion Physical Exam Vital Signs: Last Vital Signs Pulse 101 H 01/29/24 14:50 BP 146/78 H 01/29/24 14:50 Pulse Ox 94 01/29/24 14:50 Oxygen Delivery Method Nasal Cannula 01/29/24 14:50 BMI result Body Mass Index 38.1 Const General: No confusion Orientation/consciousness: No confusion HEENT Head: Yes normocephalic Ears: external ears normal and TM's normal bilaterally Face and sinus: Yes normal facial exam Mouth: moist mucous membranes Throat: Yes tonsils normal Eyes Conjunctivae: conjunctivae normal Pupils: Equal, round and reactive pupils present and Pupil accommodation reflex normal Direct Ophthalmoscopy: normal light reflex Neck Neck: No lymphadenopathy Thyroid: Thyroid normal Chest Chest palpation & inspection: normal inspection of the chest Resp Effort & Inspection: normal respiratory effort and no audible wheezes Auscultation: clear to auscultation bilaterally, no crackles, no wheezes and lung sounds not diminished Cardio Rate: regular rate Rhythm: regular rhythm Peripheral pulses: radial pulses present and dorsalis pedis present GI Other: declined Palpation (GI): no masses Auscultation: normal bowel sounds and normoactive bowel sounds Rectal Exam - Male: Yes deferred Other: decline Skin General skin exam: no rashes or lesions noted Rashes: no rashes Neuro General: No confusion Cranial nerves: Yes Equal, round and reactive pupils present and Yes Normal h earing present Cognition (Neuro): normal cognition Gait exam (Neuro): Normal gait present Motor exam (neuro): 5/5 motor strength present throughout Deep tendon reflexes (DTR's): Right brachioradialis reflex intensity grade: 2+, Left brachioradialis reflex intensity grade: 2+, Right patellar reflex intensity grade: 2+ and Left patellar reflex intensity grade: 2+ Extrem General: No edema Assessment & Plan Assessment & Plan (1) Medicare annual wellness visit, subsequent: Code(s): Z00.00 - Encounter for general adult medical examination without abnormal findi ngs Plan: Keep well hydrated, adequate sleep, eat healthy and keep active (2) Type 2 diabetes mellitus with hyperglycemia: Comment: Dr. Vanessa Code(s): E11.65 - Type 2 diabetes mellitus with hyperglycemia Qualifiers: Diabetes mellitus rodent exterminator insulin use: with senior care use Qualified Code(s): E11.65 - Type 2 diabetes mellitus with hyperglycemia; Z79.4 - longterm (current) use of insulin Plan: Decrease the amount of carbohydrate intake, pasta, bread, rice and potatoes are all sugar and that is aside from all the sweet stuff, remember that fruits are good but they are Sweet also. Hemoglobin A1c goal of less than 7.0. On Trulicity 3 mg once a week Tresiba insulin metformin 1000 mg twice a day (3) Hypercholesterolemia: Code(s): E78.00 - Pure hypercholesterolemia, unspecified Plan: Avoid fried foods, chicken skin, eggs, butter margarine, pastries and meat. Be it pork or beef they have a lot of cholesterol LDL goal of less than 70 and triglyceride of less than 150 on atorvastatin 40 mg once a day December 2023 last blood work (4) BPH (benign prostatic hyperplasia): Code(s): N40.0 - Benign prostatic hyperplasia without lower urinary tract symptoms Plan: Continue with tamsulosin 0.4 mg at bedtime (5) Obstructive sleep apnea: Comment: Being treated with CPAP , and he is very compliant/ benefitting . Code(s): G47.33 - Obstructive sleep apnea (adult) (pediatric) Plan: Continue to use the CPAP more than 4 hours a night and benefits from this (6) Obesity (BMI 30-39.9): Comment: Patient is aware of the fact that he needs to loose weight. advised to cut down the calories intake and also do walking on a daily basis. Encouraged to start walking every day and do some physical exercise. Code(s): E66.9 - Obesity, unspecified Plan: Diet and exercise (7) Hypertension: Code(s): I10 - Essential (primary) hypertension Qualifiers: Hypertension type: essential hypertension Qualified Code(s): I10 - Essential (primary) hypertension Plan: Continue with blood pressure medication. Decrease salt intake and exercise on metoprolol 100 mg once a day (8) Bronchial asthma: Comment: Br. Asthma in his case is Cough / Asthma Variant and is well controlled at this time . Code(s): J45.909 - Unspecified asthma, uncomplicated Qualifiers: Asthma severity: mild Asthma persistence: intermittent Asthma complication type: uncomplicated Qualified Code(s): J45.20 - Mild intermittent asthma, uncomplicated Plan: Continue with the inhaler albuterol Quality Reporting (2019) Depression/Bipolar (159/160/161/177) PHQ-9: Total score: 0 Coding Level of Care Code Medicare Subsequent (G0439) Diagnoses Medicare annual wellness visit, subsequent Z00.00 Type 2 diabetes mellitus with hyperglycemia, with long-term current use of insulin E11.65; Z79.4 Diabetes mellitus rodent exterminator insulin use: with rodent exterminator use Hypercholesterolemia E78.00 BPH (benign prostatic hyperplasia) N40.0 Obstructive sleep apnea G47.33 Obesity (BMI 30-39.9) E66.9 Essential hypertension I10 Hypertension type: essential hypertension Mild intermittent asthma without complication J45.20 Asthma severity: mild Asthma persistence: intermittent Asthma complication type: uncomplicated
== END 2024-01-29 16:12 | disposition home or self-care (01) ==
PROVIDERS: PCP Internal Medicine; Visit Provider Internal Medicine
DX: Z00.00 Encounter for general adult medical examination without abnormal findings (principal); E11.65 Type 2 diabetes mellitus with hyperglycemia; Z79.4 Long term (current) use of insulin; E78.00 Pure hypercholesterolemia, unspecified; N40.0 Benign prostatic hyperplasia without lower urinary tract symptoms; G47.33 Obstructive sleep apnea (adult) (pediatric); E66.9 Obesity, unspecified; I10 Essential (primary) hypertension; J45.20 Mild intermittent asthma, uncomplicated
CPT/HCPCS: G0439

== ENCOUNTER 2024-02-12 10:22 | Outpatient (AMB) | payer MEDICARE, SELFPAY ==
--- NOTE | 2024-02-12 10:41 | MHC.OFFVIS ---
Vital Signs 02/12/24 10:42 Height 5 ft 7 in Weight 240 lb 4.862 oz BMI 37.6 BP 110/82 Blood Pressure Location Lt brachial Position Sitting Pulse 112 H Pulse Source Pulse Oximeter Pulse Oximetry (%) 95 Oxygen Delivery Method Nasal Cannula Oxygen Flow Rate 3 Intake Visit Reasons: COPD follow-up Intake Note: pt is here for follow up and states he is doing well since last visit, uses oxygen and cpap at night. PLEASE REFILL GENERIC ADVAIR, AND ALSO ALBUTEROL FOR NEBULIZER. Septic Tank Installer Required: No Allergies azithromycin [AZITHROMYCIN] Allergy (Unknown, Verified 02/12/24 11:03) HIVES lisinopril [LISINOPRIL] Allergy (Unknown, Verified 02/12/24 11:03) HIVES losartan [LOSARTAN] Allergy (Unknown, Verified 02/12/24 11:03) HIVES oxycodone [OXYCODONE] Allergy (Unknown, Verified 02/12/24 11:03) HIVES Medication List - Last Reconciled 02/12/24 by Aylin Duque MD albuterol sulfate 90 mcg/actuation (ProAir HFA) 2 puffs inhalation Q4-6H PRN albuterol sulfate 2.5 mg inhalation Q6H atorvastatin 40 mg PO DAILY 90 days blood pressure monitor (Blood Pressure Kit) As directed blood sugar diagnostic ([employer] Ultra Test strips) test 2 times per day blood sugar diagnostic One touch ULTRA TEst Strips check the BS 2x a day blood-glucose meter ([employer] Ultra2 Meter kit) As directed cetirizine (Zyrtec) 10 mg PO DAILY PRN cholecalciferol (vitamin D3) 10 mcg PO DAILY cyanocobalamin (vitamin B-12) 1,000 mcg PO DAILY dulaglutide 3 mg (0.5 mL) subcut QWEEK 30 days fluticasone propion-salmeterol 250-50 mcg/dose 1 inh inhalation BID 90 days insulin degludec (Tresiba FlexTouch U-200 insulin) 52 units subcut DAILY lancets ([employer] UltraSoft Lancets) As directed check the blood sugars 4 times a day metformin 1,000 mg PO BID metoprolol succinate ER 100 mg PO DAILY naproxen 500 mg PO BID PRN 7 days pen needle, diabetic (Easy Touch) As directed pen needle, diabetic, safety (Easy Touch Safety Pen Needle) As directed inject twice a day prednisolone acetate 1% 1 drp ophthalmic (eye) DAILY [Prevagen 1 cap PO DAILY] tamsulosin 0.4 mg PO BEDTIME 90 days vit C,Z-Ws-qrrsx-lutein-zeaxan 250-90-40-1 mg (PreserVision AREDS-2) 2 tabs PO DAILY Do you need a note to return to daycare/school/sports/work: No HPI HPI COPD follow-up: Details: 78 years old very pleasant gentleman who is grossly obese, and has obstructive sleep apnea. He has new CPAP machine which is working fine and he is using it every night, sleeping almost 9-10 hours every day. Breathing has been good except for shortness of breath on walking up hill or fast. He has. Had no acute exacerbation He is on oxygen 2 L/minute 24 hours a day. [facility] Medical History Hypoxemia Restrictive lung disease Abnormal LFTs Calcium oxalate calculus 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 Medicare annual wellness visit, initial Bronchitis Pharyngitis Impingement syndrome of right shoulder History of pericarditis Vitamin D deficiency Vitamin B12 deficiency Fatty liver Allergic rhinitis Bronchial asthma Hyperkalemia Mass of right lung Atrial flutter Ankle fracture Hypertension Obesity (BMI 30-39.9) Obstructive sleep apnea BPH (benign prostatic hyperplasia) Hypercholesterolemia Type 2 diabetes mellitus with hyperglycemia Surgical History History of cystoscopy Lumbar spinal stenosis History of lithotripsy History of tooth extraction History of bilateral inguinal hernia repair H/O spinal fusion History of appendectomy Family History Father No problems noted. Mother No problems noted. Son No problems noted. Son No problems noted. Daughter No problems noted. Daughter No problems noted. Social History Housing: House Alcohol intake: never Patient Tobacco Use Status: Former Tobacco user Tobacco use type: Cigarette Years Smoked: 1993 e-Cigarette/Vaping Use: Never Used Second Hand Smoke Exposure: No service: Yes Current occupational status: retired Cognitive needs: No Hearing needs: No Vision needs: Yes Review of Systems Const All systems reviewed & are unremarkable except as noted in HPI and below Eyes Reports no additional complaints ENT Reports nasal congestion (Mild off and on) Card Reports no additional complaints Resp Reports as per HPI GI Reports no additional complaints Reports no additional complaints Musc Reports no additional complaints Skin/Breast Reports system reviewed and no additional complaints, except as documented Neuro Reports no additional complaints Psych Reports no additional complaints Physical Exam Vital Signs: Last Vital Signs Pulse 112 H 02/12/24 10:42 BP 110/82 02/12/24 10:42 Pulse Ox 95 02/12/24 10:42 Oxygen Delivery Method Nasal Cannula 02/12/24 10:42 Oxygen Flow Rate 3 02/12/24 10:42 BMI result Body Mass Index 37.6 Grossly obese and only 2 lb less than last visit Const General: comfortable, no acute distress, alert and awake Orientation/consciousness: patient oriented x3 HEENT Head: Yes normal to inspection General nose exam: No nasal polyps present and No nasal discharge present Face and sinus: Yes sinuses nontender Mouth: oropharynx normal Throat: Yes posterior oropharynx normal Eyes General: appearance normal, both eyes and all related structures Neck Neck: Yes normal visual inspection, Yes no lymphadenopathy, Yes trachea midline and Yes no JVD Thyroid: Thyroid normal Chest Chest palpation & inspection: normal inspection of the chest, normal palpation of entire chest wall and no tenderness Resp Other: Percussion note is resonant. Breath sounds are distant and especially diminished over the basilar areas. No wheezes rhonchi or crepitations are heard. Cardio Palpation: normal PMI Rate: regular rate Rhythm: regular rhythm Heart sounds: no gallops and no murmurs Peripheral pulses: Peripheral pulses 2+ throughout GI Palpation (GI): Soft to palpation, nontender, No hepatosplenomegaly present, no masses and Other GI palpation findings present (Abdomen is moderately obese and protuberant.) Auscultation: normal bowel sounds Back/Spine/Pelvis Thoracic/Lumbar Spine: thoracic and lumbar spine normal to inspection Skin General skin exam: no rashes or lesions noted Neuro General: patient oriented x3 and no focal motor deficits Cranial nerves: Yes CN's II-XII intact bilaterally Extrem General: Yes normal to inspection, Yes no clubbing, cyanosis or edema and Yes no calf tenderness Psych Speech and movement: Normal speech and movement present Results Reviewed Results Reviewed: Compliance report for the last 30 nights is reviewed. Used nights,. 97% Average use per night 11 hours 15 minutes. Pressure 12 cm. Residual AHI only 2.5 Assessment & Plan Assessment & Plan (1) Obesity (BMI 30-39.9): Comment: Patient is aware of the fact that he needs to loose weight. Code(s): E66.9 - Obesity, unspecified Category: Medical Plan: Talked about his weight. He has not able to do much exercise, but encouraged to walk as. Much as a CT (2) Obstructive sleep apnea: Comment: Being treated with CPAP , and he is very compliant/ benefitting . Code(s): G47.33 - Obstructive sleep apnea (adult) (pediatric) Category: Medical Plan: Commended for very good compliance. Advised to continue using CPAP every night. (3) Bronchial asthma: Comment: Br. Asthma in his case is Cough / Asthma Variant and is well controlled at this time . Code(s): J45.909 - Unspecified asthma, uncomplicated Category: Medical Qualifiers: Asthma severity: mild Asthma persistence: intermittent Asthma complication type: uncomplicated Qualified Code(s): J45.20 - Mild intermittent asthma, uncomplicated Plan: Advair 250-51 inhalation b.i.d. Albuterol in the nebulizer Q 4-6 hours p.r.n. alternatively albuterol HFA when he is outdoors. (4) Restrictive lung disease: Comment: BECAUSE OF HIS OBESITY ESPECIALLY ABDOMINAL OBESITY, AND MINIMAL FIBROSIS , HE DOES HAVE MODERATE DEGREE OF RESTRICTIVE LUNG DISEASE, PER PFT IN 2020. Code(s): J98.4 - Other disorders of lung Category: Medical Plan: Talked to him about doing breathing exercises at least 2 to 3 times a day (5) Respiratory failure with hypoxia: Comment: This gentleman has nocturnal hypoxemia along with AMY, As well as exercise induced hypoxemia., corrected with the use of O2. Code(s): J96.91 - Respiratory failure, unspecified with hypoxia Category: Medical Plan: Continue using O2 2 L/minute 24 hours a day Coding Level of Care Code Est Pt Level 4 (76483) Diagnoses Obesity (BMI 30-39.9) E66.9 Obstructive sleep apnea G47.33 Mild intermittent asthma without complication J45.20 Asthma severity: mild Asthma persistence: intermittent Asthma complication type: uncomplicated Restrictive lung disease J98.4 Respiratory failure with hypoxia J96.91
[2024-02-12 10:42] VITALS: BP 110/82; PULSE 112; O2SAT 95; BMI 37.6
== END 2024-02-12 11:06 | disposition home or self-care (01) ==
PROVIDERS: PCP Internal Medicine; Visit Provider Internal Medicine
DX: E66.9 Obesity, unspecified (principal); G47.33 Obstructive sleep apnea (adult) (pediatric); J45.20 Mild intermittent asthma, uncomplicated; J98.4 Other disorders of lung; J96.91 Respiratory failure, unspecified with hypoxia
CPT/HCPCS: 99214

== ENCOUNTER → 2024-02-12 10:22 | Outpatient (BNVA) | payer MEDICARE, SELFPAY | PROVIDERS: PCP Internal Medicine; Visit Provider Internal Medicine | DX: J98.4 Other disorders of lung (principal); J44.9 Chronic obstructive pulmonary disease, unspecified; E66.9 Obesity, unspecified; G47.33 Obstructive sleep apnea (adult) (pediatric); J45.20 Mild intermittent asthma, uncomplicated; J96.91 Respiratory failure, unspecified with hypoxia; Z99.81 Dependence on supplemental oxygen; Z99.89 Dependence on other enabling machines and devices | CPT/HCPCS: 99212 ==

== ENCOUNTER 2024-02-17 15:35 | Inpatient (IN) | payer MEDICARE, SELFPAY ==
[2024-02-17] VITALS (7 sets, daily range): BP systolic 137–171; BP diastolic 66–95; PULSE 87–100; RESP 15–20; TEMP 36.6–36.8; O2SAT 93–96; BMI 37.6
--- NOTE | ~2024-02-17 | CT_ITS ---
EXAMINATION: CT ABDOMEN AND PELVIS WITHOUT CONTRAST CLINICAL INFORMATION: Left flank and abdominal pain, rule out kidney stone COMPARISON: CT abdomen pelvis 12/13/2021 TECHNIQUE: Multidetector volumetric imaging was performed from the superior aspect of the liver through the pubic symphysis. Sagittal and coronal reformatted images were obtained on the technologist's workstation. This CT examination was performed using dose optimization techniques as appropriate, variously including the following: *Automated exposure control *Adjustment of mA and/or kV according to patient size (this includes techniques or standardized protocols for targeted exams where dose is matched to indication/reason for exam; i.e. extremities or head) *Use of iterative reconstruction technique DLP: 862 mGy-cm FINDINGS: Evaluation of solid organs, vascular structures, and bowel wall limited in the absence of intravenous contrast. LUNG BASES: Redemonstrated bibasilar fibrotic interstitial lung disease. Coronary artery calcifications present. Visualized lung bases otherwise unremarkable. LIVER AND BILIARY TREE: Unremarkable. GALLBLADDER: Cholelithiasis without evidence of acute cholecystitis. PANCREAS: Unremarkable. SPLEEN: Unremarkable. ADRENAL GLANDS: Unremarkable. KIDNEYS AND URETERS: Nonobstructing bilateral renal calculi, measuring up to 3 mm at the right superior pole and 7 mm at the left inferior pole, slightly increased in burden from 12/05/2021. Obstructing, 1.1 cm calculus at the left ureterovesicular junction (series 3, image 586). Additional 7 mm calculus in the left distal ureter (series 3, image 553), roughly 3 cm upstream to the dominant UVJ calculus. Mild left hydroureteronephrosis. Unchanged mild symmetric perinephric fat stranding. GASTROINTESTINAL TRACT: Mild scattered colonic diverticulosis without evidence of acute diverticulitis. Redemonstrated focus of fluid with rim calcification in the right mid abdomen adjacent to the ascending colon, likely sequela of remote prior fat necrosis/epiploic appendagitis. VASCULAR: Moderate aortoiliac calcific atherosclerosis again seen. LYMPH NODES: No lymphadenopathy. PERITONEUM: No ascites. BLADDER: Partially decompressed without other bladder calculi identified.. PELVIC VISCERA: Unremarkable. ABDOMINAL AND PELVIC WALL: Unremarkable. OSSEOUS STRUCTURES: Redemonstrated moderate to severe multilevel degenerative lumbar spondylosis. CT/CT abdomen pelvis wo IV con IMPRESSION: 1. Obstructing, 1.1 cm calculus at the left ureterovesicular junction, with an additional 7 mm calculus in the left distal ureter, and mild upstream left hydroureteronephrosis. 2. Additional nonobstructing bilateral renal calculi, measuring up to 7 mm on the left and 3 mm on the right.
--- NOTE | ~2024-02-17 | FL_ITS ---
EXAMINATION: XR FLUOROSCOPY WITH IMAGES CLINICAL INFORMATION: Cystoscopy, stent placement and laser therapy. COMPARISON: CT abdomen and pelvis dated 02/17/2024. TECHNIQUE: Fluoroscopy Supervised By: Dr. Nakul Serna. Fluoroscopy Time: 1.2 seconds. Cumulative Dose: 0.46 mGy. Images: 1. FINDINGS: The submitted images a fluoroscopic view of the central pelvis. FL/FL guidance in OR IMPRESSION: Intraoperative fluoroscopic guidance is provided during cystoscopy, stent placement and laser therapy. Please see the patient's Operative Report for full procedural details.
--- NOTE | 2024-02-17 15:37 | ED.GENADULT ---
HPI - General Adult General Chief complaint: Urogenital-Male Stated complaint: ? Kidney stone Time Seen by Provider: 02/17/24 16:33 Source: patient and family Mode of arrival: ambulatory Limitations: no limitations History of Present Illness HPI narrative: 79-year-old male with a history of diabetes mellitus, hypertension, obstructive sleep apnea, BPH, restrictive lung disease, kidney stones who presents emergency department for evaluation of sudden onset of left-sided flank and abdominal pain which began at 13:00 hours. Patient describes the pain is a constant, sharp, stabbing pain which is 7/10. He states the pain feels similar to his kidney stone pain that he has had at least 2 times in the past. The patient denied fever or chills. He states he has had nausea but no vomiting or diarrhea. He denied myalgias arthralgias. He denied frequency, urgency or dysuria but he states the pain is worse when he tries to urinate. Related Data Home Medications ?Medication ?Instructions ?Recorded ?Confirmed albuterol sulfate 2.5 mg/3 mL 2.5 mg inhalation Q6H 08/13/21 02/12/24 (0.083 %) solution for nebulization Prevagen 1 cap PO DAILY 12/13/21 02/12/24 cyanocobalamin (vitamin B-12) 1,000 mcg PO DAILY 12/13/21 02/12/24 1,000 mcg tablet vit C 250 mg-vit E 90 mg-zinc 40 2 tab PO DAILY 12/13/21 02/12/24 mg-copper 1 [id number] capsule (PreserVision AREDS-2) pen needle, diabetic 31 gauge x #1,200 ea 11/15/22 02/12/24 5/16 (Easy Touch) prednisolone acetate 1 % eye 1 drp ophthalmic (eye) DAILY 03/21/23 02/12/24 drops,suspension cetirizine 10 mg tablet (Zyrtec) 10 mg PO DAILY PRN 11/14/23 02/12/24 cholecalciferol (vitamin D3) 10 10 mcg PO DAILY 11/14/23 02/12/24 mcg (400 unit) capsule insulin degludec 200 unit/mL (3 52 unit subcut DAILY 01/29/24 02/12/24 mL) subcutaneous pen (Tresiba FlexTouch U-200 insulin) fluticasone 250 mcg-salmeterol 50 1 ea inhalation BID 02/17/24 02/17/24 mcg/dose blistr powdr for inhalation (Grzegorz Lopez) Previous Rx's ?Medication ?Instructions ?Recorded blood-glucose meter (OneTouch #1 ea 11/18/20 Ultra2 Meter kit) lancets (OneTouch UltraSoft #4 boxes 11/18/20 Lancets) naproxen 500 mg tablet 500 mg PO BID PRN pain 7 days #14 01/24/22 tabs pen needle, diabetic, safety 30 #200 ea 08/10/22 gauge x 5/16 (Easy Touch Safety Pen Needle) albuterol sulfate 90 mcg/actuation 2 puff inhalation Q4-6H PRN 10/31/22 aerosol inhaler (ProAir HFA) bronchospasm #8.5 grams metformin 1,000 mg tablet 1,000 mg PO BID #180 caps 02/13/23 blood sugar diagnostic #200 ea 05/17/23 blood sugar diagnostic (OneTouch #100 ea 05/17/23 Ultra Test strips) blood pressure monitor (Blood #1 ea 05/24/23 Pressure Kit) dulaglutide 3 mg/0.5 mL 3 mg (0.5 mL) subcut QWEEK 30 days 11/08/23 subcutaneous pen injector #2.5 mL fluticasone 250 mcg-salmeterol 50 1 inh inhalation BID 90 days #3 ea 12/10/23 mcg/dose blistr powdr for inhalation atorvastatin 40 mg tablet 40 mg PO DAILY 90 days #90 tabs 12/12/23 tamsulosin 0.4 mg capsule 0.4 mg PO BEDTIME 90 days #90 caps 01/13/24 metoprolol succinate 100 mg 100 mg PO DAILY #90 tabs 01/30/24 tablet,extended release 24 hr Allergies Allergy/AdvReac Type Severity Reaction Status Date / Time azithromycin [AZITHROMYCIN] Allergy Unknown HIVES Verified 02/17/24 15:39 lisinopril [LISINOPRIL] Allergy Unknown HIVES Verified 02/17/24 15:39 losartan [LOSARTAN] Allergy Unknown HIVES Verified 02/17/24 15:39 oxycodone [OXYCODONE] Allergy Unknown HIVES Verified 02/17/24 15:39 Review of Systems Review of Systems: Yes all other systems are reviewed and are negative PMFSH Past Medical History [facility] Narrative: Social history: The patient is and is here with his . He denies tobacco, alcohol and drug use. Medical History Hypoxemia Restrictive lung disease Abnormal LFTs Calcium oxalate calculus 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 Medicare annual wellness visit, initial Bronchitis Pharyngitis Impingement syndrome of right shoulder History of pericarditis Vitamin D deficiency Vitamin B12 deficiency Fatty liver Allergic rhinitis Bronchial asthma Hyperkalemia Mass of right lung Atrial flutter Ankle fracture Hypertension Obesity (BMI 30-39.9) Obstructive sleep apnea BPH (benign prostatic hyperplasia) Hypercholesterolemia Type 2 diabetes mellitus with hyperglycemia Surgical History History of cystoscopy Lumbar spinal stenosis History of lithotripsy History of tooth extraction History of bilateral inguinal hernia repair H/O spinal fusion History of appendectomy Family History Family History Father No problems noted. Mother No problems noted. Son No problems noted. Son No problems noted. Daughter No problems noted. Daughter No problems noted. Social History Social History Housing: House Alcohol intake: never Patient Tobacco Use Status: Former Tobacco user Tobacco use type: Cigarette Years Smoked: 1993 e-Cigarette/Vaping Use: Never Used Second Hand Smoke Exposure: No service: Yes Current occupational status: retired Cognitive needs: No Hearing needs: No Vision needs: Yes Physical Exam ED Vital Signs: Vital Signs - 24 hr 02/17/24 15:37 02/17/24 16:43 02/17/24 18:34 Temperature 98 F 98.3 F Pulse Rate 100 96 97 Respiratory Rate 18 20 15 Blood Pressure 171/66 H 162/95 H 137/82 Pulse Oximetry 93 96 95 Oxygen Delivery Method Nasal Cannula Nasal Cannula Nasal Cannula Oxygen Flow Rate 3 3 02/17/24 18:36 02/17/24 19:44 Temperature Pulse Rate 93 Respiratory Rate 18 18 Blood Pressure 138/82 Pulse Oximetry 95 Oxygen Delivery Method Nasal Cannula Oxygen Flow Rate 2 BMI result Body Mass Index 37.6 Vital signs revealed an elevated blood pressure of 171/66 otherwise unremarkable Exam: General: Awake, alert in no distress, elevated BMI of 37.6, weight is 108.8 kg Head: Normocephalic, atraumatic EENT: PERRL, Lids normal, sclera normal, conjunctiva normal, nose normal , ears normal, throat without erythema or exudates Neck: Supple, no adenopathy Lung: breath sounds symmetric, no wheezing, rales or rhonchi Chest: symmetric movement, nontender Heart: regular rate and rhythm, normal S1, S2 no murmurs or rubs Abdomen: soft, moderate left-sided tenderness with no rebound, no voluntary or involuntary guarding, there are 3 small vesicular lesions on his left abdominal wall with underlying erythema but no increased warmth Back: no vertebral tenderness, no CVAT Extremities: no deformities, moves all extremities symmetrically Neuro: Awake, alert, oriented, normal speech, cranial nerves intact, moves all extremities symmetrically Psych: Pleasant, cooperative Course Course Course Narrative: This is an RME performed by Charity Paul, ASSEMBLY WORKER: Additional HPI, ROS, PE not included below will be deferred to primary provider. Patient is a 79-year-old male who presents to the emergency department for evaluation of L ABD pain x 3hours had some nausea but no vomiting, urinary frequency hesitancy. Denies fevers, chills, hematuria. reports hx kidney stones, with history of lithotripsy. Followed by Dr. Serna. Physical exam: Left ABD tenderness upon palpation, normoactive bowel sounds, wearing oxygen via nasal at 3 L which is baseline, lung sounds with rhonchi bilaterally Plan: Labs, urinalysis Medications Administered Generic Name Dose Route Start Last Admin Trade Name Freq PRN Reason Stop Dose Admin Insulin Human Lispro 0 unit 02/18/24 00:00 02/18/24 01:42 Insulin Lispro 100 Unit/Ml 3 Ml Vial SUBCUT Not Given Q6H ON LICENSE OF [facility] Protocol Sodium Chloride 3 ml 02/18/24 00:00 02/18/24 01:31 0.9 % Sodium Chloride Flush 3 Ml Syringe IVFLUSH Not Given QSHIFT ON LICENSE OF [facility] Discontinued Medications Generic Name Dose Route Start Last Admin Trade Name Freq PRN Reason Stop Dose Admin Sodium Chloride 1,000 mls @ 999 mls/hr 02/17/24 17:13 02/17/24 19:10 Ns IV 02/17/24 18:13 Infused .Q1H1M STA Infusion Ketorolac Tromethamine 15 mg 02/17/24 17:12 02/17/24 17:25 Ketorolac Tromethamine 15 Mg/Ml Vial IVPUSH 02/17/24 17:13 15 mg ONCE STA Administration Morphine Sulfate 4 mg 02/17/24 18:26 02/17/24 18:36 Morphine Sulfate 4 Mg/Ml Cartridge IVPUSH 02/17/24 18:27 4 mg ONCE STA Administration Protocol Morphine Sulfate 4 mg 02/17/24 19:35 02/17/24 19:45 Morphine Sulfate 4 Mg/Ml Cartridge IVPUSH 02/17/24 19:36 4 mg ONCE STA Administration Protocol Ondansetron HCl 4 mg 02/17/24 17:13 02/17/24 17:25 Ondansetron Hcl 4 Mg/2 Ml Vial IVPUSH 02/17/24 17:14 4 mg ONCE ONE Administration Medical Decision Making Medical Decision Making MDM Narrative: 79-year-old male with a history of diabetes mellitus, hypertension, obstructive sleep apnea, BPH, restrictive lung disease, kidney stones who presents emergency department for evaluation of sudden onset of left-sided flank , sharp, constant abdominal pain which began at 13:00 hours. Patient describes the pain is a constant, sharp, stabbing pain which is 7/10. Patient states the pain feels similar to his kidney stone pain that he has had in the past, pain is exacerbated by trying to urinate but he has no frequency, urgency or dysuria. Differential diagnosis: ?Includes but is not limited to pancreatitis, diverticulitis, ureteral colic, ureteral stone, herpes zoster Following evaluation was ordered: Comprehensive metabolic panel, CBC, urinalysis, CT scan of the abdomen pelvis without IV contrast Patient was initially treated with the following: Toradol 15 mg IV, Zofran 4 mg IV, normal saline x1 L Course: 17:19 My independent interpretation patient's laboratory evaluation is as follows: CBC was normal. CMP was normal except for an elevated glucose of 217. Urinalysis was positive for blood. Microscopic revealed no RBCs, no WBCs and no bacteria. 19:40 CT scan of the abdomen pelvis without IV contrast did reveal a large 11 mm stone at the left UVJ and a 2nd mid ureter 7 mm stone with hydroureteronephrosis. Patient required 2 doses of morphine 4 mg IV to help with his pain. 20:31 I did discuss disposition with the covering urologist, Dr. Serna over tiger text. He felt that given the patient's age and comorbid conditions, the patient should be admitted to the hospitalist service. I did discuss over tiger text the patient's presentation with the covering hospitalist, Dr. Rabago and the patient will be admitted for further management. Admission/Observation Consideration of admission/observation: Escalation of care including admission/observation considered Consult Healthcare Provider Management of the patient was discussed with: Hospitalist (Dr. Rabago) and Patient Support Specialist (Dr. Serna) Lab Data MDM Lab Attestation statement: I reviewed the patient's lab results. 02/17/24 15:57 02/17/24 15:57 Labs: Lab Results 02/17/24 Range/Units 15:57 WBC 7.8 (4.8-10.8) X10*3/uL RBC 4.67 (4.60-5.80) X10*6/uL Hgb 13.5 L (14.0-18.0) g/dl Hct 38.5 L (42.0-52.0) % MCV 82.4 (80.0-98.0) fL MCH 28.9 (27.0-33.0) pg MCHC 35.1 (31.0-36.0) g/dl RDW 13.2 (11.0-16.0) % Plt Count 199 (160-400) X10*3/uL MPV 10.3 (9.4-12.4) fL Immature Gran % (Auto) 0.3 (0.0-0.4) % Neut % (Auto) 63.1 (45-73) % Lymph % (Auto) 24.4 (20-40) % [place] % (Auto) 8.4 (2-11) % Eos % (Auto) 2.9 (0-4) % Baso % (Auto) 0.9 (0-2) % Lymph # (Auto) 1.9 (1.2-4.9) X10*3/uL [place] # (Auto) 0.7 (0.1-1.2) X10*3/uL Eos # (Auto) 0.2 (0.0-0.4) X10*3/uL Baso # (Auto) 0.1 (0.0-0.2) X10*3/uL Abs Immat Gran (auto) 0.02 (0.00-0.03) X10*3/uL Absolute Neuts (auto) 4.9 (2.0-8.3) x10*3/uL Absolute Nucleated RBC 0.000 (0.0-0.012) X10*3/uL Nucleated RBC % (auto) 0.0 (0.0-0.2) /100WBC Sodium 139 (135-145) mmol/L Potassium 4.2 (3.3-5.1) mmol/L Chloride 104 (96-108) mmol/L Carbon Dioxide 20 L (22-29) mmol/L Anion Gap 19 (12-20) BUN 14 (9-16) mg/dL Creatinine 0.95 (0.5-1.4) mg/dL Estim Creat Clear Calc 71.7 Estimated GFR > 60 Random Glucose 217 H (60-115) mg/dL Calcium 10.0 D (8.4-10.2) mg/dL Total Bilirubin 0.9 (0.0-1.0) mg/dL AST 18 (5-37) U/L ALT 18 (0-40) U/L Alkaline Phosphatase 113 (39-117) U/L Total Protein 7.7 (6.5-8.0) g/dL Albumin 4.1 (3.5-5.0) g/dL Urine Color Yellow Urine Appearance Clear Urine pH 5.5 (5.0-9.0) Ur Specific [place] 1.015 (1.005-1.025) Urine Protein Trace (Neg-Trace) mg/dL Urine Glucose (UA) Negative (Negative) mg/dL Urine Ketones Negative (Negative) mg/dL Urine Blood Trace H (Negative) Urine Nitrite Negative (Negative) Ur Leukocyte Esterase Negative (Negative) Urine RBC 0-2 (0-2) /HPF Urine WBC 0-5 (0-5) /HPF Ur Squamous Epith Cells 0-2 (0-2) /HPF Urine Bacteria None Seen (None Seen) Hyaline Casts 0-2 (0-2) /LPF Radiology Impression Discussion of test interpretation with radiology: I have reviewed the radiologist's reading. Radiologist Impression: CT abdomen pelvis wo IV con IMPRESSION: 1. Obstructing, 1.1 cm calculus at the left ureterovesicular junction, with an additional 7 mm calculus in the left distal ureter, and mild upstream left hydroureteronephrosis. 2. Additional nonobstructing bilateral renal calculi, measuring up to 7 mm on the left and 3 mm on the right. Dictated By: Serafin Diaz MD Critical Care Time Critical Care Time Critical Care Time: Yes Total Critical Care Time: 35 Attestation: Critical Care: The patient was critically ill with a high probability of imminent or life threatening deterioration. I spent greater than 30 minutes of discontinuous time evaluating the patient,delivering critical care at the bedside, discussing and evaluating pertinent data with consultants. Critical care time does not include time spent performing separately billable procedures or teaching. Total time spent performing critical care was 35 minutes. Discharge Plan Discharge Clinical Impression: Left ureteral calculus, Hydroureteronephrosis Patient Disposition: Admitted As Inpatient Interventions: Admission Worksheet (ED) Last Done: 02/18/24 00:21 Discharge Date/Time: 02/18/24 01:00
[2024-02-17 16:02] LABS: MANUAL DIFF FLAG NO
[2024-02-17 16:04] LABS: Basophils Absolute Auto 0.1 X10*3/uL (0.0-0.2); Basophils Percent Auto 0.9 % (0-2); Eosinophils Absolute Auto 0.2 X10*3/uL (0.0-0.4); Eosinophils Percent Auto 2.9 % (0-4); Hematocrit 38.5 % (42.0-52.0); Hemoglobin 13.5 g/dl (14.0-18.0); Imm Gran Abs Auto 0.02 X10*3/uL (0.00-0.03); Imm Gran Pct Auto 0.3 % (0.0-0.4); Lymphocytes Absolute Auto 1.9 X10*3/uL (1.2-4.9); Lymphocytes Percent Auto 24.4 % (20-40); Mean Corpuscular HGB Conc 35.1 g/dl (31.0-36.0); Mean Corpuscular Hemoglobin 28.9 pg (27.0-33.0); Mean Corpuscular Volume 82.4 fL (80.0-98.0); Mean Platelet Volume 10.3 fL (9.4-12.4); Monocytes Absolute Auto 0.7 X10*3/uL (0.1-1.2); Monocytes Percent Auto 8.4 % (2-11); Neutrophils Absolute Auto 4.9 x10*3/uL (2.0-8.3); Neutrophils Percent Auto 63.1 % (45-73); Platelet Count 199 X10*3/uL (160-400); Red Blood Count 4.67 X10*6/uL (4.60-5.80); Red Cell Distribution Width 13.2 % (11.0-16.0); White Blood Count 7.8 X10*3/uL (4.8-10.8)
[2024-02-17 16:06] LABS: Appearance Urine Clear; Color Urine Yellow; Glucose Urine UA Negative (Negative); Leukocyte Esterase Urine Negative (Negative); Nitrite Urine Negative (Negative); PH 5.5 (5.0-9.0); Specific Gravity - Urine 1.015 (1.005-1.025); UMIC TRIGGER UACC YES; Urine Blood Trace (Negative); Urine Ketones Negative (Negative); Urine Protein Trace mg/dL (Neg-Trace)
[2024-02-17 16:12] LABS: Bacteria Urine None Seen (None Seen); Hyaline Casts Urine 0-2 /LPF (0-2); RBC Urine 0-2 /HPF (0-2); Squamous Epithelial Cell Urine 0-2 /HPF (0-2); WBC Urine 0-5 /HPF (0-5)
[2024-02-17 16:20] LABS: Alanine Aminotransferase 18 U/L (0-40); Albumin Level 4.1 g/dL (3.5-5.0); Alkaline Phosphatase 113 U/L (39-117); Anion Gap 19 (12-20); Aspartate Amino Transferase 18 U/L (5-37); Bilirubin Total 0.9 mg/dL (0.0-1.0); Blood Urea Nitrogen 14 mg/dL (9-16); Carbon Dioxide 20 mmol/L (22-29); Chloride 104 mmol/L (96-108); Creatinine Clr Calc Pharmacy 71.7; Estimated Glomerular Filt Rate > 60; Glucose Random 217 mg/dL (60-115); Potassium 4.2 mmol/L (3.3-5.1); Sodium 139 mmol/L (135-145); Total Protein 7.7 g/dL (6.5-8.0)
--- NOTE | 2024-02-17 16:49 | PC.NURSE ---
Pt presents to ED from home with . Pt reports left sided abdominal pain starting around 1pm today, describes as aching, 7/10, that worsens with urination. Pt has hx of kidney stones and reports this feels similar to past episodes. Pt denies nausea, vomiting, fevers, cough. Pt reports 3 bowel movements this morning. Normal PO intake. Pt is alert and oriented, breathing even and unlabored, skin clammy. Pt obviously uncomfortable due to pain. On 3L O2 NC at baseline for COPD.
[2024-02-17] MEDS: ondansetron HCL 4 MG/2 ML VIAL IVPUSH (17:25)
[2024-02-17] MEDS: Ketorolac Tromethamine 15 MG/ML VIAL IVPUSH (17:25)
[2024-02-17] MEDS: 0.9 % Sodium Chloride 1,000 ML 999 ML IV (17:29)
[2024-02-17] MEDS: Morphine Sulfate 4 MG/ML CARTRIDGE IVPUSH ×2 (18:36→19:45)
--- NOTE | 2024-02-17 20:58 | PM.IMHP ---
History of Present Illness Date of Service: 02/17/24 Attending physician on admission: Jourdan Rivera Chief Complaint: Left flank pain Silvano Walter is a very pleasant 79 years old man with past medical history significant for nephrolithiasis, BPH, AMY on CPAP, COPD on home O2 and type 2 diabetes mellitus on insulin presents to the emergency department complaining of sudden onset of left flank pain that started today. He described the pain as sharp without radiation and intensity 10/10. Pain increases with urination. Denied bloody urine. He denied any associated nausea or vomiting. Denies fever or chills. Denied any headache, palpitations or dizzines. No cardiopulmonary symptoms reported. He is a former tobacco smoker. Denies alcohol abuse or illicit drug use. In the ED he was found to have normal vital signs. Blood workup showed no leukocytosis. Hemoglobin is 13.5 and around baseline. Platelets are normal. There are no significant electrolyte imbalances. Creatinine is 0.95. LFTs are normal. UA showed trace blood but no findings consistent with UTI. Abdomen pelvis CT scan with IV contrast showed obstructive 1.1 cm calculus at the left ureterovesicular junction with an additional 7 mm calculi in the left distal ureter and mild upstream left hydroureteronephrosis. There heart 2 additional nonobstructive calculi. ED tx: Ketorolac 15 mg IV, Zofran 4 mg IV, morphine 8 mg IV (total), NS 1L bolus. Review of Systems Review of Systems: All 12 systems were reviewed and normal except as noted in HPI. [facility] Medical History Hypoxemia Restrictive lung disease Abnormal LFTs Calcium oxalate calculus 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 Medicare annual wellness visit, initial Bronchitis Pharyngitis Impingement syndrome of right shoulder History of pericarditis Vitamin D deficiency Vitamin B12 deficiency Fatty liver Allergic rhinitis Bronchial asthma Hyperkalemia Mass of right lung Atrial flutter Ankle fracture Hypertension Obesity (BMI 30-39.9) Obstructive sleep apnea BPH (benign prostatic hyperplasia) Hypercholesterolemia Type 2 diabetes mellitus with hyperglycemia Family History Father No problems noted. Mother No problems noted. Son No problems noted. Son No problems noted. Daughter No problems noted. Daughter No problems noted. Surgical History History of cystoscopy Lumbar spinal stenosis History of lithotripsy History of tooth extraction History of bilateral inguinal hernia repair H/O spinal fusion History of appendectomy Social History Housing: House Alcohol intake: never Patient Tobacco Use Status: Former Tobacco user Tobacco use type: Cigarette Years Smoked: 1994 Smoked in Last 30 Days: No e-Cigarette/Vaping Use: Never Used Second Hand Smoke Exposure: No Use of substances other than those prescribed or required for medical reasons: No Advance Directives: No Advance Directives Information Provided: No service: Yes Current occupational status: retired Cognitive needs: No Hearing needs: No Vision needs: Yes Meds Allergies Allergy/AdvReac Type Severity Reaction Status Date / Time azithromycin [AZITHROMYCIN] Allergy Unknown HIVES Verified 02/17/24 15:39 lisinopril [LISINOPRIL] Allergy Unknown HIVES Verified 02/17/24 15:39 losartan [LOSARTAN] Allergy Unknown HIVES Verified 02/17/24 15:39 oxycodone [OXYCODONE] Allergy Unknown HIVES Verified 02/17/24 15:39 Active Medications: Current Medications Acetaminophen (Acetaminophen 325 Mg Tablet) 975 mg PO Q6H PRN PRN Reason: mild pain, headache or fever Lactated Ringer's (Lr) 1,000 mls @ 80 mls/hr IVCONT .[id number] ON LICENSE OF [facility] Morphine Sulfate (Morphine Sulfate 4 Mg/Ml Cartridge) 3 mg IVPUSH Q3H PRN; Protocol PRN Reason: Pain, Severe (Pain Scale 7-10) Ondansetron HCl (Ondansetron Hcl 4 Mg/2 Ml Vial) 4 mg IVPUSH Q8H PRN PRN Reason: Nausea and Vomiting Sodium Chloride (0.9 % Sodium Chloride Flush 3 Ml Syringe) 3 ml IVFLUSH QSHIFT ON LICENSE OF [facility] Home Medications ?Medication ?Instructions ?Recorded ?Confirmed ?Last Taken ?Type albuterol sulfate 2.5 mg/3 mL 2.5 mg inhalation Q6H 08/13/21 02/12/24 Unknown History (0.083 %) solution for nebulization Prevagen 1 cap PO DAILY 12/13/21 02/12/24 12/12/21 History cyanocobalamin (vitamin B-12) 1,000 mcg PO DAILY 12/13/21 02/12/24 12/12/21 History 1,000 mcg tablet vit C 250 mg-vit E 90 mg-zinc 40 2 tab PO DAILY 12/13/21 02/12/24 12/12/21 History mg-copper 1 [id number] capsule (PreserVision AREDS-2) pen needle, diabetic 31 gauge x #1,200 ea 11/15/22 02/12/24 Unknown History 02/28 (Easy Touch) prednisolone acetate 1 % eye 1 drp ophthalmic (eye) DAILY 03/21/23 02/12/24 Unknown History drops,suspension cetirizine 10 mg tablet (Zyrtec) 10 mg PO DAILY PRN 11/14/23 02/12/24 Unknown History cholecalciferol (vitamin D3) 10 10 mcg PO DAILY 11/14/23 02/12/24 Unknown History mcg (400 unit) capsule insulin degludec 200 unit/mL (3 52 unit subcut DAILY 01/29/24 02/12/24 Unknown History mL) subcutaneous pen (Tresiba FlexTouch U-200 insulin) fluticasone 250 mcg-salmeterol 50 1 ea inhalation BID 02/17/24 02/17/24 Unknown History mcg/dose blistr powdr for inhalation (Grzegorz Lopez) Physical Exam Vital Signs and Narrative: Vital Signs: Last Vital Signs Temp 98.3 F 02/17/24 16:43 Pulse 93 02/17/24 19:44 Resp 18 02/17/24 19:44 BP 138/82 02/17/24 19:44 Pulse Ox 95 02/17/24 19:44 O2 Del Method Nasal Cannula 02/17/24 19:44 O2 Flow Rate 2 02/17/24 19:44 Oxygen Flow Rate 3 02/17/24 15:37 BMI result Body Mass Index 37.6 Constitutional - Awake and Alert, No apparent distress. Pleasant. Cooperative. Obese. Nasal cannula in place HEENT - Normocephalic. Atraumatic. Pupils equally round. Normal sclerae. Moist oral mucosa. Heart - RRR. No murmur. Lungs - Normal lung expansion, Normal respiratory effort, No respiratory distress, CTA bilaterally Abdomen - NT / ND; +BS; No rebound or guarding. - Left CVA tenderness Extremities - No calf tenderness bilaterally, no swelling Musculoskeletal - Normal inspection, normal ROM Skin - Warm/Dry Neurological - Alert & oriented x3. No focal weakness grossly noted. Normal speech. Psychological - Appropriate affect Results Labs 02/17/24 15:57 02/17/24 15:57 Labs: Laboratory Results - last 24 hr 02/17/24 15:57 MCV 82.4 MCH 28.9 MCHC 35.1 RDW 13.2 Plt Count 199 MPV 10.3 Immature Gran % (Auto) 0.3 Neut % (Auto) 63.1 Lymph % (Auto) 24.4 [place] % (Auto) 8.4 Eos % (Auto) 2.9 Baso % (Auto) 0.9 Lymph # (Auto) 1.9 [place] # (Auto) 0.7 Eos # (Auto) 0.2 Baso # (Auto) 0.1 Abs Immat Gran (auto) 0.02 Absolute Neuts (auto) 4.9 Absolute Nucleated RBC 0.000 Nucleated RBC % (auto) 0.0 Anion Gap 19 Estim Creat Clear Calc 71.7 Estimated GFR > 60 Random Glucose 217 H Calcium 10.0 D Total Bilirubin 0.9 AST 18 ALT 18 Alkaline Phosphatase 113 Total Protein 7.7 Albumin 4.1 Urine Color Yellow Urine Appearance Clear Urine pH 5.5 Ur Specific [place] 1.015 Urine Protein Trace Urine Glucose (UA) Negative Urine Ketones Negative Urine Blood Trace H Urine Nitrite Negative Ur Leukocyte Esterase Negative Urine RBC 0-2 Urine WBC 0-5 Ur Squamous Epith Cells 0-2 Urine Bacteria None Seen Hyaline Casts 0-2 Imaging Radiologist's Impressions: Impressions Abdomen/Pelvis CT 02/17/24 17:56 IMPRESSION: 1. Obstructing, 1.1 cm calculus at the left ureterovesicular junction, with an additional 7 mm calculus in the left distal ureter, and mild upstream left hydroureteronephrosis. 2. Additional nonobstructing bilateral renal calculi, measuring up to 7 mm on the left and 3 mm on the right. Assessment and Plan (1) Left ureteral calculus: Status: Acute (2) Hydroureteronephrosis: Status: Acute (3) Obesity (BMI 30-39.9): Status: Acute (4) Obstructive sleep apnea: Status: Acute (5) BPH (benign prostatic hyperplasia): Qualifiers: Lower urinary tract symptom presence: symptoms present Lower urinary tract symptom detail: urinary frequency Qualified Code(s): N40.1 - Benign prostatic hyperplasia with lower urinary tract symptoms; R35.0 - Frequency of micturition Status: Acute (6) Hypercholesterolemia: Status: Acute (7) Type 2 diabetes mellitus with hyperglycemia: Qualifiers: Diabetes mellitus custodial insulin use: with termite technician use Qualified Code(s): E11.65 - Type 2 diabetes mellitus with hyperglycemia; Z79.4 - intermission coordinator (current) use of insulin Status: Acute Plan Silvano Walter is a 79 y/o man with PMHx significant for nephrolithiasis admittied with: Obstructive renal calculi (2) to the left ureter associated with mild hydronephrosis. Admit to hospitalist service. NPO after midnight. IV fluids. Pain control with morphine as needed. Urology consult -Dr. Serna -contacted by ED. Type 2 diabetes mellitus. BG checks every 6 hours while NPO. Insulin sliding scale. Tresiba, metformin and Trulicity on hold due to NPO state. AMY. CPAP at nighttime. BPH. Continue tamsulosin. COPD. Continue home O2. Continue Wixela (or alternative). DuoNeb as needed. Essential hypertension. Continue metoprolol. Obesity. BMI 37.6 kg/m2. Weight loss. Hyperlipidemia. Continue statin. Code status: Full DVT prophylaxis: SCDs (aspirin on hold -procedure scheduled). Patient will need hospitalization for at least 2 midnights for obstructive renal calculi treatment with IV fluids and IV pain meds. Patient will also need urological procedure in the morning. Quality Stroke Does the patient have a stroke diagnosis?: No VTE Prior VTE?: No VTE Risk Level:: Medical - moderate - high VTE Device Contraindication: N/A - Device Ordered VTE Drug Contraindication: Treatment Not Indicated
[2024-02-18 00:21] LABS: Glucose, Whole Blood 212 mg/dL (60-115)
[2024-02-18 01:15] VITALS: BP 179/97; PULSE 96; RESP 16; TEMP 35.9; O2SAT 97
[2024-02-18 01:37] VITALS: BMI 37.4
[2024-02-18 01:40] VITALS: BMI 37.4
[2024-02-18] MEDS: Morphine Sulfate 4 MG/ML CARTRIDGE 3 MG IVPUSH ×4 (03:30→20:24)
[2024-02-18 03:55] LABS: Glucose, Whole Blood 241 mg/dL (60-115)
[2024-02-18 04:00] VITALS: BP 158/96; PULSE 99; RESP 15; TEMP 36.4; O2SAT 99
[2024-02-18] MEDS: Lactated Ringers 1,000 ML 80 ML IVCONT (05:00)
[2024-02-18 06:39] LABS: MANUAL DIFF FLAG NO
[2024-02-18 06:41] LABS: Basophils Percent Auto 0.6 % (0-2); Eosinophils Absolute Auto 0.2 X10*3/uL (0.0-0.4); Eosinophils Percent Auto 3.1 % (0-4); Hematocrit 35.5 % (42.0-52.0); Hemoglobin 12.1 g/dl (14.0-18.0); Imm Gran Abs Auto 0.03 X10*3/uL (0.00-0.03); Imm Gran Pct Auto 0.4 % (0.0-0.4); Lymphocytes Absolute Auto 1.9 X10*3/uL (1.2-4.9); Lymphocytes Percent Auto 27.2 % (20-40); Mean Corpuscular HGB Conc 34.1 g/dl (31.0-36.0); Mean Corpuscular Hemoglobin 28.5 pg (27.0-33.0); Mean Corpuscular Volume 83.7 fL (80.0-98.0); Mean Platelet Volume 10.3 fL (9.4-12.4); Monocytes Absolute Auto 0.7 X10*3/uL (0.1-1.2); Monocytes Percent Auto 9.6 % (2-11); Neutrophils Absolute Auto 4.2 x10*3/uL (2.0-8.3); Neutrophils Percent Auto 59.1 % (45-73); Platelet Count 184 X10*3/uL (160-400); Red Blood Count 4.24 X10*6/uL (4.60-5.80); White Blood Count 7.1 X10*3/uL (4.8-10.8)
[2024-02-18 06:46] LABS: INTERNATIONAL NORM RATIO 1.2 (0.9-1.1); Prothrombin Time 14.4 SEC (11.1-13.3)
[2024-02-18 06:57] LABS: Anion Gap 15 (12-20); Blood Urea Nitrogen 15 mg/dL (9-16); Calcium 9.2 mg/dL (8.4-10.2); Carbon Dioxide 24 mmol/L (22-29); Chloride 105 mmol/L (96-108); Estimated Glomerular Filt Rate > 60; Glucose Random 214 mg/dL (60-115); Sodium 140 mmol/L (135-145)
[2024-02-18 07:47] VITALS: BP 134/77; PULSE 92; RESP 16; TEMP 36; O2SAT 92
[2024-02-18] MEDS: Atorvastatin Calcium 40 MG TABLET PO (07:58)
[2024-02-18] MEDS: Acetaminophen 325 MG TABLET 975 MG PO ×2 (07:59→14:41)
[2024-02-18] MEDS: Metoprolol Succinate ER 100 MG TAB.ER.24H PO (07:59)
--- NOTE | 2024-02-18 09:22 | PHA.MEDREC ---
Pharmacy Consult ? Medication Reconciliation Pharmacy has completed the medication reconciliation.
[2024-02-18 10:01] LABS: Glucose, Whole Blood 179 mg/dL (60-115)
--- NOTE | 2024-02-18 10:08 | MHC.CM.PN ---
IMM delivered. Patient lives in a home w/ his . Reports he is functionally independent. Report 3L home O2 via [employer] and CPAP via [employer]. PCP Homer Akers MD No HCP. CM provided education and offered assistance. Patient states he will likely make is his HCP, but would like to discuss w/ her first and identify an alternate. Plans to complete prior to dc. DP: Goal is home self care. to transport. CM sanket continue to follow.
--- NOTE | 2024-02-18 10:37 | P.PNIM_ITS ---
Subjective Subjective Date of Service: 02/18/24 Interval History: Seen and examined this morning Follow-up for obstructing renal calculi Patient denies any fever or chills, reporting abdominal pain primarily after urinating No plan for urological procedure today Review of Systems Review of Systems: Yes all other systems are reviewed and are negative Constitutional Constitutional: Denies chills and Denies fever(s) Cardiovascular Cardiovascular: Denies chest pain and Denies dyspnea Respiratory Respiratory: Denies dyspnea Gastrointestinal Gastrointestinal: Reports abdominal pain Physical Exam 2 Vital Signs: Vital Signs: Last Vital Signs Temp 96.8 F 02/18/24 07:47 Pulse 92 02/18/24 07:47 Resp 16 02/18/24 07:47 BP 134/77 02/18/24 07:47 Pulse Ox 92 02/18/24 07:47 O2 Del Method CPAP 02/18/24 07:47 O2 Flow Rate 2 02/18/24 04:00 Oxygen Flow Rate 3 02/17/24 15:37 BMI result Body Mass Index 37.4 Const: Other: General-patient is cooperative, comfortable, resting in bed in no acute distress. He is awake, alert and oriented x3 HEENT-pupils equal round and reactive to light and accommodation Cardiac heart rate regular rate and rhythm, no murmurs appreciated Pulmonary lungs are clear to auscultation bilaterally with no wheezes rhonchi or rales GI-abdomen is soft, nontender, nondistended, positive bowel sounds present -no CVA tenderness Neuro-cranial nerves 2-12 are grossly intact with no focal deficits, able to move all 4 extremities spontaneously Extremities no peripheral edema Skin-warm and dry Objective Data Active Medications Acetaminophen (Acetaminophen 325 Mg Tablet) 975 mg PO Q6H PRN PRN Reason: mild pain, headache or fever Last Admin: 02/18/24 07:59 Dose: 975 mg Documented By: LAURA Albuterol/Ipratropium (Albuterol/Iprat 2.5/0.5mg 3 Ml Ampul.Neb) 3 ml INHALE Q4H PRN PRN Reason: Shortness of Breath/Wheezing Atorvastatin Calcium (Atorvastatin Calcium 40 Mg Tablet) 40 mg PO DAILY [facility] Cyanocobalamin (Cyanocobalamin (Vitamin B-12) 1,000 Mcg Tablet) 1,000 mcg PO DAILY [facility] Fluticasone/Vilanterol (Fluticasone/Vilanterol 100/25 Blst.W.Dev) 1 puff INHALE RDAILY [facility] Glucose (Glucose Gel 15 Gm Gel..Gram.) 15 gm PO Q15M PRN; Protocol PRN Reason: per Hypoglycemia Standing Ord. Lactated Ringer's (Lr) 1,000 mls @ 80 mls/hr IVCONT .[id number] [facility] Last Admin: 02/18/24 05:00 Dose: 80 mls/hr Documented By: MARGAUX Dextrose (D10) 250 mls @ 750 mls/hr IV Q15M PRN; Protocol PRN Reason: per Hypoglycemia Standing Ord. Insulin Human Lispro (Insulin Lispro 100 Unit/Ml 3 Ml Vial) 0 unit SUBCUT QIDACHS [facility]; Protocol Loratadine (Loratadine 10 Mg Tablet) 10 mg PO DAILY [facility] Metoprolol Succinate (Metoprolol Succinate Er 100 Mg Tab.Er.24h) 100 mg PO DAILY [facility]; Protocol Morphine Sulfate (Morphine Sulfate 4 Mg/Ml Cartridge) 3 mg IVPUSH Q3H PRN; Protocol PRN Reason: Pain, Severe (Pain Scale 7-10) Last Admin: 02/18/24 06:48 Dose: 3 mg Documented By: MARGAUX Ondansetron HCl (Ondansetron Hcl 4 Mg/2 Ml Vial) 4 mg IVPUSH Q8H PRN PRN Reason: Nausea and Vomiting Sodium Chloride (0.9 % Sodium Chloride Flush 3 Ml Syringe) 3 ml IVFLUSH QSHIFT [facility] Last Admin: 02/18/24 08:06 Dose: Not Given Documented By: LAURA Non-Admin Reason: IV Running Tamsulosin HCl (Tamsulosin Hcl 0.4 Mg Capsule) 0.4 mg PO BEDTIME [facility] Labs 02/18/24 06:22 02/18/24 06:22 Labs: Laboratory Results - last 24 hr 02/17/24 02/18/24 02/18/24 15:57 00:16 03:49 MCV 82.4 MCH 28.9 MCHC 35.1 RDW 13.2 Plt Count 199 MPV 10.3 Immature Gran % (Auto) 0.3 Neut % (Auto) 63.1 Lymph % (Auto) 24.4 [place] % (Auto) 8.4 Eos % (Auto) 2.9 Baso % (Auto) 0.9 Lymph # (Auto) 1.9 [place] # (Auto) 0.7 Eos # (Auto) 0.2 Baso # (Auto) 0.1 Abs Immat Gran (auto) 0.02 Absolute Neuts (auto) 4.9 Absolute Nucleated RBC 0.000 Nucleated RBC % (auto) 0.0 PT INR Anion Gap 19 Estim Creat Clear Calc 71.7 Estimated GFR > 60 POC Glucose 212 H 241 H Random Glucose 217 H Calcium 10.0 D Total Bilirubin 0.9 AST 18 ALT 18 Alkaline Phosphatase 113 Total Protein 7.7 Albumin 4.1 Urine Color Yellow Urine Appearance Clear Urine pH 5.5 Ur Specific [place] 1.015 Urine Protein Trace Urine Glucose (UA) Negative Urine Ketones Negative Urine Blood Trace H Urine Nitrite Negative Ur Leukocyte Esterase Negative Urine RBC 0-2 Urine WBC 0-5 Ur Squamous Epith Cells 0-2 Urine Bacteria None Seen Hyaline Casts 0-2 02/18/24 02/18/24 06:22 09:57 MCV 83.7 MCH 28.5 MCHC 34.1 RDW 13.0 Plt Count 184 MPV 10.3 Immature Gran % (Auto) 0.4 Neut % (Auto) 59.1 Lymph % (Auto) 27.2 [place] % (Auto) 9.6 Eos % (Auto) 3.1 Baso % (Auto) 0.6 Lymph # (Auto) 1.9 [place] # (Auto) 0.7 Eos # (Auto) 0.2 Baso # (Auto) 0.0 Abs Immat Gran (auto) 0.03 Absolute Neuts (auto) 4.2 Absolute Nucleated RBC 0.000 Nucleated RBC % (auto) 0.0 PT 14.4 H INR 1.2 H Anion Gap 15 Estim Creat Clear Calc 70.0 Estimated GFR > 60 POC Glucose 179 H Random Glucose 214 H Calcium 9.2 D Total Bilirubin AST ALT Alkaline Phosphatase Total Protein Albumin Urine Color Urine Appearance Urine pH Ur Specific [place] Urine Protein Urine Glucose (UA) Urine Ketones Urine Blood Urine Nitrite Ur Leukocyte Esterase Urine RBC Urine WBC Ur Squamous Epith Cells Urine Bacteria Hyaline Casts Assessment and Plan (1) Hydroureteronephrosis: Status: Acute (2) Left ureteral calculus: Status: Acute Plan This is a 79 y/o man with PMHx significant for nephrolithiasis, AMY on CPAP, COPD on 2 L of supplemental oxygen, hypertension, hyperlipidemia, diabetes who presents with flank pain found to have obstructing renal stones Obstructive renal calculi (2) to the left ureter associated with mild hydronephrosis. Pain control with morphine as needed urology consult no plan for urologic procedure today, NPO at midnight for surgical intervention in a.m. Afebrile, no white count, urine does not appear to be infected. No indication for antibiotics at this time Type 2 diabetes mellitus. Will give 1 dose of Lantus, 80% of home dose (converted from Tresiba) hold metformin and Trulicity POCs, ADA diet, npo at midnight for above procedure AMY. CPAP at nighttime. BPH. Continue tamsulosin. mild intermittent asthma with no exacerbation/nocturnal hypoxemia/exercise- induced hypoxemia (per outpatient pulm note) On 2 L supplemental oxygen by nasal cannula Continue home O2. Continue Wixela (or alternative). DuoNeb as needed. Essential hypertension. Continue metoprolol. Obesity. BMI 37.6 kg/m2. Weight loss. Hyperlipidemia. Continue statin. Code status: Full DVT prophylaxis: SCDs (aspirin on hold -procedure scheduled). Patient needs ongoing inpatient stay for management of obstructive renal calculi requiring surgical intervention and specialist evaluation Quality Stroke Does the patient have a stroke diagnosis?: No VTE Prior VTE?: No VTE Risk Level:: Medical - moderate - high VTE Device Contraindication: N/A - Device Ordered VTE Drug Contraindication: Treatment Not Indicated
[2024-02-18 11:07] LABS: Glucose, Whole Blood 165 mg/dL (60-115)
[2024-02-18] MEDS: Insulin Glargine,Hum.rec.anlog 100 UNIT/ML 10 ML VIAL 30 UNIT SUBCUT (11:21)
[2024-02-18] MEDS: Insulin Lispro 100 UNIT/ML 3 ML VIAL SUBCUT ×3 (11:22→20:18)
[2024-02-18 15:29] VITALS: BP 151/78; PULSE 70; RESP 14; TEMP 36; O2SAT 95
[2024-02-18 16:21] LABS: Glucose, Whole Blood 182 mg/dL (60-115)
[2024-02-18] MEDS: 0.9 % Sodium Chloride Flush 3 ML SYRINGE IVFLUSH ×2 (16:39→20:19)
[2024-02-18 20:00] VITALS: BP 147/79; PULSE 82; RESP 18; TEMP 36.2; O2SAT 96
[2024-02-18 20:11] LABS: Glucose, Whole Blood 231 mg/dL (60-115)
[2024-02-18] MEDS: Tamsulosin HCL 0.4 MG CAPSULE PO (20:19)
[2024-02-18 21:58] VITALS: PULSE 86; RESP 18; O2SAT 96
[2024-02-19] VITALS (11 sets, daily range): BP systolic 132–152; BP diastolic 68–84; PULSE 77–98; RESP 16–20; TEMP 36.2–36.8; O2SAT 94–97
--- NOTE | 2024-02-19 01:08 | PM.EVENT ---
Event Note Date of Service: 02/19/24 Event Note: 12:48 - contacted by nursing to notify that: Mr. Walter was on his way back from the bathroom and lost his balance landed on his bottom and hit his head on the night stand.No injuries noted to his head but he has an abrasion to his right back. He denies any pain. 1:05 AM - I evaluated Mr. Judd. He was in bed resting comfortably using his CPAP. Vital signs stable. He was alert and oriented x3. He stated that he fell and he the right medial aspect of his back but denies head trauma. He denied any symptoms such as pain, dizziness or generalized weakness. Head is atraumatic. There is a abrasion in the right middle back without associated tenderness. No interventions will be performed at this time. Time Spent With Patient Time: Total time managing care of this patient today ____ minutes.
--- NOTE | 2024-02-19 01:50 | PC.NURSE ---
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
[2024-02-19 06:01] LABS: Anion Gap 16 (12-20); Blood Urea Nitrogen 13 mg/dL (9-16); Calcium 8.8 mg/dL (8.4-10.2); Carbon Dioxide 21 mmol/L (22-29); Chloride 104 mmol/L (96-108); Creatinine Clr Calc Pharmacy 75.5; Estimated Glomerular Filt Rate > 60; Glucose Random 166 mg/dL (60-115); Potassium 4.2 mmol/L (3.3-5.1); Sodium 137 mmol/L (135-145)
[2024-02-19 07:26] LABS: Glucose, Whole Blood 157 mg/dL (60-115)
[2024-02-19] MEDS: Fluticasone/Vilanterol 100/25 BLST.W.DEV 1 PUFF INHALE (07:31)
--- NOTE | 2024-02-19 08:24 | PM.UROCN ---
History of Present Illness Consult details Consult date: 02/18/24 Narrative: CC: distal left ureteric stones Silvano is a pleasant 79-year-old male Prior history of stones Last seen in Urology in October with ultrasound that showed left lower pole 6 mm stone with renal cyst Presents with 2 day history of sudden onset left flank pain CT scan performed shows Obstructing, 1.1 cm calculus at the left ureterovesicular junction, with an additional 7 mm calculus in the left distal ureter, and mild upstream left hydroureteronephrosis Creatinine 0.9, calcium 8.8 Prior stones 80% calcium oxalate monohydrate Based on size of stone this is unlikely to pass. Was probably present at time of ultrasound but not detected. Recommendation for intervention Discussed with patient and Review of Systems Constitutional: Constitutional: Denies chills and Denies fever(s) Cardiovascular: Cardiovascular: Reports no additional cardiovascular complaints and Denies syncope Respiratory: Respiratory: Denies cough Gastrointestinal: Gastrointestinal: Denies abdominal pain and Denies heartburn Genitourinary: Genitourinary: Reports as per HPI and Denies change in libido Neurologic: Denies syncope Psychiatric: Psychiatric: Denies change in libido Endocrine: Endocrine: Denies change in libido [facility] Past Medical History Medical History Hypoxemia Restrictive lung disease Abnormal LFTs Calcium oxalate calculus 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 Mother No problems noted. Son No problems noted. Son No problems noted. Daughter No problems noted. Daughter No problems noted. Surgical History Surgical History History of cystoscopy Lumbar spinal stenosis History of lithotripsy History of tooth extraction History of bilateral inguinal hernia repair H/O spinal fusion History of appendectomy Social History Social History Housing: House Alcohol intake: never Patient Tobacco Use Status: Former Tobacco user Tobacco use type: Cigarette Years Smoked: 1993 e-Cigarette/Vaping Use: Never Used Second Hand Smoke Exposure: No service: No Current occupational status: retired Cognitive needs: No Hearing needs: No Vision needs: Yes Meds Allergies Allergy/AdvReac Type Severity Reaction Status Date / Time azithromycin [AZITHROMYCIN] Allergy Unknown HIVES Verified 02/17/24 15:39 lisinopril [LISINOPRIL] Allergy Unknown HIVES Verified 02/17/24 15:39 losartan [LOSARTAN] Allergy Unknown HIVES Verified 02/17/24 15:39 oxycodone [OXYCODONE] Allergy Unknown HIVES Verified 02/17/24 15:39 Active Medications: Current Medications Acetaminophen (Acetaminophen 325 Mg Tablet) 975 mg PO Q6H PRN PRN Reason: mild pain, headache or fever Last Admin: 02/18/24 14:41 Dose: 975 mg Albuterol/Ipratropium (Albuterol/Iprat 2.5/0.5mg 3 Ml Ampul.Neb) 3 ml INHALE Q4H PRN PRN Reason: Shortness of Breath/Wheezing Atorvastatin Calcium (Atorvastatin Calcium 40 Mg Tablet) 40 mg PO DAILY [facility] Cyanocobalamin (Cyanocobalamin (Vitamin B-12) 1,000 Mcg Tablet) 1,000 mcg PO DAILY [facility] Fluticasone/Vilanterol (Fluticasone/Vilanterol 100/25 Blst.W.Dev) 1 puff INHALE RDAILY [facility] Last Admin: 02/19/24 07:31 Dose: 1 puff Glucose (Glucose Gel 15 Gm Gel..Gram.) 15 gm PO Q15M PRN; Protocol PRN Reason: per Hypoglycemia Standing Ord. Dextrose (D10) 250 mls @ 750 mls/hr IV Q15M PRN; Protocol PRN Reason: per Hypoglycemia Standing Ord. Insulin Human Lispro (Insulin Lispro 100 Unit/Ml 3 Ml Vial) 0 unit SUBCUT QIDACHS [facility]; Protocol Last Admin: 02/19/24 07:29 Dose: Not Given Loratadine (Loratadine 10 Mg Tablet) 10 mg PO DAILY [facility] Metoprolol Succinate (Metoprolol Succinate Er 100 Mg Tab.Er.24h) 100 mg PO DAILY [facility]; Protocol Morphine Sulfate (Morphine Sulfate 4 Mg/Ml Cartridge) 3 mg IVPUSH Q3H PRN; Protocol PRN Reason: Pain, Severe (Pain Scale 7-10) Last Admin: 02/18/24 20:24 Dose: 3 mg Ondansetron HCl (Ondansetron Hcl 4 Mg/2 Ml Vial) 4 mg IVPUSH Q8H PRN PRN Reason: Nausea and Vomiting Sodium Chloride (0.9 % Sodium Chloride Flush 3 Ml Syringe) 3 ml IVFLUSH QSHIFT [facility] Last Admin: 02/18/24 20:19 Dose: 3 ml Tamsulosin HCl (Tamsulosin Hcl 0.4 Mg Capsule) 0.4 mg PO BEDTIME [facility] Last Admin: 02/18/24 20:19 Dose: 0.4 mg Home Medications ?Medication ?Instructions ?Recorded ?Confirmed ?Last Taken ?Type albuterol sulfate 2.5 mg/3 mL 2.5 mg inhalation Q6H PRN 08/13/21 02/18/24 Unknown History (0.083 %) solution for nebulization Shortness Of Breath Or Wheezing Prevagen 1 cap PO DAILY 12/13/21 02/18/24 02/17/24 History cyanocobalamin (vitamin B-12) 1,000 mcg PO DAILY 12/13/21 02/18/24 02/17/24 History 1,000 mcg tablet vit C 250 mg-vit E 90 mg-zinc 40 1 tab PO BID 12/13/21 02/18/24 02/17/24 History mg-copper 1 [id number] capsule (PreserVision AREDS-2) pen needle, diabetic 31 gauge x #1,200 ea 11/15/22 02/12/24 Unknown History 02/28 (Easy Touch) cetirizine 10 mg tablet (Zyrtec) 10 mg PO DAILY 11/14/23 02/18/24 02/17/24 History cholecalciferol (vitamin D3) 10 10 mcg PO DAILY 11/14/23 02/18/24 02/17/24 History mcg (400 unit) capsule insulin degludec 200 unit/mL (3 52 unit subcut DAILY 01/29/24 02/18/24 02/17/24 History mL) subcutaneous pen (Tresiba FlexTouch U-200 insulin) fluticasone 250 mcg-salmeterol 50 1 ea inhalation BID 02/17/24 02/18/24 02/17/24 History mcg/dose blistr powdr for inhalation (Wixela Inhub) acetaminophen 325 mg tablet 650 mg PO Q6H PRN Pain 02/18/24 02/18/24 Unknown History (Tylenol) albuterol sulfate 90 mcg/actuation 2 puff inhalation Q6H PRN 02/18/24 02/18/24 Unknown History aerosol inhaler (ProAir HFA) bronchospasm dulaglutide 3 mg/0.5 mL 3 mg subcut MO@2100 02/18/24 02/18/24 02/12/24 History subcutaneous pen injector peg 400-propylene glycol (PF) 0.4 1 drp ophthalmic (eye) BID PRN Dry 02/18/24 02/18/24 Unknown History %-0.3 % eye drops in a dropperette Eyes (Systane (PF)) Physical Exam Vital Signs: Vital Signs: Last Vital Signs Temp 98.2 F 02/19/24 07:12 Pulse 89 02/19/24 07:34 Resp 18 02/19/24 07:34 BP 132/74 02/19/24 07:12 Pulse Ox 97 02/19/24 07:12 O2 Del Method Nasal Cannula 02/19/24 07:12 O2 Flow Rate 3.0 02/19/24 07:12 Oxygen Flow Rate 3 02/17/24 15:37 BMI result Body Mass Index 37.4 Const: General: cooperative, healthy appearing, comfortable and no acute distress Orientation/consciousness: patient oriented x3 HEENT: Face and sinus: Yes normal facial exam Mouth: moist mucous membranes Neck: Neck: Yes normal visual inspection, Yes full ROM and Yes trachea midline Chest: Chest palpation & inspection: normal inspection of the chest Resp: Effort & Inspection: normal respiratory effort, able to speak in complete sentences and no respiratory distress GI: Inspection: Yes normal to inspection Back/Spine/Pelvis: Cervical Spine: normal cervical lordosis Thoracic/Lumbar Spine: thoracic and lumbar spine normal to inspection Skin: General skin exam: no rashes or lesions noted Neuro: General: patient oriented x3, gait normal, tone normal and moves all extremities Extrem: General: Yes normal to inspection and Yes capillary refill normal Results Labs 02/18/24 06:22 02/19/24 05:34 Labs: Abnormal lab results 02/18/24 02/18/24 02/18/24 Range/Units 09:57 10:57 16:10 Carbon Dioxide (22-29) mmol/L POC Glucose 179 H 165 H 182 H (60-115) mg/dL Random Glucose (60-115) mg/dL 02/18/24 02/19/24 02/19/24 Range/Units 19:59 05:34 07:15 Carbon Dioxide 21 L (22-29) mmol/L POC Glucose 231 H 157 H (60-115) mg/dL Random Glucose 166 H (60-115) mg/dL BMP 02/19/24 05:34 Sodium 137 Potassium 4.2 Chloride 104 Carbon Dioxide 21 L BUN 13 Creatinine 0.90 Calcium 8.8 Urine 02/17/24 Range/Units 15:57 Urine Color Yellow Urine Appearance Clear Urine pH 5.5 (5.0-9.0) Ur Specific [place] 1.015 (1.005-1.025) Urine Protein Trace (Neg-Trace) mg/dL Urine Glucose (UA) Negative (Negative) mg/dL All other labs normal. Assessment and Plan (1) Hydroureteronephrosis: Status: Acute (2) Left ureteral calculus: Status: Acute Plan Ureteroscopy We discussed the nature of the decision and reasonable alternatives for performing ureteroscopy. Options such as medical therapy were discussed. Interventions include chemical dissolution, ESWL, ureteroscopy with laser lithotripsy and stent placement, PCNL. The relative uncertainties and benefits related to each alternate procedure were adequately discussed. General surgical risks including, but not limited to - pain, bleeding, infection, myocardial infarction, pulmonary embolus, deep vein thrombosis and cerebrovascular accident which may result in further hospitalization were discussed. Full disclosure of the procedure as well as all major risks, benefits and complications were discussed including but not limited to damage to the urethra, bladder and kidney infection, damage to the ureter, stent migration or malposition, scarring to the renal pelvis, remnant stone fragments, subsequent stone passage with need for secondary procedures. The overall secondary procedure rate is approximately 10-15%. The overall clearance rate is approximately 90-95%. Success of the procedure in the short-term does not necessarily guarantee that long-term success will be maintained. Suitable follow up will need to be maintained. The patient showed understanding of discussion and wishes to proceed with - cystoscopy, retrograde, ureteroscopy, possible lithotripsy/stone basketing and stent on the left side Procedures Date of Service Date of Service: 02/19/24
[2024-02-19] MEDS: Atorvastatin Calcium 40 MG TABLET PO (08:30)
[2024-02-19] MEDS: Cyanocobalamin (Vitamin B-12) 1,000 MCG TABLET 1000 MCG PO (08:30)
[2024-02-19] MEDS: Loratadine 10 MG TABLET PO (08:30)
[2024-02-19] MEDS: Metoprolol Succinate ER 100 MG TAB.ER.24H PO (08:30)
[2024-02-19] MEDS: 0.9 % Sodium Chloride Flush 3 ML SYRINGE IVFLUSH ×3 (08:33→20:28)
--- NOTE | 2024-02-19 08:34 | HO.PM.IMPN ---
Subjective Subjective Date of Service: 02/19/24 Interval History: Seen and examined this morning Follow-up for obstructing renal calculi Patient denies any fever or chills, reporting abdominal pain primarily after urinating Review of Systems Review of Systems: Yes all other systems are reviewed and are negative Constitutional Constitutional: Denies chills and Denies fever(s) Cardiovascular Cardiovascular: Denies chest pain and Denies dyspnea Respiratory Respiratory: Denies dyspnea Gastrointestinal Gastrointestinal: Reports abdominal pain Physical Exam Vital Signs: Vital Signs: Last Vital Signs Temp 98.2 F 02/19/24 07:12 Pulse 89 02/19/24 07:34 Resp 18 02/19/24 07:34 BP 132/74 02/19/24 07:12 Pulse Ox 97 02/19/24 07:12 O2 Del Method Nasal Cannula 02/19/24 07:12 O2 Flow Rate 3.0 02/19/24 07:12 Oxygen Flow Rate 3 02/17/24 15:37 BMI result Body Mass Index 37.4 Appearing in no acute distress lung sounds are clear to auscultation heart regular rate rhythm, clear S1, S2 positive bowel sounds, abdomen is soft, nontender neuro patient is alert x3, no focal deficits Objective Data Active Medications Acetaminophen (Acetaminophen 325 Mg Tablet) 975 mg PO Q6H PRN PRN Reason: mild pain, headache or fever Last Admin: 02/18/24 14:41 Dose: 975 mg Documented By: LAURA Albuterol/Ipratropium (Albuterol/Iprat 2.5/0.5mg 3 Ml Ampul.Neb) 3 ml INHALE Q4H PRN PRN Reason: Shortness of Breath/Wheezing Atorvastatin Calcium (Atorvastatin Calcium 40 Mg Tablet) 40 mg PO DAILY [facility] Last Admin: 02/19/24 08:30 Dose: 40 mg Documented By: IWONA Cyanocobalamin (Cyanocobalamin (Vitamin B-12) 1,000 Mcg Tablet) 1,000 mcg PO DAILY [facility] Last Admin: 02/19/24 08:30 Dose: 1,000 mcg Documented By: IWONA Fluticasone/Vilanterol (Fluticasone/Vilanterol 100/25 Blst.W.Dev) 1 puff INHALE RDAILY [facility] Last Admin: 02/19/24 07:31 Dose: 1 puff Documented By: ADAN Glucose (Glucose Gel 15 Gm Gel..Gram.) 15 gm PO Q15M PRN; Protocol PRN Reason: per Hypoglycemia Standing Ord. Dextrose (D10) 250 mls @ 750 mls/hr IV Q15M PRN; Protocol PRN Reason: per Hypoglycemia Standing Ord. Levofloxacin (Levaquin) 500 mg in 100 mls @ 100 mls/hr IV PREOP ONE Stop: 02/19/24 09:27 Insulin Human Lispro (Insulin Lispro 100 Unit/Ml 3 Ml Vial) 0 unit SUBCUT QIDACHS [facility]; Protocol Last Admin: 02/19/24 07:29 Dose: Not Given Documented By: IWONA Non-Admin Reason: NPO Loratadine (Loratadine 10 Mg Tablet) 10 mg PO DAILY [facility] Last Admin: 02/19/24 08:30 Dose: 10 mg Documented By: IWONA Metoprolol Succinate (Metoprolol Succinate Er 100 Mg Tab.Er.24h) 100 mg PO DAILY [facility]; Protocol Last Admin: 02/19/24 08:30 Dose: 100 mg Documented By: IWONA Morphine Sulfate (Morphine Sulfate 4 Mg/Ml Cartridge) 3 mg IVPUSH Q3H PRN; Protocol PRN Reason: Pain, Severe (Pain Scale 7-10) Last Admin: 02/18/24 20:24 Dose: 3 mg Documented By: KAN Ondansetron HCl (Ondansetron Hcl 4 Mg/2 Ml Vial) 4 mg IVPUSH Q8H PRN PRN Reason: Nausea and Vomiting Sodium Chloride (0.9 % Sodium Chloride Flush 3 Ml Syringe) 3 ml IVFLUSH QSHIFT [facility] Last Admin: 02/19/24 08:33 Dose: 3 ml Documented By: IWONA Tamsulosin HCl (Tamsulosin Hcl 0.4 Mg Capsule) 0.4 mg PO BEDTIME [facility] Last Admin: 02/18/24 20:19 Dose: 0.4 mg Documented By: ANKITAM Labs 02/18/24 06:22 02/19/24 05:34 Labs: Laboratory Results - last 24 hr 02/18/24 02/18/24 02/18/24 09:57 10:57 16:10 Anion Gap Estim Creat Clear Calc Estimated GFR POC Glucose 179 H 165 H 182 H Random Glucose Calcium 02/18/24 02/19/24 02/19/24 19:59 05:34 07:15 Anion Gap 16 Estim Creat Clear Calc 75.5 Estimated GFR > 60 POC Glucose 231 H 157 H Random Glucose 166 H Calcium 8.8 Assessment and Plan (1) Hydroureteronephrosis: Status: Acute (2) Left ureteral calculus: Status: Acute Plan This is a 79 y/o man with PMHx significant for nephrolithiasis, AMY on CPAP, COPD on 2 L of supplemental oxygen, hypertension, hyperlipidemia, diabetes who presents with flank pain found to have obstructing renal stones Obstructive renal calculi (2) to the left ureter associated with mild hydronephrosis. Pain control with morphine as needed Afebrile, no white count, urine does not appear to be infected. No indication for antibiotics at this time urology consult> plan for OR today Type 2 diabetes mellitus. Lantus, 80% of home dose (converted from Tresiba) hold metformin and Trulicity POCs, ADA diet AMY. CPAP at nighttime. BPH. Continue tamsulosin. mild intermittent asthma with no exacerbation/nocturnal hypoxemia/exercise-induced hypoxemia (per outpatient pulm note) On 2 L supplemental oxygen by nasal cannula Continue home O2. Continue Wixela (or alternative). DuoNeb as needed. Essential hypertension. Continue metoprolol. Obesity. BMI 37.6 kg/m2. Weight loss. Hyperlipidemia. Continue statin. Code status: Full Attending Dr. Mohan DVT prophylaxis: SCDs (aspirin on hold -procedure scheduled). Patient needs ongoing inpatient stay for management of obstructive renal calculi requiring surgical intervention and specialist evaluation Quality Stroke Does the patient have a stroke diagnosis?: No VTE Prior VTE?: No VTE Risk Level:: Medical - moderate - high VTE Device Contraindication: N/A - Device Ordered VTE Drug Contraindication: Treatment Not Indicated
[2024-02-19 11:17] LABS: Glucose, Whole Blood 161 mg/dL (60-115)
[2024-02-19] MEDS: Morphine Sulfate 4 MG/ML CARTRIDGE 3 MG IVPUSH ×2 (12:29→16:16)
--- NOTE | 2024-02-19 13:17 | MHC.CM.PN ---
per rounds today pt not ready for dc pt is ging to the or dc plan remains home
[2024-02-19] MEDS: Acetaminophen 325 MG TABLET 975 MG PO (15:05)
[2024-02-19 16:12] LABS: Glucose, Whole Blood 143 mg/dL (60-115)
--- NOTE | 2024-02-19 17:21 | MHC.SHP ---
Pre-Procedural Eval Section A - 24 Hr Update-Section A only Date of Service: 02/19/24 The patient is an INPATIENT: Yes Changes since office visit: No Cold of Flu in the past 2 weeks, No New Medical Problems, No Changes in Medication and No Patient answered all questions The patient has been examined within 24 hours of the surgical procedure. The History & Physical has been completed within 30 days and I have reviewed it.: Yes Section B - Complete if H&P > 30 days Chief Complaint: Obstructing renal calculi, left Details of Present Illness: Left distal ureteric stones Relevant Social History: None Present Medications: see Short Stay Collaborative assessment Medical History: No relevant PMH History of Previous Operations: Relevant previous surgery/procedure and date(s) Allergies: Allergies Allergy/AdvReac Type Severity Reaction Status Date / Time azithromycin [AZITHROMYCIN] Allergy Unknown HIVES Verified 02/17/24 15:39 lisinopril [LISINOPRIL] Allergy Unknown HIVES Verified 02/17/24 15:39 losartan [LOSARTAN] Allergy Unknown HIVES Verified 02/17/24 15:39 oxycodone [OXYCODONE] Allergy Unknown HIVES Verified 02/17/24 15:39 Review of Systems Sugical H&P ROS: Negative: Constitution, Cardiovascular, Respiratory, Neurological, Psychiatric, Hem-Onc, Allergic/Immunologic, Gastrointestinal, Genitourinary, Musculoskeletal, Integumentary, Endocrine and Eyes/Ears/Nose/Throat Exam Surgical H&P Exam: Normal: HEENT, Normal: Heart, Normal: Lungs, Normal: Extremities, Normal: Abdomen, Normal: Skin and Normal: Neurological Plan Diagnosis/Plan: Unchanged (Cystoscopy, left retrograde, left ureteroscopy with laser lithotripsy stent placement) I have reviewed the history and physical and performed a pertinent physical examination on my patient. No changes have occurred unless specified. Time Spent With Patient Time: Total time managing care of this patient today ____ minutes.
--- NOTE | 2024-02-19 17:29 | HO.ANESPROP2 ---
HPI - Anesthesia Eval Consult details Narrative: Left ureter stone PMFSH Active Problems Active Problems: All Active Problems Hydroureteronephrosis (Acute) Left ureteral calculus (Acute) Medicare annual wellness visit, subsequent (Acute) Bladder calculi (Acute) Bilateral hip pain (Acute) Bilateral knee pain (Acute) Respiratory failure with hypoxia (Chronic) Frequent falls (Acute) COVID-19 (Acute) Hypoxemia (Acute) Restrictive lung disease (Acute) Fatty liver (Acute) Adult general medical exam (Acute) TSH elevation (Acute) Bicipital tendinitis of right shoulder (Acute) Right ureteral stone (Acute) Renal calculi (Acute) Family history of abdominal aortic aneurysm (AAA) (Acute) History of pericarditis (Acute) Allergic rhinitis (Acute) Bronchial asthma (Acute) Hypertension (Acute) Obesity (BMI 30-39.9) (Acute) Obstructive sleep apnea (Acute) BPH (benign prostatic hyperplasia) (Acute) Hypercholesterolemia (Acute) Type 2 diabetes mellitus with hyperglycemia (Acute) Past Medical History Medical History Hypoxemia Restrictive lung disease Abnormal LFTs Calcium oxalate calculus 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 Mother No problems noted. Son No problems noted. Son No problems noted. Daughter No problems noted. Daughter No problems noted. Family history of problems with anesthesia: No Surgical History Surgical History History of cystoscopy Lumbar spinal stenosis History of lithotripsy History of tooth extraction History of bilateral inguinal hernia repair H/O spinal fusion History of appendectomy History of Problems with Anesthesia: No Social History Social History Housing: House Alcohol intake: never Patient Tobacco Use Status: Former Tobacco user Tobacco use type: Cigarette Years Smoked: 1993 e-Cigarette/Vaping Use: Never Used Second Hand Smoke Exposure: No service: No Current occupational status: retired Cognitive needs: No Hearing needs: No Vision needs: Yes Meds Allergies Allergy/AdvReac Type Severity Reaction Status Date / Time azithromycin [AZITHROMYCIN] Allergy Unknown HIVES Verified 02/17/24 15:39 lisinopril [LISINOPRIL] Allergy Unknown HIVES Verified 02/17/24 15:39 losartan [LOSARTAN] Allergy Unknown HIVES Verified 02/17/24 15:39 oxycodone [OXYCODONE] Allergy Unknown HIVES Verified 02/17/24 15:39 Active Medications: Current Medications Acetaminophen (Acetaminophen 325 Mg Tablet) 975 mg PO Q6H PRN PRN Reason: mild pain, headache or fever Last Admin: 02/19/24 15:05 Dose: 975 mg Albuterol/Ipratropium (Albuterol/Iprat 2.5/0.5mg 3 Ml Ampul.Neb) 3 ml INHALE Q4H PRN PRN Reason: Shortness of Breath/Wheezing Atorvastatin Calcium (Atorvastatin Calcium 40 Mg Tablet) 40 mg PO DAILY [facility] Last Admin: 02/19/24 08:30 Dose: 40 mg Cyanocobalamin (Cyanocobalamin (Vitamin B-12) 1,000 Mcg Tablet) 1,000 mcg PO DAILY [facility] Last Admin: 02/19/24 08:30 Dose: 1,000 mcg Fluticasone/Vilanterol (Fluticasone/Vilanterol 100/25 Blst.W.Dev) 1 puff INHALE RDAILY [facility] Last Admin: 02/19/24 07:31 Dose: 1 puff Glucose (Glucose Gel 15 Gm Gel..Gram.) 15 gm PO Q15M PRN; Protocol PRN Reason: per Hypoglycemia Standing Ord. Dextrose (D10) 250 mls @ 750 mls/hr IV Q15M PRN; Protocol PRN Reason: per Hypoglycemia Standing Ord. Insulin Human Lispro (Insulin Lispro 100 Unit/Ml 3 Ml Vial) 0 unit SUBCUT QIDACHS [facility]; Protocol Last Admin: 02/19/24 16:19 Dose: Not Given Loratadine (Loratadine 10 Mg Tablet) 10 mg PO DAILY [facility] Last Admin: 02/19/24 08:30 Dose: 10 mg Metoprolol Succinate (Metoprolol Succinate Er 100 Mg Tab.Er.24h) 100 mg PO DAILY [facility]; Protocol Last Admin: 02/19/24 08:30 Dose: 100 mg Morphine Sulfate (Morphine Sulfate 4 Mg/Ml Cartridge) 3 mg IVPUSH Q3H PRN; Protocol PRN Reason: Pain, Severe (Pain Scale 7-10) Last Admin: 02/19/24 16:16 Dose: 3 mg Ondansetron HCl (Ondansetron Hcl 4 Mg/2 Ml Vial) 4 mg IVPUSH Q8H PRN PRN Reason: Nausea and Vomiting Sodium Chloride (0.9 % Sodium Chloride Flush 3 Ml Syringe) 3 ml IVFLUSH QSHIFT [facility] Last Admin: 02/19/24 16:18 Dose: 3 ml Tamsulosin HCl (Tamsulosin Hcl 0.4 Mg Capsule) 0.4 mg PO BEDTIME [facility] Last Admin: 02/18/24 20:19 Dose: 0.4 mg Home Medications ?Medication ?Instructions ?Recorded ?Confirmed ?Last Taken ?Type albuterol sulfate 2.5 mg/3 mL 2.5 mg inhalation Q6H PRN 08/13/21 02/18/24 Unknown History (0.083 %) solution for nebulization Shortness Of Breath Or Wheezing Prevagen 1 cap PO DAILY 12/13/21 02/18/24 02/17/24 History cyanocobalamin (vitamin B-12) 1,000 mcg PO DAILY 12/13/21 02/18/24 02/17/24 History 1,000 mcg tablet vit C 250 mg-vit E 90 mg-zinc 40 1 tab PO BID 12/13/21 02/18/24 02/17/24 History mg-copper 1 [id number] capsule (PreserVision AREDS-2) pen needle, diabetic 31 gauge x #1,200 ea 11/15/22 02/12/24 Unknown History 02/28 (Easy Touch) cetirizine 10 mg tablet (Zyrtec) 10 mg PO DAILY 11/14/23 02/18/24 02/17/24 History cholecalciferol (vitamin D3) 10 10 mcg PO DAILY 11/14/23 02/18/24 02/17/24 History mcg (400 unit) capsule insulin degludec 200 unit/mL (3 52 unit subcut DAILY 01/29/24 02/18/24 02/17/24 History mL) subcutaneous pen (Tresiba FlexTouch U-200 insulin) fluticasone 250 mcg-salmeterol 50 1 ea inhalation BID 02/17/24 02/18/24 02/17/24 History mcg/dose blistr powdr for inhalation (Wixela Inhub) acetaminophen 325 mg tablet 650 mg PO Q6H PRN Pain 02/18/24 02/18/24 Unknown History (Tylenol) albuterol sulfate 90 mcg/actuation 2 puff inhalation Q6H PRN 02/18/24 02/18/24 Unknown History aerosol inhaler (ProAir HFA) bronchospasm dulaglutide 3 mg/0.5 mL 3 mg subcut MO@2100 02/18/24 02/18/24 02/12/24 History subcutaneous pen injector peg 400-propylene glycol (PF) 0.4 1 drp ophthalmic (eye) BID PRN Dry 02/18/24 02/18/24 Unknown History %-0.3 % eye drops in a dropperette Eyes (Systane (PF)) Exam Height,Weight and Vital Signs: Height 5 ft 7 in Weight 108.2 kg Last Vital Signs Temp 98 F 02/19/24 16:00 Pulse 83 02/19/24 16:00 Resp 16 02/19/24 16:00 BP 151/76 H 02/19/24 16:00 Pulse Ox 95 02/19/24 16:00 O2 Del Method Nasal Cannula 02/19/24 16:00 O2 Flow Rate 3 02/19/24 16:00 Oxygen Flow Rate 3 02/17/24 15:37 Pertinent Lab Results Pertinent Lab Results: Laboratory Tests 02/17/24 02/18/24 02/18/24 15:57 00:16 03:49 WBC 7.8 RBC 4.67 Hgb 13.5 L Hct 38.5 L MCV 82.4 MCH 28.9 MCHC 35.1 RDW 13.2 Plt Count 199 MPV 10.3 Immature Gran % (Auto) 0.3 Neut % (Auto) 63.1 Lymph % (Auto) 24.4 [place] % (Auto) 8.4 Eos % (Auto) 2.9 Baso % (Auto) 0.9 Lymph # (Auto) 1.9 [place] # (Auto) 0.7 Eos # (Auto) 0.2 Baso # (Auto) 0.1 Abs Immat Gran (auto) 0.02 Absolute Neuts (auto) 4.9 Absolute Nucleated RBC 0.000 Nucleated RBC % (auto) 0.0 PT INR Sodium 139 Potassium 4.2 Chloride 104 Carbon Dioxide 20 L Anion Gap 19 BUN 14 Creatinine 0.95 Estim Creat Clear Calc 71.7 Estimated GFR > 60 POC Glucose 212 H 241 H Random Glucose 217 H Calcium 10.0 D Total Bilirubin 0.9 AST 18 ALT 18 Alkaline Phosphatase 113 Total Protein 7.7 Albumin 4.1 Urine Color Yellow Urine Appearance Clear Urine pH 5.5 Ur Specific [place] 1.015 Urine Protein Trace Urine Glucose (UA) Negative Urine Ketones Negative Urine Blood Trace H Urine Nitrite Negative Ur Leukocyte Esterase Negative Urine RBC 0-2 Urine WBC 0-5 Ur Squamous Epith Cells 0-2 Urine Bacteria None Seen Hyaline Casts 0-2 02/18/24 02/18/24 02/18/24 06:22 09:57 10:57 WBC 7.1 RBC 4.24 L Hgb 12.1 L Hct 35.5 L MCV 83.7 MCH 28.5 MCHC 34.1 RDW 13.0 Plt Count 184 MPV 10.3 Immature Gran % (Auto) 0.4 Neut % (Auto) 59.1 Lymph % (Auto) 27.2 [place] % (Auto) 9.6 Eos % (Auto) 3.1 Baso % (Auto) 0.6 Lymph # (Auto) 1.9 [place] # (Auto) 0.7 Eos # (Auto) 0.2 Baso # (Auto) 0.0 Abs Immat Gran (auto) 0.03 Absolute Neuts (auto) 4.2 Absolute Nucleated RBC 0.000 Nucleated RBC % (auto) 0.0 PT 14.4 H INR 1.2 H Sodium 140 Potassium 4.0 Chloride 105 Carbon Dioxide 24 Anion Gap 15 BUN 15 Creatinine 0.97 Estim Creat Clear Calc 70.0 Estimated GFR > 60 POC Glucose 179 H 165 H Random Glucose 214 H Calcium 9.2 D Total Bilirubin AST ALT Alkaline Phosphatase Total Protein Albumin Urine Color Urine Appearance Urine pH Ur Specific [place] Urine Protein Urine Glucose (UA) Urine Ketones Urine Blood Urine Nitrite Ur Leukocyte Esterase Urine RBC Urine WBC Ur Squamous Epith Cells Urine Bacteria Hyaline Casts 02/18/24 02/18/24 02/19/24 16:10 19:59 05:34 WBC RBC Hgb Hct MCV MCH MCHC RDW Plt Count MPV Immature Gran % (Auto) Neut % (Auto) Lymph % (Auto) [place] % (Auto) Eos % (Auto) Baso % (Auto) Lymph # (Auto) [place] # (Auto) Eos # (Auto) Baso # (Auto) Abs Immat Gran (auto) Absolute Neuts (auto) Absolute Nucleated RBC Nucleated RBC % (auto) PT INR Sodium 137 Potassium 4.2 Chloride 104 Carbon Dioxide 21 L Anion Gap 16 BUN 13 Creatinine 0.90 Estim Creat Clear Calc 75.5 Estimated GFR > 60 POC Glucose 182 H 231 H Random Glucose 166 H Calcium 8.8 Total Bilirubin AST ALT Alkaline Phosphatase Total Protein Albumin Urine Color Urine Appearance Urine pH Ur Specific [place] Urine Protein Urine Glucose (UA) Urine Ketones Urine Blood Urine Nitrite Ur Leukocyte Esterase Urine RBC Urine WBC Ur Squamous Epith Cells Urine Bacteria Hyaline Casts 02/19/24 02/19/24 02/19/24 07:15 11:12 16:08 WBC RBC Hgb Hct MCV MCH MCHC RDW Plt Count MPV Immature Gran % (Auto) Neut % (Auto) Lymph % (Auto) [place] % (Auto) Eos % (Auto) Baso % (Auto) Lymph # (Auto) [place] # (Auto) Eos # (Auto) Baso # (Auto) Abs Immat Gran (auto) Absolute Neuts (auto) Absolute Nucleated RBC Nucleated RBC % (auto) PT INR Sodium Potassium Chloride Carbon Dioxide Anion Gap BUN Creatinine Estim Creat Clear Calc Estimated GFR POC Glucose 157 H 161 H 143 H Random Glucose Calcium Total Bilirubin AST ALT Alkaline Phosphatase Total Protein Albumin Urine Color Urine Appearance Urine pH Ur Specific [place] Urine Protein Urine Glucose (UA) Urine Ketones Urine Blood Urine Nitrite Ur Leukocyte Esterase Urine RBC Urine WBC Ur Squamous Epith Cells Urine Bacteria Hyaline Casts Airway Mallampati Class: II TM Dist: >3cm Neck ROM: Full Loose/Missing/Broken Teeth: No Heart: RRR Lungs: CTA Assessment and Plan Assessment Anesthesia Assessment: Anesthesia Plan Discussed and Chart Reviewed Final Anesthetic Review Family History of Problems with Anesthesia: No History of Problems with Anesthesia: No NPO: Yes ASA Class: III and Emergency Final Preanesthetic Review: No Changes in Pt Med Stat, Meds/Allgs Chart Reviewed, Consent Obtained/Reviewed and Anes Risks/Benef Reviewed Patient Risk: High Procedure Risk: Low Anesthetic Plan Anesthetic Plan: GA Disposition: Standard PACU
[2024-02-19] MEDS: Lactated Ringers 500 ML 20 ML IVCONT (17:35)
--- NOTE | 2024-02-19 18:23 | W.PM.OPN ---
Operative Note Operative Note Date of Service: 02/19/24 Narrative: PreOperative Diagnosis: Distal left ureteric stone Post Operative Diagnosis: Distal left ureteric stone Procedure: - cystoscopy, left retrograde - left ureteroscopy, laser lithotripsy, stone basketing - modifier 22 - 100% longer than typical 40 minutes Surgeon: Dr Nakul Serna Anesthesia: General Indications for procedure: Distal left ureteric stone with hydronephrosis. Procedure: After informed consent was verified the patient was brought to the operating room and placed in a supine position. Anesthesia was administered per protocol. The patient was placed in a modified dorsal lithotomy position and prepped and draped in a sterile fashion. Safety pause time-out and side of surgery were confirmed. Images were available for review. Antibiotic administration confirmed. A 22 Micronesian cystoscope was inserted per urethra. The urethra was without aabnormality. The bladder was normal in its entirety. Both ureteric orifices were seen in normal position. from the left ureteric orifice was a large stone. Attempt to grasped with graspers but unable to advance.. The left ureteric orifice was cannulated and a retrograde examination was performed. Distal filling defect with proximal hydroureteronephrosis. The rigid cystoscope was removed. The semi rigid ureteral scope was placed. A large stone with a secondary stone was encountered the distal portion of the left ureter.. Using a 365 micro holmium laser fiber the stone was broken into small pieces using a combination of hammer and dusting techiques. Stone fragments were removed from the ureter using a 2.4 Micronesian 0 tip basket. This took 100% longer than typical approximately 40 minutes. Once the fragments were removed a decision was made to not place a ureteric stent. The bladder was emptied along with fragments of stone that sent for pathology.. The patient tolerated the procedure well and was extubated in the operating room. They were transferred in stable condition to the recovery area. Pathology: Stones Drains: None
[2024-02-19] MEDS: Phenazopyridine HCL 100 MG TABLET PO (18:56)
[2024-02-19 20:25] LABS: Glucose, Whole Blood 178 mg/dL (60-115)
[2024-02-19] MEDS: Tamsulosin HCL 0.4 MG CAPSULE PO (20:28)
[2024-02-19] MEDS: Insulin Lispro 100 UNIT/ML 3 ML VIAL SUBCUT (20:28)
[2024-02-20 03:38] VITALS: BP 145/74; PULSE 80; RESP 18; TEMP 36.4; O2SAT 95
[2024-02-20 07:26] VITALS: BP 155/80; PULSE 80; RESP 17; TEMP 36.2; O2SAT 93
[2024-02-20 07:35] LABS: Glucose, Whole Blood 141 mg/dL (60-115)
[2024-02-20] MEDS: Fluticasone/Vilanterol 100/25 BLST.W.DEV 1 PUFF INHALE (07:56)
[2024-02-20 07:59] VITALS: PULSE 90; RESP 20; O2SAT 94
[2024-02-20] MEDS: Atorvastatin Calcium 40 MG TABLET PO (08:12)
[2024-02-20] MEDS: Loratadine 10 MG TABLET PO (08:12)
[2024-02-20] MEDS: Cyanocobalamin (Vitamin B-12) 1,000 MCG TABLET 1000 MCG PO (08:12)
[2024-02-20] MEDS: 0.9 % Sodium Chloride Flush 3 ML SYRINGE IVFLUSH (08:12)
[2024-02-20] MEDS: Metoprolol Succinate ER 100 MG TAB.ER.24H PO (08:12)
--- NOTE | 2024-02-20 09:43 | P.DS_ITS ---
DS: Providers Provider Date of Service: 02/20/24 Date of admission: 02/17/24 20:53 Primary care physician: Homer Akers MD Consults: 02/18/24 07:17 Consult to Urology Routine Consulting Provider: Nakul Serna Reason for consultation: obstructing renal clculi Has provider been notified: No DS: Diagnosis Discharge Diagnosis (1) Hydroureteronephrosis: Status: Acute (2) Left ureteral calculus: Status: Acute DS: Summary Hospital Course Hospital Course: History and physical as per admitting provider. Silvano Walter is a very pleasant 79 years old man with past medical history significant for nephrolithiasis, BPH, AMY on CPAP, COPD on home O2 and type 2 diabetes mellitus on insulin presents to the emergency department complaining of sudden onset of left flank pain that started today. He described the pain as sharp without radiation and intensity 10/10. Pain increases with urination. Denied bloody urine. He denied any associated nausea or vomiting. Denies fever or chills. Denied any headache, palpitations or dizzines. No cardiopulmonary symptoms reported. He is a former tobacco smoker. Denies alcohol abuse or illicit drug use. In the ED he was found to have normal vital signs. Blood workup showed no leukocytosis. Hemoglobin is 13.5 and around baseline. Platelets are normal. There are no significant electrolyte imbalances. Creatinine is 0.95. LFTs are normal. UA showed trace blood but no findings consistent with UTI. Abdomen pelvis CT scan with IV contrast showed obstructive 1.1 cm calculus at the left ureterovesicular junction with an additional 7 mm calculi in the left distal ureter and mild upstream left hydroureteronephrosis. There heart 2 additional nonobstructive calculi. ED tx: Ketorolac 15 mg IV, Zofran 4 mg IV, morphine 8 mg IV (total), NS 1L bolus. 79-year-old man treated for obstructive renal calculi nephrosis. He is status post cystoscopy, left ureteroscopy, laser lithotripsy, stone basketing on 02/19/2024. At this time he does not have any difficulty with urination, mild blood-tinged urine, no pain. He has been eating and drinking without any nausea or vomiting, the plan is to discharge patient home and he is in agreement with this. He can follow-up with primary care provider as needed and follow-up with Urology if he develops any symptoms of urinary retention or painful urination. Diabetes mellitus type 2. Continue home medications Obstructive sleep apnea. CPAP at bedtime BPH. Continue tamsulosin Mild intermittent asthma. No exacerbation during hospitalization. Continue albuterol as needed Hypertension. Continue metoprolol Obesity. Discussed importance of weight management as this may be contributing to worsening of other comorbidities Hyperlipidemia. Continue statin Time Attestation Discharge Coordination Time (in mins): 40 Quality: Safe Use of Opioids Does Pt have an Active Cancer Diagnosis on the Problem List?: No Quality: Stroke Does the patient have a stroke diagnosis?: No Physical Exam Vital Signs: Vital Signs: Last Vital Signs Temp 97.1 F 02/20/24 07:26 Pulse 90 02/20/24 07:59 Resp 20 02/20/24 07:59 BP 155/80 H 02/20/24 07:26 Pulse Ox 93 02/20/24 07:26 O2 Del Method CPAP 02/20/24 07:26 O2 Flow Rate 3 02/20/24 07:26 Oxygen Flow Rate 3 02/17/24 15:37 BMI result Body Mass Index 37.4 Appearing in no acute distress head is normocephalic atraumatic eyes pupils are PERRLA sclera is anicteric mouth throat mucous membranes are intact and moist neck is supple no lymphadenopathy, no JVD noted lung sounds are clear to auscultation heart regular rate rhythm, clear S1, S2 positive bowel sounds, abdomen is soft, nontender neuro patient is alert x3, no focal deficits DS: Data Data Completed and Pending Completed studies during hospitalization [Text1]: Procedures Dilation of Right Ureter with Intraluminal Device, Via Natural or Artificial Opening Endoscopic (12/13/21) Fluoroscopy of Right Kidney, Ureter and Bladder (12/13/21) Pending studies at discharge: Pending at discharge 02/19/24 18:29 Surgical [PTH] Routine Labs on day of discharge: Laboratory Results - last 24 hr 02/19/24 02/19/24 02/19/24 11:12 16:08 20:21 POC Glucose 161 H 143 H 178 H 02/20/24 07:31 POC Glucose 141 H Discharge Plan Discharge Anticipated Discharge Date/Time: 02/20/24 09:39 Patient Disposition: Home, Self-Care Discharge Diagnosis: Hydronephrosis Obstructive renal calculi Referrals: Nakul Serna MD [Physician] - None Po,Homer Torres MD [Primary Care Provider] - 1 Week Discharge Medications: Continued (DME) blood-glucose meter [OneTouch Ultra2 Meter] Kit See Rx Instructions .ROUTE .MEDSUPPLY Qty: 1 0RF Rx Instructions: As directed (DME) lancets [OneTouch UltraSoft Lancets] Misc See Rx Instructions .ROUTE .MEDSUPPLY Qty: 4 0RF Rx Instructions: As directed check the blood sugars 4 times a day (DME) Easy Touch Safety Pen Needle 30 gauge x 5/16 needle See Rx Instructions .Route Qty: 200 3RF Rx Instructions: As directed inject twice a day metformin 1,000 mg tablet 1,000 mg PO BID Qty: 180 3RF (DME) blood sugar diagnostic Strip See Rx Instructions .ROUTE .MEDSUPPLY Qty: 200 3RF Rx Instructions: One touch ULTRA TEst Strips check the BS 2x a day (DME) OneTouch Ultra Test Strip See Rx Instructions .Route Qty: 100 11RF Rx Instructions: test 2 times per day atorvastatin 40 mg tablet 40 mg PO DAILY 90 Days Qty: 90 3RF tamsulosin 0.4 mg capsule 0.4 mg PO BEDTIME 90 Days Qty: 90 2RF metoprolol succinate 100 mg tablet extended release 24 hr 100 mg PO DAILY Qty: 90 0RF cyanocobalamin (vitamin B-12) 1,000 mcg Tablet 1,000 mcg PO DAILY PreserVision AREDS-2 250-90-40-1 mg Capsule 1 tab PO BID Prevagen 1 cap PO DAILY naproxen 500 mg tablet 500 mg PO BID PRN (Reason: pain) 7 Days Qty: 14 0RF fluticasone propion-salmeterol [Wixela Inhub] 250-50 mcg/dose blister with device 1 ea inhalation BID acetaminophen [Tylenol] 325 mg Tablet 650 mg PO Q6H PRN (Reason: Pain) Systane (PF) 0.4-0.3 % Dropperette 1 drp OPHTHALMIC (EYE) BID PRN (Reason: Dry Eyes) albuterol sulfate [ProAir HFA] 90 mcg/actuation HFA aerosol inhaler 2 puff inhalation Q6H PRN (Reason: bronchospasm) dulaglutide 3 mg/0.5 mL pen injector 3 mg subcut MO@2100 Tresiba FlexTouch U-200 200 unit/mL (3 mL) insulin pen 52 unit subcut DAILY (DME) blood pressure monitor [Blood Pressure Kit] Kit See Rx Instructions .ROUTE .MEDSUPPLY Qty: 1 0RF Rx Instructions: As directed albuterol sulfate 2.5 mg /3 mL (0.083 %) solution for nebulization 2.5 mg inhalation Q6H PRN (Reason: Shortness Of Breath Or Wheezing) (DME) pen needle, diabetic [Easy Touch] 31 gauge x 5/16 needle See Rx Instructions .ROUTE .MEDSUPPLY Qty: 1200 Rx Instructions: As directed cetirizine [Zyrtec] 10 mg tablet 10 mg PO DAILY cholecalciferol (vitamin D3) 10 mcg (400 unit) capsule 10 mcg PO DAILY Discharge Orders: Discharge Order (Routine); Ordered 02/20/24 Ordered By: Naida Mahajan Diet: Advance to usual diet Activity on Discharge: As tolerated Stand Alone Forms: Patient Portal Discharge page Print Language: Kinyarwanda Care Plan Goals: Talk to your primary care doctor if you experience any increasing pain or difficulty with urination Health Concerns: Hydronephrosis Obstructive renal calculi Plan of Treatment: Follow-up with primary care provider as needed Take all medications as prescribed Assessment: Discharge summary
--- NOTE | 2024-02-20 09:57 | MHC.CM.PN ---
pt dcd home self care
[2024-03-12 16:17] LABS: Stone Source KIDNEY STONE
== END 2024-02-20 10:52 | disposition home or self-care (01) | DRG 694 ==
LOC: HO.ED 20:33 → HO.EDOVER 21:22 → HO.S3 02-18 00:14
PROVIDERS: Nurse Practitioner Family; Physician Assistant Medical; Urology; Admitting Provider Internal Medicine; Emergency Provider Emergency Medicine Emergency Medical Services; PCP Internal Medicine; Visit Provider Nurse Practitioner Acute Care
PROC: 0TC78ZZ Extirpation of Matter from Left Ureter, Via Natural or Artificial Opening Endoscopic (ICD-10-PCS; principal; 2024-02-19 15:00)
DX: N13.2 Hydronephrosis with renal and ureteral calculous obstruction (principal); G47.33 Obstructive sleep apnea (adult) (pediatric); J45.20 Mild intermittent asthma, uncomplicated; J44.9 Chronic obstructive pulmonary disease, unspecified; N40.1 Benign prostatic hyperplasia with lower urinary tract symptoms; R35.0 Frequency of micturition; E11.65 Type 2 diabetes mellitus with hyperglycemia; I10 Essential (primary) hypertension; E66.9 Obesity, unspecified; E78.00 Pure hypercholesterolemia, unspecified; Z68.37 Body mass index [BMI] 37.0-37.9, adult; Z87.891 Personal history of nicotine dependence; Z79.4 Long term (current) use of insulin; Z79.51 Long term (current) use of inhaled steroids; Z79.85 Long-term (current) use of injectable non-insulin antidiabetic drugs; Z79.899 Other long term (current) drug therapy
CPT/HCPCS: 36415; 74176; 80048; 80053; 81001; 82365; 82947; 85025; 85610; 88300; 94640; 94660; 99285; C1758; C1769; J1885; J1956; J2270; J2405; J2704; J3010; J7120; Q9967

== ENCOUNTER → 2024-02-17 20:53 | Outpatient (BNV) | payer MEDICARE, SELFPAY | PROVIDERS: Admitting Provider Internal Medicine; Emergency Provider Emergency Medicine Emergency Medical Services; PCP Internal Medicine; Visit Provider Urology | DX: N13.30 Unspecified hydronephrosis (principal); N20.1 Calculus of ureter | CPT/HCPCS: 52356; 99223 ==

== ENCOUNTER → 2024-02-17 20:53 | Outpatient (BNV) | payer MEDICARE, SELFPAY | PROVIDERS: Admitting Provider Internal Medicine; Emergency Provider Emergency Medicine Emergency Medical Services; PCP Internal Medicine; Visit Provider Internal Medicine | DX: N13.2 Hydronephrosis with renal and ureteral calculous obstruction (principal) | CPT/HCPCS: 99223; 99232; 99239; 99499 ==

== ENCOUNTER 2024-03-18 09:54 | Outpatient (REF) | payer MEDICARE, SELFPAY ==
--- NOTE | ~2024-03-18 | US_ITS ---
EXAMINATION: US RETROPERITONEAL LIMITED (RENAL ONLY) CLINICAL INFORMATION: Unspecified hydronephrosis. COMPARISON: CT abdomen and pelvis 02/17/2024. Renal ultrasound 10/30/2023 and 04/14/2022. X-ray abdomen KUB 11/04/2022. TECHNIQUE: Real-time imaging of the kidneys. FINDINGS: RIGHT KIDNEY: 11.3 x 6.3 x 6.3 cm (SAG x AP x TRV). The kidney is normal in size, contour, and echogenicity. Renal cortical thickness is normal. No calculi or focal parenchymal lesions. No hydronephrosis. LEFT KIDNEY: 12.7 x 5.8 x 5.8 cm (SAG x AP x TRV). The kidney is normal in size, contour, and echogenicity. Renal cortical thickness is normal. No hydronephrosis. There are multiple simple parapelvic cysts, mid kidney 1.7 x 3.8 x 1.7 cm and lower pole 1.5 x 3.0 x 1.9 cm. No further follow-up is recommended. 0.2 x 0.3 x 0.3 cm nonobstructing calculus is seen in the lower pole, 0.5 x 0.4 x 0.6 cm nonobstructing calculus is seen in the upper pole. US/US renal BI IMPRESSION: 1. Normal appearance of the right kidney. 2. 2 small nonobstructing calculi in the left kidney.
== END 2024-03-18 09:55 | disposition home or self-care (01) ==
LOC: HO.HMGCX 09:54
PROVIDERS: PCP Internal Medicine; Visit Provider Urology
DX: N13.30 Unspecified hydronephrosis (principal)
CPT/HCPCS: 76775

== ENCOUNTER 2024-04-05 11:27 | Outpatient (AMB) | payer MEDICARE, SELFPAY ==
--- NOTE | 2024-04-05 11:34 | A.OFFVIS_ITS ---
Intake Visit Reasons: 6w/US Intake Note: Pt presents to the office today for a 6 week/US follow up. 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 He is a patient of Dr. Akers. Seen for the following urologic conditions - nephrolithiasis Large ureteroscopy performed Mixed Stone composition Start allopurinol with vitamin B6 Nephrolithiasis Minimal stone recurrence Twelve month follow-up imaging Encourage fluids Imaging - 12/07 right upper ureteric stone, multiple stones left side - 04/06 renal ultrasound bilateral 6 mm stones - 11/07 KUB 5mm left - 11/08 renal ultrasound small stone left side Intervention - 12/07 right ureteroscopy, 02/04 left ureteroscopy Stone composition - 12/07 calcium oxalate monohydrate 80% Twenty-four urine - 01/04 low volume, low sodium, moderate oxalate, low citrate, low pH - Associated comorbidities diabetes - 11/07 8.1 Therapeutic plan -continue potassium citrate, 12 month follow-up imaging [facility] Medical History Hypoxemia Restrictive lung disease Abnormal LFTs Calcium oxalate calculus 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 Medicare annual wellness visit, initial Bronchitis Pharyngitis Impingement syndrome of right shoulder History of pericarditis Vitamin D deficiency Vitamin B12 deficiency Fatty liver Allergic rhinitis Bronchial asthma Hyperkalemia Mass of right lung Atrial flutter Ankle fracture Hypertension Obesity (BMI 30-39.9) Obstructive sleep apnea BPH (benign prostatic hyperplasia) Hypercholesterolemia Type 2 diabetes mellitus with hyperglycemia Surgical History History of cystoscopy Lumbar spinal stenosis History of lithotripsy History of tooth extraction History of bilateral inguinal hernia repair H/O spinal fusion History of appendectomy Family History Father No problems noted. Mother No problems noted. Son No problems noted. Son No problems noted. Daughter No problems noted. Daughter No problems noted. Social History Housing: House Alcohol intake: never Patient Tobacco Use Status: Former Tobacco user Tobacco use type: Cigarette Years Smoked: 1993 e-Cigarette/Vaping Use: Never Used Second Hand Smoke Exposure: No service: No Current occupational status: retired Cognitive needs: No Hearing needs: No Vision needs: Yes Review of Systems Const Denies chills and Denies fever(s) Card Reports no additional complaints and Denies syncope Resp Denies cough GI Denies abdominal pain and Denies heartburn Reports as per HPI and Denies change in libido Neuro Denies syncope Psych Denies change in libido Endo Denies change in libido Physical Exam Const General: cooperative, healthy appearing, comfortable and no acute distress Orientation/consciousness: patient oriented x3 HEENT Face and sinus: Yes normal facial exam Mouth: moist mucous membranes Neck Neck: Yes normal visual inspection, Yes full ROM and Yes trachea midline Chest Chest palpation & inspection: normal inspection of the chest Resp Effort & Inspection: normal respiratory effort, able to speak in complete sentences and no respiratory distress GI Inspection: Yes normal to inspection Back/Spine/Pelvis Cervical Spine: normal cervical lordosis Thoracic/Lumbar Spine: thoracic and lumbar spine normal to inspection Skin General skin exam: no rashes or lesions noted Neuro General: patient oriented x3, gait normal, tone normal and moves all extremities Extrem General: Yes normal to inspection and Yes capillary refill normal Assessment & Plan Assessment & Plan (1) Renal calculi: Comment: Right ureteroscopy with stent placement December 2021 Left stent placement laser lithotripsy January 2022 Code(s): N20.0 - Calculus of kidney Category: Medical Plan Six-month follow-up Orders: Orders US renal BI 6 Months N20.1 - Calculus of ureter Medications: New allopurinol 100 mg PO DAILY 90 days 90 tabs 1RF N20.0 - Calculus of kidney, N20.1 - Calculus of ureter pyridoxine (vitamin B6) 50 mg PO DAILY 90 days 90 tabs 1RF N20.0 - Calculus of kidney, N20.1 - Calculus of ureter Patient Instructions: Imaging studies, laboratory and physical exam results were discussed and reviewed in detail. No major barriers to patient understanding were identified. An opportunity to ask questions regarding the treatment plan was provided. All questions were answered. The patient expressed understanding and agreement with the above treatment plan. The patient is aware they should contact our office by phone for worsening of their current condition or the appearance of new urologic symptoms. Compliance is encouraged with any medications and followup testing that is ordered. It is a privilege to participate in the urologic care of your patient. If you have any questions or concerns regarding treatment for the above conditions, or other urologic issues, please do not hesitate to contact me. The office telep tyrone contact is [phone]. This note is constructed using voice recognition software. While every effort has been made to ensure accuracy acid conditioning worker errors may have been included. Yours sincerely, Dr Nakul Serna MD, [facility] - Urology Providers of Expert, Compassionate Care for the Genitourinary System Coding Level of Care Code Est Pt Level 4 (03187) Diagnoses Renal calculi N20.0
== END 2024-04-05 12:08 | disposition home or self-care (01) ==
LOC: HO.HUSH 11:27
PROVIDERS: PCP Internal Medicine; Visit Provider Urology
DX: N20.0 Calculus of kidney (principal)
CPT/HCPCS: 99213

== ENCOUNTER → 2024-04-05 11:27 | Outpatient (BNVA) | payer MEDICARE, SELFPAY | PROVIDERS: PCP Internal Medicine; Visit Provider Urology | DX: N20.0 Calculus of kidney (principal) | CPT/HCPCS: 99212 ==

== ENCOUNTER 2024-04-23 09:39 | Outpatient (AMB) | payer MEDICARE, SELFPAY ==
--- NOTE | 2024-04-23 09:43 | MHC.PC.OV ---
Vital Signs 04/23/24 09:44 Height 5 ft 7 in Weight 239 lb BMI 37.4 BP 124/76 Blood Pressure Location Lt brachial Position Sitting Pulse 101 H Pulse Source Pulse Oximeter Pulse Oximetry (%) 95 Oxygen Delivery Method Nasal Cannula Intake Visit Reasons: Diabetes mellitus bilateral knee pain Allergies azithromycin [AZITHROMYCIN] Allergy (Unknown, Verified 04/23/24 09:45) HIVES lisinopril [LISINOPRIL] Allergy (Unknown, Verified 04/23/24 09:45) HIVES losartan [LOSARTAN] Allergy (Unknown, Verified 04/23/24 09:45) HIVES oxycodone [OXYCODONE] Allergy (Unknown, Verified 04/23/24 09:45) HIVES Tobacco use date assessed: 12/28/23 Fall risk assessment: No Falls in past year Last assessed Fall Risk: 04/23/24 Dental Screening Dental Screen Date: 04/23/24 Did you have a dental visit in the last 12 months?: Yes Did you have a dental problem in the last 6 months where you did not have access to dental care?: No Was dental information given to patient?: Patient has dentist HPI Diabetes mellitus bilateral knee pain HPI Details 79-year-old obese male with diabetes mellitus hypercholesterolemia obstructive sleep apnea BPH hypertension and asthma coming in for follow-up. Last seen for annual wellness in January 2024. Patient was in the hospital in February for 2023 sudden onset of left flank pain found to have hydronephrosis left ureteroscopy laser lithotripsy stone basketing Feb 19 2024. Review of the notes has been follow-up with urology for nephrolithiasis presently on tamsulosin had ureteroscopy(12/2021 with stent placement, left stent placement laser lithotripsy January 2022) with mixed stone composition and was placed on allopurinol and vitamin B6. Presently on surveillance [facility] Medical History (Updated 04/23/24 @ 10:04 by Homer Akers MD) Hypercholesterolemia Type 2 diabetes mellitus with hyperglycemia Hypoxemia Restrictive lung disease Abnormal LFTs Calcium oxalate calculus 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 Medicare annual wellness visit, initial Bronchitis Pharyngitis Impingement syndrome of right shoulder History of pericarditis Vitamin D deficiency Vitamin B12 deficiency Fatty liver Allergic rhinitis Bronchial asthma Hyperkalemia Mass of right lung Atrial flutter Ankle fracture Hypertension Obesity (BMI 30-39.9) Obstructive sleep apnea BPH (benign prostatic hyperplasia) Surgical History History of cystoscopy Lumbar spinal stenosis History of lithotripsy History of tooth extraction History of bilateral inguinal hernia repair H/O spinal fusion History of appendectomy Family History Father No problems noted. Mother No problems noted. Son No problems noted. Son No problems noted. Daughter No problems noted. Daughter No problems noted. Social History Housing: House Alcohol intake: never Patient Tobacco Use Status: Former Tobacco user Tobacco use type: Cigarette Years Smoked: 1993 e-Cigarette/Vaping Use: Never Used Second Hand Smoke Exposure: No service: No Current occupational status: retired Cognitive needs: No Hearing needs: No Vision needs: Yes Questionnaire PHQ-9 Over the last 2 weeks, how often have you been bothered by any of the following problems? 1. Little interest or pleasure in doing things: not at all 2. Feeling down, depressed, or hopeless: not at all 3. Trouble falling or staying asleep, or sleeping too much: not at all 4. Feeling tired or having little energy: not at all 5. Poor appetite or overeating: not at all 6. Feeling bad about yourself - or that you are a failure or have let yourself or your family down: not at all 7. Trouble concentrating on things, such as reading the newspaper or watching television: not at all 8. Moving or speaking so slowly that other people could have noticed. Or the opposite - being so fidgety or restless that you have been moving around a lot more than usual: not at all 9. Thoughts that you would be better off or of hurting yourself in some way: not at all Total score: 0 Depression Screening Interpretation: Negative Depression Screening Done: Yes 53066 - PHQ-9 Billing: Yes Source: Developed by Drs. Lenny Jimenez, Norma Murdock, Rk Holloway and colleagues, with an educational alfredo from [employer]. Thrive Questionnaire Date Thrive assessed: 02/18/24 AUDIT C Alcohol Use Questionnaire (AUDIT-C) 1. How often do you have a drink containing alcohol?: Never Total Score: 0 Score Reviewed/Action Taken: No VIDHYA-7 AMB Questionnaire VIDHYA-7 Date VIDHYA - 7 assessed: 12/28/23 Source: Developed by Drs. Lenny Jimenez, Norma Murdock, Rk Holloway and colleagues, with an educational alfredo from [employer]. Physical exam (Primary Care) Vital Signs: Last Vital Signs Pulse 101 H 04/23/24 09:44 BP 124/76 04/23/24 09:44 Pulse Ox 95 04/23/24 09:44 Oxygen Delivery Method Nasal Cannula 04/23/24 09:44 BMI result Body Mass Index 37.4 Tobacco/Smoking Status: Tobacco use Status Tobacco use date assessed 12/28/23 04/23/24 09:46 Patient Tobacco Use Status Former Tobacco user 04/23/24 09:46 Tobacco use type Cigarette 04/23/24 09:46 e-Cigarette/Vaping Use Never Used 04/23/24 09:46 PHQ-9: PHQ-9 Score PHQ-9: Total score 0 04/23/24 10:00 Depression Screening Interpretation: Negative Thrive Assessment: Date of Thrive Assessment Date Thrive assessed 02/18/24 04/23/24 09:46 Const General: alert; No acute distress Eyes Conjunctivae: conjunctivae normal Resp Auscultation: clear to auscultation bilaterally Cardio Rate: regular rate Rhythm: regular rhythm GI Inspection: Yes normal to inspection Extrem General: Yes normal to inspection and No edema Results AMB Hemoglobin A1c AMB Hemoglobin A1c 6.7 % Last Edit by Humera oPe CMA on 04/23/24 10:00 Results Reviewed Results Reviewed: Laboratory Last Values Hgb A1c (Clinic) 6.7 % (4.0-6.0) H 04/23/24 09:46 Assessment and Plan Assessment & Plan (1) Type 2 diabetes mellitus with hyperglycemia: Comment: Dr. Vanessa Code(s): E11.65 - Type 2 diabetes mellitus with hyperglycemia Qualifiers: Diabetes mellitus technician terminal and repeater insulin use: with technician terminal and repeater use Qualified Code(s): E11.65 - Type 2 diabetes mellitus with hyperglycemia; Z79.4 - jail (current) use of insulin Plan: Decrease the amount of carbohydrate intake, pasta, bread, rice and potatoes are all sugar and that is aside from all the sweet stuff, remember that fruits are good but they are Sweet also. Hemoglobin A1c goal of less than 7.0 patient has Trulicity 1.5 mg once a week Tresiba insulin 52 units once a day metformin a 1000 mg twice a day (2) Hypertension: Code(s): I10 - Essential (primary) hypertension Qualifiers: Hypertension type: essential hypertension Qualified Code(s): I10 - Essential (primary) hypertension Plan: Continue with blood pressure medication. Decrease salt intake and exercise on metoprolol 100 mg once a day (3) Hypercholesterolemia: Code(s): E78.00 - Pure hypercholesterolemia, unspecified Plan: Avoid fried foods, chicken skin, eggs, butter margarine, pastries and meat. Be it pork or beef they have a lot of cholesterol on atorvastatin 40 mg once a day LDL goal of less than 100 and triglyceride of less than 150 patient had blood work done 02/03/2024. (4) Renal calculi: Comment: Right ureteroscopy with stent placement December 2021 Left stent placement laser lithotripsy January 2022 Code(s): N20.0 - Calculus of kidney Plan: Increase oral fluids had ureteroscopy done on tamsulosin and has been placed on allopurinol for mixed stones and vitamin B6 Orders: Orders AMB Hemoglobin A1c Today Z13.9 - Encounter for screening, unspecified Coding Level of Care Code Est Pt Level 4 (27076) Complex EM visit Add On G2211 Diagnoses Type 2 diabetes mellitus with hyperglycemia, with long-term current use of insulin E11.65; Z79.4 Diabetes mellitus technician terminal and repeater insulin use: with technician terminal and repeater use Essential hypertension I10 Hypertension type: essential hypertension Hypercholesterolemia E78.00 Renal calculi N20.0
[2024-04-23 09:44] VITALS: BP 124/76; PULSE 101; O2SAT 95; BMI 37.4
== END 2024-04-23 10:18 | disposition home or self-care (01) ==
PROVIDERS: PCP Internal Medicine; Visit Provider Internal Medicine
DX: E11.65 Type 2 diabetes mellitus with hyperglycemia (principal); Z79.4 Long term (current) use of insulin; I10 Essential (primary) hypertension; E78.00 Pure hypercholesterolemia, unspecified; N20.0 Calculus of kidney
CPT/HCPCS: 83036; 99214; G2211

== ENCOUNTER 2024-07-24 09:55 | Outpatient (AMB) | payer MEDICARE, SELFPAY ==
[2024-07-24 09:59] VITALS: BP 142/86; PULSE 89; O2SAT 94; BMI 38.5
--- NOTE | 2024-07-24 09:59 | MHC.PC.OV ---
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: No Allergies azithromycin [AZITHROMYCIN] Allergy (Unknown, Verified 07/24/24 10:00) HIVES lisinopril [LISINOPRIL] Allergy (Unknown, Verified 07/24/24 10:00) HIVES losartan [LOSARTAN] Allergy (Unknown, Verified 07/24/24 10:00) HIVES oxycodone [OXYCODONE] Allergy (Unknown, Verified 07/24/24 10:00) HIVES Medication List - Last Reconciled 07/24/24 by Izabel Fiore PA-C acetaminophen (Tylenol) 650 mg PO Q6H PRN albuterol sulfate 90 mcg/actuation (ProAir HFA) 2 puffs inhalation Q6H PRN albuterol sulfate 2.5 mg inhalation Q6H PRN allopurinol 100 mg PO DAILY 90 days atorvastatin 40 mg PO DAILY 90 days blood pressure monitor (Blood Pressure Kit) As directed blood sugar diagnostic (OneTouch Ultra Test strips) test 2 times per day blood sugar diagnostic One touch ULTRA TEst Strips check the BS 2x a day blood-glucose meter (Anderauch Ultra2 Meter kit) As directed cetirizine (Zyrtec) 10 mg PO DAILY cholecalciferol (vitamin D3) 10 mcg PO DAILY cyanocobalamin (vitamin B-12) 1,000 mcg PO DAILY dulaglutide 1.5 mg (0.5 mL) subcut MO@2100 fluticasone propion-salmeterol 250-50 mcg/dose (Wixela Inhub) 1 ea inhalation BID insulin degludec (Tresiba FlexTouch U-200 insulin) 52 units (0.26 mL) subcut DAILY lancets (Ander[employer]uch UltraSoft Lancets) As directed check the blood sugars 4 times a day metformin 1,000 mg PO BID metoprolol succinate ER 100 mg PO DAILY naproxen 500 mg PO BID PRN 7 days peg 400-propylene glycol (PF) 0.4-0.3 % (Systane (PF)) 1 drp ophthalmic (eye) BID PRN pen needle, diabetic (Easy Touch) As directed pen needle, diabetic, safety (Easy Touch Safety Pen Needle) As directed inject twice a day [Prevagen 1 cap PO DAILY] pyridoxine (vitamin B6) 50 mg PO DAILY 90 days tamsulosin 0.4 mg PO BEDTIME 90 days vit C,F-Ek-nubmx-lutein-zeaxan 250-90-40-1 mg (PreserVision AREDS-2) 1 tab PO BID Tobacco use date assessed: 12/28/23 Fall risk assessment: No Falls in past year Last assessed Fall Risk: 07/24/24 Dental Screening Dental Screen Date: 04/23/24 HPI 3 Month F/U HPI Details 79-year-old obese male with past medical history of diabetes mellitus, hypercholesterolemia, obstructive sleep apnea, BPH, hypertension, and asthma last seen by Dr. Akers April 2024 coming in for three-month follow up.? Patient had diabetic eye exam completed 05/02/2024. Patient states he has been feeling generally well and has no acute concerns today. His blood sugars at home have been lower than 200 and primarily in the 90 range. He does mentioned he has been eating much more sweets and carbs than usual for him. He also complains of right knee pain which has been worsening over the last year and has pain with walking. [facility] Medical History (Updated 07/24/24 @ 10:34 by Izabel Fiore PA-C) Hypercholesterolemia Type 2 diabetes mellitus with hyperglycemia Hypoxemia Restrictive lung disease Abnormal LFTs Calcium oxalate calculus 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 Medicare annual wellness visit, initial Bronchitis Pharyngitis Impingement syndrome of right shoulder History of pericarditis Vitamin D deficiency Vitamin B12 deficiency Fatty liver Allergic rhinitis Bronchial asthma Hyperkalemia Mass of right lung Atrial flutter Ankle fracture Hypertension Obesity (BMI 30-39.9) Obstructive sleep apnea BPH (benign prostatic hyperplasia) Surgical History History of cystoscopy Lumbar spinal stenosis History of lithotripsy History of tooth extraction History of bilateral inguinal hernia repair H/O spinal fusion History of appendectomy Family History Father No problems noted. Mother No problems noted. Son No problems noted. Son No problems noted. Daughter No problems noted. Daughter No problems noted. Social History Housing: House Alcohol intake: never Patient Tobacco Use Status: Former Tobacco user Tobacco use type: Cigarette Years Smoked: 1993 e-Cigarette/Vaping Use: Never Used Second Hand Smoke Exposure: No service: No Current occupational status: retired Cognitive needs: No Hearing needs: No Vision needs: Yes Questionnaire Thrive Questionnaire Date Thrive assessed: 02/18/24 Are you currently unemployed and looking for a job?: No AUDIT C Alcohol Use Questionnaire (AUDIT-C) 1. How often do you have a drink containing alcohol?: Never 3. How often do you have six or more drinks on one occasion?: Never Total Score: 0 Score Reviewed/Action Taken: No VIDHYA-7 AMB Questionnaire VIDHYA-7 Date VIDHYA - 7 assessed: 12/28/23 Source: Developed by Drs. Lenny Jimenez, Norma Murdock, Rk Holloway and colleagues, with an educational alfredo from [employer]. Review of Systems Const Denies body aches, Denies chills, Denies fever(s) and Denies headache(s) Eyes Reports no additional complaints ENT Denies dizziness and Denies headache(s) Card Denies chest pain, Denies syncope and Denies dyspnea Resp Denies cough and Denies dyspnea GI Denies abdominal pain, Denies constipation, Denies diarrhea, Denies nausea and Denies vomiting Reports no additional complaints Musc Reports no additional complaints and Denies abnormal gait Skin/Breast Reports system reviewed and no additional complaints, except as documented Neuro Denies abnormal gait, Denies dizziness, Denies syncope and Denies headache(s) Psych Reports no additional complaints Physical exam (Primary Care) Vital Signs: Last Vital Signs Pulse 89 07/24/24 09:59 BP 142/86 H 07/24/24 09:59 Pulse Ox 94 07/24/24 09:59 Oxygen Delivery Method Nasal Cannula 07/24/24 09:59 Oxygen Flow Rate 2.5 07/24/24 09:59 BMI result Body Mass Index 38.5 Tobacco/Smoking Status: Tobacco use Status Tobacco use date assessed 12/28/23 07/24/24 10:07 Patient Tobacco Use Status Former Tobacco user 07/24/24 10:07 Tobacco use type Cigarette 07/24/24 10:07 e-Cigarette/Vaping Use Never Used 07/24/24 10:07 Thrive Assessment: Date of Thrive Assessment Date Thrive assessed 02/18/24 07/24/24 10:07 Const General: cooperative, healthy appearing, comfortable and no acute distress Orientation/consciousness: patient oriented x3 HENMT Head: Yes normocephalic Ears: hearing grossly normal bilaterally General nose exam: Normal external nose present Eyes General: appearance normal, both eyes and all related structures Conjunctivae: conjunctivae normal Neck Neck: Yes full ROM and Yes no lymphadenopathy Resp Effort & Inspection: normal respiratory effort Auscultation: clear to auscultation bilaterally, no crackles, no rales, no rhonchi and no wheezes Cardio Rate: regular rate Rhythm: regular rhythm Skin General skin exam: no rashes or lesions noted Neuro General: patient oriented x3 Gait exam (Neuro): Normal gait present Extrem General: Yes normal to inspection, Yes full ROM and No edema Psych Affect: normal affect Attitude: cooperative Insight: Good insight present (Psych) Judgement: Good judgement present (Psych) Results AMB Hemoglobin A1c AMB Hemoglobin A1c 8.3 % Last Edit by EDMOND Sanchez on 07/24/24 10:15 Results Reviewed Results Reviewed: Laboratory Last Values Hgb A1c (Clinic) 8.3 % (4.0-6.0) H 07/24/24 09:09 Coding Level of Care Code Est Pt Level 4 (47814) Diagnoses Right knee pain M25.561 Hypercholesterolemia E78.00 Type 2 diabetes mellitus with hyperglycemia, with long-term current use of insulin E11.65; Z79.4 Diabetes mellitus moth exterminator insulin use: with group home use Restrictive lung disease J98.4 Essential hypertension I10 Hypertension type: essential hypertension Assessment & Plan Assessment & Plan (1) Right knee pain: Code(s): M25.561 - Pain in right knee Category: Medical Plan: Updated x-ray ordered for the right knee to evaluate for osteoarthritis. Referral placed to orthopedics for possible injections. Advised to use Tylenol as needed for pain. (2) Hypercholesterolemia: Code(s): E78.00 - Pure hypercholesterolemia, unspecified Category: Medical Plan: Cholesterol at goal on last labs. Avoid foods that are high in cholesterol such as red meat, fried foods, eggs and baked goods. Triglyceride goal of less than 150 and LDL goal of less than 100. Continue on atorvastatin 40 mg (3) Type 2 diabetes mellitus with hyperglycemia: Comment: Dr. Vanessa Code(s): E11.65 - Type 2 diabetes mellitus with hyperglycemia Category: Medical Qualifiers: Diabetes mellitus moth exterminator insulin use: with group home use Qualified Code(s): E11.65 - Type 2 diabetes mellitus with hyperglycemia; Z79.4 - exterminator termite (current) use of insulin Plan: Decrease the amount of carbohydrates such as pasta, bread, rice, and potatoes and limit the amount of sweets. Although fruits are generally healthy they should be eaten in moderation as they are still high in sugar. Hemoglobin A1c goal of less than 7%. A1c over 8% today in the clinic. With blood sugars in the 90s range do not advise adjustment in insulin rather diet modification. Patient agrees to plan and will continue on Tresiba and dulaglutide as well as metformin and adjust diet appropriately. Follow up in 3 months for repeat A1c. (4) Restrictive lung disease: Comment: BECAUSE OF HIS OBESITY ESPECIALLY ABDOMINAL OBESITY, AND MINIMAL FIBROSIS , HE DOES HAVE MODERATE DEGREE OF RESTRICTIVE LUNG DISEASE, PER PFT IN 2020. Code(s): J98.4 - Other disorders of lung Category: Medical Plan: Currently on supplemental oxygen and we will follow up with pulmonology in the coming months. (5) Hypertension: Code(s): I10 - Essential (primary) hypertension Category: Medical Qualifiers: Hypertension type: essential hypertension Qualified Code(s): I10 - Essential (primary) hypertension Plan: Continue on current blood pressure medication. Avoid salt intake and encourage healthy diet and regular exercise. Blood pressure at goal today 132/84. Plan This note was constructed using voice recognition software. While every effort has been made to ensure accuracy and director of guidance in public schools, still areas may have been included sometimes these areas may affect the content or meeting of the given symptoms. Total time spent caring for the patient today was 30 minutes. This includes time spent before the visit reviewing the chart, time spent during the visit, and time spent after the visit and documentation. Orders: Orders AMB Hemoglobin A1c Today E11.65 - Type 2 diabetes mellitus with hyperglycemia, Z79.4 - longterm (current) use of insulin XR knee RT 3V Today M25.561 - Pain in right knee Referrals Orthopedics Referral M25.561 - Pain in right knee
[2024-07-24 10:34] VITALS: BP 132/84
== END 2024-07-24 10:46 | disposition home or self-care (01) ==
PROVIDERS: PCP Internal Medicine
DX: M25.561 Pain in right knee (principal); E78.00 Pure hypercholesterolemia, unspecified; E11.65 Type 2 diabetes mellitus with hyperglycemia; Z79.4 Long term (current) use of insulin; J98.4 Other disorders of lung; I10 Essential (primary) hypertension

== ENCOUNTER → 2024-07-24 09:55 | Outpatient (BNVA) | payer MEDICARE, SELFPAY | PROVIDERS: PCP Internal Medicine | DX: E11.65 Type 2 diabetes mellitus with hyperglycemia (principal); Z79.4 Long term (current) use of insulin; M25.561 Pain in right knee; E78.00 Pure hypercholesterolemia, unspecified; J98.4 Other disorders of lung; I10 Essential (primary) hypertension | CPT/HCPCS: 83036; 99212 ==

== ENCOUNTER 2024-07-24 11:06 | Outpatient (REF) | payer MEDICARE, SELFPAY ==
--- NOTE | ~2024-07-24 | XR_ITS ---
EXAMINATION: XR RIGHT KNEE 4 VIEWS CLINICAL INFORMATION: Pain in right knee M25.561. COMPARISON: XR Bilateral knees anteroposterior standing 01/01/2024 TECHNIQUE: Four views of the right knee. FINDINGS: No fracture or joint effusion. Chondrocalcinosis. Alignment is anatomic. Joint spaces are mildly narrowed. No abnormal soft tissue calcification. XR/XR knee RT 4V IMPRESSION: Mild degenerative change in the right knee. Chondrocalcinosis. Electronically signed by: Lenny Luna MD 09/30/2024 11:29 AM OMAR TIMMONS
== END 2024-07-24 11:07 | disposition home or self-care (01) ==
LOC: HO.HMGCX 11:06
PROVIDERS: PCP Internal Medicine
DX: M25.561 Pain in right knee (principal)
CPT/HCPCS: 73564

== ENCOUNTER 2024-08-14 10:29 | Outpatient (AMB) | payer MEDICARE, SELFPAY ==
[2024-08-14 10:47] VITALS: BP 150/80; PULSE 88; O2SAT 98; BMI 38.0
--- NOTE | 2024-08-14 10:47 | A.OFFVIS_ITS ---
Vital Signs 08/14/24 10:47 Height 5 ft 7 in Weight 242 lb 8.136 oz BMI 38.0 BP 150/80 H Blood Pressure Location Lt brachial Position Sitting Pulse 88 Pulse Source Pulse Oximeter Pulse Oximetry (%) 98 Oxygen Delivery Method Nasal Cannula Oxygen Flow Rate 4 Intake Visit Reasons: COPD follow-up Intake Note: pt is here for follow up and states he is pretty good. 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 Required: No Allergies azithromycin [AZITHROMYCIN] Allergy (Unknown, Verified 08/14/24 11:22) HIVES lisinopril [LISINOPRIL] Allergy (Unknown, Verified 08/14/24 11:22) HIVES losartan [LOSARTAN] Allergy (Unknown, Verified 08/14/24 11:22) HIVES oxycodone [OXYCODONE] Allergy (Unknown, Verified 08/14/24 11:22) HIVES Medication List - Last Reconciled 08/14/24 by Aylin Duque MD acetaminophen (Tylenol) 650 mg PO Q6H PRN albuterol sulfate 90 mcg/actuation (ProAir HFA) 2 puffs inhalation Q6H PRN albuterol sulfate 2.5 mg inhalation Q6H PRN allopurinol 100 mg PO DAILY 90 days atorvastatin 40 mg PO DAILY 90 days blood pressure monitor (Blood Pressure Kit) As directed blood sugar diagnostic (OneTouch Ultra Test strips) test 2 times per day blood sugar diagnostic One touch ULTRA TEst Strips check the BS 2x a day blood-glucose meter ([employer] Ultra2 Meter kit) As directed cetirizine (Zyrtec) 10 mg PO DAILY cholecalciferol (vitamin D3) 10 mcg PO DAILY cyanocobalamin (vitamin B-12) 1,000 mcg PO DAILY dulaglutide 1.5 mg (0.5 mL) subcut MO@2100 fluticasone propion-salmeterol 250-50 mcg/dose (Wixela Inhub) 1 ea inhalation BID insulin degludec (Tresiba FlexTouch U-200 insulin) 52 units (0.26 mL) subcut DAILY lancets (SocialRadarTouch UltraSoft Lancets) As directed check the blood sugars 4 times a day metformin 1,000 mg PO BID metoprolol succinate ER 100 mg PO DAILY naproxen 500 mg PO BID PRN 7 days peg 400-propylene glycol (PF) 0.4-0.3 % (Systane (PF)) 1 drp ophthalmic (eye) BID PRN pen needle, diabetic (Easy Touch) As directed pen needle, diabetic, safety (Easy Touch Safety Pen Needle) As directed inject twice a day [Prevagen 1 cap PO DAILY] pyridoxine (vitamin B6) 50 mg PO DAILY 90 days tamsulosin 0.4 mg PO BEDTIME 90 days vit C,A-Wm-wluli-lutein-zeaxan 250-90-40-1 mg (PreserVision AREDS-2) 1 tab PO BID HPI HPI COPD follow-up: Details: This 79 years old gentleman with gross obesity and diagnosis of obstructive sleep apnea plus nocturnal hypoxemia, / COPD, comes for his routine follow-up. He is doing very well except for difficulty in walking due to knees pain ( arthritis) He uses CPAP at night and sleeps 10 to 11 hours, enjoy is the use of his CPAP. He does use O2 along with the CPAP at night. During the daytime he does use oxygen when he is physically active or goes outdoors. He has stationary O2 concentrator as well as portable unit , and is well use 2 these equipments. Continues to use Wixela twice a day and hardly needs to use the rescue inhaler. [facility] Medical History (Updated 08/14/24 @ 11:28 by Aylin Duque MD) AMY on CPAP Hypercholesterolemia Type 2 diabetes mellitus with hyperglycemia Hypoxemia Restrictive lung disease Abnormal LFTs Calcium oxalate calculus 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 Medicare annual wellness visit, initial Bronchitis Pharyngitis Impingement syndrome of right shoulder History of pericarditis Vitamin D deficiency Vitamin B12 deficiency Fatty liver Allergic rhinitis Bronchial asthma Hyperkalemia Mass of right lung Atrial flutter Ankle fracture Hypertension Obesity (BMI 30-39.9) Obstructive sleep apnea BPH (benign prostatic hyperplasia) Surgical History History of cystoscopy Lumbar spinal stenosis History of lithotripsy History of tooth extraction History of bilateral inguinal hernia repair H/O spinal fusion History of appendectomy Family History Father No problems noted. Mother No problems noted. Son No problems noted. Son No problems noted. Daughter No problems noted. Daughter No problems noted. Social History Housing: House Alcohol intake: never Patient Tobacco Use Status: Former Tobacco user Tobacco use type: Cigarette Years Smoked: 1993 e-Cigarette/Vaping Use: Never Used Second Hand Smoke Exposure: No service: No Current occupational status: retired Cognitive needs: No Hearing needs: No Vision needs: Yes Review of Systems Const All systems reviewed & are unremarkable except as noted in HPI and below Eyes Reports no additional complaints ENT Reports nasal congestion (Mild off and on) Card Reports no additional complaints Resp Reports as per HPI GI Reports no additional complaints Reports no additional complaints Musc Reports no additional complaints Skin/Breast Reports system reviewed and no additional complaints, except as documented Neuro Reports no additional complaints Psych Reports no additional complaints Physical Exam Vital Signs: Last Vital Signs Pulse 88 08/14/24 10:47 BP 150/80 H 08/14/24 10:47 Pulse Ox 98 08/14/24 10:47 Oxygen Delivery Method Nasal Cannula 08/14/24 10:47 Oxygen Flow Rate 4 08/14/24 10:47 BMI result Body Mass Index 38.0 Grossly obese and only 2 lb less than last visit Const General: comfortable, no acute distress, alert and awake Orientation/consciousness: patient oriented x3 HEENT Head: Yes normal to inspection General nose exam: No nasal polyps present and No nasal discharge present Face and sinus: Yes sinuses nontender Mouth: oropharynx normal Throat: Yes posterior oropharynx normal Eyes General: appearance normal, both eyes and all related structures Neck Neck: Yes normal visual inspection, Yes no lymphadenopathy, Yes trachea midline and Yes no JVD Thyroid: Thyroid normal Chest Chest palpation & inspection: normal inspection of the chest, normal palpation of entire chest wall and no tenderness Resp Other: Percussion note is resonant. Breath sounds are distant and especially diminished over the basilar areas. No wheezes rhonchi or crepitations are heard. Cardio Palpation: normal PMI Rate: regular rate Rhythm: regular rhythm Heart sounds: no gallops and no murmurs Peripheral pulses: Peripheral pulses 2+ throughout GI Palpation (GI): Soft to palpation, nontender, No hepatosplenomegaly present, no masses and Other GI palpation findings present (Abdomen is moderately obese and protuberant.) Auscultation: normal bowel sounds Back/Spine/Pelvis Thoracic/Lumbar Spine: thoracic and lumbar spine normal to inspection Skin General skin exam: no rashes or lesions noted Neuro General: patient oriented x3 and no focal motor deficits Cranial nerves: Yes CN's II-XII intact bilaterally Extrem General: Yes normal to inspection, Yes no clubbing, cyanosis or edema and Yes no calf tenderness Psych Speech and movement: Normal speech and movement present Results Reviewed Results Reviewed: Compliance report is reviewed He has used 30/30 nights,. 100% of the time Average use it per night 11 hours to 12 hours. Pressure 12 cm. Residual AHI 2.4 Assessment & Plan Assessment & Plan (1) AMY on CPAP: Comment: He has history of obstructive sleep apnea for the past many use secondary to his gross obesity. Uses CPAP very regularly and sleeps well. He sleeps for 10-11 hours. No issues. With the CPAP device Code(s): G47.33 - Obstructive sleep apnea (adult) (pediatric) Category: Medical Plan: Continue using CPAP every night with O2 2 L/minute (2) Restrictive lung disease: Comment: BECAUSE OF HIS OBESITY ESPECIALLY ABDOMINAL OBESITY, AND MINIMAL FIBROSIS , HE DOES HAVE MODERATE DEGREE OF RESTRICTIVE LUNG DISEASE, PER PFT IN 2020. Code(s): J98.4 - Other disorders of lung Category: Medical Plan: Needs to lose weight which is not practical in his case, Advised to do deep breathing exercises at least 3 times a day (3) Respiratory failure with hypoxia: Comment: This gentleman has nocturnal hypoxemia along with AMY, As well as exercise induced hypoxemia., corrected with the use of O2. Code(s): J96.91 - Respiratory failure, unspecified with hypoxia Category: Medical Plan: Use O2 2 L/minute along with the CPAP at night. Portable unit with O2 3 L/minute when walking outdoors or doing any physical activity. (4) Bronchial asthma: Comment: Br. Asthma in his case is Cough / Asthma Variant and is well controlled at this time . Code(s): J45.909 - Unspecified asthma, uncomplicated Category: Medical Qualifiers: Asthma severity: mild Asthma persistence: intermittent Asthma complication type: uncomplicated Qualified Code(s): J45.20 - Mild intermittent asthma, uncomplicated Plan: Continue Wixela 250-50 1 inhalation b.i.d.. Albuterol HFA 2 puffs Q 6 hours only p.r.n.. Medications: Changed From albuterol sulfate 90 mcg/actuation (ProAir HFA) 2 puffs inhalation Q6H PRN bronchospasm To albuterol sulfate 90 mcg/actuation 2 puffs inhalation Q6H 60 days PRN 8.5 grams 2RF bronchospasm Coding Level of Care Code Est Pt Level 4 (67475) Diagnoses AMY on CPAP G47.33 Restrictive lung disease J98.4 Respiratory failure with hypoxia J96.91 Mild intermittent asthma without complication J45.20 Asthma severity: mild Asthma persistence: intermittent Asthma complication type: uncomplicated
== END 2024-08-14 11:22 | disposition home or self-care (01) ==
LOC: HO.HPS 10:30
PROVIDERS: PCP Internal Medicine; Visit Provider Internal Medicine
DX: G47.33 Obstructive sleep apnea (adult) (pediatric) (principal); J98.4 Other disorders of lung; J96.91 Respiratory failure, unspecified with hypoxia; J45.20 Mild intermittent asthma, uncomplicated
CPT/HCPCS: 99214

== ENCOUNTER → 2024-08-14 10:29 | Outpatient (BNVA) | payer MEDICARE, SELFPAY | PROVIDERS: PCP Internal Medicine; Visit Provider Internal Medicine | DX: J44.9 Chronic obstructive pulmonary disease, unspecified (principal); J98.4 Other disorders of lung; J96.91 Respiratory failure, unspecified with hypoxia; J45.20 Mild intermittent asthma, uncomplicated; G47.33 Obstructive sleep apnea (adult) (pediatric); Z99.89 Dependence on other enabling machines and devices | CPT/HCPCS: 99212 ==

== ENCOUNTER 2024-09-24 13:59 | Outpatient (AMB) | payer MEDICARE, SELFPAY ==
--- NOTE | 2024-09-24 14:23 | A.OFFVIS_ITS ---
Vital Signs 09/24/24 14:24 Height 5 ft 7 in Weight 245 lb BMI 38.4 Intake Visit Reasons: NewProb- Pain in right knee Intake Note: Silvano is an 79 year old male who presents with complaints of progressively worsening right knee pain. He describes his pain as sharp and severe in nature. He has not had a cortisone injection given into his right knee. He has had a cortisone injection given into his right shoulder which gave him fairly good relief. He denies any fevers or chills. He does ambulate with a cane. He has done physical therapy exercises which aggravated his pain. He has also tried Tylenol which gives him minimal relief. Allergies azithromycin [AZITHROMYCIN] Allergy (Unknown, Verified 09/24/24 14:31) HIVES lisinopril [LISINOPRIL] Allergy (Unknown, Verified 09/24/24 14:31) HIVES losartan [LOSARTAN] Allergy (Unknown, Verified 09/24/24 14:31) HIVES oxycodone [OXYCODONE] Allergy (Unknown, Verified 09/24/24 14:31) HIVES Medication List - Last Reconciled 09/24/24 by Gurmeet Ordaz MD acetaminophen (Tylenol) 650 mg PO Q6H PRN albuterol sulfate 2.5 mg inhalation Q6H PRN albuterol sulfate 90 mcg/actuation 2 puffs inhalation Q6H PRN 60 days allopurinol 100 mg PO DAILY 90 days atorvastatin 40 mg PO DAILY 90 days blood pressure monitor (Blood Pressure Kit) As directed blood sugar diagnostic (OneTouch Ultra Test strips) test 2 times per day blood sugar diagnostic One touch ULTRA TEst Strips check the BS 2x a day blood-glucose meter (OneTouch Ultra2 Meter kit) As directed cetirizine (Zyrtec) 10 mg PO DAILY cholecalciferol (vitamin D3) 10 mcg PO DAILY cyanocobalamin (vitamin B-12) 1,000 mcg PO DAILY dulaglutide 1.5 mg (0.5 mL) subcut MO@2100 fluticasone propion-salmeterol 250-50 mcg/dose (Wixela Inhub) 1 ea inhalation BID insulin degludec (Tresiba FlexTouch U-200 insulin) 52 units (0.26 mL) subcut DAILY lancets (Roomtaguch UltraSoft Lancets) As directed check the blood sugars 4 times a day metformin 1,000 mg PO BID metoprolol succinate ER 100 mg PO DAILY naproxen 500 mg PO BID PRN 7 days peg 400-propylene glycol (PF) 0.4-0.3 % (Systane (PF)) 1 drp ophthalmic (eye) BID PRN pen needle, diabetic (Easy Touch) As directed pen needle, diabetic, safety (Easy Touch Safety Pen Needle) As directed inject twice a day [Prevagen 1 cap PO DAILY] pyridoxine (vitamin B6) 50 mg PO DAILY 90 days tamsulosin 0.4 mg PO BEDTIME 90 days vit C,M-It-ysalm-lutein-zeaxan 250-90-40-1 mg (PreserVision AREDS-2) 1 tab PO BID [facility] Medical History (Updated 09/24/24 @ 15:45 by Gurmeet Ordaz MD) AMY on CPAP Hypercholesterolemia Type 2 diabetes mellitus with hyperglycemia Hypoxemia Restrictive lung disease Abnormal LFTs Calcium oxalate calculus 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 Medicare annual wellness visit, initial Bronchitis Pharyngitis Impingement syndrome of right shoulder History of pericarditis Vitamin D deficiency Vitamin B12 deficiency Fatty liver Allergic rhinitis Bronchial asthma Hyperkalemia Mass of right lung Atrial flutter Ankle fracture Hypertension Obesity (BMI 30-39.9) Obstructive sleep apnea BPH (benign prostatic hyperplasia) Surgical History History of cystoscopy Lumbar spinal stenosis History of lithotripsy History of tooth extraction History of bilateral inguinal hernia repair H/O spinal fusion History of appendectomy Family History Father No problems noted. Mother No problems noted. Son No problems noted. Son No problems noted. Daughter No problems noted. Daughter No problems noted. Social History Housing: House Alcohol intake: never Patient Tobacco Use Status: Former Tobacco user Tobacco use type: Cigarette Years Smoked: 1993 e-Cigarette/Vaping Use: Never Used Second Hand Smoke Exposure: No service: No Current occupational status: retired Cognitive needs: No Hearing needs: No Vision needs: Yes Physical Exam Vital Signs: BMI result Body Mass Index 38.4 Const Other: Well-nourished well-developed very friendly male awake alert and oriented x3 in no acute distress Extrem Other: Bilateral lower extremity examination shows good capillary refill, no skin lesions noted, normal sensation light touch Right knee examination shows a minimal effusion, palpable crepitus with range of motion, pain with range of motion, no instability Office Procedures AMB Joint Injection/Aspiration Joint Injection/Aspiration Primary Site: right knee Prep: site was prepped using aseptic technique Injected: 40 mg of, DepoMedrol and 1% plain lidocaine Procedure: The patient tolerated the procedure well Coding - Large joint Procedure code (CPT) selection complete Results Reviewed Results Reviewed: X-rays of the patient's right knee show joint space narrowing, subchondral sclerosis, no acute bony abnormalities Assessment & Plan Assessment & Plan (1) Arthritis of right knee: Code(s): M17.11 - Unilateral primary osteoarthritis, right knee Category: Medical Plan Mr. Walter presents with right knee pain due to degenerative joint disease. I had a lengthy discussion with the patient regarding the treatment options. The risks and benefits of a right knee cortisone injection were discussed at length with the patient. The patient wished to proceed. He tolerated the injection well. He will continue with his home exercise program. He will contact me prior to his follow-up appointment in 3 months should any questions or concerns arise. Feel free to call me at any time should questions regarding his orthopedic management arise. Thank you very much for asking me to see this very friendly gentleman. I spent 20 minutes in reviewing the patient's records and imaging studies, seeing the patient and documenting in the medical record. Orders: Orders AMB Joint Injection/Aspiration Today M17.11 - Unilateral primary osteoarthriti s, right knee Coding Level of Care Code Est Pt Level 3 (39148) Complex EM visit Add On G2211 Diagnoses Arthritis of right knee M17.11 CPT Codes Coding - Large joint: 59634 - Large joint ([id number])
[2024-09-24 14:24] VITALS: BMI 38.4
== END 2024-09-24 14:53 | disposition home or self-care (01) ==
PROVIDERS: PCP Internal Medicine; Visit Provider Orthopaedic Surgery
DX: M17.11 Unilateral primary osteoarthritis, right knee (principal)
CPT/HCPCS: 20610; 99213

== ENCOUNTER → 2024-09-24 13:59 | Outpatient (BNVA) | payer MEDICARE, SELFPAY | PROVIDERS: PCP Internal Medicine; Visit Provider Orthopaedic Surgery | DX: M17.11 Unilateral primary osteoarthritis, right knee (principal) | CPT/HCPCS: 20610; 99212; J1010; J2003 ==

== ENCOUNTER 2024-09-30 11:23 | Outpatient (REF) | payer MEDICARE, SELFPAY | END 2024-09-30 11:24 | disposition home or self-care (01) | LOC: HO.HMGCX 11:23 | PROVIDERS: PCP Internal Medicine; Visit Provider Urology | DX: N20.1 Calculus of ureter (principal) | CPT/HCPCS: 76775 ==

== ENCOUNTER 2024-10-24 08:58 | Outpatient (AMB) | payer MEDICARE, SELFPAY ==
--- NOTE | 2024-10-24 09:09 | MHC.PC.OV ---
Vital Signs 10/24/24 09:11 Height 5 ft 7 in Weight 243 lb 6 oz BMI 38.1 BP 124/82 Blood Pressure Location Lt brachial Position Sitting Pulse 85 Pulse Source Pulse Oximeter Pulse Oximetry (%) 91 L Oxygen Delivery Method Nasal Cannula Oxygen Flow Rate 3 Intake Visit Reasons: f/u DM Business Development Coordinator Required: No Accompanied by: Self / Same As Patient Allergies azithromycin [AZITHROMYCIN] Allergy (Unknown, Verified 10/24/24 09:10) HIVES lisinopril [LISINOPRIL] Allergy (Unknown, Verified 10/24/24 09:10) HIVES losartan [LOSARTAN] Allergy (Unknown, Verified 10/24/24 09:10) HIVES oxycodone [OXYCODONE] Allergy (Unknown, Verified 10/24/24 09:10) HIVES Medication List - Last Reconciled 10/24/24 by Izabel Fiore PA-C acetaminophen (Tylenol) 650 mg PO Q6H PRN albuterol sulfate 2.5 mg inhalation Q6H PRN albuterol sulfate 90 mcg/actuation 2 puffs inhalation Q6H PRN 60 days allopurinol 100 mg PO DAILY 90 days atorvastatin 40 mg PO DAILY 90 days blood pressure monitor (Blood Pressure Kit) As directed blood sugar diagnostic (OneTouch Ultra Test strips) test 2 times per day blood sugar diagnostic One touch ULTRA TEst Strips check the BS 2x a day blood-glucose meter (doxouch Ultra2 Meter kit) As directed cetirizine (Zyrtec) 10 mg PO DAILY cholecalciferol (vitamin D3) 10 mcg PO DAILY cyanocobalamin (vitamin B-12) 1,000 mcg PO DAILY dulaglutide 1.5 mg (0.5 mL) subcut MO@2100 fluticasone propion-salmeterol 250-50 mcg/dose (Wixela Inhub) 1 ea inhalation BID insulin degludec (Tresiba FlexTouch U-200 insulin) 52 units (0.26 mL) subcut DAILY lancets (doxouch UltraSoft Lancets) As directed check the blood sugars 4 times a day metformin 1,000 mg PO BID metoprolol succinate ER 100 mg PO DAILY naproxen 500 mg PO BID PRN 7 days peg 400-propylene glycol (PF) 0.4-0.3 % (Systane (PF)) 1 drp ophthalmic (eye) BID PRN pen needle, diabetic (Easy Touch) As directed pen needle, diabetic, safety (Easy Touch Safety Pen Needle) As directed inject twice a day [Prevagen 1 cap PO DAILY] pyridoxine (vitamin B6) 50 mg PO DAILY 90 days tamsulosin 0.4 mg PO BEDTIME 90 days vit C,R-Se-reful-lutein-zeaxan 250-90-40-1 mg (PreserVision AREDS-2) 1 tab PO BID Tobacco use date assessed: 10/24/24 Fall risk assessment: 2 + Falls in past year Last assessed Fall Risk: 10/24/24 Dental Screening Dental Screen Date: 10/24/24 Did you have a dental visit in the last 12 months?: Yes Did you have a dental problem in the last 6 months where you did not have access to dental care?: No Was dental information given to patient?: Patient has dentist HPI f/u DM HPI Details 79-year-old male past medical history of diabetes mellitus, hypercholesterolemia, obstructive sleep apnea, BPH, hypertension and asthma last seen 07/2024 coming in for follow up.? In review of the notes, patient was seen by [facility] pulmonology 07/2024 doing well with CPAP, using oxygen with physical activity and continue on current inhalers. Patient tells us today that his oxygen was low because his take recently ran out when he came to the office however he does not feel short of breath. He states he has been eating very poorly over the last several months and eats reason brand daily for breakfast. He also has not been exercising due to right knee pain and was seen by Orthopedics and given a cortisone injection with little benefit. [facility] Medical History (Updated 10/24/24 @ 09:31 by Izabel Fiore PA-C) AMY on CPAP Hypercholesterolemia Type 2 diabetes mellitus with hyperglycemia Hypoxemia Restrictive lung disease Abnormal LFTs Calcium oxalate calculus 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 Medicare annual wellness visit, initial Bronchitis Pharyngitis Impingement syndrome of right shoulder History of pericarditis Vitamin D deficiency Vitamin B12 deficiency Fatty liver Allergic rhinitis Bronchial asthma Hyperkalemia Mass of right lung Atrial flutter Ankle fracture Hypertension Obesity (BMI 30-39.9) Obstructive sleep apnea BPH (benign prostatic hyperplasia) Surgical History History of cystoscopy Lumbar spinal stenosis History of lithotripsy History of tooth extraction History of bilateral inguinal hernia repair H/O spinal fusion History of appendectomy Family History Father No problems noted. Mother No problems noted. Son No problems noted. Son No problems noted. Daughter No problems noted. Daughter No problems noted. Social History Housing: House Alcohol intake: never Patient Tobacco Use Status: Former Tobacco user Tobacco use type: Cigarette Years Smoked: 1993 e-Cigarette/Vaping Use: Never Used Second Hand Smoke Exposure: No service: No Current occupational status: retired Cognitive needs: No Hearing needs: No Vision needs: Yes Questionnaire PHQ-9 Over the last 2 weeks, how often have you been bothered by any of the following problems? 1. Little interest or pleasure in doing things: not at all 2. Feeling down, depressed, or hopeless: not at all 3. Trouble falling or staying asleep, or sleeping too much: not at all 4. Feeling tired or having little energy: not at all 5. Poor appetite or overeating: not at all 6. Feeling bad about yourself - or that you are a failure or have let yourself or your family down: not at all 7. Trouble concentrating on things, such as reading the newspaper or watching television: not at all 8. Moving or speaking so slowly that other people could have noticed. Or the opposite - being so fidgety or restless that you have been moving around a lot more than usual: not at all 9. Thoughts that you would be better off or of hurting yourself in some way: not at all Total score: 0 Depression Screening Interpretation: Negative Depression Screening Done: Yes 66001 - PHQ-9 Billing: Yes Source: Developed by Drs. Lenny Jimenez, Norma Murdock, Rk Holloway and colleagues, with an educational alfredo from [employer]. Thrive Questionnaire Date Thrive assessed: 10/24/24 I am a: Patient What is your living situation today?: I have a steady place to live Within the past 12 months, did the food you bought not last and you didn't have the money to get more?: Never true Within the past 12 months, did you worry whether your food would run out before you got money to buy more?: Never true Do you have trouble paying for medicines?: No Do you have trouble getting transportation to medical appointments?: No Do you have trouble paying your heating and electricity bill?: No Do you have trouble taking care of your child, family member or friend?: No Do you have trouble with day-to-day activities such as bathing, preparing meals, shopping, managing finances, etc.?: No Are you currently unemployed and looking for a job?: No Are you interested in more education?: No Please select the resources that you would like help with: None Currently or been in a relationship where the following occur: No concerns reported THRIVE Score: 0 AUDIT C Alcohol Use Questionnaire (AUDIT-C) 1. How often do you have a drink containing alcohol?: Never 3. How often do you have six or more drinks on one occasion?: Never Total Score: 0 Score Reviewed/Action Taken: No VIDHYA-7 AMB Questionnaire VIDHYA-7 Date VIDHYA - 7 assessed: 10/24/24 Feeling nervous, anxious, or on edge: 0 = Not at all Not being able to stop or control worryin = Not at all Worrying too much about different things: 0 = Not at all Trouble relaxin = Not at all Being so restless that it is hard to sit still: 0 = Not at all Becoming easily annoyed or irritable: 0 = Not at all Feeling afraid as if something awful might happen: 0 = Not at all Total VIDHYA-7 score (0-4 normal; 5-9 mild; 10-14 moderate; 15-21 severe): 0 Source: Developed by Drs. Lenny Jimenez, Norma Murdock, Rk Holloway and colleagues, with an educational alfredo from [employer]. Review of Systems Const Denies body aches, Denies chills, Denies fever(s), Denies headache(s) and Denies poor appetite Eyes Reports no additional complaints ENT Denies dysphagia, Denies dizziness, Denies headache(s) and Denies odynophagia Card Denies chest pain, Denies syncope, Denies edema, Denies irregular heart rhythm, Denies lightheadedness and Denies dyspnea Resp Denies cough and Denies dyspnea GI Denies abdominal pain, Denies constipation, Denies dysphagia, Denies diarrhea, Denies nausea, Denies odynophagia and Denies vomiting Reports no additional complaints Musc Reports no additional complaints and Denies abnormal gait Skin/Breast Reports system reviewed and no additional complaints, except as documented Neuro Denies abnormal gait, Denies dizziness, Denies syncope and Denies headache(s) Psych Reports no additional complaints Physical exam (Primary Care) Vital Signs: Last Vital Signs Pulse 85 10/24/24 09:11 BP 124/82 10/24/24 09:11 Pulse Ox 91 L 10/24/24 09:11 Oxygen Delivery Method Nasal Cannula 10/24/24 09:11 Oxygen Flow Rate 3 10/24/24 09:11 BMI result Body Mass Index 38.1 Tobacco/Smoking Status: Tobacco use Status Tobacco use date assessed 10/24/24 10/24/24 09:13 Patient Tobacco Use Status Former Tobacco user 10/24/24 09:09 Tobacco use type Cigarette 10/24/24 09:09 e-Cigarette/Vaping Use Never Used 10/24/24 09:09 PHQ-9: PHQ-9 Score PHQ-9: Total score 0 10/24/24 09:25 Depression Screening Interpretation: Negative Thrive Assessment: Date of Thrive Assessment Date Thrive assessed 10/24/24 10/24/24 09:13 Currently or been in a relationship where the following occur: No concerns reported Const General: cooperative, healthy appearing, comfortable and no acute distress Orientation/consciousness: patient oriented x3 HENMT Head: Yes normocephalic Ears: hearing grossly normal bilaterally General nose exam: Normal external nose present Eyes General: appearance normal, both eyes and all related structures Conjunctivae: conjunctivae normal Neck Neck: Yes full ROM and Yes no lymphadenopathy Resp Effort & Inspection: normal respiratory effort Auscultation: clear to auscultation bilaterally, no crackles, no rales, no rhonchi and no wheezes Cardio Rate: regular rate Rhythm: regular rhythm Skin General skin exam: no rashes or lesions noted Neuro General: patient oriented x3 Gait exam (Neuro): Normal gait present Extrem General: Yes normal to inspection, Yes full ROM and No edema Psych Affect: normal affect Attitude: cooperative Insight: Good insight present (Psych) Judgement: Good judgement present (Psych) Results AMB Hemoglobin A1c AMB Hemoglobin A1c 9.7 % Last Edit by EDMOND Grewal on 10/24/24 09:34 Coding Level of Care Code Est Pt Level 4 (70802) Diagnoses Essential hypertension I10 Hypertension type: essential hypertension Mild intermittent asthma without complication J45.20 Asthma severity: mild Asthma persistence: intermittent Asthma complication type: uncomplicated Restrictive lung disease J98.4 Hypercholesterolemia E78.00 Type 2 diabetes mellitus with hyperglycemia, with long-term current use of insulin E11.65; Z79.4 Diabetes mellitus nursing home insulin use: with nursing home use AMY on CPAP G47.33 Additional Codes PHQ-9 - 80605 - PHQ-9 Billing: Yes ([id number]) Assessment & Plan Assessment & Plan (1) Hypertension: Code(s): I10 - Essential (primary) hypertension Category: Medical Qualifiers: Hypertension type: essential hypertension Qualified Code(s): I10 - Essential (primary) hypertension Plan: Continue on current blood pressure medication. Avoid salt intake and encourage healthy diet and regular exercise. (2) Bronchial asthma: Comment: Br. Asthma in his case is Cough / Asthma Variant and is well controlled at this time . Code(s): J45.909 - Unspecified asthma, uncomplicated Category: Medical Qualifiers: Asthma severity: mild Asthma persistence: intermittent Asthma complication type: uncomplicated Qualified Code(s): J45.20 - Mild intermittent asthma, uncomplicated Plan: Continue to follow with pulmonology stable on current inhalers. (3) Restrictive lung disease: Comment: BECAUSE OF HIS OBESITY ESPECIALLY ABDOMINAL OBESITY, AND MINIMAL FIBROSIS , HE DOES HAVE MODERATE DEGREE OF RESTRICTIVE LUNG DISEASE, PER PFT IN 2020. Code(s): J98.4 - Other disorders of lung Category: Medical Plan: Patient was recently seen by pulmonology advised to continue on inhalers and use supplemental oxygen with activity. (4) Hypercholesterolemia: Code(s): E78.00 - Pure hypercholesterolemia, unspecified Category: Medical Plan: Avoid foods that are high in cholesterol such as red meat, fried foods, eggs and baked goods. Triglyceride goal of less than 150 and LDL goal of less than 100. Continue on atorvastatin 40 (5) Type 2 diabetes mellitus with hyperglycemia: Comment: Dr. 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 Although fruits are generally healthy they should be eaten in moderation as they are still high in sugar. Hemoglobin A1c goal of less than 7%. Currently on dulaglutide 1.5 mg, Tresiba 52 units daily, metformin 1000 mg b.i.d. A1c elevated in the office today 9.7% increase from last visit 8.4%. Patient has not been monitoring his blood sugars at home therefore can not increase his Tresiba safely as very not sure if he has had any low values. We will plan to increase Trulicity to 3 mg discussed about diet and patient will cut out cereals in added sugars. Follow up in 3 months. (6) AMY on CPAP: Comment: He has history of obstructive sleep apnea for the past many use secondary to his gross obesity. Uses CPAP very regularly and sleeps well. He sleeps for 10-11 hours. No issues. With the CPAP device Code(s): G47.33 - Obstructive sleep apnea (adult) (pediatric) Category: Medical Plan: Uses CPAP faithfully at least 4 hours a night and benefits from this therapy. Plan This note was constructed using voice recognition software. While every effort has been made to ensure accuracy and application development specialist, still areas may have been included sometimes these areas may affect the content or meeting of the given symptoms. Total time spent caring for the patient today was 20 minutes. This includes time spent before the visit reviewing the chart, time spent during the visit, and time spent after the visit and documentation. Orders: Orders AMB Hemoglobin A1c Today Z13.9 - Encounter for screening, unspecified Medications: New dulaglutide (Trulicity) 3 mg (0.5 mL) subcut QWEEK 2 mL 0RF Discontinued dulaglutide Discontinued Reason: Patient no longer taking 1.5 mg (0.5 mL) subcut MO@2100 2 mL 3RF
[2024-10-24 09:11] VITALS: BP 124/82; PULSE 85; O2SAT 91; BMI 38.1
== END 2024-10-24 10:00 | disposition home or self-care (01) ==
PROVIDERS: PCP Internal Medicine
DX: I10 Essential (primary) hypertension (principal); E11.65 Type 2 diabetes mellitus with hyperglycemia; Z79.4 Long term (current) use of insulin; J45.20 Mild intermittent asthma, uncomplicated; J98.4 Other disorders of lung; E78.00 Pure hypercholesterolemia, unspecified; G47.33 Obstructive sleep apnea (adult) (pediatric)

== ENCOUNTER → 2024-10-24 08:58 | Outpatient (BNVA) | payer MEDICARE, SELFPAY | PROVIDERS: PCP Internal Medicine | DX: E11.65 Type 2 diabetes mellitus with hyperglycemia (principal); E78.00 Pure hypercholesterolemia, unspecified; G47.33 Obstructive sleep apnea (adult) (pediatric); N40.0 Benign prostatic hyperplasia without lower urinary tract symptoms; I10 Essential (primary) hypertension; J45.20 Mild intermittent asthma, uncomplicated; J98.4 Other disorders of lung; Z79.4 Long term (current) use of insulin; Z99.89 Dependence on other enabling machines and devices; Z99.81 Dependence on supplemental oxygen | CPT/HCPCS: 83036; 96127; 99212 ==

== ENCOUNTER 2024-12-11 10:25 | Outpatient (AMB) | payer MEDICARE, SELFPAY ==
[2024-12-11 10:38] VITALS: BP 142/72; PULSE 85; O2SAT 96; BMI 38.2
--- NOTE | 2024-12-11 10:38 | A.OFFVIS_ITS ---
Vital Signs 12/11/24 10:38 Height 5 ft 7 in Weight 243 lb 9.773 oz BMI 38.2 BP 142/72 H Blood Pressure Location Lt brachial Position Sitting Pulse 85 Pulse Source Pulse Oximeter Pulse Oximetry (%) 96 Oxygen Delivery Method Nasal Cannula Oxygen Flow Rate 3 Intake Visit Reasons: COPD follow-up Intake Note: pt is here for follow up and states he is doing well,,only some wheezing and inhaler helps Act Tutor Required: No Allergies azithromycin [AZITHROMYCIN] Allergy (Unknown, Verified 12/11/24 10:43) HIVES lisinopril [LISINOPRIL] Allergy (Unknown, Verified 12/11/24 10:43) HIVES losartan [LOSARTAN] Allergy (Unknown, Verified 12/11/24 10:43) HIVES oxycodone [OXYCODONE] Allergy (Unknown, Verified 12/11/24 10:43) HIVES Medication List - Last Reconciled 12/11/24 by Aylin Duque MD acetaminophen (Tylenol) 650 mg PO Q6H PRN albuterol sulfate 2.5 mg inhalation Q6H PRN albuterol sulfate 90 mcg/actuation 2 puffs inhalation Q6H PRN 60 days allopurinol 100 mg PO DAILY 90 days atorvastatin 40 mg PO DAILY 90 days blood pressure monitor (Blood Pressure Kit) As directed blood sugar diagnostic (OneTouch Ultra Test strips) test 2 times per day blood sugar diagnostic One touch ULTRA TEst Strips check the BS 2x a day blood-glucose meter (L'ArcoBalenouch Ultra2 Meter kit) As directed cetirizine (Zyrtec) 10 mg PO DAILY cholecalciferol (vitamin D3) 10 mcg PO DAILY cyanocobalamin (vitamin B-12) 1,000 mcg PO DAILY dulaglutide (Trulicity) 3 mg (0.5 mL) subcut QWEEK fluticasone propion-salmeterol 250-50 mcg/dose (Wixela Inhub) 1 ea inhalation BID insulin degludec (Tresiba FlexTouch U-200 insulin) 52 units (0.26 mL) subcut DAILY lancets (EndoInSightTouch UltraSoft Lancets) As directed check the blood sugars 4 times a day metformin 1,000 mg PO BID metoprolol succinate ER 100 mg PO DAILY naproxen 500 mg PO BID PRN 7 days peg 400-propylene glycol (PF) 0.4-0.3 % (Systane (PF)) 1 drp ophthalmic (eye) BID PRN pen needle, diabetic (Easy Touch) As directed pen needle, diabetic, safety (Easy Touch Safety Pen Needle) As directed inject twice a day [Prevagen 1 cap PO DAILY] pyridoxine (vitamin B6) 50 mg PO DAILY 90 days tamsulosin 0.4 mg PO BEDTIME 90 days vit C,Y-Zb-whuqp-lutein-zeaxan 250-90-40-1 mg (PreserVision AREDS-2) 1 tab PO BID Do you need a note to return to daycare/school/sports/work: No HPI HPI COPD follow-up: Details: THIS 79 YEARS OLD GENTLEMAN WITH GROSS OBESITY AND OBSTRUCTIVE SLEEP APNEA,, , WELL COPD COMES FOR FOLLOW-UP AFTER 6 MONTHS. HE USES CPAP VERY REGULARLY EVEN UP TO 11 HOURS PER NIGHT,. AND GETS GOOD SLEEP THERE ARE NO ISSUES WITH THE CPAP DEVICE ARE THE MASK. HE ALSO HAS NOCTURNAL WELL DAYTIME HYPOXEMIA WHICH IS TREATED WITH OXYGEN SUPPLEMENTATION AT 3 L/MINUTE. HE HAS MILD INTERMITTENT ASTHMA/ WITH RESTRICTIVE LUNG DISEASE. AND USES WIXELA 250-51 INHALATION B.I.D.. HE HARDLY NEEDS TO USE THE RESCUE INHALER. THE MAIN PROBLEM IS CONTINUED GROSS OBESITY, HE CAN NOT LOSE WEIGHT DUE TO IMPAIRED LOCOMOTION. HIS LOCOMOTION IS IMPAIRED AND SLOW BECAUSE OF ADVANCED DEGENERATIVE ARTHRITIS OF THE KNEES. [facility] Medical History (Updated 12/11/24 @ 11:04 by Aylin Duque MD) Obesity (BMI 30-39.9) AMY on CPAP Hypercholesterolemia Type 2 diabetes mellitus with hyperglycemia Hypoxemia Restrictive lung disease Abnormal LFTs Calcium oxalate calculus 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 Mother No problems noted. Son No problems noted. Son No problems noted. Daughter No problems noted. Daughter No problems noted. Social History Housing: House Alcohol intake: never Patient Tobacco Use Status: Former Tobacco user Tobacco use type: Cigarette Years Smoked: 1993 e-Cigarette/Vaping Use: Never Used Second Hand Smoke Exposure: No service: No Current occupational status: retired Cognitive needs: No Hearing needs: No Vision needs: Yes Review of Systems Const All systems reviewed & are unremarkable except as noted in HPI and below Eyes Reports no additional complaints ENT Reports nasal congestion (Mild off and on) Card Reports no additional complaints Resp Reports as per HPI GI Reports no additional complaints Reports no additional complaints Musc Reports no additional complaints Skin/Breast Reports system reviewed and no additional complaints, except as documented Neuro Reports no additional complaints Psych Reports no additional complaints Physical Exam Vital Signs: Last Vital Signs Pulse 85 12/11/24 10:38 BP 142/72 H 12/11/24 10:38 Pulse Ox 96 12/11/24 10:38 Oxygen Delivery Method Nasal Cannula 12/11/24 10:38 Oxygen Flow Rate 3 12/11/24 10:38 BMI result Body Mass Index 38.2 Grossly obese and only 2 lb less than last visit Const General: comfortable, no acute distress, alert and awake Orientation/consciousness: patient oriented x3 HEENT Head: Yes normal to inspection General nose exam: No nasal polyps present and No nasal discharge present Face and sinus: Yes sinuses nontender Mouth: oropharynx normal Throat: Yes posterior oropharynx normal Eyes General: appearance normal, both eyes and all related structures Neck Neck: Yes normal visual inspection, Yes no lymphadenopathy, Yes trachea midline and Yes no JVD Thyroid: Thyroid normal Chest Chest palpation & inspection: normal inspection of the chest, normal palpation of entire chest wall and no tenderness Resp Other: Percussion note is resonant. Breath sounds are distant and especially diminished over the basilar areas. No wheezes rhonchi or crepitations are heard. Cardio Palpation: normal PMI Rate: regular rate Rhythm: regular rhythm Heart sounds: no gallops and no murmurs Peripheral pulses: Peripheral pulses 2+ throughout GI Palpation (GI): Soft to palpation, nontender, No hepatosplenomegaly present, no masses and Other GI palpation findings present (Abdomen is moderately obese and protuberant.) Auscultation: normal bowel sounds Back/Spine/Pelvis Thoracic/Lumbar Spine: thoracic and lumbar spine normal to inspection Skin General skin exam: no rashes or lesions noted Neuro General: patient oriented x3 and no focal motor deficits Cranial nerves: Yes CN's II-XII intact bilaterally Extrem General: Yes normal to inspection, Yes no clubbing, cyanosis or edema and Yes no calf tenderness Psych Speech and movement: Normal speech and movement present Results Reviewed Results Reviewed: COMPLIANCE REPORT FOR THE LAST 30 NIGHTS REVIEWED. HE HAS USED 30/30 NIGHTS. AVERAGE USE IT PER. NIGHT 11 HOURS 23 MINUTES WHICH IS EXCELLENT PRESSURE 12 CM. THERE IS A MODERATE AMOUNT OF AIR LEAK BUT IT DOES NOT BOTHER HIM. RESIDUAL AHI 1.5 Assessment & Plan Assessment & Plan (1) AMY on CPAP: Comment: He has history of obstructive sleep apnea for the past many use secondary to his gross obesity. Uses CPAP very regularly and sleeps well. He sleeps for 10-11 hours. No issues. With the CPAP device Code(s): G47.33 - Obstructive sleep apnea (adult) (pediatric) Category: Medical Plan: COMMENDED FOR GOOD COMPLIANCE AND ADVISED TO CONTINUE USING THE CPAP REGULARLY EVERY NIGHT (2) Bronchial asthma: Comment: Br. Asthma in his case is Cough / Asthma Variant and is well controlled at this time . Code(s): J45.909 - Unspecified asthma, uncomplicated Category: Medical Qualifiers: Asthma severity: mild Asthma persistence: intermittent Asthma complication type: uncomplicated Qualified Code(s): J45.20 - Mild intermittent asthma, uncomplicated Plan: CONTINUE TO USE WIXELA 250-51 INHALATION B.I.D. (3) Hypoxemia: Comment: EXERCISE INDUCED HYPOXEMIA. AND ALSO NOCTURNAL HYPOXEMIA, SECONDARY TO SLEEP- RELATED HYPOVENTILATION. Code(s): R09.02 - Hypoxemia Category: Medical Plan: CONTINUE USING O2 ALONG WITH CPAP AT 3 L/MINUTE DURING THE NIGHT AND ALSO WITH PORTABLE UNIT DURING THE DAYTIME WHENEVER DOING ANY PHYSICAL ACTIVITY (4) Restrictive lung disease: Comment: BECAUSE OF HIS OBESITY ESPECIALLY ABDOMINAL OBESITY, AND MINIMAL FIBROSIS , HE DOES HAVE MODERATE DEGREE OF RESTRICTIVE LUNG DISEASE, PER PFT IN 2020. Code(s): J98.4 - Other disorders of lung Category: Medical Plan: WEIGHT REDUCTION IS NOT AN OPTION HE CAN NOT LOSE MUCH WEIGHT. AGAIN INSTRUCTED TO DO DEEP BREATHING EXERCISES AT LEAST 3 TIMES A DAY. (5) Respiratory failure with hypoxia: Comment: This gentleman has nocturnal hypoxemia along with AMY, As well as exercise induced hypoxemia., corrected with the use of O2. Code(s): J96.91 - Respiratory failure, unspecified with hypoxia Category: Medical Plan: USE O2 3 L/MINUTE WITH THE CPAP AT NIGHT AND WITH THE PORTABLE UNIT DURING THE DAYTIME NEEDED Coding Level of Care Code Est Pt Level 3 (75685) Diagnoses AMY on CPAP G47.33 Mild intermittent asthma without complication J45.20 Asthma severity: mild Asthma persistence: intermittent Asthma complication type: uncomplicated Hypoxemia R09.02 Restrictive lung disease J98.4 Respiratory failure with hypoxia J96.91
--- OUTSIDE RECORDS SUMMARY | 2024-12-11 12:44 | XMS_ITS | Patient Health Record ---
Author Organization [facility] Address [address] [place] [address] Care Team Providers Care Battery Charger Tester Name Role Phone Homer Akers Primary Care Provider Mason Huntermie Unavailable [phone] Allergies Allergen (clinical drug ingredient) Drug/Non Drug Allergy documented on EMR Reaction Allergy Type Onset Date Status fentanyl Fentanyl rash/itchy Drug Allergy Active lisinopril Lisinopril rash/itchy Drug Allergy Acti ve losartan Losartan Potassium Unknown Drug Allergy Active oxycodone Oxycodone HCl rash/itchy Drug Allergy Ac tive azithromycin Azithromycin Unknown Drug Allergy A ctive Reason For Referral No Information Medications Medication SIG (Take, Route, Frequency, Duration) Notes Start Date End Date Status Lipitor 40 MG 1 tablet Orally Once a day for 30 day(s) Active Metformin & Diet Manage Prod 500 MG as directed Orally Active Metoprolol Succinate ER 100 MG 1 tablet Orally Once a day Active Incruse Ellipta Acti ve Potassium Bicarb-Citric Acid Active Advair Diskus 250-50 MCG/DOSE 1 puff Inhalation every 12 hrs Active Albuterol Sulfate Ac tive Aspir-81 81 MG 1 tablet Orally Once a day for 30 day(s) Active Victoza 18 MG/3ML 0.2 ml Subcutaneous Once a day for 30 day(s) Not-Taking Robaxin-750 750 MG 1 tablet Orally ever y 4 hrs for 30 day(s) Not-Taking traMADol HCl Not-Darron ing Ciclopirox Olamine 0.77 % 1 application to affected area Externally Twice a day for 2 weeks 09/24/2012 Not-Taki ng PreserVision AREDS 2 - as directed Orally Active ProAir HFA 108 (90 Base) MCG/ACT 2 puffs as needed Inhalation every 4 hrs Active Metoprolol & Diet Manage Prod 50 MG as directed Orally Not-Takin g Lantus 100 UNIT/ML 0.02 ml Subcutaneous Once a day Not-Taking Ocuvite Not-Taking Aria 20 MG 1 capsule Orally Onc e a day Not-Taking Methocarbamol 750 MG 1 tablet Orally heidy ry 4 hrs for 30 day(s) Not-Taking Vicodin 5-500 MG 1 tablet as needed f or pain Orally every 6 hrs Not-Taki ng Allopurinol Active oxygen Active Trulicity Active ZyrTEC Allergy 10 MG 1 tablet Orally Onc e a day for 30 day(s) Active Ammonium Lactate 12 % 1 application Exte rnally Twice a day for 30 days Active zzzExtra Depth Orthopedic Shoes (1 Pair) with Customized Heat Molded Multidensity Innersoles (3 Pair) . . . Dx: IDDM/Polyneuropathy (E10.42), Hammertoe Foot Deformity (M20.41,M20.42), Preulcerative Skin Lesion(s) (L85.1) LLD /2 for . 09/21/2015 Not-Taking Vitamin D3 Active B12 Active Prevagen Active Tamsulosin HCl 0.4 MG 1 capsule 30 minut es after the same meal each day Orally Once a day for 30 day(s) Active Tresiba 35 as directed Active Extra Depth Orthopedic Shoes (1 Pair) with Customized Heat Molded Multidensity Innersoles (3 Pair) as directed Dx: NIDDM/Polyneuropathy (E11.42), Hammertoe Foot Deformity (M20.41,M20.42), Preulcerative Skin Lesion(s) (L85.1 09/25/2017 Not-Taking Losartan Potassium N ot-Taking Lantus 35units Not-T aking Alpha Lipoic Acid 200 MG as directed Orally 2016 Not-Taking Immunizations Vaccine Route Administration Date Status Comme nts COVID-19 Moderna Vaccine Unknown 09/11/2021 Administered First Dose:11/13/20 Second Dose:12/11/20 Influenza Unknown 07/26/2017 Administered Influenza Unknown 07/16/2018 Administered Influenza Unknown 07/08/2019 Administered Influenza Unknown 07/14/2021 Administered Social History Tobacco Use: Social History Observation Description Date Details (start date - stop date) Never Smoker NA - NA Tobacco Use/Smoking Question Answer Notes Are you a: nonsmoker Additional Findings: Tobacco Non-User Current no n-smoker Alcohol Screen Question Answer Notes Did you have a drink containing alcohol in the p ast year? No Points 0 Interpretation Negative Tobacco use other than smoking: Question Answer Notes Are you an other tobacco user? No Problems Problem Type SNOMED Code ICD Code Onset Dates Problem Status W/U Status Risk Notes Problem Acquired hammer toe of right foot (2797506455043553 ) Other hammer toe(s) (acquired), right foot (M20.41) Active confirmed Problem Acquired hammer toe of left foot (5332536902329239 ) Other hammer toe(s) (acquired), left foot (M20.42) Active confirmed Problem Polyneuropathy due to type 2 diabetes mellitus (733572959) Type 2 diabetes mellitus with diabetic polyneuropathy (E11.42) Active confirmed Problem 392953440 Hammer toe of right foot (M20.41) Active confirmed Problem 682783343 Hammer toe of left foot (M20.42) Active confirmed Vital Signs Blood pressure diastolic 78 mm Hg 10/24/2024 Height 5 ft 7 in in 10/24/2024 Blood pressure systolic 121 mm Hg 10/24/2024 Weight 245 lbs 10/24/2024 BMI 38.37 kg/m2 10/24/2024 Procedures Procedure Date Ordered Date Performed Result Body Sit e 40860-Esdsdnzq Plate 10/24/2024 N/A 12239-RVJU SKIN LESIONS, 2 TO 4 10/24/2024 N/A K1957-MBEBZEHY DYSTROPHIC NAILS ANY # 10/24/2024 N/A Encounters Encounter Location Date Provider Diagnosis [facility] [address] [place] [address] 10/24/2024 Zuly Black Type 2 diabetes mellitus with diabetic polyneuropathy E11.42 ; Other hammer toe(s) (acquired), right foot M20.41 ; Ingrown nail L60.0 ; Xerosis of skin L85.3 and Other hammer toe(s) (acquired), left foot M20.42 Assessments Encounter Date Diagnosis (ICD Code) Assessment Notes Treatment Notes Treatment Clinical Notes Section Notes 10/24/2024 Other hammer toe(s) (acquired), right foot (ICD-10 - M20.41) Patient Educated with: DIABETIC FOOT CARE INSTRUCTIONS. pdf (DIABETIC FOOT CARE INSTRUCTIONS. pdf) 10/24/2024 Type 2 diabetes mellitus with diabetic polyneuropathy (ICD-10 - E11.42) Patient Educated with: DIABETIC FOOT CARE INSTRUCTIONS. pdf (DIABETIC FOOT CARE INSTRUCTIONS. pdf) 10/24/2024 Ingrown nail (ICD-10 - L60.0) 10/24/2024 Xerosis of skin (ICD-10 - L85.3) 10/24/2024 Other hammer toe(s) (acquired), left foot (ICD-10 - M20.42) Plan Of Treatment Pending Test Test Name Order Date 81130-ZXMHCDH NAIL, 1-5 12/26/2011 62365-GDSXDRJ NAIL, 1-5 09/24/2012 44909-JMTQFZJ NAIL, 1-5 09/23/2013 54995-XJJXQWG NAIL, 1-5 01/29/2014 70720-JKAFXKF NAIL, 1-5 09/22/2014 08089-Qujrdhko Plate 09/22/2014 11434-Solgpags Plate 01/29/2014 70590-Nyjrvhvw Plate 09/22/2016 07167-Eitkchmi Plate 09/23/2013 87104-Swiklost Plate 09/24/2018 28714-Sdsfkucd Plate 09/24/2020 29922-Lqwzgnfi Plate 10/21/2021 46632-Bstigxjo Plate 10/24/2022 04876-Yqtqcwvx Plate 10/26/2023 94795-Rhpncmzw Plate 10/24/2024 13020-Ctyqegzn Plate Each Additional 08/2024 66351-Afrvnsib Plate Each Additional 06/2023 76857-Jisapivy Plate Each Additional 03/2022 87462-XQCK SKIN LESIONS, 2 TO 4 10/24/19 23 37015-ATJA SKIN LESIONS, 2 TO 4 09/24/20 20 09784-GCBW SKIN LESIONS, 2 TO 4 10/21/19 22 54797-HFCJ SKIN LESIONS, 2 TO 4 09/26/20 19 49769-HQPJ SKIN LESIONS, 2 TO 4 09/24/20 18 16319-VBOC SKIN LESIONS, 2 TO 4 09/25/20 17 07100-KHVI SKIN LESIONS, 2 TO 4 01/30/20 14 80492-EQZJ SKIN LESIONS, 2 TO 4 09/23/20 13 11415-IFLX SKIN LESIONS, 2 TO 4 09/24/20 12 11054-AEAB SKIN LESIONS, 2 TO 4 09/22/20 14 46910-CXLF SKIN LESIONS, 2 TO 4 09/21/20 15 77878-TASY SKIN LESIONS, 2 TO 4 09/22/20 16 26409-IOOE SKIN LESIONS, 2 TO 4 10/26/19 24 64263-HEMV SKIN LESIONS, 2 TO 4 10/24/19 25 15706-UPDP NAIL(S) 09/22/2014 17086-HXGS NAIL(S) 09/23/2013 27195-HMOE NAIL(S) 01/29/2014 Q5224-FMIQYAPM DYSTROPHIC NAILS ANY # S7684-LQNYKNFU DYSTROPHIC NAILS ANY # F5835-CLDXEAAI DYSTROPHIC NAILS ANY # W1945-KKBXMSXP DYSTROPHIC NAILS ANY # Y8877-WMPBRQUX DYSTROPHIC NAILS ANY # K6341-NNERXFSD DYSTROPHIC NAILS ANY # H4893-NTBHZCHJ DYSTROPHIC NAILS ANY # E3353-RYVUSDXL DYSTROPHIC NAILS ANY # A9321-MBBXNYZT DYSTROPHIC NAILS ANY # R9388-UQHFJXEF DYSTROPHIC NAILS ANY # Next Appt Details Provider Name:Zuly Pablo , 04/24/2025 08:00:00 AM, [address] [place] [address], [phone], Insurance Providers Payer Name Payer Address Payer Phone Subscriber Number Group Number Insured Name Patient Relationship to Insured Coverage Start Date Coverage End Date Medicare [facility] [address] [place] [address] [id number] Silvano Walter Self - patient is the insured [employer] [address] [place] [address] [id number] Silvano Walter Self - patient is the insured Medical (General) History Medical History History ICD Code hypercholesterolemia hypertension benign prostatic hyperplasia (BPH) lumbar stenosis kidney stones type II diabetes Surgical History Surgery Date(Month/Year) appendectomy spinal fusion inguinal hernia repair 2016
--- OUTSIDE RECORDS SUMMARY | 2024-12-11 12:44 | XMS_ITS ---
Author Organization [facility] Address [address] [place] [address] Care Team Providers Care Educational Administrator Name Role Phone Homer Akers Primary Care Provider Unavaildrake Pablo Zuly Unavailable [phone] Juan Cardenas [phone] REASON FOR VISIT error-booked with wrong doctor Encounters Encounter Location Date Provider Diagnosis [address] [address] 10/25/2023 Juan Cardenas Plan Of Treatment Next Appt Details Provider Name:Zuly Pablo , 04/24/2025 08:00:00 AM, [address] [place] [address], [phone], Progress Notes * Silvano WALTER LDOB:1945 (79 yo M)Acc No.[id number]:10/25/2023 Progress Note Patient:?Silvano WALTER Provider:?Juan Cardenas DPM :1945???Age:78 Y???Sex:Male Drew e:10/25/2023 Address:[address] [place] [address] [address] [id number] Pcp:Homer Akers Subjective: * Chief Complaints: * ???1. Error-booked with penny linares doctor. * Medical History:? Objective: * Vitals:? Assessment: Plan: * Treatment: * Images: * The named appointment provid er may or may not be the originator of this progress note, and it is not deemed complete until electronically signed by the appointment provider. Sign off status: Pending * Provider:Alva Cardenas DPM Date:? 024 Generated for Kaitlyn gomez/Maico/Leonard on:?12/11/2024 12:44 PM EST
--- OUTSIDE RECORDS SUMMARY | 2024-12-11 12:44 | XMS_ITS ---
Author Organization [facility] Address [address] [facility] [address] [place] [id number] Care Team Providers Care Marketing Effectiveness Manager Name Role Phone Homer Akers Primary Care Provider Unavailabl e Black, Zuly Unavailable [phone] Allergies Allergen (clinical drug ingredient) Drug/Non Drug Allergy documented on EMR Reaction Allergy Type Onset Date Status fentanyl Fentanyl rash/itchy Drug Allergy Active lisinopril Lisinopril rash/itchy Drug Allergy Acti ve losartan Losartan Potassium Unknown Drug Allergy Active oxycodone Oxycodone HCl rash/itchy Drug Allergy Ac tive azithromycin Azithromycin Unknown Drug Allergy A ctive REASON FOR VISIT At Risk Footcare, Painful Toe(s), Toe Irritation, Skin problem(s) Medications Medication SIG (Take, Route, Frequency, Duration) Notes Start Date End Date Status PreserVision AREDS 2 - as directed Orally Active Lipitor 40 MG 1 tablet Orally Once a day for 30 day(s) Active Metformin & Diet Manage Prod 500 MG as directed Orally Active Metoprolol Succinate ER 100 MG 1 tablet Orally Once a day Active Incruse Ellipta Acti ve Prevagen Active Potassium Bicarb-Citric Acid Active Advair Diskus 250-50 MCG/DOSE 1 puff Inhalation every 12 hrs Active Albuterol Sulfate Ac tive Aspir-81 81 MG 1 tablet Orally Once a day for 30 day(s) Active Vitamin D3 Active B12 Active Allopurinol Active oxygen Active Vicodin 5-500 MG 1 tablet as needed f or pain Orally every 6 hrs Not-Taki ng Robaxin-750 750 MG 1 tablet Orally ever y 4 hrs for 30 day(s) Not-Taking traMADol HCl Not-Darron ing Ciclopirox Olamine 0.77 % 1 application to affected area Externally Twice a day for 2 weeks 09/24/2012 Not-Taki ng Aria 20 MG 1 capsule Orally Onc e a day Not-Taking Methocarbamol 750 MG 1 tablet Orally heidy ry 4 hrs for 30 day(s) Not-Taking Victoza 18 MG/3ML 0.2 ml Subcutaneous Once a day for 30 day(s) Not-Taking Metoprolol & Diet Manage Prod 50 MG as directed Orally Not-Takin g Lantus 100 UNIT/ML 0.02 ml Subcutaneous Once a day Not-Taking Ocuvite Not-Taking Alpha Lipoic Acid 200 MG as directed Orally 2016 Not-Taking ZyrTEC Allergy 10 MG 1 tablet Orally Onc e a day for 30 day(s) Active zzzExtra Depth Orthopedic Shoes (1 Pair) with Customized Heat Molded Multidensity Innersoles (3 Pair) . . . Dx: IDDM/Polyneuropathy (E10.42), Hammertoe Foot Deformity (M20.41,M20.42), Preulcerative Skin Lesion(s) (L85.1) LLD 1/2 for . 09/21/2015 Not-Taking Extra Depth Orthopedic Shoes (1 Pair) with Customized Heat Molded Multidensity Innersoles (3 Pair) as directed Dx: NIDDM/Polyneuropathy (E11.42), Hammertoe Foot Deformity (M20.41,M20.42), Preulcerative Skin Lesion(s) (L85.1 09/25/2017 Not-Taking Losartan Potassium N ot-Taking Lantus 35units Not-T aking Trulicity Active Ammonium Lactate 12 % 1 application Exte rnally Twice a day for 30 days Active ProAir HFA 108 (90 Base) MCG/ACT 2 puffs as needed Inhalation every 4 hrs Active Tamsulosin HCl 0.4 MG 1 capsule 30 minut es after the same meal each day Orally Once a day for 30 day(s) Active Tresiba 35 as directed Active Social History Tobacco Use: Social History Observation Description Date Details (start date - stop date) Never Smoker NA - NA Tobacco Use/Smoking Question Answer Notes Are you a: nonsmoker Additional Findings: Tobacco Non-User Current no n-smoker Tobacco use other than smoking: Question Answer Notes Are you an other tobacco user? No Problems Problem Type SNOMED Code ICD Code Onset Dates Problem Status W/U Status Risk Notes Problem Acquired hammer toe of right foot (0475566561437 105) Other hammer toe(s) (acquired), right foot (M20.41) Active confirmed Problem Acquired hammer toe of left foot (3295406986827 103) Other hammer toe(s) (acquired), left foot (M20.42) Active confirmed Vital Signs Height 5 ft 7 in in 10/24/2024 Weight 245 lbs 10/24/2024 BMI 38.37 kg/m2 10/24/2024 Blood pressure systolic 121 mm Hg 10/24/19 25 Blood pressure diastolic 78 mm Hg 025 Procedures Procedure Date Ordered Date Performed Result Body Sit e 65552-Hiabqjjn Plate 10/24/2024 N/A 41963-HPBK SKIN LESIONS, 2 TO 4 10/24/2024 N/A [id number]-JZYCIRFP DYSTROPHIC NAILS ANY # 10/24/2024 N/A Encounters Encounter Location Date Provider Diagnosis [facility] [address] [address] 10/24/2024 Zuly Black Type 2 diabetes mellitus with diabetic polyneuropathy E11.42 ; Other hammer toe(s) (acquired), right foot M20.41 ; Ingrown nail L60.0 ; Xerosis of skin L85.3 and Other hammer toe(s) (acquired), left foot M20.42 Assessments Encounter Date Diagnosis (ICD Code) Assessment Notes Treatment Notes Treatment Clinical Notes Section Notes 10/24/2024 Type 2 diabetes mellitus with diabetic polyneuropathy (ICD-10 - E11.42) Patient Educated with: DIABETIC FOOT CARE INSTRUCTIONS. pdf (DIABETIC FOOT CARE INSTRUCTIONS. pdf) 10/24/2024 Other hammer toe(s) (acquired), right foot (ICD-10 - M20.41) Patient Educated with: DIABETIC FOOT CARE INSTRUCTIONS. pdf (DIABETIC FOOT CARE INSTRUCTIONS. pdf) 10/24/2024 Ingrown nail (ICD-10 - L60.0) 10/24/2024 Xerosis of skin (ICD-10 - L85.3) 10/24/2024 Other hammer toe(s) (acquired), left foot (ICD-10 - M20.42) Plan Of Treatment Medication Medication Name Sig Start Date Stop Date Notes Ammonium Lactate 12 % 1 application Exte rnally Twice a day for 30 days Treatment Notes Assessment Notes Type 2 diabetes mellitus wit h diabetic polyneuropathy Patient Educated with: DIABETIC FOOT CARE INSTRUCTIONS.pdf (DIABETIC FOOT CARE INSTRUCTIONS.pdf) Other hammer toe(s) (acquired), right fo ot Patient Educated with: DIABETIC FOOT CARE INSTRUCTIONS.pdf (DIABETIC FOOT CARE INSTRUCTIONS.pdf) Pending Test Test Name Order Date [id number]-Knlygtbi Plate 10/24/2024 06860-VFTZ SKIN LESIONS, 2 TO 4 10/24/19 25 [id number] DYSTROPHIC NAILS ANY # Next Appt Details Follow Up: 2 Weeks,prn, Reas on: Provider Name:Zuly A Samy , 04/24/2025 08:00:00 AM, [address] [place] [address], [phone], Procedure Notes * Category Sub-Category Detail Notes Nail Avulsion Procedure A fine sterile e levator was placed between the eponychium, nail fold, and nail plate to separate the the structures. A sterile nail splitter, and/or sterile 316 blade, was then used to longitudinally section the nail along its entire length through the eponychium to the area under the nail fold. The offending portion of nail was from the nail bed with a rolling action and then removed with a hemostat. No underlying bone was identified. There was minimal bleeding as hemostasis was achieved through the temporary use of either a digital tournaquet or the aforementioned local with epinephrine. A bacitracin sterile dressing was applied. Local wound aftercare instructions were discussed and dispensed. The patient was informed of both conservative and future surgical procedures to prevent recurrence. Tylenol or Motrin was recommended for pain or discomfort (36878) , DIABETES: Matricectomy deferred at this time due to diabetes risk Anesthesia was deferred - NEURO CARLYN: patient has medically documented neuropathic condition affecting sensation , Location Medial nail border, T5 Keratoma Treatment Parring or Cutting o f Benign Hyperkeratotic Lesion(s) (-56) 2-4 Lesions - Due to the at risk nature of the patients medical condition as documented in the exam findings, performance of this keratoderma treatment is medically necessary as its management by an unskilled/untrained nonprofessional would put this patients foot and overall health at risk. Therefore, the benign hyperkeratotic lesions, ( 2 ) in total, locations as stated and described in the exam ( , Plantar Heel(s), B/L ), were pared, and/or cut utilizing a sterile 15 blade, tissue nippers, and/or power dremel instrumentation by the physician of record - 79185 Nail Reduction Nail Reduction (-27) Trimming o f all dystrophic nails - Due to the at risk nature of the patients medical condition as documented in the exam findings, performance of this nail treatment is medically necessary as its management by an unskilled/untrained nonprofessional would put this patients foot and overall health at risk. Therefore, the dystrophic nails, in locations as stated and described in the exam ( TA, T1, T2, T3, T4, T5, T6, T7, T8, T9,), were debrided by the phisician of record to reduce/remove overall nail length and girth, by manual and electrical means with use of a nail nipper and/or dremel, to more viable healthy nail plate or bed tissue - G0127 Progress Notes * Silvano WALTER LDOB:1945 (79 yo M)Acc No.[id number]:10/24/2024 Progress Note Patient:?Silvano WALTER Sam Provider:?Zuly Pablo DPM :1945???Age:79 Y???Sex:Male Drew e:10/24/2024 Address:[address] [place] [id number] Pcp:Homer Akers Subjective: * Chief Complaints: * ???At Risk FootcarePainful T oe(s)Toe IrritationSkin problem(s) * HPI: ???At Risk footcare:?Pt States Last PCP Visit:?Date?05/03/2024 ???Toe pain:?Location:?B/L feet.?Duration:?several years.?Course:?worse.?Aggravated by:?shoes, any pressure.?Treatments:?change in shoes.?Skin problems:?Nature:?dryness , scaling.?Location:?B/L .?Duration:?several days.?Course:?worse.? * ROS:?General/Constitutional:?Nausea?denies.?Vomiting?denies.?Hunger Thirst?denies.?Loss appetite?denies.?Chills?denies.?Fatigue?denies.?Fever?denies.?Night Sweats?denies.?Unexplained weight loss?denies.?Ophthalmologic:?Blurred vision?denies.?Red eye?denies.?HEENTM:?Dentures?denies.?Dizziness?denies.?Glasses/contacts?admits.?Retinopathy?den ies.?Blurred/double vision?denies.?TMJ?denies.?Discharge/drainage?denies.?Implants?denies.?Hard of hearing denies.?Difficulty chewing/swallowing/speaking?denies.?Nose bleeds?denies.?Sore mouth?denies.?Swollen glands?denies.?Respiratory:?On O xygen?denies.?Pneumonia/pleurisy?denies.?Bronchitis?denies.?Emphysema?denies.?Co ughing?denies.?Cough blood?denies.?Shortness of breath?denies.?Wheezing?denies.?Cardiovascular:?Pacemaker?denies.?MVP?denies.?WPW?denies.?CHF?denies.?Heart attack?denies.?Septal defect?denies.?Rapid beat?denies.?Chest pain ?denies.?Atrial Fib.?denies.?Murmur/Palpitations?denies.?Gastrointestinal:?Hemorrhoids?denies.?Stomach/Abdominal pain?denies.?Dark blood stool?denies.?Irritable bowel ?denies.?Constipation?denies.?Diarrhea?denies.?Vomiting?denies.?Hematology:?Swelling?denies.?Bruising?denies.?Bleeding problem?denies.?Genitourinary:?Blood urine?denies.?Frequent/Painfu/urination/bladder control?denies.?Kidney stones?denies.?Infection (UTI)?denies.?Nephropathy?denies.?Musculoskeletal:?Hammertoes?denies.?Bunions?denies.?Scoliosis/kyphosis?denies.?Muscle cramps / walking?denies.?Generalized aches and pains?denies.?Weakness?denies.?Integ.:?Carrion?denies.?Scars?denies.?Corns/calluses?, admits.?Ingrown nails?admits.?Painful nails?denies.?Rashes?denies.?Neurologic:?Difficulty sleeping?denies.?Bipolar?denies.?Brain disorder?denies.?Balance t rouble?denies.?Confusion?denies.?Fainting/blackouts?denies.?Headache?denies.?Michael mors?denies.? * Medical History:? * Surgical History:?appendecto my spinal fusion inguinal hernia repair bronchoscopy 2017 * Hospitalization/Major Diagno stic Procedure:?Denies Past Hospitalization * Family History:?Mother: dece ased.?Father: .?Siblings: diagnosed with Other malignant neoplasm of unspecified site.? * Social History:?Tobacco Use:?Tobacco Use/Smoking?Are you a:?nonsmoker ?Additional Findings: Tobacco Non-User?Current non-smoker ?Tobacco use other than smoking?Are you an other tobacco user??No * Medications:?TakingAllopurin ol oxygen Vitamin D3 B12 Prevagen Potassium Bicarb- Citric Acid Advair Diskus 250-50 MCG/DOSE Aerosol Powder Breath Activated 1 puff Inhalation every 12 hrs Albuterol Sulfate Aspir-81 81 MG Tablet Delayed Release 1 tablet Orally Once a day Lipitor 40 MG Tablet 1 tablet Orally Once a day Metformin & Diet Manage Prod 500 MG Miscellaneous as directed Orally Metoprolol Succinate ER 100 MG Tablet Extended Release 24 Hour 1 tablet Orally Once a day Incruse Ellipta PreserVision AREDS 2 - Tablet Chewable as directed Orally ProAir HFA 108 (90 Base) MCG/ACT Aerosol Solution 2 puffs as needed Inhalation every 4 hrs Tamsulosin HCl 0.4 MG Capsule 1 capsule 30 minutes after the same meal each day Orally Once a day Tresiba 35 units as directed Trulicity ZyrTEC Allergy 10 MG Tablet 1 tablet Orally Once a day Ammonium Lactate 12 % Cream 1 application Externally Twice a day Taking Allopurinol Taking oxygen Taking Vitamin D3 Taking B12 Taking Prevagen Taking Potassium Bicarb- Citric Acid Taking Advair Diskus 250-50 MCG/DOSE Aerosol Powder Breath Activated 1 puff Inhalation every 12 hrs Taking Albuterol Sulfate Taking Aspir-81 81 MG Tablet Delayed Release 1 tablet Orally Once a day Taking Lipitor 40 MG Tablet 1 tablet Orally Once a day Taking Metformin & Diet Manage Prod 500 MG Miscellaneous as directed Orally Taking Metoprolol Succinate ER 100 MG Tablet Extended Release 24 Hour 1 tablet Orally Once a day Taking Incruse Ellipta Taking PreserVision AREDS 2 - Tablet Chewable as directed Orally Taking ProAir HFA 108 (90 Base) MCG/ACT Aerosol Solution 2 puffs as needed Inhalation every 4 hrs Taking Tamsulosin HCl 0.4 MG Capsule 1 capsule 30 minutes after the same meal each day Orally Once a day Taking Tresiba 35 units as directed Taking Trulicity Taking ZyrTEC Allergy 10 MG Tablet 1 tablet Orally Once a day Taking Ammonium Lactate 12 % Cream 1 application Externally Twice a day Not-Taking/PRNzzzExtra Depth Orthopedic Shoes (1 Pair) with Customized Heat Molded Multidensity Innersoles (3 Pair) . . . . Dx: IDDM/Polyneuropathy (E10.42), Hammertoe Foot Deformity (M20.41,M20.42), Preulcerative Skin Lesion(s) (L85.1) LLD 1/2 Extra Depth Orthopedic Shoes (1 Pair) with Customized Heat Molded Multidensity Innersoles (3 Pair) as directed Dx: NIDDM/Polyneuropathy (E11.42), Hammertoe Foot Deformity (M20.41,M20.42), Preulcerative Skin Lesion(s) (L85.1 Losartan Potassium Lantus 35units Alpha Lipoic Acid 200 MG Capsule as directed Orally Metoprolol & Diet Manage Prod 50 MG Miscellaneous as directed Orally Lantus 100 UNIT/ML Solution 0.02 ml Subcutaneous Once a day Ocuvite Victoza 18 MG/3ML Solution 0.2 ml Subcutaneous Once a day Robaxin-750 750 MG Tablet 1 tablet Orally every 4 hrs traMADol HCl Ciclopirox Olamine 0.77 % Cream 1 application to affected area Externally Twice a day Aria 20 MG Capsule Extended Release 24 Hour 1 capsule Orally Once a day Methocarbamol 750 MG Tablet 1 tablet Orally every 4 hrs Vicodin 5-500 MG Tablet 1 tablet as needed for pain Orally every 6 hrs Medication List reviewed and reconciled with the patientNot-Taking/PRN zzzExtra Depth Orthopedic Shoes (1 Pair) with Customized Heat Molded Multidensity Innersoles (3 Pair) . . . . Dx: IDDM/Polyneuropathy (E10.42), Hammertoe Foot Deformity (M20.41,M20.42), Preulcerative Skin Lesion(s) (L85.1) LLD 1/2 Not-Taking/PRN Extra Depth Orthopedic Shoes (1 Pair) with Customized Heat Molded Multidensity Innersoles (3 Pair) as directed Dx: NIDDM/Polyneuropathy (E11.42), Hammertoe Foot Deformity (M20.41,M20.42), Preulcerative Skin Lesion(s) (L85.1 Not-Taking/PRN Losartan Potassium Not-Taking/PRN Lantus 35units Not-Taking/PRN Alpha Lipoic Acid 200 MG Capsule as directed Orally Not-Taking/PRN Metoprolol & Diet Manage Prod 50 MG Miscellaneous as directed Orally Not-Taking/PRN Lantus 100 UNIT/ML Solution 0.02 ml Subcutaneous Once a day Not-Taking/PRN Ocuvite Not-Taking/PRN Victoza 18 MG/3ML Solution 0.2 ml Subcutaneous Once a day Not-Taking/PRN Robaxin-750 750 MG Tablet 1 tablet Orally every 4 hrs Not-Taking/PRN traMADol HCl Not- Taking/PRN Ciclopirox Olamine 0.77 % Cream 1 application to affected area Externally Twice a day Not-Taking/PRN Aria 20 MG Capsule Extended Release 24 Hour 1 capsule Orally Once a day Not-Taking/PRN Methocarbamol 750 MG Tablet 1 tablet Orally every 4 hrs Not-Taking/PRN Vicodin 5-500 MG Tablet 1 tablet as needed for pain Orally every 6 hrs Medication List reviewed and reconciled with the patient * Allergies:?Fentanyl: rash/it chyLisinopril: rash/itchyOxycodone HCl: rash/itchyLosartan PotassiumAzithromycinyes[Allergies Verified] Objective: * Vitals:?Ht: 5 ft 7 in, Wt: 2 45, BMI: 38.37, Shoe size: 8, BP: 121/78 mm Hg, BS: not taken, Wt-k.13 kg. * ???Past Orders: ???Lab:HEMOGLOBIN A1C (GLYCO HEMOGLOBIN) (Order Date - 10/26/2023) (Collection Date & Time - 10/26/2023 08:07 AM) ? Value Reference Range ?HEMOGLOBIN A1C (HH) 7.1 * Examination: ???Ophthalmology Referral: ?DIABETES EYE EXAM?Procedure Performed:?Yes ?Date of Exam Performed?09/26/2024 ?Findings of Diabetic Eye Exam:?no retinopathy?General Examination: ?GENERAL APPEARANCE:?Reveals a pleasant, alert, well nourished, well developed, well hydrated individual, who demonstrates proper attention to hygene/body habitus, and is in no acute distress- pt on O2.?ORIENTED:?person, place, and time.?FOOT EXAM:?Lower Extremity Neurological Exam performed:?Yes ?Visual exam of foot performed:?Yes ?Date?10/24/2024 ?Sensory testing performed:?sensations diminished ?Sensory and motor testing performed:?sensations diminished ?Pedal pulse taking performed:?2+ ?Footwear Evaluation?Footwear Evaluation performed:?Yes?Neurological: ?SENSORY:?Neurological exam demonstrates, reduced light touch sensation, reduced vibration sensation, 5.07 monofilament test performed at plantar aspects of 5 varied sites per foot shows sensation, cont.reduced , at Forefoot, B/L especially b/l great toes.?TINEL'S COMPRESSION:?Negative tarsal tunnel, kristofer pedis, and medial calcaneal nerves.?DEEP TENDON REFLEXES:?Achilles, 2/4, B/L.?Vascular: ?DP PULSES (B):?2/4, B/L.?PT PULSES (B):?2/4, B/L.?CAPILLARY FILL TIME:?3 secs. per digit, B/L.?TROPHIC CONDITION-TEXTURE/ELASTICITY/TURGOR/HAIR GROWTH (B):?normal, B/L.?TEMPERTURE GRADIENT (C):?warm to cool, proximal to distal, B/L.?Nails: ?NAILS are:?elongated,overgrown, dystrophic, , TA, T1, T2, T3, T4, T6, T7, T8, T9.?Dermatologic: ?SKIN FINDINGS:?Skin exam reveals keratotic lesion(s) located at, , Plantar Heel(s), B/L , Skin shows sign(s) of, dryness, scaling, in a stocking fashion, no fissure(s) present, B/L?.?Ingrown Nail: ?INSPECTION:?Reveals nail incurvation, dull pain on palpation due to neuropathy, groove hypertrophy, Medial nail border, T5,?.?Orthopedic: ?DIGITAL DEFORMITIES:?Digital contracture, PIPJ, 3-5 B/L, incompl-reducable with WB, or to push-up test, no over, nor underlapping , with evidence of shoe producing skin irritation , Digital contracture, PIPJ, 2-5 B/L, incompl-reducible to push- up test, no over, nor underlapping,?there is?evidence of shoe producing skin irritation.?FOOTWEAR:?worn, non-supportive, shoe gear properties exacerbate patient's foot/toe deformity.? Assessment: * Assessment: 1.?Other hammer toe(s) (acqu ired), right foot - M20.41 (Primary)???Specify :Chronic problem, Worse (4),Rx Management (4)???2.?Type 2 diabetes mellitus with diabetic polyneuropathy - E11.42???3.?Ingrown nail - L60.0???4.?Xerosis of skin - L85.3?? Specify :Acute problem, Uncomplicated (3),Rx Management (4)???5.?Other hammer toe(s) (acquired), left foot - M20.42???Specify :Chronic problem, Worse (4),Rx Management (4)??? Plan: * Treatment: 2.?Type 2 diabetes mellitus with diabetic polyneuropathy?Procedure: 97300-YFGV SKIN LESIONS, 2 TO 4 ?Procedure: G7239-SEBIWKPP DYSTROPHIC NAILS ANY # Notes: Patient Educated with: DIABETIC FOOT CARE INSTRUCTIONS.pdf (DIABETIC FOOT CARE INSTRUCTIONS.pdf)?? 3.?Ingrown nail?Procedure: 98563-Vmojaybs Plate 4.?Xerosis of skin? Start Ammonium Lactate Cream, 12 %, 1 application, Externally, Twice a day, 30 days, 60, Refills 2.?? * Procedures:?Keratoma Treatment:?Parring or Cutting of Benign Hyperkeratotic Lesion(s)?(-56) 2-4 Lesions - Due to the at risk nature of the patients medical condition as documented in the exam findings, performance of this keratoderma treatment is medically necessary as its management by an unskilled/untrained nonprofessional would put this patients foot and overall health at risk. Therefore, the benign hyperkeratotic lesions, ( 2 ) in total, locations as stated and described in the exam ( , Plantar Heel(s), B/L ), were pared, and/or cut utilizing a sterile 15 blade, tissue nippers, and/or power dremel instrumentation by the physician of record - 52038.?Nail Avulsion:?Location?Medial nail border, T5?.?Anesthesia?was deferred - NEUROPATHY: patient has medically documented neuropathic condition affecting sensation ,?.?Procedure?A fine sterile elevator was placed between the eponychium, nail fold, and nail plate to separate the the structures. A sterile nail splitter, and/or sterile 316 blade, was then used to longitudinally section the nail along its entire length through the eponychium to the area under the nail fold. The offending portion of nail was from the nail bed with a rolling action and then removed with a hemostat. No underlying bone was identified. There was minimal bleeding as hemostasis was achieved through the temporary use of either a digital tournaquet or the aforementioned local with epinephrine. A bacitracin sterile dressing was applied. Local wound aftercare instructions were discussed and dispensed. The patient was informed of both conservative and future surgical procedures to prevent recurrence. Tylenol or Motrin was recommended for pain or discomfort (62426) , DIABETES: Matricectomy deferred at this time due to diabetes risk.?Nail Reduction:?Nail Reduction?(-27) Trimming of all dystrophic nails - Due to the at risk nature of the patients medical condition as documented in the exam findings, performance of this nail treatment is medically necessary as its management by an unskilled/untrained nonprofessional would put this patients foot and overall health at risk. Therefore, the dystrophic nails, in locations as stated and described in the exam ( TA, T1, T2, T3, T4, T5, T6, T7, T8, T9,), were debrided by the phisician of record to reduce/remove overall nail length and girth, by manual and electrical means with use of a nail nipper and/or dremel, to more viable healthy nail plate or bed tissue - G0127.? * Procedure Codes:?38709 TRIM SKIN LESIONS, 2 TO 4, Modifiers: XS 16968 Avulsion Plate, Modifiers: T5 G0127 TRIMMING DYSTROPHIC NAILS ANY #, Modifiers: XS * Preventive Medicine:? ??Counseling:?Discussion:?-14: Office or other outpatient visit for the evaluation and management of an established patient, which required a medically appropriate history and/or examination and MODERATE level of DECISION MAKING for: 1 OR MORE CHRONIC PROBLEM(S) THATS WORSENING, 2 STABLE CHRONIC PROBLEMS, A NEWLY DIAGNOSED PROBLEM WITH UNCERTAIN PROGNOSIS, AN ACUTE COMPLICATED INJURY WITH MULTIPLE TREATMENT OPTIONS, OR AN ACUTE PROBLEM WITH ACCOMPANYING SYSTEMIC SYMPTOMS, THAT POSE(S) A MODERATE RISK OF MORBIDITY. THIS CONDITION MAY ALSO INCLUDE RX DRUG MANAGEMENT, OR A DECISON FOR MINOR SURGERY. The visit on the day of the encounter encompassed interpreting the data and educating the patient as to the nature of their condition, treatment options available according to their individual PMH, meds, allergies, and overall health/living conditions, as well as any potential risks or complications that may occur from a failure to adhere to, and participate in, the recommended course of therapy. The discussion included a complete verbal, and/or written explanation of the examination results, any x-rays taken, the proposed diagnosis, and outline of the treatment plan. A schedule for future care needs was also explained. The patient verbalized an understanding of the instructions at this time and agreed to be an active participant in their treatment. If the patient should think of any questions or concerns after the visit, I have encouraged the patient to call the office.?Digital Surgery:?Digital surgery was discussed with the patient, including the risks of surgery(below), vs not having surgery (persistent pain, deformity, risk for skin ulceration/infection, loss of toe), the potential surg complications, the anesthesia, and the usual post-op course. No guarentees were given. We discussed the potential procedure complications including, but not limited to: pain, swelling, bleeding, scarring, numbness, infection, delayed/non healing, floppy/unstable/shorthened toe, recurrence, failure of the procedure, overcorrection leading to plantarflexed/downward positioned toe, recurrence, need for further surgery, as well as the possibility for loss of the toe itself. We discussed the use of local anesthesia, and the usual post-op course for healing. No guarentees were given. The patient verbally indicated a full understanding of the above conversation, and any other of their questions were answered to their satisfaction. Alternatives to the procedure were also discussed, including conservative care. I also discussed the usual post-operative course and gave no guarantees regarding outcome, We elected to try conservative treatment at the present time.?Digital Treatment:?HT- I explained to the patient the possible etiologies of Hammertoes, including genetics/foot type/shoegear/activity level/exercise routine and the risks/benefits of all the different treatment options for their pain including: No treatment at all, Rest, Ice, New/supportive/wider/deeper Shoe gear, Digital Padding/Strapping/Taping/Bracing/Gel protective sleeves, Foot/Ankle AFO Bracing, Stretching exercises, Deep Tissue Massage, Arch support/shoe inserts with splay metatarsal padding, and Custom orthoses. I insisted that any digital devices be removed daily and not worn overnight for safety. The patient is to carefully examine the toes daily for any skin irritation while using any splinting or padding device. The advantages and disadvantages of each option were discussed and the patients questions re: shoe gear, padding, custom vs prefabricated inserts, activity level, and consistency in home treatment regimens for optimal success were answered to their verbally confirmed satisfaction, Recomm, rest, ice, proper shoegear, padding, orthotics, anti-inflammatories or tylenol as tolerated, topical analgesics, cortisone injections.?Shoe Gear Counseling:?The patient and I reviewed the types of shoes they should be wearing. My recommendation included obtaining a well-fitted shoe with a good supportive, non-foldable nor twistable sole, plenty of toe/room for the forefoot, and proper arch support. Based on todays examination, I recommended the patient look for new shoes, by having their feet professionally measured. We discussed that generally the best time of the day for a shoe fitting is the afternoon. Different shoes types and brands to best match the patients occupation and vocation were discussed. Specific brand selection will be up to the patient, their individual foot condition/deformities, and fit. The patient and I reviewed the standard new shoe break in period by wearing them for a few hours a day while checking for redness or sores as wear time is increased. The patient verbally confirmed to understanding the information discussed, Rx: Extra Depth Orthopedic Shoes with 3 pair of custom heat-molded inserts.?Xerosis:?The patient was counseled on the diagnosis, potential etiologies, and treatment options for their skin condition. We discussed the risks and benefits of each option from performing no treatment, to utilizing OTC topical skin creams/ointments, to utilizing prescription topical creams/ointments, to utilizing customized compounded topical medications and use of nocturnal occlusion with any/all previously detailed therapies. We discussed the advantages and disadvantages of each possible treatment and importance for adherence to all the recommended therapies for optimum success and avoid potential complications such as open sore/infection/possible hospitalization. We discussed the potential effectiveness of each topical preparation as well as each ones possible side effects and/or patient medication interactions. Patient questions re: use, dosage, successful outcomes, and application consistency were reviewed and the patient verbalized that all answers were clearly understood. The patient has decided to apply Rx skin creams to their feet save the interspaces while paying special attention to the heels. Such was sent to their pharmacy at the time of visit.? ??Screening/Special Tests:?Fall Risk?Assessment:?Performed ?Plan of Care:?Documented ?Type of fall plan of care:?Balance, strength and gait training or instruction provided ?Screening:?Two or more falls with injury in the past year ?FALLS: Screening for Future Fall Risk?Have you had two or more falls in the past year??Yes ?Have you had any falls with injury in the past year??Yes * Follow Up:?2 Weeks,prn * Images: * Sign off status: Completed true * Provider:Sanya Pablo DPM Date:?2024 Generated for Kaitlyn gomez/Maico/Leonard on:?12/11/2024 12:44 PM EST History and Physical Notes * HPI (History of Present Illness) Category Sub-Category Detail Notes Category Not es Toe pain Location: B/L feet Duration: several years Course: worse Aggravated by: shoes, any pressure Treatments: change in shoes Skin problems Nature: dryness , scaling Location: B/L Duration: several days Course: worse At Risk footcare Pt States Last PCP Visit: Date: 4 Examination Category Sub-Category Detail Notes Category Not es Ingrown Nail INSPECTION: Reveals nail inc urvation, dull pain on palpation due to neuropathy, groove hypertrophy, Medial nail border, T5, Neurological SENSORY: Neurological exa m demonstrates, reduced light touch sensation, reduced vibration sensation, 5.07 monofilament test performed at plantar aspects of 5 varied sites per foot shows sensation, cont.reduced , at Forefoot, B/L especially b/l great toes TINEL'S COMPRESSION: Negative tarsal sury aleksander, kristofer pedis, and medial calcaneal nerves DEEP TENDON REFLEXES: Achilles, 2/4, B/L Dermatologic SKIN FINDINGS: Skin exam reveal s keratotic lesion(s) located at, , Plantar Heel(s), B/L , Skin shows sign(s) of, dryness, scaling, in a stocking fashion, no fissure(s) present, B/L Orthopedic FOOTWEAR: worn, non-suppor tive, shoe gear properties exacerbate patient's foot/toe deformity DIGITAL DEFORMITIES: Digital contracture , PIPJ, 3-5 B/L, incompl-reducable with WB, or to push-up test, no over, nor underlapping , with evidence of shoe producing skin irritation , Digital contracture, PIPJ, 2-5 B/L, incompl-reducible to push-up test, no over, nor underlapping, there is evidence of shoe producing skin irritation General Examination GENERAL APPEARANCE: Reveals a pleasant, alert, well nourished, well developed, well hydrated individual, who demonstrates proper attention to hygene/body habitus, and is in no acute distress- pt on O2 FOOT EXAM: Lower Extremity Neurological Exa m performed:: Yes Visual exam of foot performed:: Yes Date: 10/24/2024 Sensory testing performed:: sensations d iminished Sensory and motor testing performed:: se nsations diminished Pedal pulse taking performed:: 2+ ORIENTED: person, place, and t jose Footwear Evaluation Footwear Evaluation performe d:: Yes Ophthalmology Referral DIABETES EYE EXAM Procedure Perform ed:: Yes ?Date of Exam Performed: 09/26/2024 Findings of Diabetic Eye Exam:: no retin opathy Vascular DP PULSES (B): 2/4, B/L PT PULSES (B): 2/4, B/L CAPILLARY FILL TIME: 3 secs. per digit, B/L TEMPERTURE GRADIENT (C): warm to cool, p roximal to distal, B/L TROPHIC CONDITION-TEXTURE/ELASTICITY/TURGOR/HAIR GROWTH (B): normal, B/L Nails NAILS are: elongated,overgr own, dystrophic, , TA, T1, T2, T3, T4, T6, T7, T8, T9
== END 2024-12-11 10:58 | disposition home or self-care (01) ==
PROVIDERS: PCP Internal Medicine; Visit Provider Internal Medicine
DX: G47.33 Obstructive sleep apnea (adult) (pediatric) (principal); J45.20 Mild intermittent asthma, uncomplicated; J98.4 Other disorders of lung; J96.91 Respiratory failure, unspecified with hypoxia
CPT/HCPCS: 99213

== ENCOUNTER → 2024-12-11 10:25 | Outpatient (BNVA) | payer MEDICARE, SELFPAY | PROVIDERS: PCP Internal Medicine; Visit Provider Internal Medicine | DX: J45.20 Mild intermittent asthma, uncomplicated (principal); J98.4 Other disorders of lung; J96.91 Respiratory failure, unspecified with hypoxia; G47.33 Obstructive sleep apnea (adult) (pediatric); Z99.89 Dependence on other enabling machines and devices | CPT/HCPCS: 99212 ==

== ENCOUNTER 2024-12-25 10:23 | Outpatient (AMB) | payer MEDICARE, SELFPAY ==
[2024-12-25 10:28] VITALS: BMI 38.1
--- NOTE | 2024-12-25 10:28 | MHC.OFFVIS ---
Vital Signs 12/25/24 10:28 Height 5 ft 7 in Weight 243 lb BMI 38.1 Intake Visit Reasons: Right knee pain Intake Note: Silvano is an 79 year old male who presents with complaints of progressively worsening right knee pain. The patient was given a cortisone injection into his right knee last September. The patient states that that injection lasted him ?2 days?. The patient describes his pain as sharp in nature. Most of the pain is along the medial aspect of his knee. He denies any locking or giving way. He has failed the last 3 months of conservative treatment which has included topical creams, Tylenol, anti-inflammatory medicines and a home exercise program. At this point his right knee pain is interfering with his activities of daily living and his ability to sleep well through the night. He wishes to hold off on surgery if at all possible. Allergies azithromycin [AZITHROMYCIN] Allergy (Unknown, Verified 12/25/24 10:34) HIVES lisinopril [LISINOPRIL] Allergy (Unknown, Verified 12/25/24 10:34) HIVES losartan [LOSARTAN] Allergy (Unknown, Verified 12/25/24 10:34) HIVES oxycodone [OXYCODONE] Allergy (Unknown, Verified 12/25/24 10:34) HIVES Medication List - Last Reconciled 12/25/24 by Gurmeet Ordaz MD acetaminophen (Tylenol) 650 mg PO Q6H PRN albuterol sulfate 2.5 mg inhalation Q6H PRN albuterol sulfate 90 mcg/actuation 2 puffs inhalation Q6H PRN 60 days allopurinol 100 mg PO DAILY 90 days atorvastatin 40 mg PO DAILY 90 days blood pressure monitor (Blood Pressure Kit) As directed blood sugar diagnostic (OneTouch Ultra Test strips) test 2 times per day blood sugar diagnostic One touch ULTRA TEst Strips check the BS 2x a day blood-glucose meter (OneTouch Ultra2 Meter kit) As directed cetirizine (Zyrtec) 10 mg PO DAILY cholecalciferol (vitamin D3) 10 mcg PO DAILY cyanocobalamin (vitamin B-12) 1,000 mcg PO DAILY dulaglutide (Trulicity) 3 mg (0.5 mL) subcut QWEEK fluticasone propion-salmeterol 250-50 mcg/dose (Wixela Inhub) 1 ea inhalation BID insulin degludec (Tresiba FlexTouch U-200 insulin) 52 units (0.26 mL) subcut DAILY lancets (OneTouch UltraSoft Lancets) As directed check the blood sugars 4 times a day metformin 1,000 mg PO BID metoprolol succinate ER 100 mg PO DAILY naproxen 500 mg PO BID PRN 7 days peg 400-propylene glycol (PF) 0.4-0.3 % (Systane (PF)) 1 drp ophthalmic (eye) BID PRN pen needle, diabetic (Easy Touch) As directed pen needle, diabetic, safety (Easy Touch Safety Pen Needle) As directed inject twice a day [Prevagen 1 cap PO DAILY] pyridoxine (vitamin B6) 50 mg PO DAILY 90 days tamsulosin 0.4 mg PO BEDTIME 90 days vit C,R-Qv-ukcfp-lutein-zeaxan 250-90-40-1 mg (PreserVision AREDS-2) 1 tab PO BID PFS Medical History (Updated 12/25/24 @ 11:01 by Gurmeet Ordaz MD) Obesity (BMI 30-39.9) AMY on CPAP Hypercholesterolemia Type 2 diabetes mellitus with hyperglycemia Hypoxemia Restrictive lung disease Abnormal LFTs Calcium oxalate calculus 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 Mother No problems noted. Son No problems noted. Son No problems noted. Daughter No problems noted. Daughter No problems noted. Social History Housing: House Alcohol intake: never Patient Tobacco Use Status: Former Tobacco user Tobacco use type: Cigarette Years Smoked: 1993 e-Cigarette/Vaping Use: Never Used Second Hand Smoke Exposure: No service: No Current occupational status: retired Cognitive needs: No Hearing needs: No Vision needs: Yes Physical Exam Vital Signs: BMI result Body Mass Index 38.1 Const Other: Well-nourished well-developed very friendly male awake alert and oriented x3 in no acute distress Extrem Other: Bilateral lower extremity examination shows good capillary refill, no skin lesions noted, normal sensation light touch Right knee examination shows a minimal effusion, palpable crepitus with range of motion, pain with range of motion, no instability Results Reviewed Results Reviewed: X-rays of the patient's right knee taken previously show joint space narrowing, subchondral sclerosis, no acute bony abnormalities Assessment & Plan Assessment & Plan (1) Right knee pain: Code(s): M25.561 - Pain in right knee Category: Medical Plan Mr. Walter presents with right knee pain due to osteoarthritis. I had a lengthy discussion with the patient regarding the treatment options. He wishes to hold off on surgery if at all possible. I agree with this plan. Has not gotten good relief from cortisone injections in the past. Thus, I will see whether or not his insurance company will cover a viscosupplementation injection. I will see him back once the injection is available. Feel free to call me at any time should questions regarding his orthopedic management arise. I spent 22 minutes in reviewing the patient's records and imaging studies, seeing the patient and documenting in the medical record. Orders: Orders XR hip LT min 2V 12/31/24 M25.552 - Pain in left hip Coding Level of Care Code Est Pt Level 3 (69248) Complex EM visit Add On G2211 Diagnoses Right knee pain M25.561
--- OUTSIDE RECORDS SUMMARY | 2024-12-25 11:56 | XMS_ITS | Patient Health Record ---
Author Organization [facility] Address [address] [place] [address] Care Team Providers Care After School Driver Name Role Phone Homer Akers Primary Care Provider Unavailabl e Zuly Pablo Unavailable [phone] Allergies Allergen (clinical drug ingredient) Drug/Non Drug Allergy documented on EMR Reaction Allergy Type Onset Date Status fentanyl Fentanyl rash/itchy Drug Allergy Active Lisinopril rash/itchy Drug Allergy Activ e losartan Losartan Potassium Unknown Drug Allergy Active [...] (L85.1) LLD 1/2 for . 09/21/2015 Not-Taking Vitamin D3 Active [...] Problem Acquired hammer toe of right foot (6343688757426638 ) Other hammer toe(s) (acquired), right foot (M20.41) Active confirmed Problem Acquired hammer toe of left foot (8336657815519014 ) Other hammer toe(s) (acquired), left foot (M20.42) Active confirmed Problem Polyneuropathy due to type 2 diabetes mellitus (263013554) Type 2 diabetes mellitus with diabetic polyneuropathy (E11.42) Active confirmed Problem 994417158 Hammer toe of right foot (M20.41) Active confirmed Problem 023934326 Hammer toe of left foot (M20.42) Active confirmed Vital Signs Blood pressure diastolic 78 mm Hg 10/24/2024 Height 5 ft 7 in in 10/24/2024 Blood pressure systolic 121 mm Hg 10/24/2024 Weight 245 lbs 10/24/2024 BMI 38.37 kg/m2 10/24/2024 Procedures Procedure Date Ordered Date Performed Result Body Sit e 67659-Zzlslcxv Plate 10/24/2024 N/A 87713-DLFX SKIN LESIONS, 2 TO 4 10/24/2024 N/A H7876-PIRXMYIG DYSTROPHIC NAILS ANY # 10/24/2024 N/A Encounters Encounter Location Date Provider Diagnosis [facility] [address] [place] [address] 10/24/2024 Zuly Black Type 2 diabetes mellitus [...] Treatment Pending Test Test Name Order Date 78578-VWQJVOR NAIL, 1-5 12/26/2011 85860-SVGLLVL NAIL, 1-5 09/24/2012 15264-UOWYMOC NAIL, 1-5 09/23/2013 56691-WLIIGEO NAIL, 1-5 01/29/2014 29653-EZHVXGJ NAIL, 1-5 09/22/2014 65803-Qepiovku Plate 09/22/2014 06073-Swryumov Plate 01/29/2014 16489-Rgmvfwtc Plate 09/22/2016 00788-Qpjgubeb Plate 09/23/2013 08334-Szixnwqu Plate 09/24/2018 38972-Fuqhgbfv Plate 09/24/2020 14190-Oyrtexly Plate 10/21/2021 32017-Zpqxhsym Plate 10/24/2022 33330-Rjqjcedv Plate 10/26/2023 04479-Revggvgs Plate 10/24/2024 55584-Sbljxoku Plate Each Additional 08/2024 96724-Zrdzawei Plate Each Additional 06/2023 21010-Bmxvjwxc Plate Each Additional 03/2022 26621-WFMM SKIN LESIONS, 2 TO 4 10/24/19 23 59339-ONZL SKIN LESIONS, 2 TO 4 09/24/20 20 62538-NNVD SKIN LESIONS, 2 TO 4 10/21/19 22 93877-EEYE SKIN LESIONS, 2 TO 4 09/26/20 19 81725-WYKD SKIN LESIONS, 2 TO 4 09/24/20 18 09932-GBEU SKIN LESIONS, 2 TO 4 09/25/20 17 98464-UFWZ SKIN LESIONS, 2 TO 4 01/30/20 14 67580-LIUB SKIN LESIONS, 2 TO 4 09/23/20 13 16973-HFPB SKIN LESIONS, 2 TO 4 09/24/20 12 66590-PKKK SKIN LESIONS, 2 TO 4 09/22/20 14 30671-EMRS SKIN LESIONS, 2 TO 4 09/21/20 15 16905-NQPF SKIN LESIONS, 2 TO 4 09/22/20 16 70720-RKBT SKIN LESIONS, 2 TO 4 10/26/19 24 80021-ZTBQ SKIN LESIONS, 2 TO 4 10/24/19 25 42755-HYRP NAIL(S) 09/22/2014 11052-GAHQ NAIL(S) 09/23/2013 15066-RVVQ NAIL(S) 01/29/2014 F6693-FHPBGYND DYSTROPHIC NAILS ANY # I4693-XWAKUJME DYSTROPHIC NAILS ANY # A1497-ZILWAGCN DYSTROPHIC NAILS ANY # N6563-AZHUJJJH DYSTROPHIC NAILS ANY # A0245-ONPOMXNY DYSTROPHIC NAILS ANY # S3673-LEDHPKUG DYSTROPHIC NAILS ANY # T0937-ZLWZKLRC DYSTROPHIC NAILS ANY # H7970-BWWLVMLU DYSTROPHIC NAILS ANY # C8968-ZYSFUDAB DYSTROPHIC NAILS ANY # H6140-DWGPJYTV DYSTROPHIC NAILS ANY # Next Appt Details Provider Name:Zuly Pablo , 04/24/2025 08:00:00 AM, [address] [place], [address], Insurance Providers Payer Name Payer Address Payer Phone Subscriber Number Group Number Insured Name Patient Relationship to Insured Coverage Start Date Coverage End Date Medicare National [facility] [address] [facility] [place] [address] [id number] Silvano Walter Self - patient is the insured [employer] [address] [place] [address] [phone] [id number] Silvano Walter Self - patient is the insured Medical (General) History Medical History History ICD Code hypercholesterolemia hypertension benign prostatic hyperplasia (BPH) lumbar stenosis kidney stones type II diabetes Surgical History Surgery Date(Month/Year) appendectomy spinal fusion inguinal hernia repair 2016
--- OUTSIDE RECORDS SUMMARY | 2024-12-25 11:56 | XMS_ITS ---
Author Organization [facility] Address [address] [place] [address] Care Team Providers Care University Services Program Associate Name Role Phone Homer Akers Primary Care Provider Unavailabl e Black, Zuly Unavailable [phone] Allergies Allergen (clinical drug ingredient) Drug/Non Drug [...] Twice a day for 2 weeks 09/24/2012 Not-Takmichele ng Aria 20 MG 1 capsule Orally Onc e a day Not-Taking Methocarbamol 750 MG 1 tablet Orally heidy ry 4 hrs for 30 day(s) Not-Taking Victoza 18 MG/3ML 0.2 ml Subcutaneous Once a day for 30 day(s) Not-Taking Metoprolol & Diet Manage Prod 50 MG as directed Orally Not-Sergey g Lantus 100 UNIT/ML 0.02 ml Subcutaneous [...] Problem Acquired hammer toe of right foot (9200445970777 105) Other hammer toe(s) (acquired), right foot (M20.41) Active confirmed Problem Acquired hammer toe of left foot (1438154531167 103) Other hammer toe(s) (acquired), left foot (M20.42) Active confirmed Vital Signs Height 5 ft 7 in in 10/24/2024 Weight 245 lbs 10/24/2024 BMI 38.37 kg/m2 10/24/2024 Blood pressure systolic 121 mm Hg 10/24/19 25 Blood pressure diastolic 78 mm Hg 025 Procedures Procedure Date Ordered Date Performed Result Body Sit e 34061-Pybcdipu Plate 10/24/2024 N/A 06761-QIIM SKIN LESIONS, 2 TO 4 10/24/2024 N/A W6023-ZADKCSHT DYSTROPHIC NAILS ANY # 10/24/2024 N/A Encounters Encounter Location Date Provider Diagnosis [facility] [address] [address] 10/24/2024 Zuly Black Type 2 diabetes mellitus [...] INSTRUCTIONS.pdf) Pending Test Test Name Order Date 73286-Bvrqgepc Plate 10/24/2024 07430-NIQC SKIN LESIONS, 2 TO 4 10/24/19 25 Y8392-LVXDDYSW DYSTROPHIC NAILS ANY # Next Appt Details Follow Up: 2 Weeks,prn, Reas on: Provider Name:Zuly Pablo , 04/24/2025 08:00:00 AM, [address] [place] [address], [phone], Procedure Notes * Category Sub-Category Detail Notes [...] Motrin was recommended for pain or discomfort (01812) , DIABETES: Matricectomy deferred at this time [...] instrumentation by the physician of record - 04237 Nail Reduction Nail Reduction (-27) Trimming o [...] * Silvano WALTER LDOB:1945 (79 yo M)Acc No.[id number]:10/24/2024 Progress Note Patient:?Silvano WALTER Sam Provider:?Zuly Pablo DPM :1945???Age:79 Y???Sex:Male Drew e:10/24/2024 Address:[address] [place], [place] [id number] Pcp:Homer Akers Subjective: * Chief Complaints: * [...] 2.?Type 2 diabetes mellitus with diabetic polyneuropathy?Procedure: 11149-WDXL SKIN LESIONS, 2 TO 4 ?Procedure: U3510-EZXNGVDH DYSTROPHIC NAILS ANY # Notes: Patient Educated with: DIABETIC FOOT CARE INSTRUCTIONS.pdf (DIABETIC FOOT CARE INSTRUCTIONS.pdf)?? 3.?Ingrown nail?Procedure: 22465-Hbgtembg Plate 4.?Xerosis of skin? Start Ammonium Lactate [...] instrumentation by the physician of record - 04547.?Nail Avulsion:?Location?Medial nail border, T5?.?Anesthesia?was deferred - NEUROPATHY: [...] Motrin was recommended for pain or discomfort (55774) , DIABETES: Matricectomy deferred at this time [...] or bed tissue - G0127.? * Procedure Codes:?12302 TRIM SKIN LESIONS, 2 TO 4, Modifiers: XS 56059 Avulsion Plate, Modifiers: T5 G0127 TRIMMING DYSTROPHIC [...] Pablo DPM Date:?2024 Generated for Kaitlyn gomez/Maico/Leonard on:?12/25/2024 11:56 AM EDT History and Physical Notes * HPI (History [...]
--- OUTSIDE RECORDS SUMMARY | 2024-12-25 11:56 | XMS_ITS ---
Author Organization [facility] Address [address] [place] [address] Care Team Providers Care Hot Room Attendant Name Role Phone Homer Akers Primary Care Provider Unavaildrake Pablo Zuly Unavailable [phone] Juan Cardenas [phone] REASON FOR VISIT error-booked with wrong doctor Encounters Encounter Location Date Provider Diagnosis [address] [address] 10/25/2023 Juan Cardenas Plan Of Treatment Next Appt Details Provider Name:Zuly Pablo , 04/24/2025 08:00:00 AM, [address] [place] [address], [phone], Progress Notes * Silvano WALTER LDOB:1945 (79 yo M)Acc No.[id number]:10/25/2023 Progress Note Patient:?Silvano WALTER Provider:?Juan Cardenas DPM :1945???Age:78 Y???Sex:Male Drew e:10/25/2023 Address:[address] [place] [address] bre [id number] Pcp:Homer Akers Subjective: * Chief Complaints: * [...] DPM Date:? 024 Generated for Kaitlyn gomez/Maico/Leonard on:?12/25/2024 11:56 AM EDT
--- OUTSIDE RECORDS SUMMARY | 2024-12-25 11:56 | XMS_ITS ---
Author Organization [facility] Address [address] [place] [address] Care Team Providers [employer] Consultant Name Role Phone Homer Akers Primary Care Provider Unavailabl e Black, Zuly Unavailable [phone] Allergies Allergen (clinical drug ingredient) Drug/Non Drug Allergy documented on EMR Reaction Allergy Type Onset Date Status fentanyl Fentanyl rash/itchy Drug Allergy Active Lisinopril rash/itchy Drug Allergy Activ e losartan Losartan Potassium Unknown Drug Allergy Active oxycodone Oxycodone HCl rash/itchy Drug Allergy Ac tive azithromycin Azithromycin Unknown Drug Allergy A ctive REASON FOR VISIT At Risk Footcare, Painful Toe(s), Skin problem(s) Medications Medication SIG (Take, Route, Frequency, Duration) Notes Start Date End Date Status traMADol HCl Not-Darron ing Ciclopirox Olamine 0.77 % 1 application to affected area Externally Twice a day for 2 weeks 09/24/2012 Not-Taki ng Methocarbamol 750 MG 1 tablet Orally heidy ry 4 hrs for 30 day(s) Not-Taking Vicodin 5-500 MG 1 tablet as needed f or pain Orally every 6 hrs Not-Taki ng Aria 20 MG 1 capsule Orally Onc e a day Not-Taking Victoza 18 MG/3ML 0.2 ml Subcutaneous Once a day for 30 day(s) Not-Taking Robaxin-750 750 MG 1 tablet Orally ever y 4 hrs for 30 day(s) Not-Taking Lantus 100 UNIT/ML 0.02 ml Subcutaneous Once a day Not-Taking Ocuvite Not-Taking Metoprolol & Diet Manage Prod 50 MG as directed Orally Not-Takin g zzzExtra Depth Orthopedic Shoes (1 Pair) with [...] e a day for 30 day(s) Active Tresiba 35 as directed Active Trulicity Active Ammonium Lactate 12 % 1 application Exte rnally Twice a day for 30 days Active Tamsulosin HCl 0.4 MG 1 capsule 30 minut es after the same meal each day Orally Once a day for 30 day(s) Active Metformin & Diet Manage Prod 500 MG as directed Orally Active Metoprolol Succinate ER 100 MG 1 tablet Orally Once a day Active ProAir HFA 108 (90 Base) MCG/ACT 2 puffs as needed Inhalation every 4 hrs Active Incruse Ellipta Acti ve PreserVision AREDS 2 - as directed Orally Active Albuterol Sulfate Ac tive Aspir-81 81 MG 1 tablet Orally Once a day for 30 day(s) Active Potassium Bicarb-Citric Acid Active Advair Diskus 250-50 MCG/DOSE 1 puff Inhalation every 12 hrs Active Lipitor 40 MG 1 tablet Orally Once a day for 30 day(s) Active B12 Active Prevagen Active oxygen Active Vitamin D3 Active Social History Tobacco Use: Social History [...] Problem Status W/U Status Risk Notes Problem 787067284 Hammer toe of right foot (M20.41) Active confirmed Problem 850407048 Hammer toe of left foot (M20.42) Active confirmed Vital Signs Height 5 ft 7 in in 10/26/2023 Weight 243 lbs 10/26/2023 BMI 38.06 kg/m2 10/26/2023 Procedures Procedure Date Ordered Date Performed Result Body Sit e 57987-Fjjklyls Plate 10/26/2023 N/A 62795-Xztxnsnb Plate Each Additional 10/26/2023 N/A 24050-UDAC SKIN LESIONS, 2 TO 4 10/26/2023 N/A K2695-RKJMOUQY DYSTROPHIC NAILS ANY # 10/26/2023 N/A Encounters Encounter Location Date Provider Diagnosis [facility] [address] [place] [address] 10/26/2023 Zuly Black Ingrown nail L60.0 ; Type 2 diabetes mellitus with diabetic polyneuropathy E11.42 ; Xerosis of skin L85.3 ; Hammer toe of right foot M20.41 and Hammer toe of left foot M20.42 Assessments Encounter Date Diagnosis (ICD Code) Assessment Notes Treatment Notes Treatment Clinical Notes Section Notes 10/26/2023 Ingrown nail (ICD-10 - L60.0) 10/26/2023 Type 2 diabetes mellitus with diabetic polyneuropathy (ICD-10 - E11.42) Patient Educated with: DIABETIC FOOT CARE INSTRUCTIONS. pdf (DIABETIC FOOT CARE INSTRUCTIONS. pdf) 10/26/2023 Xerosis of skin (ICD-10 - L85.3) 10/26/2023 Hammer toe of right foot (ICD-10 - M20.41) 10/26/2023 Hammer toe of left foot (ICD-10 - M20.42) Plan Of Treatment Medication Medication Name Sig Start Date Stop Date Notes Ammonium Lactate 12 % 1 application Exte rnally Twice a day for 30 days Treatment Notes Assessment Notes Type 2 diabetes mellitus wit h diabetic polyneuropathy Patient Educated with: DIABETIC FOOT CARE INSTRUCTIONS.pdf (DIABETIC FOOT CARE INSTRUCTIONS.pdf) Pending Test Test Name Order Date 90359-Mecvmtib Plate 10/26/2023 06246-Dxfbviei Plate Each Additional 08/2024 89358-RSDJ SKIN LESIONS, 2 TO 4 10/26/19 24 X7723-GRYWMWZJ DYSTROPHIC NAILS ANY # Next Appt Details Follow Up: 1 Year, Reason: Provider Name:Zuly Pablo , 04/24/2025 08:00:00 AM, [address] [place] [address], [id number], Procedure Notes * Category Sub-Category Detail Notes [...] Motrin was recommended for pain or discomfort (72382/2) , DIABETES: Matricectomy deferred at this time due to diabetes risk Anesthesia was deferred - NEURO CARLYN: patient has medically documented neuropathic condition affecting sensation , Location Medial nail border, T5 , TA Keratoma Treatment Parring or Cutting o f Benign Hyperkeratotic Lesion(s) 80445 (2-4 Lesions) - The Benign hyperkeratotic lesions, as described above were pared, and/or cut utilizing a sterile #15 blade, tissue nippers, and/or dremel Nail Reduction Nail Reduction Trimming of dyst rophic nails performed to reduce/remove overall nail length and girth, by manual and electrical means with use of a nail nipper and/or dremel, to more viable healthy nail plate or bed tissue 6-10 (G0127) Progress Notes * Silvano WALTER LDOB:1945 (79 yo M)Acc No.[id number]:10/26/2023 Progress Note Patient:?Silvano WALTER Provider:?Zuly Pablo DPM :1945???Age:78 Y???Sex:Male Drew e:10/26/2023 Address:[address] [place] [address] [phone] Pcp:Homer Akers Subjective: * Chief Complaints: * ???At Risk FootcarePainful T oe(s)Skin problem(s) * HPI: ???At Risk footcare:?Pt States Last PCP Visit:?Date?08/29/2023 ???Skin problems:?Location:?B/L .?Duration:?several days.?Course:?worse.? * ROS:?General/Constitutional:?Nausea?denies.?Vomiting?denies.?Hunger Thirst?denies.?Loss appetite?denies.?Chills?denies.?Fatigue?denies.?Fever?denies.?Night Sweats?denies.?Unexplained weight loss?denies.?Ophthalmologic:?Blurred vision?denies.?Red eye?denies.?HEENTM:?Dentures?denies.?Dizziness?denies.?Glasses/contacts?admits.?Retinopathy?de nies.?Blurred/double vision?denies.?TMJ?denies.?Discharge/drainage?denies.?Implants?denies.?Hard of hearing denies.?Difficulty chewing/swallowing/speaking?denies.?Nose bleeds?denies.?Sore mouth?denies.?Swollen glands?denies.?Respiratory:?On Oxygen?denies.?Pneumonia/pleurisy?denies.?Bronchitis?denies.?Emphysema?denies.?C oughing?denies.?Cough blood?denies.?Shortness of breath?denies.?Wheezing?denies.?Cardiovascular:?Pacemaker?denies.?MVP?denies.?WPW?denies.?CHF?denies.?Heart attack?denies.?Septal defect?denies.?Rapid beat?denies.?Chest pain ?denies.?Atrial Fib.?denies.?Murmur/Palpitations?denies.?Gastrointestinal:?Hemorrhoids?denies.?Stomach/Abdominal pain?denies.?Dark blood stool?denies.?Irritable bowel ?denies.?Constipation?denies.?Diarrhea?denies.?Vomiting?denies.?Hematology:?Swelling?denies.?Bruising?denies.?Bleeding problem?denies.?Genitourinary:?Blood urine?denies.?Frequent/Painfu/urination/bladder control?denies.?Kidney stones?denies.?Infection (UTI)?denies.?Nephropathy?denies.?Musculoskeletal:?Hammertoes?denies.?Bunions?denies.?Scoliosis/kyphosis?denies.?Muscle cramps / walking?denies.?Generalized aches and pains?denies.?Weakness?denies.?Integ.:?Carrion?denies.?Scars?denies.?Corns/calluses?denies.?Ingrown nails?admits.?Painful nails?denies.?Rashes?denies.?Neurologic:?Difficulty sleeping?denies.?Bipolar?denies.?Brain disorder?denies.?Balance trouble?denies.?Confusion?denies.?Fainting/blackouts?denies.?Headache?denies.?Tr emors?denies.? * Medical History:? * Surgical History:?appendecto my spinal fusion inguinal hernia repair bronchoscopy 2017 * Hospitalization/Major Diagno stic Procedure:?No Hospitalization History. * Family History:?Mother: dece ased.?Father: .?Siblings: diagnosed with Other malignant neoplasm of unspecified site.? * Social History:?Tobacco Use:?Tobacco Use/Smoking?Are you a:?nonsmoker ?Additional Findings: Tobacco Non-User?Current non-smoker ?Tobacco use other than smoking?Are you an other tobacco user??No ???Drugs/Alcohol:?Drugs?Have you used drugs other than those for medical reasons in the past 12 months??No ?Alcohol Screen?Did you have a drink containing alcohol in the past year??No ?Points?0 ?Interpretation?Negative ???Miscellaneous:?Caffeine: yes, frequency:, 1-2 cups per day. ?Children: yes, 2. ?Exercise: no. ?Marital status: . ?Occupation: retired worked at [employer]. * Medications:?Takingoxygen Vi tamin D3 B12 Prevagen Potassium Bicarb-Citric Acid Advair Diskus 250-50 MCG/DOSE Aerosol Powder [...] 1 tablet Orally Once a day Taking oxygen Taking Vitamin D3 Taking B12 Taking Prevagen Taking Potassium Bicarb-Citric Acid Taking Advair Diskus 250-50 MCG/DOSE Aerosol [...] Tablet 1 tablet Orally Once a day Not-Taking/PRNzzzExtra Depth Orthopedic Shoes (1 [...] Vitals:?Ht: 5 ft 7 in, Wt: 2 43, BMI: 38.06, Shoe size: 8, BS: did not test, Wt- k.22 kg. * ???Past Orders: Lab:HEMOGLOBIN A1C ([facility]) * Collection Date 10/26/2023 10/26/2023 Collection Time 08:07 AM 08:00 AM Order Date 10/26/2023 10/26/2023 HEMOGLOBIN A1C % (HH) NR 7.1 HEMOGLOBIN A1C (HH) 7.1 NR * Examination: ???Ophthalmology Referral: ?DIABETES EYE EXAM?Diabetic Retinopathy Screening:?No?General Examination: ?GENERAL APPEARANCE:?Reveals a pleasant, alert, well nourished, well developed, well hydrated individual, who demonstrates proper attention to hygene/body habitus, and is in no acute distress.?ORIENTED:?person, place, and time.?FOOT EXAM:?Lower Extremity Neurological Exam performed:?Yes ?Visual exam of foot performed:?Yes ?Date?10/26/2023 ?Sensory testing performed:?sensations diminished ?Sensory and motor testing performed:?sensations diminished ?Pedal pulse taking performed:?2+?Neurological: ?SENSORY:?Neurological exam demonstrates, reduced light touch sensation, [...] proximal to distal, B/L.?Nails: ?NAILS are:?elongated,overgrown, dystrophic, 2-5 B/L.?Dermatologic: ?SKIN FINDINGS:?Skin exam reveals keratotic lesion(s) located at, , Heel(s), B/L , Skin shows sign(s) of, dryness, scaling, in a stocking fashion, no fissure(s) present, B/L.?Ingrown Nail: ?INSPECTION:?Reveals nail incurvation, dull pain on palpation due to neuropathy, groove hypertrophy, Medial nail border, T5, TA ,.?Orthopedic: ?DIGITAL DEFORMITIES:?Digital contracture, PIPJ, 3-5 B/L, incompl-reducable with WB, or to push-up test, no over, nor underlapping , with evidence of shoe producing skin irritation.? Assessment: * Assessment: 1.?Ingrown nail - L60.0???2. ?Type 2 diabetes mellitus with diabetic polyneuropathy - E11.42 (Primary)???3.?Xerosis of skin - L85.3???Specify :Acute problem, Uncomplicated (3),Rx Management (4)???4.?Hammer toe of right foot - M20.41???5.?Hammer toe of left foot - M20.42??? Plan: * Treatment: 2.?Xerosis of skin? Start Ammonium Lactate Cream, 12 %, 1 application, Externally, Twice a day, 30 days, 60, Refills 2.?? * Procedures:?Keratoma Treatment:?Parring or Cutting of Benign Hyperkeratotic Lesion(s)?81809 (2-4 Lesions) - The Benign hyperkeratotic lesions, as described above were pared, and/or cut utilizing a sterile #15 blade, tissue nippers, and/or dremel.?Nail Avulsion:?Location?Medial nail border, T5 , TA.?Anesthesia?was deferred - NEUROPATHY: patient has medically documented [...] Motrin was recommended for pain or discomfort (04932/2) , DIABETES: Matricectomy deferred at this time due to diabetes risk.?Nail Reduction:?Nail Reduction?Trimming of dystrophic nails performed to reduce/remove overall nail length and girth, by manual and electrical means with use of a nail nipper and/or dremel, to more viable healthy nail plate or bed tissue 6-10 (G0127).? * Procedure Orders:? * ?Procedure: 94709-Boymwv on Plate Each Additional ?Procedure: 65437-Llidwq on Plate * Procedure Codes:?47418 TRIM SKIN LESIONS, 2 TO 4, Modifiers: XS 93569 Avulsion Plate, [place]: [place] [address] Avulsion Plate Each Additional, Modifiers: T5 G0127 TRIMMING DYSTROPHIC NAILS ANY [...] encouraged the patient to call the office.?Digital Treatment:?HT- I explained to the patient the possible etiologies of Hammertoes, including genetics/foot type/shoegear/activity level/exercise routine and the risks/benefits of all the different treatment options for their pain including: No treatment at all, Rest, Ice, New/supportive/wider/deeper Shoegear, Digital Padding/Strapping/Taping/Bracing/Gel protective sleeves, Foot/Ankle AFO Bracing, [...] were discussed and the patients questions re: shoegear, padding, custom vs prefabricated inserts, activity level, and consistency in home treatment regimens for optimal success were answered to their verbally confirmed satisfaction.?Shoe Gear Counseling:?SHOE Rx - The patient was counseled in great detail on their muscoloskeletal foot and toe deformities which coincided with the dermatological presentations visualized on exam. We discussed how their deformities put the integrity of their feet at risk for potential pedal complications which makes the accomidative diabetic shoes and cutomizable inserts medically necessary. We discussed the different shoe and insert treatment types and options, as well as the important advantages for adhering to regularly wearing these accomidative devices daily. The patient was made aware of the fact that a failure to abide by these recommedations may be deleterious to their foot health as they are able to prevent many pedal complications such as skin irritation, skin ulceration, infection, and even loss of toe/foot/leg/or life. Time was also spent with the patient dispensing and discussing proper diabetic footcare techniques including daily skin moisturization, daily foot inspection for any interruption in skin integrity including open lesions, or sign of infection such as redness/malodor/drainage/swelling. Also discussed and recommended were procedures regarding daily shoe inspection for the presence of internal foreign bodies as well as any visualized irregular shoe or insert wear. Patient questions re: shoes, inserts, and self foot inspections were answered to their satisfaction as the patient verbally confirmed a full understanding of the above information., The patient deferred recommended diabetic shoes with heat moled inserts.?Xerosis:?The patient was counseled on the diagnosis, [...] at the time of visit.? ??Screening/Special Tests:?Fall Risk?Screening:?No falls in the past year ?FALLS: Screening for Future Fall Risk?Have you had any falls with injury in the past year??No * Follow Up:?1 Year * Images: * Sign off status: Completed true * Provider:?Zuly Pablo DPM Date:?2023 Generated for Kaitlyn gomez/Maico/eTransmitting on:?12/25/2024 11:56 AM EDT History and Physical Notes * HPI (History of Present Illness) Category Sub-Category Detail Notes Category Not es Skin problems Location: B/L Duration: several days Course: worse At Risk footcare Pt States Last PCP Visit: Date: 3 Examination Category Sub-Category Detail Notes Category Not es Ingrown Nail INSPECTION: Reveals nail inc urvation, dull pain on palpation due to neuropathy, groove hypertrophy, Medial nail border, T5, TA , Neurological SENSORY: Neurological exa m demonstrates, reduced [...] reveal s keratotic lesion(s) located at, , Heel(s), B/L , Skin shows sign(s) of, dryness, scaling, in a stocking fashion, no fissure(s) present, B/L Orthopedic DIGITAL DEFORMITIES: Digital con tracture, PIPJ, 3-5 B/L, incompl-reducable with WB, or to push-up test, no over, nor underlapping , with evidence of shoe producing skin irritation General Examination GENERAL APPEARANCE: Reveals a pleasant, alert, well nourished, well developed, well hydrated individual, who demonstrates proper attention to hygene/body habitus, and is in no acute distress FOOT EXAM: Lower Extremity Neurological Exa m performed:: Yes Visual exam of foot performed:: Yes Date: 10/26/2023 Sensory testing performed:: sensations d iminished Sensory and motor testing performed:: se nsations diminished Pedal pulse taking performed:: 2+ ORIENTED: person, place, and t jose Ophthalmology Referral DIABETES EYE EXAM Diabetic Retinopa thy Screening:: No Vascular DP PULSES (B): 2/4, B/L PT PULSES (B): 2/4, B/L CAPILLARY FILL TIME: 3 secs. per digit, B/L TEMPERTURE GRADIENT (C): warm to cool, p roximal to distal, B/L TROPHIC CONDITION-TEXTURE/ELASTICITY/TURGOR/HAIR GROWTH (B): normal, B/L Nails NAILS are: elongated,overgrown, dystrop hic, 2-5 B/L
== END 2024-12-25 10:57 | disposition home or self-care (01) ==
LOC: HO.HOS 10:24
PROVIDERS: PCP Internal Medicine; Visit Provider Orthopaedic Surgery
DX: M25.561 Pain in right knee (principal)
CPT/HCPCS: 99213; G2211

== ENCOUNTER → 2024-12-25 10:23 | Outpatient (BNVA) | payer MEDICARE, SELFPAY | PROVIDERS: PCP Internal Medicine; Visit Provider Orthopaedic Surgery | DX: M25.561 Pain in right knee (principal) | CPT/HCPCS: 99212 ==

== ENCOUNTER 2024-12-31 08:31 | Outpatient (REF) | payer MEDICARE, SELFPAY | END 2024-12-31 08:32 | disposition home or self-care (01) | LOC: HO.HOSX 08:31 | PROVIDERS: Visit Provider Orthopaedic Surgery | DX: M17.11 Unilateral primary osteoarthritis, right knee (principal); M25.561 Pain in right knee | CPT/HCPCS: 20610; 99212; J2003; J7318 ==

== ENCOUNTER 2024-12-31 14:32 | Outpatient (AMB) | payer MEDICARE, SELFPAY ==
[2024-12-31 14:36] VITALS: BMI 38.1
--- NOTE | 2024-12-31 14:36 | MHC.OFFVIS ---
Vital Signs 12/31/24 14:36 Height 5 ft 7 in Weight 243 lb BMI 38.1 Intake Visit Reasons: Right knee pain Intake Note: Silvano is an 79 year old male who presents with complaints of progressively worsening right knee pain. He describes his pain as sharp in nature. He has had cortisone injections which gave him minimal relief. He has also tried physical therapy exercises, Tylenol and anti-inflammatory medicines which gave him minimal relief. He wishes to hold off on surgery if at all possible. Allergies azithromycin [AZITHROMYCIN] Allergy (Unknown, Verified 12/31/24 14:39) HIVES lisinopril [LISINOPRIL] Allergy (Unknown, Verified 12/31/24 14:39) HIVES losartan [LOSARTAN] Allergy (Unknown, Verified 12/31/24 14:39) HIVES oxycodone [OXYCODONE] Allergy (Unknown, Verified 12/31/24 14:39) HIVES Medication List - Last Reconciled 12/31/24 by Gurmeet Ordaz MD acetaminophen (Tylenol) 650 mg PO Q6H PRN albuterol sulfate 2.5 mg inhalation Q6H PRN albuterol sulfate 90 mcg/actuation 2 puffs inhalation Q6H PRN 60 days allopurinol 100 mg PO DAILY 90 days atorvastatin 40 mg PO DAILY 90 days blood pressure monitor (Blood Pressure Kit) As directed blood sugar diagnostic (OneTouch Ultra Test strips) test 2 times per day blood sugar diagnostic One touch ULTRA TEst Strips check the BS 2x a day blood-glucose meter (ZestFinanceuch Ultra2 Meter kit) As directed cetirizine (Zyrtec) 10 mg PO DAILY cholecalciferol (vitamin D3) 10 mcg PO DAILY cyanocobalamin (vitamin B-12) 1,000 mcg PO DAILY dulaglutide (Trulicity) 3 mg (0.5 mL) subcut QWEEK fluticasone propion-salmeterol 250-50 mcg/dose (Wixela Inhub) 1 ea inhalation BID insulin degludec (Tresiba FlexTouch U-200 insulin) 52 units (0.26 mL) subcut DAILY lancets ([place] FertilityTouch UltraSoft Lancets) As directed check the blood sugars 4 times a day metformin 1,000 mg PO BID metoprolol succinate ER 100 mg PO DAILY naproxen 500 mg PO BID PRN 7 days peg 400-propylene glycol (PF) 0.4-0.3 % (Systane (PF)) 1 drp ophthalmic (eye) BID PRN pen needle, diabetic (Easy Touch) As directed pen needle, diabetic, safety (Easy Touch Safety Pen Needle) As directed inject twice a day [Prevagen 1 cap PO DAILY] pyridoxine (vitamin B6) 50 mg PO DAILY 90 days tamsulosin 0.4 mg PO BEDTIME 90 days vit C,G-Mk-iudew-lutein-zeaxan 250-90-40-1 mg (PreserVision AREDS-2) 1 tab PO BID [facility] Medical History (Updated 01/01/25 @ 07:50 by Gurmeet Ordaz MD) Obesity (BMI 30-39.9) AMY on CPAP Hypercholesterolemia Type 2 diabetes mellitus with hyperglycemia Hypoxemia Restrictive lung disease Abnormal LFTs Calcium oxalate calculus 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 Mother No problems noted. Son No problems noted. Son No problems noted. Daughter No problems noted. Daughter No problems noted. Social History Housing: House Alcohol intake: never Patient Tobacco Use Status: Former Tobacco user Tobacco use type: Cigarette Years Smoked: 1993 e-Cigarette/Vaping Use: Never Used Second Hand Smoke Exposure: No service: No Current occupational status: retired Cognitive needs: No Hearing needs: No Vision needs: Yes Physical Exam Vital Signs: BMI result Body Mass Index 38.1 Const Other: Well-nourished well-developed very friendly male awake alert and oriented x3 in no acute distress Extrem Other: Bilateral lower extremity examination shows good capillary refill, no skin lesions noted, normal sensation light touch Right knee examination shows a minimal effusion, palpable crepitus with range of motion, pain with range of motion, no instability Office Procedures AMB Joint Injection/Aspiration Joint Injection/Aspiration Primary Site: right knee Prep: site was prepped using aseptic technique Injected: 60 mg of (Durolane viscosupplementation) and 1% plain lidocaine Procedure: The patient tolerated the procedure well Coding - Large joint Procedure code (CPT) selection complete Results Reviewed Results Reviewed: X-rays of the patient's right knee taken previously show joint space narrowing, subchondral sclerosis, no acute bony abnormalities Assessment & Plan Assessment & Plan (1) Osteoarthritis of right knee: Code(s): M17.11 - Unilateral primary osteoarthritis, right knee Category: Medical (2) Right knee pain: Code(s): M25.561 - Pain in right knee Category: Medical Plan Mr. Walter presents with right knee pain due to osteoarthritis. The risks and benefits of a right knee Durolane viscosupplementation injection were discussed at length with the patient. The patient wished to proceed. He tolerated the injection well. He will continue with his home exercise program. He will contact me prior to his follow-up appointment in 3 months should any questions or concerns arise. Feel free to call me at any time should questions regarding his orthopedic management arise. I spent 22 minutes in reviewing the patient's records and imaging studies, seeing the patient and documenting in the medical record. Orders: Orders AMB Joint Injection/Aspiration 12/31/24 M17.11 - Unilateral primary osteoarthritis, right knee Coding Level of Care Code Est Pt Level 3 (20267) Complex EM visit Add On G2211 Diagnoses Osteoarthritis of right knee M17.11 Right knee pain M25.561 CPT Codes Coding - Large joint: 97653 - Large joint ([id number])
--- OUTSIDE RECORDS SUMMARY | 2024-12-31 17:17 | XMS_ITS ---
Author Organization [facility] Address [address] [facility] [place] [address] Care Team Providers Care Marketing Programs Manager Name Role Phone Homer Akers Primary Care Provider Unavailabl e Black, Zuly Unavailable [phone] Allergies Allergen (clinical drug ingredient) Drug/Non Drug [...] Prod 50 MG as directed Orally Not-Sergey novoazzExtra Depth Orthopedic Shoes (1 Pair) with Customized [...] Problem Status W/U Status Risk Notes Problem 396498737 Hammer toe of right foot (M20.41) Active confirmed Problem 924676290 Hammer toe of left foot (M20.42) Active confirmed Vital Signs Height 5 ft 7 in in 10/26/2023 Weight 243 lbs 10/26/2023 BMI 38.06 kg/m2 10/26/2023 Procedures Procedure Date Ordered Date Performed Result Body Sit e 34841-Guspynhe Plate 10/26/2023 N/A 52476-Jxhnzixg Plate Each Additional 10/26/2023 N/A 70227-FEVW SKIN LESIONS, 2 TO 4 10/26/2023 N/A P9796-DXDIBKPB DYSTROPHIC NAILS ANY # 10/26/2023 N/A Encounters Encounter Location Date Provider Diagnosis [facility] [address] [place] [address] 10/26/2023 Zuly Black Ingrown nail L60.0 ; [...] INSTRUCTIONS.pdf) Pending Test Test Name Order Date 14968-Xblrwazt Plate 10/26/2023 03782-Fxmqodrm Plate Each Additional 08/2024 40915-AIMN SKIN LESIONS, 2 TO 4 10/26/19 24 U2619-VYBBDCMR DYSTROPHIC NAILS ANY # Next Appt Details Follow Up: 1 Year, Reason: Provider Name:Zuly Pablo , 04/24/2025 08:00:00 AM, [address] [place] [address], [phone], Procedure Notes * Category Sub-Category Detail Notes [...] Motrin was recommended for pain or discomfort (90060/2) , DIABETES: Matricectomy deferred at this time due to diabetes risk Anesthesia was deferred - NEURO CARLYN: patient has medically documented neuropathic condition affecting sensation , Location Medial nail border, T5 , TA Keratoma Treatment Parring or Cutting o f Benign Hyperkeratotic Lesion(s) 25326 (2-4 Lesions) - The Benign hyperkeratotic lesions, [...] tissue 6-10 (G0127) Progress Notes * Silvano GUERRERO LDOB:1945 (79 yo M)Acc No.[id number]:10/26/2023 Progress Note Patient:?Silvano GUERRERO Provider:?Zuly Pablo DPM :1945???Age:78 Y???Sex:Male Drew e:10/26/2023 Address:[address] [place] [address] [phone] Pcp:Homer Akers Subjective: * Chief Complaints: * [...] ?Marital status: . ?Occupation: retired worked at [employer]. * Medications:?Takingoxygen Vi tamin D3 B12 Prevagen [...] k.22 kg. * ???Past Orders: Lab:HEMOGLOBIN A1C (GLYCOHEM OGLOBIN) * Collection Date 10/26/2023 10/26/2023 Collection Time [...] Procedures:?Keratoma Treatment:?Parring or Cutting of Benign Hyperkeratotic Lesion(s)?23673 (2-4 Lesions) - The Benign hyperkeratotic lesions, [...] Motrin was recommended for pain or discomfort (75192/2) , DIABETES: Matricectomy deferred at this time due to diabetes risk.?Nail Reduction:?Nail Reduction?Trimming of dystrophic nails performed to reduce/remove overall nail length and girth, by manual and electrical means with use of a nail nipper and/or dremel, to more viable healthy nail plate or bed tissue 6-10 (G0127).? * Procedure Orders:? * ?Procedure: 75696-Qtcaou on Plate Each Additional ?Procedure: 06656-Ooznya on Plate * Procedure Codes:?48907 TRIM SKIN LESIONS, 2 TO 4, Modifiers: XS 35676 Avulsion Plate, [place]: [place] [address] Avulsion Plate Each Additional, Modifiers: T5 G0127 [...] status: Completed true * Provider:Sanya Pablo DPM Date:?2023 Generated for Noahi jason/Maico/eTransmitting on:?12/31/2024 05:17 PM EDT History and Physical Notes * HPI [...]
--- OUTSIDE RECORDS SUMMARY | 2024-12-31 17:17 | XMS_ITS | Patient Health Record ---
Author Organization [facility] Address [address] [facility] [place] [address] Care Team Providers Care Sales Representative Graphic Art Name Role Phone Homer Akers Primary Care Provider Mason Huntermie Unavailable [phone] Allergies Allergen (clinical drug ingredient) Drug/Non Drug [...] Problem Acquired hammer toe of right foot (5160338929039599 ) Other hammer toe(s) (acquired), right foot (M20.41) Active confirmed Problem Acquired hammer toe of left foot (6274017240690011 ) Other hammer toe(s) (acquired), left foot (M20.42) Active confirmed Problem Polyneuropathy due to type 2 diabetes mellitus (739911071) Type 2 diabetes mellitus with diabetic polyneuropathy (E11.42) Active confirmed Problem 030555730 Hammer toe of right foot (M20.41) Active confirmed Problem 735853079 Hammer toe of left foot (M20.42) Active confirmed Vital Signs Blood pressure diastolic 78 mm Hg 10/24/2024 Height 5 ft 7 in in 10/24/2024 Blood pressure systolic 121 mm Hg 10/24/2024 Weight 245 lbs 10/24/2024 BMI 38.37 kg/m2 10/24/2024 Procedures Procedure Date Ordered Date Performed Result Body Sit e 19649-Fjlcwpuo Plate 10/24/2024 N/A 52797-YMEY SKIN LESIONS, 2 TO 4 10/24/2024 N/A T9958-KXSLFZDG DYSTROPHIC NAILS ANY # 10/24/2024 N/A Encounters Encounter Location Date Provider Diagnosis [facility] [address] [place] [address] 10/24/2024 Uzly Black Type 2 diabetes mellitus with diabetic [...] Treatment Pending Test Test Name Order Date 51403-CFEQUNJ NAIL, 1-5 12/26/2011 58266-GPLDXLU NAIL, 1-5 09/24/2012 24301-IEMFIXP NAIL, 1-5 09/23/2013 70919-OAMZSAR NAIL, 1-5 01/29/2014 57022-GAWLKEC NAIL, 1-5 09/22/2014 47738-Jvwhdvld Plate 09/22/2014 41676-Cgzsyqeb Plate 01/29/2014 43028-Zpfclqtr Plate 09/22/2016 67170-Vnqilhlk Plate 09/23/2013 62374-Jkcbezin Plate 09/24/2018 70539-Ertwhbct Plate 09/24/2020 37795-Hwvxzwun Plate 10/21/2021 95307-Hwthlfzc Plate 10/24/2022 69216-Ptokawep Plate 10/26/2023 07415-Dxuiobaq Plate 10/24/2024 19069-Nwveyvfv Plate Each Additional 08/2024 93696-Wdqloiel Plate Each Additional 06/2023 03369-Hsqzrmrw Plate Each Additional 03/2022 23432-AGFX SKIN LESIONS, 2 TO 4 10/24/19 23 91843-XQLI SKIN LESIONS, 2 TO 4 09/24/20 20 91354-TAZK SKIN LESIONS, 2 TO 4 10/21/19 22 74397-DGXJ SKIN LESIONS, 2 TO 4 09/26/20 19 83282-OVKQ SKIN LESIONS, 2 TO 4 09/24/20 18 17641-HOCF SKIN LESIONS, 2 TO 4 09/25/20 17 66341-SWQM SKIN LESIONS, 2 TO 4 01/30/20 14 09374-VYTC SKIN LESIONS, 2 TO 4 09/23/20 13 45669-VLWC SKIN LESIONS, 2 TO 4 09/24/20 12 23780-UYRO SKIN LESIONS, 2 TO 4 09/22/20 14 42029-KWGS SKIN LESIONS, 2 TO 4 09/21/20 15 04716-AVRO SKIN LESIONS, 2 TO 4 09/22/20 16 75735-QXBS SKIN LESIONS, 2 TO 4 10/26/19 24 65583-KHKU SKIN LESIONS, 2 TO 4 10/24/19 25 61522-IYWT NAIL(S) 09/22/2014 55328-LHPC NAIL(S) 09/23/2013 39553-VGNZ NAIL(S) 01/29/2014 C4084-UEQZDRCP DYSTROPHIC NAILS ANY # I6236-XEGVINCU DYSTROPHIC NAILS ANY # N6635-UJZRZPEJ DYSTROPHIC NAILS ANY # Q2286-SQPDVYJF DYSTROPHIC NAILS ANY # S4865-QWYTSOOV DYSTROPHIC NAILS ANY # C3786-GOHVNKAT DYSTROPHIC NAILS ANY # X5931-NOMTPYIE DYSTROPHIC NAILS ANY # C8922-MCGTLMAF DYSTROPHIC NAILS ANY # A2664-AKCOZJTM DYSTROPHIC NAILS ANY # K5998-MKLIDYKO DYSTROPHIC NAILS ANY # Next Appt Details Provider Name:Zuly Pablo , 04/24/2025 08:00:00 AM, [address] [place] [address], [phone], Insurance Providers Payer Name Payer Address Payer Phone Subscriber Number Group Number Insured Name Patient Relationship to Insured Coverage Start Date Coverage End Date Medicare [facility] [address] [place] [address] [id number] Silvano Walter Self - patient is the insured [employer] [address] [place] [address] [id number] Silvano Walter Self - patient is the insured Medical (General) History Medical History History ICD Code hypercholesterolemia hypertension benign prostatic hyperplasia (BPH) lumbar stenosis kidney stones type II diabetes Surgical History Surgery Date(Month/Year) appendectomy spinal fusion inguinal hernia repair 2016
--- OUTSIDE RECORDS SUMMARY | 2024-12-31 17:17 | XMS_ITS ---
Author Organization [facility] Address [address] [place] [address] Care Team Providers Care Silver Wrapper Name Role Phone Homer Akers Primary Care Provider Unavaildrake Pablo Zuly Unavailable [phone] Juan Cardenas [phone] REASON FOR VISIT error-booked with wrong doctor Encounters Encounter Location Date Provider Diagnosis [address] [address] 10/25/2023 Juan Cardenas Plan Of Treatment Next Appt Details Provider Name:Zuly Pablo , 04/24/2025 08:00:00 AM, [address] [place] [address], [phone], Progress Notes * Silvano WALTER LDOB:1945 (79 yo M)Acc No.[id number]:10/25/2023 Progress Note Patient:?Silvano WALTER Provider:?Juan Cardenas DPM :1945???Age:78 Y???Sex:Male Drew e:10/25/2023 Address:[address] [place] [address] [id number] Pcp:Homer Akers Subjective: * Chief Complaints: * [...] DPM Date:? 024 Generated for Kaitlyn gomez/Maico/Leonard on:?12/31/2024 05:17 PM EDT
--- OUTSIDE RECORDS SUMMARY | 2024-12-31 17:17 | XMS_ITS ---
Author Organization [facility] Address [address] [facility] [place] [address] Care Team Providers Care Boat Repairer Name Role Phone Homer Akers Primary Care Provider Unavailabl e Black, Zuly Unavailable [phone] Allergies Allergen (clinical drug ingredient) Drug/Non Drug [...] Problem Acquired hammer toe of right foot (7916106389163 105) Other hammer toe(s) (acquired), right foot (M20.41) Active confirmed Problem Acquired hammer toe of left foot (5183825420446 103) Other hammer toe(s) (acquired), left foot (M20.42) Active confirmed Vital Signs Height 5 ft 7 in in 10/24/2024 Weight 245 lbs 10/24/2024 BMI 38.37 kg/m2 10/24/2024 Blood pressure systolic 121 mm Hg 10/24/19 25 Blood pressure diastolic 78 mm Hg 025 Procedures Procedure Date Ordered Date Performed Result Body Sit e 72521-Nkfniivv Plate 10/24/2024 N/A 24612-YXNB SKIN LESIONS, 2 TO 4 10/24/2024 N/A Y1267-VIYVXIAW DYSTROPHIC NAILS ANY # 10/24/2024 N/A Encounters Encounter Location Date Provider Diagnosis [facility] [address] [address] 10/24/2024 Zuly Black Type 2 diabetes mellitus [...] INSTRUCTIONS.pdf) Pending Test Test Name Order Date 09803-Zxjgokpk Plate 10/24/2024 82521-RQLL SKIN LESIONS, 2 TO 4 10/24/19 25 H3142-EUZCJTYK DYSTROPHIC NAILS ANY # Next Appt Details Follow Up: 2 Weeks,prn, Reas on: Provider Name:Zuly A Samy , 04/24/2025 08:00:00 AM, [address] [place] [address], [phone], Procedure Notes * Category Sub-Category Detail Notes [...] Motrin was recommended for pain or discomfort (08331) , DIABETES: Matricectomy deferred at this time [...] instrumentation by the physician of record - 75404 Nail Reduction Nail Reduction (-27) Trimming o [...] * Silvano WALTER LDOB:1945 (79 yo M)Acc No.[id number]:10/24/2024 Progress Note Patient:?Silvano WALTER Sam Provider:?Zuly Pablo DPM :1945???Age:79 Y???Sex:Male Drew e:10/24/2024 Address:[address] [place] [id number] Pcp:Homer Akers Subjective: * Chief Complaints: * [...] 2.?Type 2 diabetes mellitus with diabetic polyneuropathy?Procedure: 86298-NBTO SKIN LESIONS, 2 TO 4 ?Procedure: N5881-LKAVALFP DYSTROPHIC NAILS ANY # Notes: Patient Educated with: DIABETIC FOOT CARE INSTRUCTIONS.pdf (DIABETIC FOOT CARE INSTRUCTIONS.pdf)?? 3.?Ingrown nail?Procedure: 06449-Ayvvgxbw Plate 4.?Xerosis of skin? Start Ammonium Lactate [...] instrumentation by the physician of record - 84707.?Nail Avulsion:?Location?Medial nail border, T5?.?Anesthesia?was deferred - NEUROPATHY: [...] Motrin was recommended for pain or discomfort (75919) , DIABETES: Matricectomy deferred at this time [...] or bed tissue - G0127.? * Procedure Codes:?01767 TRIM SKIN LESIONS, 2 TO 4, Modifiers: XS 47912 Avulsion Plate, Modifiers: T5 G0127 TRIMMING DYSTROPHIC [...] Pablo DPM Date:?2024 Generated for Kaitlyn gomez/Maico/Leonard on:?12/31/2024 05:17 PM EDT History and Physical [...]
== END 2024-12-31 15:03 | disposition home or self-care (01) ==
LOC: HO.HOS 14:33
PROVIDERS: PCP Internal Medicine; Visit Provider Orthopaedic Surgery
DX: M17.11 Unilateral primary osteoarthritis, right knee (principal)
CPT/HCPCS: 20610; 99213

== ENCOUNTER 2025-01-23 13:44 | Outpatient (AMB) | payer MEDICARE, SELFPAY ==
--- NOTE | 2025-01-23 13:51 | MHC.OFFVIS ---
Intake Visit Reasons: Follow up US(set) Intake Note: Patient is present for US F/U Urology Medication:ALLOPURINOL,VITAMIN B6,TAMSULOSIN,VITAMIN B12 Antibiotic Allergy:AZITHROMYCIN Blood Thinner:NONE General Foundry Worker Required: No Allergies azithromycin [AZITHROMYCIN] Allergy (Unknown, Verified 01/23/25 13:53) HIVES lisinopril [LISINOPRIL] Allergy (Unknown, Verified 01/23/25 13:53) HIVES losartan [LOSARTAN] Allergy (Unknown, Verified 01/23/25 13:53) HIVES oxycodone [OXYCODONE] Allergy (Unknown, Verified 01/23/25 13:53) HIVES HPI Comments Details: Silvano is a pleasant male. He is a patient of Dr. Akers. Seen for the following urologic conditions - nephrolithiasis Large ureteroscopy performed Mixed Stone composition Start allopurinol with vitamin B6 Nephrolithiasis Minimal stone recurrence Twelve month follow-up imaging Encourage fluids Imaging - 12/07 right upper ureteric stone, multiple stones left side - 04/06 renal ultrasound bilateral 6 mm stones - 11/07 KUB 5mm left - 11/08 renal ultrasound small stone left side Intervention - 12/07 right ureteroscopy, 02/04 left ureteroscopy, 03/08 left ureteroscopy Stone composition - 12/07 calcium oxalate monohydrate 80% - 03/08 Calcium Oxalate Dihydrate (Weddellite) 20%Calcium Oxalate Monohydrate (Whewellite) 80% Twenty-four urine - 01/04 low volume, low sodium, moderate oxalate, low citrate, low pH - Associated comorbidities diabetes - 11/07 8.1 Therapeutic plan -continue potassium citrate, 12 month follow-up imaging [facility] Medical History (Updated 01/01/25 @ 07:50 by Gurmeet Ordaz MD) Obesity (BMI 30-39.9) AMY on CPAP Hypercholesterolemia Type 2 diabetes mellitus with hyperglycemia Hypoxemia Restrictive lung disease Abnormal LFTs Calcium oxalate calculus 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 Mother No problems noted. Son No problems noted. Son No problems noted. Daughter No problems noted. Daughter No problems noted. Social History Housing: House Alcohol intake: never Patient Tobacco Use Status: Former Tobacco user Tobacco use type: Cigarette Years Smoked: 1993 e-Cigarette/Vaping Use: Never Used Second Hand Smoke Exposure: No service: No Current occupational status: retired Cognitive needs: No Hearing needs: No Vision needs: Yes Assessment & Plan Assessment & Plan (1) Right ureteral stone: Comment: November 2021 cystoscopy with right stent placement Dr. Serna February 2022 right ureteral dilatation Code(s): N20.1 - Calculus of ureter Category: Medical (2) Bladder calculi: Comment: December 2023 Code(s): N21.0 - Calculus in bladder Category: Medical Plan Twelve month follow-up renal ultrasound labs Orders: Orders US renal BI 6 Months N20.0 - Calculus of kidney Medications: Refilled tamsulosin 0.4 mg PO BEDTIME 90 days 90 caps 3RF N20.0 - Calculus of kidney allopurinol 100 mg PO DAILY 90 days 90 tabs 3RF N20.0 - Calculus of kidney, N20.1 - Calculus of ureter pyridoxine (vitamin B6) 50 mg PO DAILY 90 days 90 tabs 3RF N20.0 - Calculus of kidney, N20.1 - Calculus of ureter Patient Instructions: This note is constructed using voice recognition software. While every effort has been made to ensure accuracy receiver bulk system errors may have been included. Imaging studies, laboratory and physical exam results were discussed and reviewed in detail. No major barriers to patient understanding were identified. An opportunity to ask questions regarding the treatment plan was provided. All questions were answered. The patient expressed understanding and agreement with the above treatment plan. The patient is aware they should contact our office by phone for worsening of their current condition or the appearance of new urologic symptoms. Compliance is encouraged with any medications and followup testing that is ordered. It is a privilege to participate in the urologic care of your patient. If you have any questions or concerns regarding treatment for the above conditions, or other urologic issues, please do not hesitate to contact me. The office telephone contact is [phone]. Sincerely, Dr Nakul Serna MD, [facility] - Urology Compassionate Specialist Care for the Genitourinary System Coding Level of Care Code Est Pt Level 3 (98900) Diagnoses Right ureteral stone N20.1 Bladder calculi N21.0
--- OUTSIDE RECORDS SUMMARY | 2025-01-23 16:36 | XMS_ITS ---
Author Organization [facility] Address [address] [place] [address] Care Team Providers Care Mental Health Nurse Name Role Phone Homer Akers Primary Care Provider Unavaildrake Pablo Zuly Unavailable [phone] Juan Cardenas [phone] REASON FOR VISIT error-booked with wrong doctor Encounters Encounter Location Date Provider Diagnosis [address] [address] 10/25/2023 Juan Cardenas Plan Of Treatment Next Appt Details Provider Name:Zuly Pablo , 04/24/2025 08:00:00 AM, [address] [place] [address], [phone], Progress Notes * Silvano WALTER LDOB:1945 (79 yo M)Acc No.[id number]:10/25/2023 Progress Note Patient:?Silvano WALTER Provider:?Juan Cardenas DPM :1945???Age:78 Y???Sex:Male Drew e:10/25/2023 Address:[address] [place] [address] [id number] Pcp:Homer Akers Subjective: * Chief Complaints: * [...] DPM Date:? 024 Generated for Kaitlyn gomez/Maico/Leonard on:?01/23/2025 04:35 PM EDT
--- OUTSIDE RECORDS SUMMARY | 2025-01-23 16:36 | XMS_ITS ---
Author Organization [facility] Address [address] [facility] [address] Care Team Providers Care Project Administrative Assistant Name Role Phone Homer Akers Primary Care Provider Unavailabl e Black, Zuly Unavailable [phone] Allergies Allergen (clinical drug ingredient) Drug/Non Drug [...] Problem Status W/U Status Risk Notes Problem 640299318 Hammer toe of right foot (M20.41) Active confirmed Problem 726710670 Hammer toe of left foot (M20.42) Active confirmed Vital Signs Height 5 ft 7 in in 10/26/2023 Weight 243 lbs 10/26/2023 BMI 38.06 kg/m2 10/26/2023 Procedures Procedure Date Ordered Date Performed Result Body Sit e 74831-Sgvgxapy Plate 10/26/2023 N/A 02138-Awlmkezh Plate Each Additional 10/26/2023 N/A 12711-KBDR SKIN LESIONS, 2 TO 4 10/26/2023 N/A D6003-VSYEYAXV DYSTROPHIC NAILS ANY # 10/26/2023 N/A Encounters Encounter Location Date Provider Diagnosis [facility] [place] [address] [place] [address] 10/26/2023 Zuly Black Ingrown nail L60.0 ; [...] INSTRUCTIONS.pdf) Pending Test Test Name Order Date 21321-Tkyidltd Plate 10/26/2023 42195-Eilljsrz Plate Each Additional 08/2024 15944-CARW SKIN LESIONS, 2 TO 4 10/26/19 24 L1603-ANEBJQBA DYSTROPHIC NAILS ANY # Next Appt Details Follow Up: 1 Year, Reason: Provider Name:Zuly Pablo , 04/24/2025 08:00:00 AM, [address] [place] [address], [phone], Procedure Notes * Category Sub-Category Detail Notes [...] Motrin was recommended for pain or discomfort (76734/2) , DIABETES: Matricectomy deferred at this time due to diabetes risk Anesthesia was deferred - NEURO CARLYN: patient has medically documented neuropathic condition affecting sensation , Location Medial nail border, T5 , TA Keratoma Treatment Parring or Cutting o f Benign Hyperkeratotic Lesion(s) 66471 (2-4 Lesions) - The Benign hyperkeratotic lesions, [...] * Silvano GUERRERO LDOB:1945 (79 yo M)Acc No.[id number]:10/26/2023 Progress Note Patient:?Silvano GUERRERO Provider:?Zuly Pablo DPM :1945???Age:78 Y???Sex:Male Drew e:10/26/2023 Address:[address] [place] [address] [id number] Pcp:Homer Akers Subjective: * Chief Complaints: * [...] ?Marital status: . ?Occupation: retired worked at [employer]. * Medications:?Takingoxygen Vi tamin D3 B12 Prevagen [...] Procedures:?Keratoma Treatment:?Parring or Cutting of Benign Hyperkeratotic Lesion(s)?22301 (2-4 Lesions) - The Benign hyperkeratotic lesions, [...] Motrin was recommended for pain or discomfort (99131/2) , DIABETES: Matricectomy deferred at this time due to diabetes risk.?Nail Reduction:?Nail Reduction?Trimming of dystrophic nails performed to reduce/remove overall nail length and girth, by manual and electrical means with use of a nail nipper and/or dremel, to more viable healthy nail plate or bed tissue 6-10 (G0127).? * Procedure Orders:? * ?Procedure: 38747-Sbpltz on Plate Each Additional ?Procedure: 19880-Phsstj on Plate * Procedure Codes:?88323 TRIM SKIN LESIONS, 2 TO 4, Modifiers: XS 93281 Avulsion Plate, [place]: [place] [address]007 Avulsion Plate Each Additional, Modifiers: T5 G0127 [...] Pablo DPM Date:?2023 Generated for Noahi jason/Maico/eTransmitting on:?01/23/2025 04:35 PM EDT History and Physical Notes * [...]
--- OUTSIDE RECORDS SUMMARY | 2025-01-23 16:36 | XMS_ITS | Patient Health Record ---
Author Organization [facility] Address [address] [place] [address] Care Team Providers Care Copy Reader Name Role Phone Homer Akers Primary Care Provider Mason Huntermie Unavailable [phone] Allergies Allergen (clinical drug ingredient) Drug/Non Drug [...] Problem Acquired hammer toe of right foot (2101008173869442 ) Other hammer toe(s) (acquired), right foot (M20.41) Active confirmed Problem Acquired hammer toe of left foot (1888028531072499 ) Other hammer toe(s) (acquired), left foot (M20.42) Active confirmed Problem Polyneuropathy due to type 2 diabetes mellitus (276352561) Type 2 diabetes mellitus with diabetic polyneuropathy (E11.42) Active confirmed Problem 362623011 Hammer toe of right foot (M20.41) Active confirmed Problem 509469500 Hammer toe of left foot (M20.42) Active confirmed Vital Signs Blood pressure diastolic 78 mm Hg 10/24/2024 Height 5 ft 7 in in 10/24/2024 Blood pressure systolic 121 mm Hg 10/24/2024 Weight 245 lbs 10/24/2024 BMI 38.37 kg/m2 10/24/2024 Procedures Procedure Date Ordered Date Performed Result Body Sit e 74799-Xrymltoi Plate 10/24/2024 N/A 91564-ERPO SKIN LESIONS, 2 TO 4 10/24/2024 N/A C9505-RWAMVDLW DYSTROPHIC NAILS ANY # 10/24/2024 N/A Encounters Encounter Location Date Provider Diagnosis [facility] [address] [place] [address] 10/24/2024 Zuly Black Type 2 diabetes mellitus [...] Treatment Pending Test Test Name Order Date 59219-MMXLBVM NAIL, 1-5 12/26/2011 01750-MVAZJAB NAIL, 1-5 09/24/2012 52710-SOAXTKY NAIL, 1-5 09/23/2013 40483-PELIBJE NAIL, 1-5 01/29/2014 88668-BTIQVOI NAIL, 1-5 09/22/2014 63536-Fnrtboxb Plate 09/22/2014 40971-Etwvlhvn Plate 01/29/2014 33025-Wvfwzeph Plate 09/22/2016 40386-Xgexarxc Plate 09/23/2013 87643-Flveodrd Plate 09/24/2018 33911-Qifjnegt Plate 09/24/2020 08228-Ikzfwwwd Plate 10/21/2021 27805-Akkrtcmq Plate 10/24/2022 90933-Uqhxncru Plate 10/26/2023 68303-Jgqwpuoo Plate 10/24/2024 28795-Lydkpmqj Plate Each Additional 08/2024 95362-Mgcuorjo Plate Each Additional 06/2023 32171-Irsqduwy Plate Each Additional 03/2022 11206-FIDI SKIN LESIONS, 2 TO 4 10/24/19 23 10022-RHAC SKIN LESIONS, 2 TO 4 09/24/20 20 72594-GUOD SKIN LESIONS, 2 TO 4 10/21/19 22 23617-GPNG SKIN LESIONS, 2 TO 4 09/26/20 19 92502-FNDT SKIN LESIONS, 2 TO 4 09/24/20 18 13980-FGAM SKIN LESIONS, 2 TO 4 09/25/20 17 39327-BWCK SKIN LESIONS, 2 TO 4 01/30/20 14 04032-ELFW SKIN LESIONS, 2 TO 4 09/23/20 13 23590-HFUU SKIN LESIONS, 2 TO 4 09/24/20 12 74251-VTIL SKIN LESIONS, 2 TO 4 09/22/20 14 55304-CYQC SKIN LESIONS, 2 TO 4 09/21/20 15 33378-HLTW SKIN LESIONS, 2 TO 4 09/22/20 16 10656-YUYJ SKIN LESIONS, 2 TO 4 10/26/19 24 93863-ZSDG SKIN LESIONS, 2 TO 4 10/24/19 25 31168-HJUJ NAIL(S) 09/22/2014 19520-VDUJ NAIL(S) 09/23/2013 64920-FZTP NAIL(S) 01/29/2014 G0981-JQUTKPSH DYSTROPHIC NAILS ANY # I6487-FISBORIX DYSTROPHIC NAILS ANY # Z3540-NHNOATSB DYSTROPHIC NAILS ANY # Y4746-VPXUHEEI DYSTROPHIC NAILS ANY # N9974-HDIFNBBJ DYSTROPHIC NAILS ANY # L4792-ABETVSAD DYSTROPHIC NAILS ANY # X1483-UTTSUZTH DYSTROPHIC NAILS ANY # P5410-TOWFOUFI DYSTROPHIC NAILS ANY # E7551-NJAJEJXZ DYSTROPHIC NAILS ANY # D0259-ZLTXUMFW DYSTROPHIC NAILS ANY # Next Appt Details Provider Name:Zuly Pablo , 04/24/2025 08:00:00 AM, [address] [place] [address], [phone], Insurance Providers Payer Name Payer Address Payer Phone Subscriber Number Group Number Insured Name Patient Relationship to Insured Coverage Start Date Coverage End Date Medicare [facility] [address] [place] [address] [id number] Silvano Walter Self - patient is the insured [employer] [address] [place] [address] [phone] [id number] Silvano Walter Self - patient is the insured Medical (General) History Medical History History ICD Code hypercholesterolemia hypertension benign prostatic hyperplasia (BPH) lumbar stenosis kidney stones type II diabetes Surgical History Surgery Date(Month/Year) appendectomy spinal fusion inguinal hernia repair 2016
--- OUTSIDE RECORDS SUMMARY | 2025-01-23 16:36 | XMS_ITS ---
Author Organization [facility] Address [address] [place] [address] Care Team Providers Care Manager Education Name Role Phone Homer Akers Primary Care Provider Unavailabl e Black, Zuly Unavailable [phone] Allergies Allergen (clinical drug ingredient) Drug/Non Drug [...] Problem Acquired hammer toe of right foot (4241788393903 105) Other hammer toe(s) (acquired), right foot (M20.41) Active confirmed Problem Acquired hammer toe of left foot (7240129106128 103) Other hammer toe(s) (acquired), left foot (M20.42) Active confirmed Vital Signs Height 5 ft 7 in in 10/24/2024 Weight 245 lbs 10/24/2024 BMI 38.37 kg/m2 10/24/2024 Blood pressure systolic 121 mm Hg 10/24/19 25 Blood pressure diastolic 78 mm Hg 025 Procedures Procedure Date Ordered Date Performed Result Body Sit e 76518-Rrsvvfrk Plate 10/24/2024 N/A 06198-WDTB SKIN LESIONS, 2 TO 4 10/24/2024 N/A X2115-UOGVOCBP DYSTROPHIC NAILS ANY # 10/24/2024 N/A Encounters Encounter Location Date Provider Diagnosis [facility] [address] [address] 10/24/2024 Zuly Black Type 2 diabetes mellitus [...] INSTRUCTIONS.pdf) Pending Test Test Name Order Date 68984-Kgwpjzxn Plate 10/24/2024 48749-IQCY SKIN LESIONS, 2 TO 4 10/24/19 25 X5462-VLFUZYHT DYSTROPHIC NAILS ANY # Next Appt Details Follow Up: 2 Weeks,prn, Reas on: Provider Name:Zuly A Samy , 04/24/2025 08:00:00 AM, [address] [place] [address], [phone], Procedure Notes * Category Sub-Category Detail Notes [...] Motrin was recommended for pain or discomfort (75155) , DIABETES: Matricectomy deferred at this time [...] instrumentation by the physician of record - 48413 Nail Reduction Nail Reduction (-27) Trimming o [...] * Silvano WALTER LDOB:1945 (79 yo M)Acc No.[id number]:10/24/2024 Progress Note Patient:?Silvano WALTER Sam Provider:?Zuly Pablo DPM :1945???Age:79 Y???Sex:Male Drew e:10/24/2024 Address:[address] [place] [id number] Pcp:Homer Akers Subjective: * Chief Complaints: * [...] distress- pt on O2.?ORIENTED:?person, place, and time.?FOOT EXAM:?Lower9 ???$ M]0???]? t m??? logo???al Exam performed:?Yes ?Visual exam of foot performed:?Yes [...] 2.?Type 2 diabetes mellitus with diabetic polyneuropathy?Procedure: 38794-YITF SKIN LESIONS, 2 TO 4 ?Procedure: T8575-BPUVXVAU DYSTROPHIC NAILS ANY # Notes: Patient Educated with: DIABETIC FOOT CARE INSTRUCTIONS.pdf (DIABETIC FOOT CARE INSTRUCTIONS.pdf)?? 3.?Ingrown nail?Procedure: 90097-Iifkpgre Plate 4.?Xerosis of skin? Start Ammonium Lactate [...] instrumentation by the physician of record - 27602.?Nail Avulsion:?Location?Medial nail border, T5?.?Anesthesia?was deferred - NEUROPATHY: [...] Motrin was recommended for pain or discomfort (55289) , DIABETES: Matricectomy deferred at this time [...] or bed tissue - G0127.? * Procedure Codes:?75435 TRIM SKIN LESIONS, 2 TO 4, Modifiers: XS 51496 Avulsion Plate, Modifiers: T5 G0127 TRIMMING DYSTROPHIC [...] Pablo DPM Date:?2024 Generated for Kaitlyn gomez/Maico/Leonard on:?01/23/2025 04:35 PM EDT History and Physical [...] stocking fashion, no fissure(s) present, B/L Orthopedic FOOTWEAR EVALUATION: worn, non-s upportive, shoe gear properties exacerbate patient's foot/toe deformity [...]
== END 2025-01-23 14:24 | disposition home or self-care (01) ==
LOC: HO.HUSH 13:45
PROVIDERS: PCP Internal Medicine; Visit Provider Urology
DX: N20.1 Calculus of ureter (principal); N21.0 Calculus in bladder
CPT/HCPCS: 99213

== ENCOUNTER → 2025-01-23 13:44 | Outpatient (BNVA) | payer MEDICARE, SELFPAY | PROVIDERS: PCP Internal Medicine; Visit Provider Urology | DX: N20.1 Calculus of ureter (principal); N21.0 Calculus in bladder; N20.0 Calculus of kidney | CPT/HCPCS: 99212 ==

== ENCOUNTER 2025-02-05 11:26 | Outpatient (AMB) | payer MEDICARE, SELFPAY ==
[2025-02-05 11:36] VITALS: BP 132/68; PULSE 91; O2SAT 96; BMI 38.5
--- NOTE | 2025-02-05 11:36 | AM.OFFVISMDC ---
Intake Vital Signs 02/05/25 11:36 Height 5 ft 7 in Weight 246 lb BMI 38.5 BP 132/68 Blood Pressure Location Lt brachial Position Sitting Pulse 91 Pulse Source Pulse Oximeter Pulse Oximetry (%) 96 Oxygen Delivery Method Nasal Cannula Intake Visit Reasons: SWKannan [id number] Allergies azithromycin [AZITHROMYCIN] Allergy (Unknown, Verified 02/05/25 11:36) HIVES lisinopril [LISINOPRIL] Allergy (Unknown, Verified 02/05/25 11:36) HIVES losartan [LOSARTAN] Allergy (Unknown, Verified 02/05/25 11:36) HIVES oxycodone [OXYCODONE] Allergy (Unknown, Verified 02/05/25 11:36) HIVES Medication List - Last Reconciled 02/05/25 by Homer Akers MD acetaminophen (Tylenol) 650 mg PO Q6H PRN albuterol sulfate 2.5 mg inhalation Q6H PRN albuterol sulfate 90 mcg/actuation 2 puffs inhalation Q6H PRN 60 days allopurinol 100 mg PO DAILY 90 days aspirin (Adult Aspirin Regimen) 81 mg PO DAILY atorvastatin 40 mg PO DAILY 90 days blood pressure monitor (Blood Pressure Kit) As directed blood sugar diagnostic (OneTouch Ultra Test strips) test 2 times per day blood sugar diagnostic One touch ULTRA TEst Strips check the BS 2x a day blood-glucose meter ([employer] ([employer]) Ultra2 Meter kit) As directed cetirizine (Zyrtec) 10 mg PO DAILY cholecalciferol (vitamin D3) 10 mcg PO DAILY cyanocobalamin (vitamin B-12) 1,000 mcg PO DAILY dulaglutide (Trulicity) 3 mg (0.5 mL) subcut QWEEK fluticasone propion-salmeterol 250-50 mcg/dose (Wixela Inhub) 1 ea inhalation BID insulin degludec (Tresiba FlexTouch U-200 insulin) 52 units (0.26 mL) subcut DAILY lancets ([employer] ([employer]) UltraSoft Lancets) As directed check the blood sugars 4 times a day metformin 1,000 mg PO BID metoprolol succinate ER 100 mg PO DAILY peg 400-propylene glycol (PF) 0.4-0.3 % (Systane (PF)) 1 drp ophthalmic (eye) BID PRN pen needle, diabetic (Easy Touch) As directed pen needle, diabetic, safety (Easy Touch Safety Pen Needle) As directed inject twice a day [Prevagen 1 cap PO DAILY] pyridoxine (vitamin B6) 50 mg PO DAILY 90 days tamsulosin 0.4 mg PO BEDTIME 90 days vit C,E-Vv-oinoi-lutein-zeaxan 250-90-40-1 mg (PreserVision AREDS-2) 1 tab PO BID PFS Medical History (Updated 02/05/25 @ 11:45 by Homer Akers MD) Renal calculi Adult general medical exam COVID-19 Frequent falls Bilateral knee pain Bilateral hip pain Arthritis of right knee Right knee pain Obesity (BMI 30-39.9) AMY on CPAP Hypercholesterolemia Type 2 diabetes mellitus with hyperglycemia Hypoxemia Restrictive lung disease Abnormal LFTs Calcium oxalate calculus 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 Mother No problems noted. Son No problems noted. Son No problems noted. Daughter No problems noted. Daughter No problems noted. Social History Housing: House Alcohol intake: never Patient Tobacco Use Status: Former Tobacco user Tobacco use type: Cigarette Years Smoked: 1993 e-Cigarette/Vaping Use: Never Used Second Hand Smoke Exposure: No service: No Current occupational status: retired Cognitive needs: No Hearing needs: No Vision needs: Yes Questionnaire Medicare Wellness Checkup What is your age?: 78 or older What gender do you identify with?: male During the past 4 weeks, how much have you been bothered by emotional problems such as feeling anxious, depressed, irritable, sad or downhearted, and blue?: not at all During the past 4 weeks, has your physical & emotional health limited your social activities with family, friends, neighbors, or groups?: not at all During the past 4 weeks, how much bodily pain have you generally had?: moderate pain During the past 4 weeks, was someone available to help you if you needed & wanted help?: yes, a little During the past 4 weeks, what was the hardest physical activity you could do for at least 2 minutes?: very light Can you get to places out of walking distance without help? (For eg., can you travel alone on buses, taxis or drive your car?): No Can you go shopping for groceries or clothes without someone's help?: No Can you prepare your own meals?: No Can you do your housework without help?: Yes Because of any health problems, do you need the help of another person with your personal care needs such as eating, bathing, dressing or getting around the house?: No Can you handle your own money without help?: Yes During the past 4 weeks, how would you rate your health in general?: good During the past 4 weeks how have things been going for you?: pretty well Are you having difficulties driving your car?: no Do you always fasten your seat belt when you are in a car?: yes, usually During past 4 weeks, have you been bothered by the following: never: Sexual problems?, Trouble eating well?, Problems using the telephone? and Tiredness or fatigue?, seldom: Falling or dizzy when standing up and sometimes: Teeth or denture problems? Have you fallen 2 or more times in the past year?: No Are you afraid of falling?: Yes Are you a smoker?: no During the past 4 weeks, how many drinks of wine, beer, or other alcoholic beverages did you have?: no alcohol at all Do you exercise for about 20 minutes 3 or more times a week?: no, I usually do not exercise this much Have you been given information to help with the following?: no: Hazards in your house that might hurt you? and no: Keeping track of your medications? How often do you have trouble taking medicines the way you have been told to take them?: I always take medicine as prescribed How confident are you that you can control & manage most of your health problems?: very confident What is your race?: White PHQ-9 Over the last 2 weeks, how often have you been bothered by any of the following problems? 1. Little interest or pleasure in doing things: not at all 2. Feeling down, depressed, or hopeless: not at all 3. Trouble falling or staying asleep, or sleeping too much: not at all 4. Feeling tired or having little energy: not at all 5. Poor appetite or overeating: not at all 6. Feeling bad about yourself - or that you are a failure or have let yourself or your family down: not at all 7. Trouble concentrating on things, such as reading the newspaper or watching television: not at all 8. Moving or speaking so slowly that other people could have noticed. Or the opposite - being so fidgety or restless that you have been moving around a lot more than usual: nearly every day 9. Thoughts that you would be better off or of hurting yourself in some way: not at all Total score: 3 Depression Screening Interpretation: Positive Depression Screening Done: Yes 84717 - PHQ-9 Billing: Yes Source: Developed by Drs. Lenny Jimenez, Norma Murdock, Rk Holloway and colleagues, with an educational alfredo from [employer]. Thrive Questionnaire Date Thrive assessed: 10/24/24 VIDHYA-7 AMB Questionnaire VIDHYA-7 Date VIDHYA - 7 assessed: 10/24/24 Source: Developed by Drs. Lenny Jimenez, Rk Amador and colleagues, with an educational alfredo from [employer]. Review of Systems Const Denies poor appetite and Denies weakness Eyes Denies no additional complaints ENT Reports Normal hearing present, Denies dizziness, Denies nasal congestion, Denies tinnitus and Denies sore throat Card Denies chest pain, Denies syncope, Denies rapid heart rate and Denies dyspnea Resp Denies cough and Denies dyspnea GI Denies change in stool character, Reports constipation, Denies diarrhea, Denies nausea and Denies vomiting Denies dysuria and Denies urinary frequency Neuro Reports Normal hearing present, Denies confusion, Denies dizziness, Denies syncope and Denies weakness Psych Denies confusion Physical Exam Vital Signs: Last Vital Signs Pulse 91 02/05/25 11:36 BP 132/68 02/05/25 11:36 Pulse Ox 96 02/05/25 11:36 Oxygen Delivery Method Nasal Cannula 02/05/25 11:36 BMI result Body Mass Index 38.5 Const General: No confusion Orientation/consciousness: No confusion HEENT Head: Yes normocephalic Ears: external ears normal and TM's normal bilaterally Face and sinus: Yes normal facial exam Mouth: moist mucous membranes Throat: Yes tonsils normal Eyes Conjunctivae: conjunctivae normal Pupils: Equal, round and reactive pupils present and Pupil accommodation reflex normal Direct Ophthalmoscopy: normal light reflex Neck Neck: No lymphadenopathy Thyroid: Thyroid normal Chest Chest palpation & inspection: normal inspection of the chest Resp Effort & Inspection: normal respiratory effort and no audible wheezes Auscultation: clear to auscultation bilaterally, no crackles, no wheezes and lung sounds not diminished Cardio Rate: regular rate Rhythm: regular rhythm Peripheral pulses: radial pulses present and dorsalis pedis present GI Palpation (GI): no masses Auscultation: normal bowel sounds and normoactive bowel sounds Rectal Exam - Male: Yes deferred Skin General skin exam: no rashes or lesions noted Rashes: no rashes Neuro General: No confusion Cranial nerves: Yes Equal, round and reactive pupils present and Yes Normal hearing present Cognition (Neuro): normal cognition Gait exam (Neuro): Normal gait present Motor exam (neuro): 5/5 motor strength present throughout Deep tendon reflexes (DTR's): Right brachioradialis reflex intensity grade: 2+, Left brachioradialis reflex intensity grade: 2+, Right patellar reflex intensity grade: 2+ and Left patellar reflex intensity grade: 2+ Extrem General: No edema Assessment & Plan Assessment & Plan (1) Type 2 diabetes mellitus with hyperglycemia: Comment: Dr. 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 On Trulicity 3 mg once a week Tresiba 52 units once a day metformin a 1000 mg twice a day (2) Hypercholesterolemia: Code(s): E78.00 - Pure hypercholesterolemia, unspecified Plan: Avoid fried foods, chicken skin, eggs, butter margarine, pastries and meat. Be it pork or beef they have a lot of cholesterol patient on atorvastatin 40 mg once a day patient needs blood work (3) AMY on CPAP: Comment: He has history of obstructive sleep apnea for the past many use secondary to his gross obesity. Uses CPAP very regularly and sleeps well. He sleeps for 10-11 hours. No issues. With the CPAP device Code(s): G47.33 - Obstructive sleep apnea (adult) (pediatric) Plan: Continue to use the CPAP more than 4 hours a night and benefits from this (4) Obesity (BMI 30-39.9): Comment: Patient is aware of the fact that he needs to loose weight. Code(s): E66.9 - Obesity, unspecified Plan: Diet and exercise (5) Osteoarthritis of right knee: Code(s): M17.11 - Unilateral primary osteoarthritis, right knee Plan: Patient follows up with ortho and has had injections with drooling (6) Bladder calculi: Comment: December 2023 Code(s): N21.0 - Calculus in bladder Plan: Keep well hydrated patient has been placed on allopurinol and vitamin B6 (7) Fatty liver: Code(s): K76.0 - Fatty (change of) liver, not elsewhere classified Plan: Low-fat diet and exercise (8) Hypertension: Code(s): I10 - Essential (primary) hypertension Qualifiers: Hypertension type: essential hypertension Qualified Code(s): I10 - Essential (primary) hypertension Plan: Continue with blood pressure medication. Decrease salt intake and exercise on metoprolol 100 mg once a day (9) Medicare annual wellness visit, subsequent: Code(s): Z00.00 - Encounter for general adult medical examination without abnormal findings Plan: Patient is advised to eat healthy, keep well hydrated, keep active and have adequate sleep. Plan History of Present Illness The patient is an 79-year-old male presenting with an annual well visit. He has multiple chronic conditions that require ongoing management, including Type 2 Diabetes Mellitus, which has been uncontrolled with a hemoglobin A1c of 9.7% in October but improved to 7.6%. He follows a regimen of Trulicity, Tresiba, and Metformin, and there is a plan for blood work to guide future management. The patient's hypertension is managed with metoprolol, and he takes atorvastatin for hypercholesterolemia. The patient has a history of asthma, managed with Wixela and the regular use of a CPAP machine for obstructive sleep apnea, which he adheres to for more than 4 hours nightly. He also has COPD, following up annually with a secretary specialist. The nephrolithiasis is being managed with allopurinol and vitamin B6, with yearly surveillance by a urologist. Osteoarthritis of the right knee remains a significant issue, with the patient experiencing persistent pain despite injections and wearing a brace. The previous cortisone treatments were ineffective, and the patient reports limited mobility because of knee pain. Hepatic steatosis has been noted, and he has been advised on a low-fat diet. The patient also has retinopathy and follows up yearly with ophthalmology. He denies use of alcohol and has a significant smoking history quitting in 1993. He receives various specialty follow-ups, including podiatry for monitoring. He notices significant hair loss attributed to a new treatment regimen, possibly chemotherapy, which he mentioned undergoing along with a plan for a CT scan. Health Maintenance - Fasting blood work requested including hemoglobin A1c - Encouraged increased physical activity to manage weight and joint pain - Low-fat diet and good hydration advised - Daily use of glucosamine and topical Voltaren gel suggested for arthritis pain - CPAP therapy maintained nightly - Adherence to current medication regimen: metoprolol, atorvastatin, Trulicity, Tresiba, Metformin Social History - Patient reports limited physical activity due to knee pain - Significant smoking history, quit smoking cigarettes in 1993 - No alcohol consumption for several years - The patient expresses difficulty maintaining mobility due to osteoarthritis - Patient communicates via landline, without a personal cellphone Review of Systems - General: Denies recent significant weight change; reports increased laziness due to knee pain - Respiratory: Denies shortness of breath; reports good use of CPAP - Cardiovascular: Denies chest pain - Gastrointestinal: Denies regular bowel movement issues; denies swallowing problems - Genitourinary: Denies urinary frequency at night - Musculoskeletal: Reports persistent knee pain - Neurological: Denies dizziness unless moving quickly - Skin/Hair: Reports hair loss potentially due to treatment Physical Exam General: Cooperative, healthy appearing, comfortable, no acute distress and well developed Orientation: Patient oriented x3 Limitations: No limitations Head: Normal to inspection Ears: Hearing aids used occasionally, hearing grossly normal bilaterally without aids Nose: Normal external nose present Face and sinus: Normal facial exam Eyes: Appearance normal, both eyes and all related structures Neck: Normal visual inspection and Yes full ROM Respiratory: Normal respiratory effort and able to speak in complete sentences. Clear to auscultation bilaterally Cardiovascular: Regular rate and rhythm. Normal S1 and S2 GI: Normal to inspection. Soft to palpation and nontender Skin: No rashes or lesions noted Neuro: Patient oriented x3 Extremities: Normal to inspection, right knee osteoarthritis noted, brace used for support Results - Labs: Hemoglobin A1c of 9.7% previously, currently 7.6% Plan 1. 6%, it remains above target; the patient will continue on Trulicity, Tresiba, and Metformin. I have ordered additional fasting blood work to guide future management. I advised continuing metoprolol for hypertension and atorvastatin for hypercholesterolemia, given the patient?s cardiovascular risk: I recommended maintenance of CPAP therapy for obstructive sleep apnea, as the patient reports positive compliance. The management of osteoarthritis involves the regular use of a knee brace, although current injections have not alleviated the pain. I suggested glucosamine supplementation and the topical application of Voltaren gel for symptomatic relief, emphasizing the importance of movement despite discomfort. Future orthopedic consultations may be necessary if the pain remains uncontrolled. For nephrolithiasis, the patient will continue with allopurinol and vitamin B6. I highlighted the importance of hydration and a low-fat diet to manage hepatic steatosis. I also advised the patient to maintain regular eye and podiatry follow-up for retinopathy and overall foot health. Patient was informed and verbally consented to the use of an ambient scribe for clinic note documentation during this visit. Discussion Notes I discussed with the patient the management strategies for his chronic conditions, emphasizing the importance of maintaining medication adherence and lifestyle modifications, such as diet and exercise. We reviewed the current diabetes control status, acknowledging improvement though with room for further enhancement. I informed the patient of the benefits of continued CPAP use for both sleep apnea management and its influence on overall health. Discussions were extended to the management of osteoarthritis, explaining the pain control options such as glucosamine and Voltaren gel, and potential future interventions. Patient Instructions - Continue taking all prescribed medications as directed - Follow recommended diet and hydration guidelines - Use CPAP and oxygen consistently as instructed - Apply Voltaren gel to the knees and hands as needed - Consider glucosamine for joint health - Attend follow-ups with specialists and have regular blood work completed - Engage in light exercise as tolerated Orders: Orders AMB Hemoglobin A1c Today Z13.9 - Encounter for screening, unspecified Comprehensive Met. Panel Today E11.65 - Type 2 diabetes mellitus with hyperglycemia, Z79.4 - group home (current) use of insulin Creatinine Urine Today E11.65 - Type 2 diabetes mellitus with hyperglycemia, Z79.4 - adjunct faculty for medical terminology (current) use of insulin Microalbumin, Random (w Creat) Today E11.65 - Type 2 diabetes mellitus with hyperglycemia, Z79.4 - adjunct faculty for medical terminology (current) use of insulin Hemoglobin A1c Today E11.65 - Type 2 diabetes mellitus with hyperglycemia, Z79.4 - adjunct faculty for medical terminology (current) use of insulin Magnesium Today E11.65 - Type 2 diabetes mellitus with hyperglycemia, Z79.4 - group home (current) use of insulin Uric Acid Today E11.65 - Type 2 diabetes mellitus with hyperglycemia, Z79.4 - adjunct faculty for medical terminology (current) use of insulin IRON PROFILE Today E11.65 - Type 2 diabetes mellitus with hyperglycemia, Z79.4 - group home (current) use of insulin Complete Blood Count Auto Diff Today E11.65 - Type 2 diabetes mellitus with hyperglycemia, Z79.4 - group home (current) use of insulin Lipid Panel Today E11.65 - Type 2 diabetes mellitus with hyperglycemia, E78.00 - Pure hypercholesterolemia, unspecified, Z79.4 - group home (current) use of insulin Free T4 (Free Thyroxine) Today E11.65 - Type 2 diabetes mellitus with hyperglycemia, Z79.4 - adjunct faculty for medical terminology (current) use of insulin Vitamin B12 and Folate Today E11.65 - Type 2 diabetes mellitus with hyperglycemia, Z79.4 - group home (current) use of insulin Thyroid Stimulating Hormone Today E11.65 - Type 2 diabetes mellitus with hyperglycemia, Z79.4 - adjunct faculty for medical terminology (current) use of insulin Ferritin Today E11.65 - Type 2 diabetes mellitus with hyperglycemia, Z79.4 - adjunct faculty for medical terminology (current) use of insulin Reticulocyte Count Today E11.65 - Type 2 diabetes mellitus with hyperglycemia, Z79.4 - group home (current) use of insulin Quality Reporting (2019) Depression/Bipolar (159/160/161/177) PHQ-9: Total score: 3 Coding Level of Care Code Medicare Subsequent (G0439) Diagnoses Type 2 diabetes mellitus with hyperglycemia, with long-term current use of insulin E11.65; Z79.4 Diabetes mellitus adjunct faculty for medical terminology insulin use: with fpc use Hypercholesterolemia E78.00 AMY on CPAP G47.33 Obesity (BMI 30-39.9) E66.9 Osteoarthritis of right knee M17.11 Bladder calculi N21.0 Fatty liver K76.0 Essential hypertension I10 Hypertension type: essential hypertension Medicare annual wellness visit, subsequent Z00.00 Additional Codes PHQ-9 - 63580 - PHQ-9 Billing: Yes ([id number])
--- OUTSIDE RECORDS SUMMARY | 2025-02-05 13:52 | XMS_ITS | Patient Health Record ---
Author Organization [facility] Address [address] [facility] [place] [address] Care Team Providers Care Box Liner Name Role Phone Homer Akers Primary Care Provider Unavailabl e Zuly Pablo Unavailable [phone] Allergies Allergen (clinical drug ingredient) Drug/Non Drug [...] Problem Acquired hammer toe of right foot (4872427992056943 ) Other hammer toe(s) (acquired), right foot (M20.41) Active confirmed Problem Acquired hammer toe of left foot (4793695154728793 ) Other hammer toe(s) (acquired), left foot (M20.42) Active confirmed Problem Polyneuropathy due to type 2 diabetes mellitus (755742091) Type 2 diabetes mellitus with diabetic polyneuropathy (E11.42) Active confirmed Problem 183001702 Hammer toe of right foot (M20.41) Active confirmed Problem 155846210 Hammer toe of left foot (M20.42) Active confirmed Vital Signs Blood pressure diastolic 78 mm Hg 10/24/2024 Height 5 ft 7 in in 10/24/2024 Blood pressure systolic 121 mm Hg 10/24/2024 Weight 245 lbs 10/24/2024 BMI 38.37 kg/m2 10/24/2024 Procedures Procedure Date Ordered Date Performed Result Body Sit e 09777-Zsnrynzk Plate 10/24/2024 N/A 53177-EZSS SKIN LESIONS, 2 TO 4 10/24/2024 N/A K8310-LBGMWKXG DYSTROPHIC NAILS ANY # 10/24/2024 N/A Encounters Encounter Location Date Provider Diagnosis [facility] [place] [address] [place] [address] 10/24/2024 Zuly Black Type 2 diabetes mellitus [...] Treatment Pending Test Test Name Order Date 47522-LUSHRFU NAIL, 1-5 12/26/2011 33280-DOEMZQL NAIL, 1-5 09/24/2012 47789-SMDXFYO NAIL, 1-5 09/23/2013 35229-SVCWDMG NAIL, 1-5 01/29/2014 70077-CLTQRRR NAIL, 1-5 09/22/2014 70777-Xdtkyhsi Plate 09/22/2014 96300-Cshzfqdn Plate 01/29/2014 45673-Ukzawrgb Plate 09/22/2016 56292-Ardmufhi Plate 09/23/2013 69202-Ccqzwlln Plate 09/24/2018 68480-Tofnlxgy Plate 09/24/2020 40989-Coycvkdh Plate 10/21/2021 56429-Ixgbjwyk Plate 10/24/2022 43104-Ynpxayds Plate 10/26/2023 83786-Hboatqrq Plate 10/24/2024 37609-Ssssbwyb Plate Each Additional 08/2024 49284-Uglolgce Plate Each Additional 06/2023 91184-Uuohucrg Plate Each Additional 03/2022 37329-SWLM SKIN LESIONS, 2 TO 4 10/24/19 23 68145-FMUY SKIN LESIONS, 2 TO 4 09/24/20 20 94325-AQHZ SKIN LESIONS, 2 TO 4 10/21/19 22 49500-CAPN SKIN LESIONS, 2 TO 4 09/26/20 19 15700-VSGV SKIN LESIONS, 2 TO 4 09/24/20 18 56043-RGZY SKIN LESIONS, 2 TO 4 09/25/20 17 01001-TUAG SKIN LESIONS, 2 TO 4 01/30/20 14 89749-CNWT SKIN LESIONS, 2 TO 4 09/23/20 13 44488-JWEB SKIN LESIONS, 2 TO 4 09/24/20 12 83446-YIHW SKIN LESIONS, 2 TO 4 09/22/20 14 56854-SAZW SKIN LESIONS, 2 TO 4 09/21/20 15 06512-QNKD SKIN LESIONS, 2 TO 4 09/22/20 16 28206-WJMF SKIN LESIONS, 2 TO 4 10/26/19 24 64515-QCVL SKIN LESIONS, 2 TO 4 10/24/19 25 56806-VMGV NAIL(S) 09/22/2014 97710-LHAA NAIL(S) 09/23/2013 96506-OAVW NAIL(S) 01/29/2014 N3238-OEJFUWVF DYSTROPHIC NAILS ANY # A8567-CCLJXGPV DYSTROPHIC NAILS ANY # E2762-CYYMOFEZ DYSTROPHIC NAILS ANY # W4797-ECPDGHCJ DYSTROPHIC NAILS ANY # H3718-YCYZATLM DYSTROPHIC NAILS ANY # E8235-NZBDQXOW DYSTROPHIC NAILS ANY # G5771-RAJMSTDL DYSTROPHIC NAILS ANY # Y4824-LUBJCKOF DYSTROPHIC NAILS ANY # R8203-ZBAFBDKD DYSTROPHIC NAILS ANY # K9590-NGDPXLMF DYSTROPHIC NAILS ANY # Next Appt Details Provider Name:Zuly Pablo , 04/24/2025 08:00:00 AM, [address] [place], [address], Insurance Providers Payer Name Payer Address Payer Phone Subscriber Number Group Number Insured Name Patient Relationship to Insured Coverage Start Date Coverage End Date Medicare [facility] [address] [place] [address] [id number] Silvano Walter Self - patient is the insured [employer] [address] [place] [address] [id number] Silvano Walter Self - patient is the insured Medical (General) History Medical History History ICD Code hypercholesterolemia hypertension benign prostatic hyperplasia (BPH) lumbar stenosis kidney stones type II diabetes Surgical History Surgery Date(Month/Year) appendectomy spinal fusion inguinal hernia repair 2016
--- OUTSIDE RECORDS SUMMARY | 2025-02-05 13:53 | XMS_ITS ---
Author Organization [facility] Address [address] [facility] [address] Care Team Providers Care Hydrochloric Acid Operator Name Role Phone Homer Akers Primary Care Provider Unavailabl e Black, Zuly Unavailable [phone] Allergies Allergen (clinical drug ingredient) Drug/Non Drug [...] Problem Acquired hammer toe of right foot (0116301700453 105) Other hammer toe(s) (acquired), right foot (M20.41) Active confirmed Problem Acquired hammer toe of left foot (3395988054590 103) Other hammer toe(s) (acquired), left foot (M20.42) Active confirmed Vital Signs Height 5 ft 7 in in 10/24/2024 Weight 245 lbs 10/24/2024 BMI 38.37 kg/m2 10/24/2024 Blood pressure systolic 121 mm Hg 10/24/19 25 Blood pressure diastolic 78 mm Hg 025 Procedures Procedure Date Ordered Date Performed Result Body Sit e 00038-Ffvszgfw Plate 10/24/2024 N/A 08040-OFLL SKIN LESIONS, 2 TO 4 10/24/2024 N/A J6871-WALMLTJL DYSTROPHIC NAILS ANY # 10/24/2024 N/A Encounters Encounter Location Date Provider Diagnosis [facility] [address] [address] 10/24/2024 Zuly Black Type 2 diabetes mellitus [...] INSTRUCTIONS.pdf) Pending Test Test Name Order Date 85387-Tbxjxupr Plate 10/24/2024 50774-TGOL SKIN LESIONS, 2 TO 4 10/24/19 25 I2378-YVRYDGOZ DYSTROPHIC NAILS ANY # Next Appt Details Follow Up: 2 Weeks,prn, Reas on: Provider Name:Zuly Pablo , 04/24/2025 08:00:00 AM, [address] [place] [address], [phone], Procedure Notes * Category Sub-Category Detail Notes [...] Motrin was recommended for pain or discomfort (26265) , DIABETES: Matricectomy deferred at this time [...] instrumentation by the physician of record - 72773 Nail Reduction Nail Reduction (-27) Trimming o [...] * Silvano WALTER LDOB:1945 (79 yo M)Acc No.[id number]:10/24/2024 Progress Note Patient:?Silvano WALTER Sam Provider:?Zuly Pablo DPM :1945???Age:79 Y???Sex:Male Drew e:10/24/2024 Address:[address] [place], [place] [address] Pcp:Homer Akers Subjective: * Chief Complaints: * [...] 2.?Type 2 diabetes mellitus with diabetic polyneuropathy?Procedure: 45818-WQTE SKIN LESIONS, 2 TO 4 ?Procedure: G2241-BQZFVLSR DYSTROPHIC NAILS ANY # Notes: Patient Educated with: DIABETIC FOOT CARE INSTRUCTIONS.pdf (DIABETIC FOOT CARE INSTRUCTIONS.pdf)?? 3.?Ingrown nail?Procedure: 52116-Iyxwvbcs Plate 4.?Xerosis of skin? Start Ammonium Lactate [...] instrumentation by the physician of record - 35912.?Nail Avulsion:?Location?Medial nail border, T5?.?Anesthesia?was deferred - NEUROPATHY: [...] Motrin was recommended for pain or discomfort (72474) , DIABETES: Matricectomy deferred at this time [...] or bed tissue - G0127.? * Procedure Codes:?26307 TRIM SKIN LESIONS, 2 TO 4, Modifiers: XS 99220 Avulsion Plate, Modifiers: T5 G0127 TRIMMING DYSTROPHIC [...] Pablo DPM Date:?2024 Generated for Kaitlyn gomez/Maico/Leonard on:?02/05/2025 01:52 PM EDT History and Physical Notes * [...]
--- OUTSIDE RECORDS SUMMARY | 2025-02-05 13:53 | XMS_ITS ---
Author Organization [facility] Address [address] [place] [address] Care Team Providers Care Manual Training Teacher Name Role Phone Homer Akers Primary Care Provider Unavaildrake Pablo Zuly Unavailable [phone] Juan Cardenas [phone] REASON FOR VISIT error-booked with wrong doctor Encounters Encounter Location Date Provider Diagnosis [address] [address] 10/25/2023 Juan Cardenas Plan Of Treatment Next Appt Details Provider Name:Zuly Pablo , 04/24/2025 08:00:00 AM, [address] [place] [address], [phone], Progress Notes * Silvano WALTER LDOB:1945 (79 yo M)Acc No.[id number]:10/25/2023 Progress Note Patient:?Silvano WALTER Provider:?Juan Cardenas DPM :1945???Age:78 Y???Sex:Male Drew e:10/25/2023 Address:[address] [place] [address] [place] [id number] Pcp:Homer Akers Subjective: * Chief Complaints: * [...] DPM Date:? 024 Generated for Kaitlyn gomez/Maico/Leonard on:?02/05/2025 01:52 PM EDT
--- OUTSIDE RECORDS SUMMARY | 2025-02-05 13:53 | XMS_ITS ---
Author Organization [facility] Address [address] [facility] [place] [address] Care Team Providers Care Roll Skinner Name Role Phone Homer Akers Primary Care Provider Unavailabl e Black, Zuly Unavailable [phone] Allergies Allergen (clinical drug ingredient) Drug/Non Drug [...] Problem Status W/U Status Risk Notes Problem 423728096 Hammer toe of right foot (M20.41) Active confirmed Problem 064013896 Hammer toe of left foot (M20.42) Active confirmed Vital Signs Height 5 ft 7 in in 10/26/2023 Weight 243 lbs 10/26/2023 BMI 38.06 kg/m2 10/26/2023 Procedures Procedure Date Ordered Date Performed Result Body Sit e 79934-Yfletrxr Plate 10/26/2023 N/A 33856-Wejfyoqv Plate Each Additional 10/26/2023 N/A 16543-MZXL SKIN LESIONS, 2 TO 4 10/26/2023 N/A J5730-UTNZVTMA DYSTROPHIC NAILS ANY # 10/26/2023 N/A Encounters Encounter Location Date Provider Diagnosis [facility] [place] [address] [place] [address] 10/26/2023 Zuly Black Ingrown nail L60.0 ; [...] INSTRUCTIONS.pdf) Pending Test Test Name Order Date 97809-Ufrjheac Plate 10/26/2023 79849-Atmcgmaw Plate Each Additional 08/2024 00934-AZMI SKIN LESIONS, 2 TO 4 10/26/19 24 N5228-SFPNVPDF DYSTROPHIC NAILS ANY # Next Appt Details Follow Up: 1 Year, Reason: Provider Name:Zuly Pablo , 04/24/2025 08:00:00 AM, [address] [place] [address], [phone], Procedure Notes * Category Sub-Category Detail Notes [...] Motrin was recommended for pain or discomfort (92265/2) , DIABETES: Matricectomy deferred at this time due to diabetes risk Anesthesia was deferred - NEURO CARLYN: patient has medically documented neuropathic condition affecting sensation , Location Medial nail border, T5 , TA Keratoma Treatment Parring or Cutting o f Benign Hyperkeratotic Lesion(s) 76542 (2-4 Lesions) - The Benign hyperkeratotic lesions, [...] * Silvano WALTER LDOB:1945 (79 yo M)Acc No.[id number]:10/26/2023 Progress Note Patient:?Silvano WALTER Provider:?Zuly Pablo DPM :1945???Age:78 Y???Sex:Male Drew e:10/26/2023 Address:[address] [place] [address] [place] [id number] Pcp:Homer Akers Subjective: * Chief Complaints: * [...] ?Marital status: . ?Occupation: retired worked at [employer]. * Medications:?Takingoxygen Vi tamin D3 B12 Prevagen [...] Procedures:?Keratoma Treatment:?Parring or Cutting of Benign Hyperkeratotic Lesion(s)?70106 (2-4 Lesions) - The Benign hyperkeratotic lesions, [...] Motrin was recommended for pain or discomfort (17606/2) , DIABETES: Matricectomy deferred at this time due to diabetes risk.?Nail Reduction:?Nail Reduction?Trimming of dystrophic nails performed to reduce/remove overall nail length and girth, by manual and electrical means with use of a nail nipper and/or dremel, to more viable healthy nail plate or bed tissue 6-10 (G0127).? * Procedure Orders:? * ?Procedure: 13163-Hsisfw on Plate Each Additional ?Procedure: 48102-Zjuxex on Plate * Procedure Codes:?16219 TRIM SKIN LESIONS, 2 TO 4, Modifiers: XS 96680 Avulsion Plate, [place]: [place] [address] Avulsion Plate Each Additional, Modifiers: T5 G0127 [...] Pablo DPM Date:?2023 Generated for Kaitlyn gomez/Maico/eTransmitting on:?02/05/2025 01:52 PM EDT History and Physical [...]
== END 2025-02-05 12:27 | disposition home or self-care (01) ==
LOC: HO.HMCH 11:27
PROVIDERS: PCP Internal Medicine; Visit Provider Internal Medicine
DX: Z00.00 Encounter for general adult medical examination without abnormal findings (principal); E11.65 Type 2 diabetes mellitus with hyperglycemia; Z79.4 Long term (current) use of insulin; E78.00 Pure hypercholesterolemia, unspecified; G47.33 Obstructive sleep apnea (adult) (pediatric); E66.9 Obesity, unspecified; M17.11 Unilateral primary osteoarthritis, right knee; N21.0 Calculus in bladder; K76.0 Fatty (change of) liver, not elsewhere classified; I10 Essential (primary) hypertension

== ENCOUNTER → 2025-02-05 11:26 | Outpatient (BNVA) | payer MEDICARE, SELFPAY | PROVIDERS: PCP Internal Medicine; Visit Provider Internal Medicine | DX: Z00.00 Encounter for general adult medical examination without abnormal findings (principal); E11.65 Type 2 diabetes mellitus with hyperglycemia; E78.00 Pure hypercholesterolemia, unspecified; G47.33 Obstructive sleep apnea (adult) (pediatric); E66.9 Obesity, unspecified; M17.11 Unilateral primary osteoarthritis, right knee; N21.0 Calculus in bladder; K76.0 Fatty (change of) liver, not elsewhere classified; I10 Essential (primary) hypertension; Z79.4 Long term (current) use of insulin | CPT/HCPCS: 96127 ==

== ENCOUNTER 2025-04-08 14:17 | Outpatient (AMB) | payer MEDICARE, SELFPAY ==
[2025-04-08 14:19] VITALS: BMI 38.5
--- NOTE | 2025-04-08 14:19 | A.OFFVIS_ITS ---
Vital Signs 04/08/25 14:19 Height 5 ft 7 in Weight 246 lb BMI 38.5 Intake Visit Reasons: Left knee pain Intake Note: Silvano is an 80 year old male who presents with complaints of progressively worsening left knee pain. He describes his pain as sharp in nature. His pain has gotten worse over the last 6 months in spite of continued non operative treatments. He has failed the last 3 months of conservative treatment which has included Tylenol, anti-inflammatory medicines, a home exercise program, physical therapy exercises and topical creams. At this point his left knee pain is interfering with his activities of daily living and his ability to sleep well through the night. He has had cortisone injections in the past which gave him minimal relief. He wishes to hold off on surgery if at all possible. Allergies azithromycin (AZITHROMYCIN) Allergy (Unknown, Verified 04/08/25 14:19) HIVES lisinopril (LISINOPRIL) Allergy (Unknown, Verified 04/08/25 14:19) HIVES losartan (LOSARTAN) Allergy (Unknown, Verified 04/08/25 14:19) HIVES oxycodone (OXYCODONE) Allergy (Unknown, Verified 04/08/25 14:19) HIVES Medication List - Last Reconciled 04/08/25 by Gurmeet Ordaz MD acetaminophen (Tylenol) 650 mg PO Q6H PRN albuterol sulfate 2.5 mg inhalation Q6H PRN albuterol sulfate 90 mcg/actuation 2 puffs inhalation Q6H PRN 60 days allopurinol 100 mg PO DAILY 90 days aspirin (Adult Aspirin Regimen) 81 mg PO DAILY atorvastatin 40 mg PO DAILY 90 days blood pressure monitor (Blood Pressure Kit) As directed blood sugar diagnostic (OneTouch Ultra Test strips) test 2 times per day blood sugar diagnostic One touch ULTRA TEst Strips check the BS 2x a day blood-glucose meter (OneTouch Ultra2 Meter kit) As directed cetirizine (Zyrtec) 10 mg PO DAILY cholecalciferol (vitamin D3) 10 mcg PO DAILY cyanocobalamin (vitamin B-12) 1,000 mcg PO DAILY dulaglutide (Trulicity) 3 mg (0.5 mL) subcut QWEEK fluticasone propion-salmeterol 250-50 mcg/dose (Wixela Inhub) 1 ea inhalation BID insulin degludec (Tresiba FlexTouch U-200 insulin) 52 units (0.26 mL) subcut DAILY lancets (OneTouch UltraSoft Lancets) As directed check the blood sugars 4 times a day metformin 1,000 mg PO BID metoprolol succinate ER 100 mg PO DAILY peg 400-propylene glycol (PF) 0.4-0.3 % (Systane (PF)) 1 drp ophthalmic (eye) BID PRN pen needle, diabetic (Easy Touch) As directed pen needle, diabetic, safety (Easy Touch Safety Pen Needle) As directed inject twice a day [Prevagen 1 cap PO DAILY] pyridoxine (vitamin B6) 50 mg PO DAILY 90 days tamsulosin 0.4 mg PO BEDTIME 90 days vit C,I-Sm-zhvrd-lutein-zeaxan 250-90-40-1 mg (PreserVision AREDS-2) 1 tab PO BID [facility] Medical History (Updated 04/08/25 @ 14:52 by Gurmeet Ordaz MD) Renal calculi Adult general medical exam COVID-19 Frequent falls Bilateral knee pain Bilateral hip pain Arthritis of right knee Right knee pain Obesity (BMI 30-39.9) AMY on CPAP Hypercholesterolemia Type 2 diabetes mellitus with hyperglycemia Hypoxemia Restrictive lung disease Abnormal LFTs Calcium oxalate calculus 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 Mother No problems noted. Son No problems noted. Son No problems noted. Daughter No problems noted. Daughter No problems noted. Social History Housing: House Alcohol intake: never Patient Tobacco Use Status: Former Tobacco user Tobacco use type: Cigarette Years Smoked: 1993 e-Cigarette/Vaping Use: Never Used Second Hand Smoke Exposure: No service: No Current occupational status: retired Cognitive needs: No Hearing needs: No Vision needs: Yes Physical Exam Vital Signs: BMI result Body Mass Index 38.5 Const Other: Well-nourished well-developed very friendly male awake alert and oriented x3 in no acute distress Extrem Other: Bilateral lower extremity examination shows good capillary refill, no skin lesions noted, normal sensation light touch Left knee examination shows a minimal effusion, palpable crepitus with range of motion, pain with range of motion, no instability Results Reviewed Results Reviewed: X-rays of the patient's left knee show joint space narrowing, subchondral sclerosis, no acute bony abnormalities Assessment & Plan Assessment & Plan (1) Left knee pain: Code(s): M25.562 - Pain in left knee (2) Osteoarthritis of left knee: Code(s): M17.12 - Unilateral primary osteoarthritis, left knee Category: Medical Plan Mr. Walter presents with left knee pain due to osteoarthritis. I had a lengthy discussion with the patient regarding the treatment options. Wishes to hold off on surgery for as long as possible. I agree with this plan. Thus, I will see whether or not the patient's insurance company will cover a viscosupplementation injection, such as Durolane, for his left knee. I will see him back once the injection is available. The patient also has bilateral hand pains most likely due to arthritis as well as possible carpal tunnel syndrome. Thus, I will refer the patient to our hand service. The patient will follow-up as instructed. Feel free to call me at any time should questions regarding his orthopedic management arise. I spent 20 minutes in reviewing the patient's records and imaging studies, seeing the patient and documenting in the medical record. Coding Level of Care Code Est Pt Level 3 (03895) Complex EM visit Add On G2211 Diagnoses Left knee pain M25.562 Osteoarthritis of left knee M17.12
--- OUTSIDE RECORDS SUMMARY | 2025-04-08 17:26 | XMS_ITS | Patient Health Record ---
Author Organization [facility] Address [address] [facility] [place] [address] Care Team Providers Care Emergency Planning And Response Manager Name Role Phone Homer Akers Primary Care Provider Mason Huntermie Unavailable [phone] Allergies Allergen (clinical drug ingredient) Drug/Non Drug [...] Problem Acquired hammer toe of right foot (5571056030202031 ) Other hammer toe(s) (acquired), right foot (M20.41) Active confirmed Problem Acquired hammer toe of left foot (6603055621521175 ) Other hammer toe(s) (acquired), left foot (M20.42) Active confirmed Problem Polyneuropathy due to type 2 diabetes mellitus (504639113) Type 2 diabetes mellitus with diabetic polyneuropathy (E11.42) Active confirmed Problem 302465835 Hammer toe of right foot (M20.41) Active confirmed Problem 101983024 Hammer toe of left foot (M20.42) Active confirmed Vital Signs Blood pressure diastolic 78 mm Hg 10/24/2024 Height 5 ft 7 in in 10/24/2024 Blood pressure systolic 121 mm Hg 10/24/2024 Weight 245 lbs 10/24/2024 BMI 38.37 kg/m2 10/24/2024 Procedures Procedure Date Ordered Date Performed Result Body Sit e 97161-Aliampny Plate 10/24/2024 N/A 88933-SQRV SKIN LESIONS, 2 TO 4 10/24/2024 N/A Y8465-XHSKXHDE DYSTROPHIC NAILS ANY # 10/24/2024 N/A Encounters Encounter Location Date Provider Diagnosis [facility] [place] [address] [place] [address] 10/24/2024 Zuly Black Type 2 diabetes mellitus [...] Treatment Pending Test Test Name Order Date 41196-QUAEWGF NAIL, 1-5 12/26/2011 71569-BMWQXYO NAIL, 1-5 09/24/2012 85282-IYURSIJ NAIL, 1-5 09/23/2013 79522-CUMDQKZ NAIL, 1-5 01/29/2014 37377-XMTQXQS NAIL, 1-5 09/22/2014 15756-Hedjtevc Plate 09/22/2014 94129-Eoszbghq Plate 01/29/2014 85024-Ocircyfo Plate 09/22/2016 67097-Wreixorp Plate 09/23/2013 65586-Jfwoyenc Plate 09/24/2018 35978-Btzirgxg Plate 09/24/2020 51610-Apigormi Plate 10/21/2021 60660-Mmnrskdw Plate 10/24/2022 45007-Czevzegf Plate 10/26/2023 25205-Dfkygszo Plate 10/24/2024 07370-Xcpvrifg Plate Each Additional 08/2024 96071-Wnmpiozw Plate Each Additional 06/2023 84006-Fzmkcyzd Plate Each Additional 03/2022 00408-ADJB SKIN LESIONS, 2 TO 4 10/24/19 23 03552-AQVA SKIN LESIONS, 2 TO 4 09/24/20 20 32155-ERXJ SKIN LESIONS, 2 TO 4 10/21/19 22 61912-QJCR SKIN LESIONS, 2 TO 4 09/26/20 19 16093-UYLW SKIN LESIONS, 2 TO 4 09/24/20 18 42392-NXKE SKIN LESIONS, 2 TO 4 09/25/20 17 23212-QWEK SKIN LESIONS, 2 TO 4 01/30/20 14 63942-PXDB SKIN LESIONS, 2 TO 4 09/23/20 13 16924-QODG SKIN LESIONS, 2 TO 4 09/24/20 12 27710-UQOA SKIN LESIONS, 2 TO 4 09/22/20 14 29266-RFIR SKIN LESIONS, 2 TO 4 09/21/20 15 74090-LYIH SKIN LESIONS, 2 TO 4 09/22/20 16 30704-IDGM SKIN LESIONS, 2 TO 4 10/26/19 24 86123-LXCP SKIN LESIONS, 2 TO 4 10/24/19 25 01868-LIGK NAIL(S) 09/22/2014 72936-DKNO NAIL(S) 09/23/2013 48764-LWKZ NAIL(S) 01/29/2014 K7161-XHKZDBAB DYSTROPHIC NAILS ANY # A6752-DTKLJXEB DYSTROPHIC NAILS ANY # D5178-GIDPNLGA DYSTROPHIC NAILS ANY # K6900-TTAIAYTC DYSTROPHIC NAILS ANY # J1864-QNJZAWXV DYSTROPHIC NAILS ANY # M8394-QKPOBDQE DYSTROPHIC NAILS ANY # Y0580-FILWAWZZ DYSTROPHIC NAILS ANY # E8563-OVRRXSLG DYSTROPHIC NAILS ANY # O1043-LPWXZTIM DYSTROPHIC NAILS ANY # P8636-FSTTKCSW DYSTROPHIC NAILS ANY # Next Appt Details Provider Name:Zuly Pablo , 04/24/2025 08:00:00 AM, [address] [place] [address], [phone], Insurance Providers Payer Name Payer Address Payer Phone Subscriber Number Group Number Insured Name Patient Relationship to Insured Coverage Start Date Coverage End Date Medicare [facility] [address] [place] [address] [id number] Silvano Walter Self - patient is the insured [employer] [address] [place] [address] [phone] [id number] Silvano Walter Self - patient is the insured Medical (General) History Medical History History ICD Code hypercholesterolemia hypertension benign prostatic hyperplasia (BPH) lumbar stenosis kidney stones type II diabetes Surgical History Surgery Date(Month/Year) appendectomy spinal fusion inguinal hernia repair 2016
== END 2025-04-08 14:48 | disposition home or self-care (01) ==
LOC: HO.HOS 14:18
PROVIDERS: PCP Internal Medicine; Visit Provider Orthopaedic Surgery
DX: M25.562 Pain in left knee (principal); M17.12 Unilateral primary osteoarthritis, left knee
CPT/HCPCS: 99213; G2211

== ENCOUNTER → 2025-04-08 14:17 | Outpatient (BNVA) | payer MEDICARE, SELFPAY | PROVIDERS: PCP Internal Medicine; Visit Provider Orthopaedic Surgery | DX: M17.12 Unilateral primary osteoarthritis, left knee (principal) | CPT/HCPCS: 99212 ==

== ENCOUNTER 2025-05-12 08:21 | Outpatient (REF) | payer MEDICARE, SELFPAY ==
--- NOTE | ~2025-05-12 | XR_ITS ---
Exam: Three-view bilateral hands. INDICATION: Bilateral hand pain Prior: None FINDINGS: RIGHT HAND: There are small marginal ossified involving the second third DIP joint with minimal joint space narrowing. Minimal marginal ossified formation is noted at the PIP joint of the fourth digit. Punctate high density in the soft tissues on the radial volar aspect of the second metacarpal phalangeal joint is noted. Very faint amorphous calcific density is visible in the trachea the femoral cartilage. LEFT HAND: Minimal marginal osteophyte formation is present at the second and third DIP joints. There are no erosions. Very faint amorphous calcific density is evident in the triangular fibrocartilage. XR/XR Hand Bilat min 3v Impression: Right hand: Mild osteoarthritis. Subtle chondrocalcinosis in the triangular fibrocartilage. Left hand: Mild osteoarthritis. Subtle chondrocalcinosis involving the triangular fibrocartilage. Electronically signed by: Shun Castanon MD 05/12/2025 11:10 AM EDT
--- OUTSIDE RECORDS SUMMARY | 2025-05-12 08:32 | XMS_ITS | Patient Health Record ---
Author Organization [facility] Address [address] [address] Care Team Providers Care Zoogler Name Role Phone Homer Akers Primary Care Provider Geovanny e Zuly Pablo Unavailable [phone] Allergies Allergen (clinical drug ingredient) Drug/Non Drug Allergy documented on EMR Reaction Allergy Type Onset Date Status fentanyl Fentanyl rash/itchy Drug Allergy Active lisinopril Lisinopril rash/itchy Drug Allergy Acti ve losartan Losartan Potassium Unknown Drug Allergy Active oxycodone Oxycodone HCl rash/itchy Drug Allergy Ac tive azithromycin Azithromycin Unknown Drug Allergy A ctive Results Component Value Reference Range Notes HEMOGLOBIN A1C (GLYCOHEMOGLO BIN) Reviewed date:05/01/2025 01:19:30 PM Interpretation: Performing Lab: Notes/Report: HEMOGLOBIN A1C % (HH) 9.7 Reason For Referral No Information Medications Medication SIG (Take, Route, Frequency, Duration) Notes Start Date End Date Status oxygen Active Vicodin 5-500 MG 1 tablet as needed f or pain Orally every 6 hrs Not-Taki ng Allopurinol 100 MG 1 tablet Orally Once a day Active Losartan Potassium N ot-Taking Methocarbamol 750 MG 1 tablet Orally heidy ry 4 hrs; Duration: 30 day(s) Not-Darron ing metFORMIN HCl 1000 MG 1 tablet with a me al Orally Once a day Active Extra Depth Orthopedic Shoes (1 Pair) with Customized Heat Molded Multidensity Innersoles (3 Pair) as directed Dx: NIDDM/Polyneuropathy (E11.42), Hammertoe Foot Deformity (M20.41,M20.42), Preulcerative Skin Lesion(s) (L85.1 09/25/2017 Not-Taking zzzExtra Depth Orthopedic Shoes (1 Pair) with Customized Heat Molded Multidensity Innersoles (3 Pair) . . . Dx: IDDM/Polyneuropathy (E10.42), Hammertoe Foot Deformity (M20.41,M20.42), Preulcerative Skin Lesion(s) (L85.1) LLD 1/2; Duration: . 09/21/2015 Not-Taking Vitamin D3 Not-Takin g Tamsulosin HCl 0.4 MG 1 capsule 30 minut es after the same meal each day Orally Once a day; Duration: 30 day(s) Active ProAir HFA 108 (90 Base) MCG/ACT 2 puffs as needed Inhalation every 4 hrs Active PreserVision AREDS 2 - as directed Orally Active Ammonium Lactate 12 % 1 application Exte rnally Twice a day; Duration: 30 days Active ZyrTEC Allergy 10 MG 1 tablet Orally Onc e a day; Duration: 30 day(s) Active Trulicity 0.75 MG/0.5ML as directed Subc utaneous daily Active Tresiba 35 as directed Active Ciclopirox Olamine 0.77 % 1 application to affected area Externally Twice a day; Duration: 2 weeks 09/24/2012 Not-Taking traMADol HCl Not-Darron ing Robaxin-750 750 MG 1 tablet Orally ever y 4 hrs; Duration: 30 day(s) Not-Darron ing Victoza 18 MG/3ML 0.2 ml Subcutaneous Once a day; Duration: 30 day(s) Not-Taking Aria 20 MG 1 capsule Orally Onc e a day Not-Taking Incruse Ellipta Not- Taking Lantus 35units Not-T aking Metoprolol Succinate ER 100 MG 1 tablet Orally Once a day Active Metformin & Diet Manage Prod 500 MG as directed Orally Not-Takin g Lipitor 40 MG 1 tablet Orally Once a day; Duration: 30 day(s) Active Ocuvite Not-Taking Lantus 100 UNIT/ML 0.02 ml Subcutaneous Once a day Not-Taking Metoprolol & Diet Manage Prod 50 MG as directed Orally Not-Takin g Alpha Lipoic Acid 200 MG as directed Orally 2016 Not-Taking Prevagen Not-Taking B12 Active Aspir-81 81 MG 1 tablet Orally Once a day; Duration: 30 day(s) Active Albuterol Sulfate Ac tive Advair Diskus 250-50 MCG/DOSE 1 puff Inhalation every 12 hrs Active Potassium Bicarb-Citric Acid Not-Taking Immunizations Vaccine Route Administration Date Status Comme nts Influenza Unknown 07/26/2017 Administered Influenza Unknown 07/16/2018 Administered Influenza Unknown 07/08/2019 Administered Influenza Unknown 07/14/2021 Administered Influenza Unknown 06/17/2024 Administered COVID-19 Moderna Vaccine Unknown 09/11/2021 Administered First Dose:11/13/20 Second Dose:12/11/20 Social History Tobacco Use: Social History Observation Description Date Details (start date - stop date) Never Smoker NA - NA Tobacco use other than smoking: Question Answer Notes Are you an other tobacco user? No Tobacco Control (Standard) Question Answer Notes Tobacco use: Nonsmoker Additional Findings: Tobacco non-user Current no nsmoker AUDIT-C (Standard) Question Answer Notes Did you have a drink containing alcohol in the p ast year? No Points 0 Interpretation Negative Problems Problem Type SNOMED Code ICD Code Onset Dates Problem Status W/U Status Risk Notes Problem Type 2 diabetes mellitus with diabetic polyneuropathy (E11.42) Active confirmed Vital Signs Blood pressure diastolic 89 mm Hg 04/24/2025 Height 5 ft 6 in in 04/24/2025 Blood pressure systolic 150 mm Hg 04/24/2025 Weight 243 lbs 04/24/2025 BMI 39.22 kg/m2 04/24/2025 Procedures Procedure Date Ordered Date Performed Result Body Sit e 26029-Vdqjclyg Plate 10/24/2024 N/A 63579-BCYI SKIN LESIONS, 2 TO 4 10/24/2024 N/A V0429-ORFIYGBO DYSTROPHIC NAILS ANY # 10/24/2024 N/A 64481-Pnpbdeae Plate 04/24/2025 N/A 76594-QRCI SKIN LESIONS, 2 TO 4 04/24/2025 N/A S2367-PRLPDXMD DYSTROPHIC NAILS ANY # 04/24/2025 N/A Encounters Encounter Location Date Provider Diagnosis [facility] [address] [place] [address] [place] [address] 10/24/2024 Zuly Black Type 2 diabetes mellitus with diabetic polyneuropathy E11.42 ; Other hammer toe(s) (acquired), right foot M20.41 ; Ingrown nail L60.0 ; Xerosis of skin L85.3 and Other hammer toe(s) (acquired), left foot M20.42 [facility] [address] [address] 04/24/2025 Zuly Pablo Type 2 diabetes mellitus with diabetic polyneuropathy E11.42 and Ingrowing nail L60.[address] [address] 04/24/2025 Zuly Pablo Assessments Encounter Date Diagnosis (ICD Code) Assessment Notes Treatment Notes Treatment Clinical Notes Section Notes 10/24/2024 Other hammer toe(s) (acquired), right foot (ICD-10 - M20.41) Patient Educated with: DIABETIC FOOT CARE INSTRUCTIONS. pdf (DIABETIC FOOT CARE INSTRUCTIONS. pdf) 10/24/2024 Type 2 diabetes mellitus with diabetic polyneuropathy (ICD-10 - E11.42) Patient Educated with: DIABETIC FOOT CARE INSTRUCTIONS. pdf (DIABETIC FOOT CARE INSTRUCTIONS. pdf) 04/24/2025 Ingrowing nail (ICD-10 - L60.0) 04/24/2025 Type 2 diabetes mellitus with diabetic polyneuropathy (ICD-10 - E11.42) 10/24/2024 Ingrown nail (ICD-10 - L60.0) 10/24/2024 Xerosis of skin (ICD-10 - L85.3) 10/24/2024 Other hammer toe(s) (acquired), left foot (ICD-10 - M20.42) 04/24/2025 Other Plan Of Treatment Pending Test Test Name Order Date 77393-LIYHRLT NAIL, 1-5 12/26/2011 19008-RPTXETA NAIL, 1-5 09/24/2012 87619-TDNYAXZ NAIL, 1-5 09/23/2013 06351-TINEWJO NAIL, 1-5 01/29/2014 01310-RVDUXEN NAIL, 1-5 09/22/2014 51692-Fitsvdqs Plate 09/22/2014 08455-Pwnzhtgw Plate 01/29/2014 81880-Irivjmbt Plate 09/22/2016 67332-Tkdftjry Plate 09/23/2013 06218-Bysyqblw Plate 09/24/2018 05790-Bfzipfev Plate 09/24/2020 34676-Mbaxvwzt Plate 10/21/2021 27211-Ylyzqbjm Plate 10/24/2022 16888-Ivxljkhw Plate 10/26/2023 77182-Aadpttlo Plate 10/24/2024 16527-Kpfeeklr Plate 04/24/2025 85731-Iqdlxcbd Plate Each Additional 08/2024 92512-Cegnherr Plate Each Additional 06/2023 60702-Igxpcbxg Plate Each Additional 03/2022 71748-SQDU SKIN LESIONS, 2 TO 4 10/24/19 23 77227-UCIS SKIN LESIONS, 2 TO 4 09/24/20 20 02592-PDXX SKIN LESIONS, 2 TO 4 10/21/19 22 30656-IDBW SKIN LESIONS, 2 TO 4 09/26/20 19 04167-BGTC SKIN LESIONS, 2 TO 4 09/24/20 18 36416-DVWW SKIN LESIONS, 2 TO 4 09/25/20 17 48388-MAKM SKIN LESIONS, 2 TO 4 01/30/20 14 17382-INTX SKIN LESIONS, 2 TO 4 09/23/20 13 85547-CNRW SKIN LESIONS, 2 TO 4 09/24/20 12 17221-FWRY SKIN LESIONS, 2 TO 4 09/22/20 14 31541-YAOR SKIN LESIONS, 2 TO 4 09/21/20 15 00182-FFEW SKIN LESIONS, 2 TO 4 09/22/20 16 01791-BDBQ SKIN LESIONS, 2 TO 4 10/26/19 24 34132-EZAB SKIN LESIONS, 2 TO 4 10/24/19 25 96161-CFDX SKIN LESIONS, 2 TO 4 04/24/20 25 05879-AHNU NAIL(S) 09/22/2014 51029-YDXH NAIL(S) 09/23/2013 65408-IUGD NAIL(S) 01/29/2014 Y7925-VYGZDTSL DYSTROPHIC NAILS ANY # E3162-GLTJWJVE DYSTROPHIC NAILS ANY # G3082-RHHCJQFE DYSTROPHIC NAILS ANY # V4594-DBSTWBDP DYSTROPHIC NAILS ANY # S5964-ICPGRULD DYSTROPHIC NAILS ANY # C3875-YGMKBFFX DYSTROPHIC NAILS ANY # P1255-UIFXIZVK DYSTROPHIC NAILS ANY # R0543-KLYKPVUK DYSTROPHIC NAILS ANY # I7711-OZGEZYYO DYSTROPHIC NAILS ANY # I7940-UJTDDMAL DYSTROPHIC NAILS ANY # P8120-YLKMMMSP DYSTROPHIC NAILS ANY # Next Appt Details Provider Name:Zuly Pablo , 10/30/2025 11:30:00 AM, [address] [place], [address], Insurance Providers Payer Name Payer Address Payer Phone Subscriber Number Group Number Insured Name Patient Relationship to Insured Coverage Start Date Coverage End Date Medicare National Govt [facility] [address] [place] [address] [id number] Jose AngelDannyy Self - patient is the insured [id number] [address] [place] [address] [phone] [id number] Danny Waltery Self - patient is the insured Medical (General) History Medical History History ICD Code hypercholesterolemia hypertension benign prostatic hyperplasia (BPH) lumbar stenosis kidney stones type II diabetes Arthritis Emphysema Other hammer toe(s) (acquired), right fo ot M20.41 Other hammer toe(s) (acquired), left sundeep t M20.42 Surgical History Surgery Date(Month/Year) appendectomy spinal fusion inguinal hernia repair bronchoscopy 2017
--- OUTSIDE RECORDS SUMMARY | 2025-05-12 08:33 | XMS_ITS | Patient Health Record ---
Author Organization [facility] Address [address] [place] [address] Care Team Providers Care Project Development Manager Name Role Phone Homer Akers MD Primary Care Provider Lenny Venegas [phone] Allergies Allergen (clinical drug ingredient) Drug/Non Drug Allergy documented on EMR Reaction Allergy Type Onset Date Status oxycodone Oxycodone HCl Unknown Drug Allergy Act stewart losartan Losartan Potassium Unknown Drug Allergy Active lisinopril Lisinopril Unknown Drug Allergy Activ e Azithromycin Unknown Drug Allergy Acti ve Reason For Referral No Information Medications Medication SIG (Take, Route, Frequency, Duration) Notes Start Date End Date Status metFORMIN HCl 1000 MG 1 tablet with meal s Orally Twice a day Active Methocarbamol 750mg Not-Taking Tamsulosin HCl 0.4 MG 1 capsule Orally O nce a day Active Lantus 100 UNIT/ML 32 units Subcutaneou s as directed Active Ocuvite - 1 tablet Orally 1 daily Active ProAir HFA 8.5mg prn Not -Taking Albuterol Sulfate .83m prn Not-Taking Aspir-81 81 MG 1 tablet Orally Once a day Active Advair Diskus 100-50 MCG/DOSE 1 puff Inhalation Twice a day Active ZyrTEC Allergy 10 MG 1 tablet Orally Onc e a day Active Metoprolol Succinate 100 one tablet oral ly once a day Active Lipitor 40 MG 1 tablet Orally Once a day Active Immunizations Vaccine Route Administration Date Status Comme nts Influenza Unknown 10/16/2016 Administered Social History Alcohol Screen Question Answer Notes Did you have a drink contain ing alcohol in the past year? Yes How often did you have a dri nk containing alcohol in the past year? Monthly or less (1 point) How many drinks did you have on a typical day when you were drinking in the past year? 1 or 2 drinks (0 point) How often did you have 6 or more drinks on one occasion in the past year? Never (0 point) Points 1 Interpretation Negative Section Notes: He does not smoke and drinks only occasional alcohol He does not smoke and drinks only occasional alcohol Problems Problem Type SNOMED Code ICD Code Onset Dates Problem Status W/U Status Risk Notes Problem [id number] Encounter for screening for malignant neoplasm of colon (Z12.11) Active confirmed Problem 002337028 Long-term use of aspirin therapy (Z79.82) Active confirmed Plan Of Treatment Future Test Test Name Order Date CT ABD & PELVIS WITH CONTRAST 08/23/2011 COLONOSCOPY 03/16/2017 Insurance Providers Payer Name Payer Address Payer Phone Subscriber Number Group Number Insured Name Patient Relationship to Insured Coverage Start Date Coverage End Date MEDICARE OF [place] [address] [place] [address] [id number] JEREMIAH GUERRERO Self - patient is the insured [employer] [address] [place] [address] [id number] JEREMIAH GUERRERO Self - patient is the insured Medical (General) History Medical History History ICD Code IDDM Asthma Hypertension Allergies Hyperlipidemia Kidney stones--cystoscopy with laser He denies any history of DE, stroke, nor renal disease otherwise Neg. colonoscopies in 1999 a nd 2005--hyperplastic polyps, diverticulosis, internal hemorrhoids Pericarditis Sleep apnea--uses CPAP Surgical History Surgery Date(Month/Year) Appendectomy Back surgery Broken right leg and ankle
== END 2025-05-12 08:22 | disposition home or self-care (01) ==
LOC: HO.HOSX 08:21
DX: M19.041 Primary osteoarthritis, right hand (principal); M19.042 Primary osteoarthritis, left hand
CPT/HCPCS: 73130; 99212

== ENCOUNTER 2025-05-12 09:21 | Outpatient (AMB) | payer MEDICARE, SELFPAY ==
--- NOTE | 2025-05-12 09:48 | A.OFFVIS_ITS ---
Vital Signs 05/12/25 09:49 Height 5 ft 7 in Weight 246 lb BMI 38.5 Intake Visit Reasons: Newprob-B/L hand pain Intake Note: Silvano is an 80 year old right hand dominant male who presents today with new complaints of bilateral hand pain. Patient states for the past few months he has been experiencing pain on all knuckles primarily when making a fist or grabbing things. He reports the hands stay stiff for a few seconds but is able to fully open the hands without assistance. He has been taking Tylenol PRN with relief. Denies numbness, tingling, finger locking. Denies any previous surgeries or injuries to the hands. Accompanied by: Son, Hair Allergies azithromycin (AZITHROMYCIN) Allergy (Unknown, Verified 05/12/25 09:51) HIVES lisinopril (LISINOPRIL) Allergy (Unknown, Verified 05/12/25 09:51) HIVES losartan (LOSARTAN) Allergy (Unknown, Verified 05/12/25 09:51) HIVES oxycodone (OXYCODONE) Allergy (Unknown, Verified 05/12/25 09:51) HIVES HPI HPI Newprob-B/L hand pain: Details: Silvano is an 80 year old right hand dominant male who presents today with new complaints of bilateral hand pain. Patient states for the past few months he has been experiencing pain on all knuckles primarily when making a fist or grabbing things. He reports the hands stay stiff for a few seconds but is able to fully open the hands without assistance. He has been taking Tylenol PRN with relief. Denies numbness, tingling, finger locking. Denies any previous surgeries or injuries to the hands. 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 Mother No problems noted. Son No problems noted. Son No problems noted. Daughter No problems noted. Daughter No problems noted. Social History (Updated 05/12/25 @ 09:57 by Sophie Steward [facility]) Housing: House Alcohol intake: never Patient Tobacco Use Status: Former Tobacco user Tobacco use type: Cigarette Years Smoked: 1993 e-Cigarette/Vaping Use: Never Used Second Hand Smoke Exposure: No service: No Current occupational status: retired Current occupation: rt handed Cognitive needs: No Hearing needs: No Vision needs: Yes Review of Systems Const All systems reviewed & are unremarkable except as noted in HPI and below Physical Exam Vital Signs: BMI result Body Mass Index 38.5 Extrem Other: Patient is alert, oriented, and in no acute distress. Neuro: Normal sensation of the tips of all digits of the bilateral hands at this time Vascular: Cap refill brisk Pain: Mild discomfort in the PIP joints of all digits of bilateral hands with making a closed fist ROM: Patient is able to make a closed fist and extend all digits of the bilateral hands fully and without difficulty Skin: No lacerations or abrasions. General: No ecchymosis, erythema, or evidence of infection. Psych: Appears grossly normal Affect normal Attitude cooperative Results Reviewed Results Reviewed: X-rays obtained in the office today and independently reviewed by me, Aris Diamond PA-C, demonstrate diffuse nzzt-ts-ouagfksc arthritis throughout the digits of bilateral hands. Assessment & Plan Assessment & Plan (1) Osteoarthritis of hands, bilateral: Code(s): M19.041 - Primary osteoarthritis, right hand; M19.042 - Primary osteoarthritis, left hand Category: Medical Plan 1. Osteoarthritis of digits of bilateral hands Patient is educated about this condition Patient is educated about the typical treatment course At this time, I feel the patient would benefit significantly from occupational therapy to improve his range of motion of his hands Patient is educated that the only surgical intervention that would be performed for his osteoarthritis would potentially be a fusion of his DIP joints, however patient is not experiencing significant pain in his area and would like to avoid surgery if at all possible At this time, patient is referred to occupational therapy for range of motion and strengthening of the bilateral hands in the setting of osteoarthritis Patient is educated on conservative pain management measures, such as rest, ice, elevation, anti-inflammatory medications as needed Patient understands this and is amenable to this plan Follow-up as needed Orders: Orders XR Hand Bilat min 3v Today M79.643 - Pain in unspecified hand OT Evaluation and Treatment Today M19.041 - Primary osteoarthritis, right hand, M19.042 - Primary osteoarthritis, left hand Coding Level of Care Code Est Pt Level 3 (66210) Diagnoses Osteoarthritis of hands, bilateral M19.041; M19.042
[2025-05-12 09:49] VITALS: BMI 38.5
== END 2025-05-12 10:12 | disposition home or self-care (01) ==
LOC: HO.HOS 09:32
PROVIDERS: PCP Internal Medicine
DX: M19.041 Primary osteoarthritis, right hand (principal); M19.042 Primary osteoarthritis, left hand
CPT/HCPCS: 99213

== ENCOUNTER → 2025-05-12 09:35 | Outpatient (BNV) | payer MEDICARE, SELFPAY | PROVIDERS: Visit Provider Radiology Diagnostic Radiology | DX: M19.049 Primary osteoarthritis, unspecified hand (principal) | CPT/HCPCS: 73130 ==

== ENCOUNTER 2025-05-14 14:41 | Outpatient (AMB) | payer MEDICARE, SELFPAY ==
[2025-05-14 14:43] VITALS: BMI 38.1
--- NOTE | 2025-05-14 14:43 | MHC.OFFVIS ---
Vital Signs 05/14/25 14:43 Height 5 ft 7 in Weight 243 lb BMI 38.1 Intake Visit Reasons: Inj- Left knee Durolane Inj, Left knee pain, Right knee pain Intake Note: Silvano is an 80 year old male who presents with complaints of bilateral knee pains. He did undergo a right knee Durolane viscosupplementation injection on 12/31/2024. He got fairly good relief from that injection initially. He describes his knee pains as sharp in nature. He has failed the last 3 months of conservative treatment which has included a home exercise program, physical therapy exercises, bilateral knee braces, Tylenol and anti-inflammatory medicines. His knee pains are now interfering with his activities of daily living and his ability to sleep well through the night. He wishes to hold off on knee replacement surgery if at all possible. Allergies azithromycin (AZITHROMYCIN) Allergy (Unknown, Verified 05/14/25 14:48) HIVES lisinopril (LISINOPRIL) Allergy (Unknown, Verified 05/14/25 14:48) HIVES losartan (LOSARTAN) Allergy (Unknown, Verified 05/14/25 14:48) HIVES oxycodone (OXYCODONE) Allergy (Unknown, Verified 05/14/25 14:48) HIVES Medication List - Last Reconciled 05/14/25 by Gurmeet Ordaz MD acetaminophen (Tylenol) 650 mg PO Q6H PRN albuterol sulfate 2.5 mg inhalation Q6H PRN albuterol sulfate 90 mcg/actuation 2 puffs inhalation Q6H PRN 60 days allopurinol 100 mg PO DAILY 90 days aspirin (Adult Aspirin Regimen) 81 mg PO DAILY atorvastatin 40 mg PO DAILY 90 days blood pressure monitor (Blood Pressure Kit) As directed blood sugar diagnostic (OneTouch Ultra Test strips) test 2 times per day blood sugar diagnostic One touch ULTRA TEst Strips check the BS 2x a day blood-glucose meter ([employer] Ultra2 Meter kit) As directed cetirizine (Zyrtec) 10 mg PO DAILY cholecalciferol (vitamin D3) 10 mcg PO DAILY cyanocobalamin (vitamin B-12) 1,000 mcg PO DAILY dulaglutide (Trulicity) 3 mg (0.5 mL) subcut QWEEK fluticasone propion-salmeterol 250-50 mcg/dose (Wixela Inhub) 1 ea inhalation BID insulin degludec (Tresiba FlexTouch U-200 insulin) 52 units (0.26 mL) subcut DAILY lancets (OneTouch UltraSoft Lancets) As directed check the blood sugars 4 times a day metformin 1,000 mg PO BID metoprolol succinate ER 100 mg PO DAILY peg 400-propylene glycol (PF) 0.4-0.3 % (Systane (PF)) 1 drp ophthalmic (eye) BID PRN pen needle, diabetic (Easy Touch) As directed pen needle, diabetic, safety (Easy Touch Safety Pen Needle) As directed inject twice a day [Prevagen 1 cap PO DAILY] pyridoxine (vitamin B6) 50 mg PO DAILY 90 days tamsulosin 0.4 mg PO BEDTIME 90 days vit C,J-Cg-eorfg-lutein-zeaxan 250-90-40-1 mg (PreserVision AREDS-2) 1 tab PO BID PFSH Medical History (Updated 05/12/25 @ 10:09 by ANTON March) Renal calculi Adult general medical exam COVID-19 Frequent falls Bilateral knee pain Bilateral hip pain Arthritis of right knee Right knee pain Obesity (BMI 30-39.9) AMY on CPAP Hypercholesterolemia Type 2 diabetes mellitus with hyperglycemia Hypoxemia Restrictive lung disease Abnormal LFTs Calcium oxalate calculus 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 Mother No problems noted. Son No problems noted. Son No problems noted. Daughter No problems noted. Daughter No problems noted. Social History (Updated 05/12/25 @ 09:57 by EDMOND Geller) Housing: House Alcohol intake: never Patient Tobacco Use Status: Former Tobacco user Tobacco use type: Cigarette Years Smoked: 1993 e-Cigarette/Vaping Use: Never Used Second Hand Smoke Exposure: No service: No Current occupational status: retired Current occupation: rt handed Cognitive needs: No Hearing needs: No Vision needs: Yes Physical Exam Vital Signs: BMI result Body Mass Index 38.1 Const Other: Well-nourished well-developed very friendly male awake alert and oriented x3 in no acute distress Extrem Other: Bilateral lower extremity examination shows good capillary refill, no skin lesions noted, normal sensation light touch Bilateral knee examination shows minimal effusions, palpable crepitus with range of motion, pain with range of motion, no instability Office Procedures AMB Joint Injection/Aspiration Joint Injection/Aspiration Primary Site: left knee Prep: site was prepped using aseptic technique Injected: 60 mg of (Durolane viscosupplementation) and 1% plain lidocaine Procedure: The patient tolerated the procedure well Coding 54611 - Large joint Procedure code (CPT) selection complete Results Reviewed Results Reviewed: X-rays of the patient's bilateral knees taken previously show joint space narrowing, subchondral sclerosis, no acute bony abnormalities Assessment & Plan Assessment & Plan (1) Osteoarthritis of left knee: Code(s): M17.12 - Unilateral primary osteoarthritis, left knee Category: Medical (2) Osteoarthritis of right knee: Code(s): M17.11 - Unilateral primary osteoarthritis, right knee Category: Medical (3) Left knee pain: Code(s): M25.562 - Pain in left knee (4) Right knee pain: Code(s): M25.561 - Pain in right knee Plan Mr. Walter presents with bilateral knee pains due to osteoarthritis. The risks and benefits of a left knee Durolane viscosupplementation injection were discussed at length with the patient. The patient wished to proceed. He tolerated the injection well. I will also see if the patient's insurance company will cover another Durolane viscosupplementation injection for his right knee. I will see him back once the injection is available. Feel free to call me at any time should questions regarding his orthopedic arise. I spent 21 minutes in reviewing the patient's records and imaging studies, seeing the patient and documenting in the medical record. Orders: Orders AMB Joint Injection/Aspiration Today M17.11 - Unilateral primary osteoarthritis, right knee, M17.12 - Unilateral primary osteoarthritis, left knee Coding Level of Care Code Est Pt Level 3 (78694) Complex EM visit Add On G2211 Diagnoses Osteoarthritis of left knee M17.12 Osteoarthritis of right knee M17.11 Left knee pain M25.562 Right knee pain M25.561 CPT Codes Coding - 41202 Large joint: 62961 - Large joint ([id number])
== END 2025-05-14 15:17 | disposition home or self-care (01) ==
LOC: HO.HOS 14:42
PROVIDERS: PCP Internal Medicine; Visit Provider Orthopaedic Surgery
DX: M17.0 Bilateral primary osteoarthritis of knee (principal)
CPT/HCPCS: 20610; 99213

== ENCOUNTER → 2025-05-14 14:41 | Outpatient (BNVA) | payer MEDICARE, SELFPAY | PROVIDERS: PCP Internal Medicine; Visit Provider Orthopaedic Surgery | DX: M25.562 Pain in left knee (principal); M25.561 Pain in right knee; M17.0 Bilateral primary osteoarthritis of knee | CPT/HCPCS: 20610; 99212; J2003; J7318 ==

== ENCOUNTER 2025-06-06 11:43 | Outpatient (REF) | payer MEDICARE, SELFPAY ==
[2025-06-06 14:43] LABS: Hematocrit 38.2 % (42.0-52.0); Hemoglobin 12.8 g/dl (14.0-18.0); Imm Gran Abs Auto 0.02 X10*3/uL (0.00-0.03); Imm Gran Pct Auto 0.3 % (0.0-0.4); Lymphocytes Absolute Auto 1.9 X10*3/uL (1.2-4.9); MANUAL DIFF FLAG NO; Mean Corpuscular HGB Conc 33.5 g/dl (31.0-36.0); Mean Corpuscular Hemoglobin 28.3 pg (27.0-33.0); Mean Corpuscular Volume 84.3 fL (80.0-98.0); NRBC Abs Auto 0.000 X10*3/uL (0.0-0.012); NRBC Pct Auto 0.0 /100WBC (0.0-0.2); Platelet Count 154 X10*3/uL (160-400); Red Blood Count 4.53 X10*6/uL (4.60-5.80); Reticulocytes Absolute 0.060 X10*6/uL (0.026-0.095); White Blood Count 6.4 X10*3/uL (4.8-10.8)
[2025-06-06 15:03] LABS: Total Hemoglobin (HGBA1C) 3358.6433 umol/L
[2025-06-06 15:06] LABS: Alanine Aminotransferase 23 U/L (0-40); Albumin Level 4.5 g/dL (3.5-5.0); Alkaline Phosphatase 83 U/L (39-117); Anion Gap 16 (12-20); Aspartate Amino Transferase 28 U/L (5-37); Blood Urea Nitrogen 16 mg/dL (9-16); Calcium 9.3 mg/dL (8.4-10.2); Carbon Dioxide 25 mmol/L (22-29); Chloride 107 mmol/L (96-108); Cholesterol 121 mg/dL (<200); Estimated Glomerular Filt Rate > 60; HDL Cholesterol 29 mg/dL (>40); Iron 65 mcg/dL (45-160); Magnesium 1.7 mg/dL (1.6-2.6); Percent Iron Saturation 23 % (15-50); Potassium 4.2 mmol/L (3.3-5.1); Sodium 144 mmol/L (135-145); Total Iron Binding Capacity 286 mcg/dL (228-428); Total Protein 7.3 g/dL (6.5-8.0); Triglycerides 115 mg/dL (<150); Unsaturated Iron Binding 221 ug/dL; Uric Acid 6.7 mg/dL (3.4-7.0)
[2025-06-06 15:24] LABS: Ferritin 88 ng/mL (20-250); Free T4 (Free Thyroxine) 0.91 ng/dL (0.71-1.85); Thyroid Stimulating Hormone 2.65 uIU/mL (0.32-4.0)
[2025-06-06 15:31] LABS: Microalbum/Creatinine Ratio Ur 8.5 ug/mg cr (<30)
[2025-06-06 15:34] LABS: Folate 7.5 ng/mL (> or = 4.0); Vitamin B12 534 pg/mL (200-900)
== END 2025-06-06 11:44 | disposition home or self-care (01) ==
LOC: HO.HMGCLDS 11:43
PROVIDERS: PCP Internal Medicine; Visit Provider Internal Medicine
DX: E11.65 Type 2 diabetes mellitus with hyperglycemia (principal); E78.00 Pure hypercholesterolemia, unspecified; I10 Essential (primary) hypertension; E66.9 Obesity, unspecified; K76.0 Fatty (change of) liver, not elsewhere classified; J45.20 Mild intermittent asthma, uncomplicated; G47.33 Obstructive sleep apnea (adult) (pediatric); Z79.4 Long term (current) use of insulin; Z68.36 Body mass index [BMI] 36.0-36.9, adult
CPT/HCPCS: 36415; 80053; 80061; 82043; 82570; 82607; 82728; 82746; 83036; 83540; 83735; 84439; 84443; 84550; 85025; 85045; 99212

== ENCOUNTER 2025-06-06 11:43 | Outpatient (AMB) | payer MEDICARE, SELFPAY ==
[2025-06-06 11:45] VITALS: BP 124/72; PULSE 100; TEMP 36.2; O2SAT 94; BMI 36.3
--- NOTE | 2025-06-06 11:45 | A.OFFPC_ITS ---
Vital Signs 06/06/25 11:45 Height 5 ft 7 in Weight 231 lb 8 oz BMI 36.3 BP 124/72 Blood Pressure Location Lt brachial Position Sitting Pulse 100 Pulse Source Pulse Oximeter Temp 97.1 F Temp Source Temporal Artery Scan Pulse Oximetry (%) 94 Oxygen Delivery Method Room Air Intake Visit Reasons: DM Accompanied by: Son Allergies azithromycin (AZITHROMYCIN) Allergy (Unknown, Verified 06/06/25 11:50) HIVES lisinopril (LISINOPRIL) Allergy (Unknown, Verified 06/06/25 11:50) HIVES losartan (LOSARTAN) Allergy (Unknown, Verified 06/06/25 11:50) HIVES oxycodone (OXYCODONE) Allergy (Unknown, Verified 06/06/25 11:50) HIVES Tobacco use date assessed: 06/06/25 Fall risk assessment: 2 + Falls in past year Last assessed Fall Risk: 06/06/25 Dental Screening Dental Screen Date: 06/06/25 Did you have a dental visit in the last 12 months?: Yes Did you have a dental problem in the last 6 months where you did not have access to dental care?: No Was dental information given to patient?: Patient has dentist [facility] Medical History Renal calculi Adult general medical exam COVID-19 Frequent falls Bilateral knee pain Bilateral hip pain Arthritis of right knee Right knee pain Obesity (BMI 30-39.9) AMY on CPAP Hypercholesterolemia Type 2 diabetes mellitus with hyperglycemia Hypoxemia Restrictive lung disease Abnormal LFTs Calcium oxalate calculus 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 Mother No problems noted. Son No problems noted. Son No problems noted. Daughter No problems noted. Daughter No problems noted. Social History Housing: House Alcohol intake: never Patient Tobacco Use Status: Former Tobacco user Tobacco use type: Cigarette Years Smoked: 1993 e-Cigarette/Vaping Use: Never Used Second Hand Smoke Exposure: No service: No Current occupational status: retired Current occupation: rt handed Cognitive needs: No Hearing needs: No Vision needs: Yes Questionnaire PHQ-9 Over the last 2 weeks, how often have you been bothered by any of the following problems? 1. Little interest or pleasure in doing things: not at all 2. Feeling down, depressed, or hopeless: not at all 3. Trouble falling or staying asleep, or sleeping too much: not at all 4. Feeling tired or having little energy: not at all 5. Poor appetite or overeating: not at all 6. Feeling bad about yourself - or that you are a failure or have let yourself or your family down: not at all 7. Trouble concentrating on things, such as reading the newspaper or watching television: not at all 8. Moving or speaking so slowly that other people could have noticed. Or the opposite - being so fidgety or restless that you have been moving around a lot more than usual: not at all 9. Thoughts that you would be better off or of hurting yourself in some way: not at all Total score: 0 Source: Developed by Drs. Lenny Jimenez, Norma Murdock, Rk Holloway and colleagues, with an educational alfredo from [employer]. Thrive Questionnaire Date Thrive assessed: 06/05/25 I am a: Patient What is your living situation today?: I have a steady place to live Within the past 12 months, did the food you bought not last and you didn't have the money to get more?: Never true Within the past 12 months, did you worry whether your food would run out before you got money to buy more?: Never true Do you have trouble paying for medicines?: No Do you have trouble getting transportation to medical appointments?: No Do you have trouble paying your heating and electricity bill?: No Do you have trouble taking care of your child, family member or friend?: No Do you have trouble with day-to-day activities such as bathing, preparing meals, shopping, managing finances, etc.?: No Are you currently unemployed and looking for a job?: No Are you interested in more education?: No Please select the resources that you would like help with: None Currently or been in a relationship where the following occur: No concerns reported THRIVE Score: 0 AUDIT C Alcohol Use Questionnaire (AUDIT-C) 1. How often do you have a drink containing alcohol?: Never 3. How often do you have six or more drinks on one occasion?: Never Total Score: 0 VIDHYA-7 AMB Questionnaire VIDHYA-7 Date VIDHYA - 7 assessed: 10/24/24 Feeling nervous, anxious, or on edge: 0 = Not at all Not being able to stop or control worryin = Not at all Worrying too much about different things: 0 = Not at all Trouble relaxin = Not at all Being so restless that it is hard to sit still: 0 = Not at all Becoming easily annoyed or irritable: 0 = Not at all Feeling afraid as if something awful might happen: 0 = Not at all Total VIDHYA-7 score (0-4 normal; 5-9 mild; 10-14 moderate; 15-21 severe): 0 Source: Developed by Drs. Lenny Jimenez, Norma Murdock, Rk Holloway and colleagues, with an educational alfredo from [employer]. Physical exam (Primary Care) Vital Signs: Last Vital Signs Temp 97.1 F 06/06/25 11:45 Pulse 100 06/06/25 11:45 BP 124/72 06/06/25 11:45 Pulse Ox 94 06/06/25 11:45 Oxygen Delivery Method Room Air 06/06/25 11:45 BMI result Body Mass Index 36.3 Tobacco/Smoking Status: Tobacco use Status Tobacco use date assessed 06/06/25 06/06/25 11:52 Patient Tobacco Use Status Former Tobacco user 06/06/25 11:52 Tobacco use type Cigarette 06/06/25 11:52 e-Cigarette/Vaping Use Never Used 06/06/25 11:52 PHQ-9: PHQ-9 Score PHQ-9: Total score 0 06/06/25 12:29 Thrive Assessment: Date of Thrive Assessment Date Thrive assessed 06/05/25 06/06/25 11:52 Currently or been in a relationship where the following occur: No concerns reported Const General: alert; No acute distress Eyes Conjunctivae: conjunctivae normal Resp Auscultation: clear to auscultation bilaterally Cardio Rate: regular rate Rhythm: regular rhythm GI Inspection: Yes normal to inspection Extrem General: Yes normal to inspection and No edema Results AMB Hemoglobin A1c AMB Hemoglobin A1c 6.5 % Last Edit by Diane Bui CMA on 06/06/25 11:55 Results Reviewed Results Reviewed: Laboratory Last Values Hgb A1c (Clinic) 6.5 % (4.0-6.0) H 06/06/25 11:52 Coding Level of Care Code Est Pt Level 4 (28035) Complex EM visit Add On G2211 Diagnoses Type 2 diabetes mellitus with hyperglycemia, with long-term current use of in sulin E11.65; Z79.4 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 Hemoglobin A1c goal of less than 7.0. Patient is on Trulicity 3 mg once a week Tresiba metformin (2) Hypertension: Code(s): I10 - Essential (primary) hypertension Category: Medical Qualifiers: Hypertension type: essential hypertension Qualified Code(s): I10 - Essential (primary) hypertension Plan: Continue with blood pressure medication. Decrease salt intake and exercise on metoprolol 100 mg once a day (3) Hypercholesterolemia: Code(s): E78.00 - Pure hypercholesterolemia, unspecified Category: Medical Plan: Avoid fried foods, chicken skin, eggs, butter margarine, pastries and meat. Be it pork or beef they have a lot of cholesterol LDL goal of less than 100 and triglyceride of less than 150 on atorvastatin 40 mg once a day (4) Obesity (BMI 30-39.9): Comment: Patient is aware of the fact that he needs to loose weight. Code(s): E66.9 - Obesity, unspecified Category: Medical Plan: Continue with diet and exercise (5) Fatty liver: Code(s): K76.0 - Fatty (change of) liver, not elsewhere classified Category: Medical Plan: Low-fat diet and exercise (6) Osteoarthritis of right knee: Code(s): M17.11 - Unilateral primary osteoarthritis, right knee Category: Medical Plan: Patient follows up with Orthopedics and had injections (7) Bronchial asthma: Comment: Br. Asthma in his case is Cough / Asthma Variant and is well controlled at this time . Code(s): J45.909 - Unspecified asthma, uncomplicated Category: Medical Qualifiers: Asthma complication type: uncomplicated Asthma persistence: intermittent Asthma severity: mild Qualified Code(s): J45.20 - Mild intermittent asthma, uncomplicated Plan: Continue with albuterol inhaler as needed and Wixela (8) AMY on CPAP: Comment: He has history of obstructive sleep apnea for the past many use secondary to his gross obesity. Uses CPAP very regularly and sleeps well. He sleeps for 10-11 hours. No issues. With the CPAP device Code(s): G47.33 - Obstructive sleep apnea (adult) (pediatric) Category: Medical Plan History of Present Illness The patient is an 80-year-old male presenting for a follow-up visit. The patient has a history of diabetes mellitus, which is currently managed with Trulicity, Tresiba, and metformin. His hemoglobin A1c has improved from 8.3% in July last year to 6.5%, indicating better glycemic control. He has experienced a weight loss of approximately 15 pounds since January, attributed to decreased food intake due to his 's illness and the effects of Trulicity. The patient also has a history of asthma, for which he uses Wixela and albuterol inhalers. He reports being on oxygen therapy and requires refills for his inhalers. Hypertension is managed with metoprolol, and his blood pressure goal is less than 140/90 mmHg. The patient has hepatic steatosis and obstructive sleep apnea, both of which are being monitored. He has osteoarthritis of the left knee and hands, with recent injections in the knee and advice for physical therapy for the hands. His last colonoscopy was in 2006, indicating that he is overdue for this screening. Recent blood work in February 2025 showed anemia of chronic disease, and his cholesterol was last checked in December 2023. Health Maintenance - Colonoscopy overdue since 2006 - Blood work needed for cholesterol monitoring - Flu shot recommended in July Social History - Current nutritional intake: Reduced food intake due to 's illness, leading to weight loss. Review of Systems - Respiratory: Reports no chest pain, bowel movements are good, peeing is okay, little bit of swelling, no pains in the feet. Physical Exam Results - Labs: Anemia of chronic disease noted in February 2025 blood work. - Labs: Cholesterol last checked in December 2023. - Labs: Hemoglobin A1c improved to 6.5%. Plan The patient's diabetes management includes maintaining a hemoglobin A1c goal of less than 7.0% with the use of Trulicity, Tresiba, and metformin. He is advised to continue with his current medication regimen and ensure regular meals to prevent hypoglycemia, especially given his insulin use. For asthma management, the patient should continue using Wixela and albuterol inhalers, with a reminder to rinse his mouth after use to prevent oral infections. Refills for these inhalers have been sent to the pharmacy. Hypertension management involves continuing metoprolol, with a blood pressure goal of less than 140/90 mmHg. The patient is advised to undergo a colonoscopy as he is overdue for this screening since 2006. Blood work is needed to monitor cholesterol levels, with an LDL goal of less than 100 mg/dL. For osteoarthritis, the patient should continue with physical therapy for his hands and follow up with orthopedics as needed. A flu shot is recommended in July to ensure timely vaccination. Patient was informed and verbally consented to the use of an ambient scribe for clinic note documentation during this visit. Discussion Notes During the visit, we discussed the importance of maintaining a hemoglobin A1c goal of less than 7.0% for diabetes management, and the patient was advised to continue his current medications, including Trulicity, Tresiba, and metformin. We emphasized the need for regular meals to prevent hypoglycemia due to insulin use. For asthma, the patient was reminded to use Wixela and albuterol inhalers and to rinse his mouth after use to prevent oral infections. Refills for these inhalers were sent to the pharmacy. We discussed the need for a colonoscopy, as the patient is overdue for this screening since 2006. Blood work was recommended to monitor cholesterol levels, with an LDL goal of less than 100 mg/dL. The patient was advised to continue physical therapy for osteoarthritis and to follow up with orthopedics as needed. A flu shot was recommended for July to ensure timely vaccination. Patient Instructions - Continue taking Trulicity, Tresiba, and metformin as prescribed. - Eat regular meals to prevent low blood sugar. - Use Wixela and albuterol inhalers as directed, and rinse mouth after use. - Schedule a colonoscopy as soon as possible. - Get blood work done to check cholesterol levels. - Continue physical therapy for osteoarthritis. - Plan to get a flu shot in July. Orders: Orders AMB Hemoglobin A1c Today Z13.9 - Encounter for screening, unspecified Medications: New fluticasone propion-salmeterol 250-50 mcg/dose (Wixela Inhub) 1 ea inhalation BID 60 ea 1RF pen needle, diabetic (Easy Touch) As directed 200 ea 3RF Refilled albuterol sulfate 90 mcg/actuation 2 puffs inhalation Q6H PRN 8.5 grams 0RF bronchospasm 60 days
--- OUTSIDE RECORDS SUMMARY | 2025-06-06 11:47 | XMS_ITS | Patient Health Record ---
Author Organization [facility] Address [address] [place] [id number] Care Team Providers Care Equipment Coordinator Name Role Phone Homer Akers MD Primary Care Provider Lenny Venegas [phone] Allergies Allergen (clinical drug ingredient) Drug/Non Drug Allergy documented on EMR Reaction Allergy Type Onset Date Status oxycodone Oxycodone HCl Unknown Drug Allergy Act stewart losartan Losartan Potassium Unknown Drug Allergy Active lisinopril Lisinopril Unknown Drug Allergy Activ e azithromycin Azithromycin Unknown Drug Allergy A ctive [...] Problem Status W/U Status Risk Notes Problem [id number] Encounter for screening for malignant neoplasm of colon (Z12.11) Active confirmed Problem [id number] Long-term use of aspirin therapy (Z79.82) Active confirmed Plan Of Treatment Future Test Test Name Order Date CT ABD & PELVIS WITH CONTRAST 08/23/2011 COLONOSCOPY 03/16/2017 Insurance Providers Payer Name Payer Address Payer Phone Subscriber Number Group Number Insured Name Patient Relationship to Insured Coverage Start Date Coverage End Date MEDICARE OF [place] [address] [place] [address] [id number] JEREMIAH GUERRERO Self - patient is the insured [employer] CLAIMS [address] [place] [phone] [id number] JEREMIAH GUERRERO Self - patient is the insured Medical (General) History Medical History History ICD Code IDDM Asthma Hypertension Allergies Hyperlipidemia Kidney stones--cystoscopy with laser He denies any history of [place], stroke, nor renal disease otherwise Neg. colonoscopies in 1999 a nd 2005--hyperplastic polyps, diverticulosis, internal hemorrhoids Pericarditis Sleep apnea--uses CPAP Surgical History Surgery Date(Month/Year) Appendectomy Back surgery Broken right leg and ankle
--- OUTSIDE RECORDS SUMMARY | 2025-06-06 11:47 | XMS_ITS | Patient Health Record ---
Author Organization [facility] Address [address] [facility] [place] [address] Care Team Providers Care Opticianry Teacher Name Role Phone Homer Akers Primary Care Provider Geovanny e Zuly Pablo Unavailable [phone] Allergies Allergen (clinical drug ingredient) Drug/Non Drug [...] ever y 4 hrs; Duration: 30 day(s) Not-Draron ing Victoza 18 MG/3ML 0.2 ml Subcutaneous [...] Unknown 07/14/2021 Administered Influenza Unknown 06/17/2024 Administered Social History Tobacco Use: Social History [...] Problem Status W/U Status Risk Notes Problem Polyneuropathy due to type 2 diabetes mellitus (149259559) Type 2 diabetes mellitus with diabetic polyneuropathy (E11.42) Active confirmed Vital Signs Blood pressure diastolic 89 mm Hg 04/24/2025 Height 5 ft 6 in in 04/24/2025 Blood pressure systolic 150 mm Hg 04/24/2025 Weight 243 lbs 04/24/2025 BMI 39.22 kg/m2 04/24/2025 Procedures Procedure Date Ordered Date Performed Result Body Sit e 52151-Lsgfnryh Plate 10/24/2024 N/A 48150-HENT SKIN LESIONS, 2 TO 4 10/24/2024 N/A B5914-JPCINJYL DYSTROPHIC NAILS ANY # 10/24/2024 N/A 94231-Yvjbgvcl Plate 04/24/2025 N/A 77911-FXTI SKIN LESIONS, 2 TO 4 04/24/2025 N/A L2338-EZHBHRGS DYSTROPHIC NAILS ANY # 04/24/2025 N/A Encounters Encounter Location Date Provider Diagnosis [facility] [place] [address] [place] [address] 10/24/2024 Zuly Black Type 2 diabetes mellitus with diabetic polyneuropathy E11.42 ; Other hammer toe(s) (acquired), right foot M20.41 ; Ingrown nail L60.0 ; Xerosis of skin L85.3 and Other hammer toe(s) (acquired), left foot M20.42 [facility] [address] [address] 04/24/2025 Zuly Pablo Type 2 diabetes mellitus with diabetic polyneuropathy E11.42 and Ingrowing nail L60.[address] [facility] [address] 04/24/2025 Zuly Pablo Assessments Encounter Date Diagnosis [...] Treatment Pending Test Test Name Order Date 19928-GAFFLCH NAIL, 1-12/26/2011 08310-TQDKYBF NAIL, -09/24/2012 41175-ZGLKGEK NAIL, -09/23/2013 82575-WQWPEVJ NAIL, -01/29/2014 05837-PIGKEGX NAIL, 10-2009/22/2014 67663-Fcnftwgz Plate 09/22/2014 36965-Nbwxrbgy Plate 01/29/2014 32430-Vwsvgasx Plate 09/22/2016 99305-Yvpually Plate 09/23/2013 70222-Mfiasgln Plate 09/24/2018 29495-Wgiywizh Plate 09/24/2020 87478-Qepcvcil Plate 10/21/2021 19738-Gurpfmpu Plate 10/24/2022 45176-Bnexxabq Plate 10/26/2023 10148-Bevawvur Plate 10/24/2024 67912-Pnlnsyaq Plate 04/24/2025 48120-Tlgesgzp Plate Each Additional 08/2024 21734-Fixluqbx Plate Each Additional 06/2023 05356-Hgemyjzo Plate Each Additional 03/2022 21523-XABX SKIN LESIONS, 2 TO 4 10/24/19 23 14084-FEQS SKIN LESIONS, 2 TO 4 09/24/20 20 12014-UGQS SKIN LESIONS, 2 TO 4 10/21/19 22 24933-INCB SKIN LESIONS, 2 TO 4 09/26/20 19 00753-CBHC SKIN LESIONS, 2 TO 4 09/24/20 18 09407-URWI SKIN LESIONS, 2 TO 4 09/25/20 17 90910-WJMK SKIN LESIONS, 2 TO 4 01/30/20 14 39091-MJWE SKIN LESIONS, 2 TO 4 09/23/20 13 88109-FKHD SKIN LESIONS, 2 TO 4 09/24/20 12 74983-YURV SKIN LESIONS, 2 TO 4 09/22/20 14 20323-DLDS SKIN LESIONS, 2 TO 4 09/21/20 15 45460-BIBZ SKIN LESIONS, 2 TO 4 09/22/20 16 91897-MNEX SKIN LESIONS, 2 TO 4 10/26/19 24 41755-EOSZ SKIN LESIONS, 2 TO 4 10/24/19 25 08303-JZCH SKIN LESIONS, 2 TO 4 04/24/20 25 09330-QBVI NAIL(S) 09/22/2014 94780-FOLV NAIL(S) 09/23/2013 83742-SDAV NAIL(S) 01/29/2014 Z0366-DFSVYGWS DYSTROPHIC NAILS ANY # B9107-FHSHBAOK DYSTROPHIC NAILS ANY # A2707-FNPHIYLY DYSTROPHIC NAILS ANY # Y3567-JSLSJPXY DYSTROPHIC NAILS ANY # D5617-IIXTRUHO DYSTROPHIC NAILS ANY # V6719-DBGISJUU DYSTROPHIC NAILS ANY # Q0032-KFFSCBIL DYSTROPHIC NAILS ANY # B3466-NIRIJFND DYSTROPHIC NAILS ANY # J7420-AIENXEXO DYSTROPHIC NAILS ANY # V4257-WCNTWTAY DYSTROPHIC NAILS ANY # A2688-ZYYULPSQ DYSTROPHIC NAILS ANY # Next Appt Details Provider Name:Zuly Pablo , 10/30/2025 11:30:00 AM, [address] [place], [address], Insurance Providers Payer Name Payer Address Payer Phone Subscriber Number Group Number Insured Name Patient Relationship to Insured Coverage Start Date Coverage End Date Medicare National [employer]t [employer] [address] [place] [address] [id number] Silvano Walter Self - patient is the insured [employer] [address] [place] [address] [id number] Silvano Walter Self - patient is the [...]
== END 2025-06-06 12:46 | disposition home or self-care (01) ==
LOC: HO.HMCH 11:44
PROVIDERS: PCP Internal Medicine; Visit Provider Internal Medicine
DX: E11.65 Type 2 diabetes mellitus with hyperglycemia (principal); Z79.4 Long term (current) use of insulin; E66.9 Obesity, unspecified; Z68.36 Body mass index [BMI] 36.0-36.9, adult; I10 Essential (primary) hypertension; E78.00 Pure hypercholesterolemia, unspecified; K76.0 Fatty (change of) liver, not elsewhere classified; M17.11 Unilateral primary osteoarthritis, right knee; J45.20 Mild intermittent asthma, uncomplicated; G47.33 Obstructive sleep apnea (adult) (pediatric)

== ENCOUNTER 2025-06-10 10:06 | Outpatient (AMB) | payer MEDICARE, SELFPAY ==
[2025-06-10 10:12] VITALS: BP 140/70; PULSE 77; O2SAT 96; BMI 37.1
--- NOTE | 2025-06-10 10:12 | MHC.OFFVIS ---
Vital Signs 06/10/25 10:12 Height 5 ft 7 in Weight 236 lb 15.951 oz BMI 37.1 BP 140/70 H Blood Pressure Location Lt brachial Position Sitting Pulse 77 Pulse Source Pulse Oximeter Pulse Oximetry (%) 96 Oxygen Delivery Method Nasal Cannula Oxygen Flow Rate 2 Intake Visit Reasons: COPD follow-up Intake Note: pt is here for follow up and states his breathing is doing well, using oxygen 24 hours with breaks with showering Technical Analyst Required: No Allergies azithromycin (AZITHROMYCIN) Allergy (Unknown, Verified 06/10/25 10:35) HIVES lisinopril (LISINOPRIL) Allergy (Unknown, Verified 06/10/25 10:35) HIVES losartan (LOSARTAN) Allergy (Unknown, Verified 06/10/25 10:35) HIVES oxycodone (OXYCODONE) Allergy (Unknown, Verified 06/10/25 10:35) HIVES Medication List - Last Reconciled 06/10/25 by Aylin Duque MD acetaminophen (Tylenol) 650 mg PO Q6H PRN albuterol sulfate 2.5 mg inhalation Q6H PRN albuterol sulfate 90 mcg/actuation 2 puffs inhalation Q6H PRN 60 days allopurinol 100 mg PO DAILY 90 days aspirin (Adult Aspirin Regimen) 81 mg PO DAILY atorvastatin 40 mg PO DAILY 90 days blood pressure monitor (Blood Pressure Kit) As directed blood sugar diagnostic (OneTouch Ultra Test strips) test 2 times per day blood sugar diagnostic One touch ULTRA TEst Strips check the BS 2x a day blood-glucose meter (Extreme [employer] Communication Ultra2 Meter kit) As directed cetirizine (Zyrtec) 10 mg PO DAILY cholecalciferol (vitamin D3) 10 mcg PO DAILY cyanocobalamin (vitamin B-12) 1,000 mcg PO DAILY dulaglutide (Trulicity) 3 mg (0.5 mL) subcut QWEEK fluticasone propion-salmeterol 250-50 mcg/dose (Wixela Inhub) 1 ea inhalation BID insulin degludec (Tresiba FlexTouch U-200 insulin) 52 units (0.26 mL) subcut DAILY lancets (Akira TechnologiesTouch UltraSoft Lancets) As directed check the blood sugars 4 times a day metformin 1,000 mg PO BID metoprolol succinate ER 100 mg PO DAILY peg 400-propylene glycol (PF) 0.4-0.3 % (Systane (PF)) 1 drp ophthalmic (eye) BID PRN pen needle, diabetic (Easy Touch) As directed pen needle, diabetic, safety (Easy Touch Safety Pen Needle) As directed inject twice a day [Prevagen 1 cap PO DAILY] pyridoxine (vitamin B6) 50 mg PO DAILY 90 days tamsulosin 0.4 mg PO BEDTIME 90 days vit C,O-Ri-xkmjb-lutein-zeaxan 250-90-40-1 mg (PreserVision AREDS-2) 1 tab PO BID Do you need a note to return to daycare/school/sports/work: No HPI HPI COPD follow-up: Details: This 80 years old very pleasant gentleman with gross obesity, round face, and severe obstructive sleep apnea. He comes. For follow-up after 6 months Uses CPAP very regularly every night and sleeps up to 11 hours per night. During the daytime he remains mostly in the house, he is not able to walk much. He does use O2 2 L/minute along with the CPAP and also during the daytime for any physical activity . Weight pretty no change. He is happy with his current lifestyle. [facility] Medical History Renal calculi Adult general medical exam COVID-19 Frequent falls Bilateral knee pain Bilateral hip pain Arthritis of right knee Right knee pain Obesity (BMI 30-39.9) AMY on CPAP Hypercholesterolemia Type 2 diabetes mellitus with hyperglycemia Hypoxemia Restrictive lung disease Abnormal LFTs Calcium oxalate calculus 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 Mother No problems noted. Son No problems noted. Son No problems noted. Daughter No problems noted. Daughter No problems noted. Social History Housing: House Alcohol intake: never Patient Tobacco Use Status: Former Tobacco user Tobacco use type: Cigarette Years Smoked: 1993 e-Cigarette/Vaping Use: Never Used Second Hand Smoke Exposure: No service: No Current occupational status: retired Current occupation: rt handed Cognitive needs: No Hearing needs: No Vision needs: Yes Review of Systems Const All systems reviewed & are unremarkable except as noted in HPI and below Eyes Reports no additional complaints ENT Reports nasal congestion (Mild off and on) Card Reports no additional complaints Resp Reports as per HPI GI Reports no additional complaints Reports no additional complaints Musc Reports no additional complaints Skin/Breast Reports system reviewed and no additional complaints, except as documented Neuro Reports no additional complaints Psych Reports no additional complaints Physical Exam Vital Signs: Last Vital Signs Pulse 77 06/10/25 10:12 BP 140/70 H 06/10/25 10:12 Pulse Ox 96 06/10/25 10:12 Oxygen Delivery Method Nasal Cannula 06/10/25 10:12 Oxygen Flow Rate 2 06/10/25 10:12 BMI result Body Mass Index 37.1 Grossly obese and only 2 lb less than last visit Const General: comfortable, no acute distress, alert and awake Orientation/consciousness: patient oriented x3 HEENT Head: Yes normal to inspection General nose exam: No nasal polyps present and No nasal discharge present Face and sinus: Yes sinuses nontender Mouth: oropharynx normal Throat: Yes posterior oropharynx normal Eyes General: appearance normal, both eyes and all related structures Neck Neck: Yes normal visual inspection, Yes no lymphadenopathy, Yes trachea midline and Yes no JVD Thyroid: Thyroid normal Chest Chest palpation & inspection: normal inspection of the chest, normal palpation of entire chest wall and no tenderness Resp Other: Percussion note is resonant. Breath sounds are distant and especially diminished over the basilar areas. No wheezes rhonchi or crepitations are heard. Cardio Palpation: normal PMI Rate: regular rate Rhythm: regular rhythm Heart sounds: no gallops and no murmurs Peripheral pulses: Peripheral pulses 2+ throughout GI Palpation (GI): Soft to palpation, nontender, No hepatosplenomegaly present, no masses and Other GI palpation findings present (Abdomen is moderately obese and protuberant.) Auscultation: normal bowel sounds Back/Spine/Pelvis Thoracic/Lumbar Spine: thoracic and lumbar spine normal to inspection Skin General skin exam: no rashes or lesions noted Neuro General: patient oriented x3 and no focal motor deficits Cranial nerves: Yes CN's II-XII intact bilaterally Extrem General: Yes normal to inspection, Yes no clubbing, cyanosis or edema and Yes no calf tenderness Psych Speech and movement: Normal speech and movement present Results Reviewed Results Reviewed: Compliance report for the last 30 nights reviewed and it shows that he used 30/30 nights, 100%, average use it per night 11 hours 23 minutes. Pressure 12 cm. There is no significant. Air leak Residual AHI 1.7 Assessment & Plan Assessment & Plan (1) Bronchial asthma: Comment: Br. Asthma in his case is Cough / Asthma Variant and is well controlled at this time . Code(s): J45.909 - Unspecified asthma, uncomplicated Category: Medical Qualifiers: Asthma severity: mild Asthma persistence: intermittent Asthma complication type: uncomplicated Qualified Code(s): J45.20 - Mild intermittent asthma, uncomplicated Plan: Continue to use albuterol HFA 2 puffs Q 6 hours p.r.n. when outdoors. But at home can use albuterol solution in the nebulizer Q 4-6 hours p.r.n. He does not need ICS or LABA agents (2) Restrictive lung disease: Comment: BECAUSE OF HIS OBESITY ESPECIALLY ABDOMINAL OBESITY, AND MINIMAL FIBROSIS , HE DOES HAVE MODERATE DEGREE OF RESTRICTIVE LUNG DISEASE, PER PFT IN 2020. Code(s): J98.4 - Other disorders of lung Category: Medical Plan: Needs to lose weight which is impossible in his case. Advised to do deep breathing exercises 2 or 3 times a day. Advised to get more active and try to walk around just in the house as much as he can. (3) Respiratory failure with hypoxia: Comment: This gentleman has nocturnal hypoxemia along with AMY, As well as exercise induced hypoxemia., corrected with the use of O2. His the hypoxemia is mainly because of restrictive pulmonary disorder/ and gross obesity Code(s): J96.91 - Respiratory failure, unspecified with hypoxia Category: Medical Plan: Again talked to him about controlling his weight. And do deep breathing. Exercises a few times every day Use O2 2 L/minute along with the CPAP,, and for most of the time during the day especially when he walks. Around or goes outdoors (4) AMY on CPAP: Comment: He has history of obstructive sleep apnea for the past many years , secondary to his gross obesity. Uses CPAP very regularly and sleeps well. He sleeps for 10-11 hours. No issues. With the CPAP device Code(s): G47.33 - Obstructive sleep apnea (adult) (pediatric) Category: Medical Plan: Discussed about his compliance and commended for using it regularly. I told him that it is good to use the CPAP for about 8 hours every night, but using more than. That may not be very beneficial I encouraged him to sleep but 7-8 hours and then get up and try to be physically active. Coding Level of Care Code Est Pt Level 4 (07555) Diagnoses Mild intermittent asthma without complication J45.20 Asthma severity: mild Asthma persistence: intermittent Asthma complication type: uncomplicated Restrictive lung disease J98.4 Respiratory failure with hypoxia J96.91 AMY on CPAP G47.33
--- OUTSIDE RECORDS SUMMARY | 2025-06-10 10:49 | XMS_ITS | Patient Health Record ---
Author Organization [facility] Address [address] [facility] [address] Care Team Providers Care Webbing Weaver Name Role Phone Homer Akers Primary Care Provider Geovanny e Zuly Pablo Unavailable [phone] Allergies Allergen (clinical drug ingredient) Drug/Non Drug [...] Ordered Date Performed Result Body Sit e 03489-Trjisvoa Plate 10/24/2024 N/A 05947-WIXH SKIN LESIONS, 2 TO 4 10/24/2024 N/A V1083-OWMKRSXJ DYSTROPHIC NAILS ANY # 10/24/2024 N/A 31211-Zhhvxwwu Plate 04/24/2025 N/A 08189-CXST SKIN LESIONS, 2 TO 4 04/24/2025 N/A G4331-KOKTQACX DYSTROPHIC NAILS ANY # 04/24/2025 N/A Encounters Encounter Location Date Provider Diagnosis [facility] [address] [place] [address] 10/24/2024 Zuly Black Type 2 diabetes mellitus with diabetic polyneuropathy E11.42 ; Other hammer toe(s) (acquired), right foot M20.41 ; Ingrown nail L60.0 ; Xerosis of skin L85.3 and Other hammer toe(s) (acquired), left foot M20.42 [facility] [address] [address] 04/24/2025 Zuly Pablo Type 2 diabetes mellitus with diabetic polyneuropathy E11.42 and Ingrowing nail L60.[address] [address] 04/24/2025 Zuly Pablo Assessments Encounter Date Diagnosis [...] Treatment Pending Test Test Name Order Date 14671-CVRMBZO NAIL, 1-5 12/26/2011 65902-KANGTQY NAIL, 1-5 09/24/2012 14822-LNFSRPC NAIL, 1-5 09/23/2013 50111-HEVOVQJ NAIL, 1-5 01/29/2014 17890-MDNXQCW NAIL, 1-5 09/22/2014 65794-Yvckeyte Plate 09/22/2014 57796-Uwvxbcza Plate 01/29/2014 76693-Dczsuegh Plate 09/22/2016 29760-Cbticlhm Plate 09/23/2013 10178-Doollork Plate 09/24/2018 71509-Suusgrfs Plate 09/24/2020 28427-Zwxxpmcg Plate 10/21/2021 94629-Zslcufir Plate 10/24/2022 03612-Dpyzxeif Plate 10/26/2023 23325-Esfpncpn Plate 10/24/2024 84784-Fbqbeuca Plate 04/24/2025 64294-Eguibwjp Plate Each Additional 08/2024 56610-Phluvkam Plate Each Additional 06/2023 28419-Vbyhtbzr Plate Each Additional 03/2022 70226-QLIZ SKIN LESIONS, 2 TO 4 10/24/19 23 21841-TZNS SKIN LESIONS, 2 TO 4 09/24/20 20 65183-SHOI SKIN LESIONS, 2 TO 4 10/21/19 22 72427-DOXN SKIN LESIONS, 2 TO 4 09/26/20 19 34756-TGYB SKIN LESIONS, 2 TO 4 09/24/20 18 57772-ZIIG SKIN LESIONS, 2 TO 4 09/25/20 17 08268-REJF SKIN LESIONS, 2 TO 4 01/30/20 14 00567-ZPYT SKIN LESIONS, 2 TO 4 09/23/20 13 52488-GANH SKIN LESIONS, 2 TO 4 09/24/20 12 62631-AYRR SKIN LESIONS, 2 TO 4 09/22/20 14 11583-SOFZ SKIN LESIONS, 2 TO 4 09/21/20 15 12715-BEUB SKIN LESIONS, 2 TO 4 09/22/20 16 66920-KCEO SKIN LESIONS, 2 TO 4 10/26/19 24 78800-IWST SKIN LESIONS, 2 TO 4 10/24/19 25 81258-SUUY SKIN LESIONS, 2 TO 4 04/24/20 25 95605-MDTP NAIL(S) 09/22/2014 17345-ZAWD NAIL(S) 09/23/2013 08217-XMIY NAIL(S) 01/29/2014 W3831-AETUUIIB DYSTROPHIC NAILS ANY # B4943-MUFCTLHN DYSTROPHIC NAILS ANY # A0588-ZKODNBAH DYSTROPHIC NAILS ANY # L5900-XTOYVKDT DYSTROPHIC NAILS ANY # N8241-WEADVLDR DYSTROPHIC NAILS ANY # Y2449-EZNCAGXE DYSTROPHIC NAILS ANY # J5607-TGYKDFQG DYSTROPHIC NAILS ANY # N4220-GZXXTUGI DYSTROPHIC NAILS ANY # P2400-PXSRWNCN DYSTROPHIC NAILS ANY # B6834-NLBGBWFF DYSTROPHIC NAILS ANY # Z2282-BLOALWVO DYSTROPHIC NAILS ANY # Next Appt Details Provider Name:Zuly Pablo , 10/30/2025 11:30:00 AM, [address] [place], [address], Insurance Providers Payer Name Payer Address Payer Phone Subscriber Number Group Number Insured Name Patient Relationship to Insured Coverage Start Date Coverage End Date Medicare National Govt [facility] [address] [place] [address] [id number] Jose AngelDannyy Self - patient is the insured [employer] [address] [place] [address] [id number] Danny Waltery Self - patient is the [...]
--- OUTSIDE RECORDS SUMMARY | 2025-06-10 10:49 | XMS_ITS | Patient Health Record ---
Author Organization [facility] Address [address] [place] [address] Care Team Providers Care Powder Worker Tnt Name Role Phone Homer Akers MD Primary Care Provider Lenny Venegas [phone] Allergies Allergen (clinical drug ingredient) Drug/Non Drug [...] Problem Status W/U Status Risk Notes Problem [id number] Encounter for screening for malignant neoplasm of colon (Z12.11) Active confirmed Problem [id number] Long-term use of aspirin therapy (Z79.82) Active confirmed Plan Of Treatment Future Test Test Name Order Date CT ABD & PELVIS WITH CONTRAST 08/23/2011 COLONOSCOPY 03/16/2017 Insurance Providers Payer Name Payer Address Payer Phone Subscriber Number Group Number Insured Name Patient Relationship to Insured Coverage Start Date Coverage End Date MEDICARE OF [place] [address] [place] [address] [id number] JEREMIAH GUERRERO Self - patient is the insured [employer] [address] [place] [address] [id number] JEREMIAH GUERRERO Self - patient is the insured Medical (General) History Medical History History ICD Code IDDM Asthma Hypertension Allergies Hyperlipidemia Kidney stones--cystoscopy with laser He denies any history of [place], stroke, nor renal disease otherwise Neg. colonoscopies in 1999 a nd 2005--hyperplastic polyps, diverticulosis, internal hemorrhoids Pericarditis Sleep apnea--uses CPAP Surgical History Surgery Date(Month/Year) Appendectomy Back surgery Broken right leg and ankle
== END 2025-06-10 10:37 | disposition home or self-care (01) ==
LOC: HO.HPS 10:07
PROVIDERS: PCP Internal Medicine; Visit Provider Internal Medicine
DX: J45.20 Mild intermittent asthma, uncomplicated (principal); J98.4 Other disorders of lung; J96.91 Respiratory failure, unspecified with hypoxia; G47.33 Obstructive sleep apnea (adult) (pediatric)
CPT/HCPCS: 99214

== ENCOUNTER → 2025-06-10 10:06 | Outpatient (BNVA) | payer MEDICARE, SELFPAY | PROVIDERS: PCP Internal Medicine; Visit Provider Internal Medicine | DX: J98.4 Other disorders of lung (principal); J45.20 Mild intermittent asthma, uncomplicated; J96.91 Respiratory failure, unspecified with hypoxia; G47.33 Obstructive sleep apnea (adult) (pediatric); Z99.89 Dependence on other enabling machines and devices; Z87.891 Personal history of nicotine dependence | CPT/HCPCS: 99212 ==

== ENCOUNTER 2025-07-15 09:11 | Outpatient (AMB) | payer MEDICARE, SELFPAY ==
--- NOTE | 2025-07-15 09:12 | A.OFFVIS_ITS ---
Intake Visit Reasons: INJ: right knee Durolane, last inj on 12/31/24 Intake Note: Silvano is a 80 year old male who presents with complaints of progressively worsening right knee pain. He did have a Durolane injection given into his right knee on 12/31/2024. He got fairly good relief from that injection. His pain has returned. He has had cortisone injections in the past which gave him minimal relief. He has failed the last 3 months of conservative treatment which has included Tylenol, anti-inflammatory medicines and physical therapy exercises. He wishes to hold off on surgery if at all possible. Allergies azithromycin (AZITHROMYCIN) Allergy (Unknown, Verified 07/15/25 09:17) HIVES lisinopril (LISINOPRIL) Allergy (Unknown, Verified 07/15/25 09:17) HIVES losartan (LOSARTAN) Allergy (Unknown, Verified 07/15/25 09:17) HIVES oxycodone (OXYCODONE) Allergy (Unknown, Verified 07/15/25 09:17) HIVES Medication List - Last Reconciled 07/15/25 by Gurmeet Ordaz MD acetaminophen (Tylenol) 650 mg PO Q6H PRN albuterol sulfate 2.5 mg inhalation Q6H PRN albuterol sulfate 90 mcg/actuation 2 puffs inhalation Q6H PRN 60 days allopurinol 100 mg PO DAILY 90 days aspirin (Adult Aspirin Regimen) 81 mg PO DAILY atorvastatin 40 mg PO DAILY 90 days blood pressure monitor (Blood Pressure Kit) As directed blood sugar diagnostic (OneTouch Ultra Test strips) test 2 times per day blood sugar diagnostic One touch ULTRA TEst Strips check the BS 2x a day blood-glucose meter (Bazaarvoice Ultra2 Meter kit) As directed cetirizine (Zyrtec) 10 mg PO DAILY cholecalciferol (vitamin D3) 10 mcg PO DAILY cyanocobalamin (vitamin B-12) 1,000 mcg PO DAILY dulaglutide (Trulicity) 3 mg (0.5 mL) subcut QWEEK fluticasone propion-salmeterol 250-50 mcg/dose (Wixela Inhub) 1 ea inhalation BID insulin degludec (Tresiba FlexTouch U-200 insulin) 52 units (0.26 mL) subcut DAILY lancets (Renthackruch UltraSoft Lancets) As directed check the blood sugars 4 times a day metformin 1,000 mg PO BID metoprolol succinate ER 100 mg PO DAILY peg 400-propylene glycol (PF) 0.4-0.3 % (Systane (PF)) 1 drp ophthalmic (eye) BID PRN pen needle, diabetic (Easy Touch) As directed pen needle, diabetic, safety (Easy Touch Safety Pen Needle) As directed inject twice a day [Prevagen 1 cap PO DAILY] pyridoxine (vitamin B6) 50 mg PO DAILY 90 days tamsulosin 0.4 mg PO BEDTIME 90 days vit C,A-Sx-wfxad-lutein-zeaxan 250-90-40-1 mg (PreserVision AREDS-2) 1 tab PO BID PFSH Medical History Renal calculi Adult general medical exam COVID-19 Frequent falls Bilateral knee pain Bilateral hip pain Arthritis of right knee Right knee pain Obesity (BMI 30-39.9) AMY on CPAP Hypercholesterolemia Type 2 diabetes mellitus with hyperglycemia Hypoxemia Restrictive lung disease Abnormal LFTs Calcium oxalate calculus 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 Mother No problems noted. Son No problems noted. Son No problems noted. Daughter No problems noted. Daughter No problems noted. Social History Housing: House Alcohol intake: never Patient Tobacco Use Status: Former Tobacco user Tobacco use type: Cigarette Years Smoked: 1993 e-Cigarette/Vaping Use: Never Used Second Hand Smoke Exposure: No service: No Current occupational status: retired Current occupation: rt handed Cognitive needs: No Hearing needs: No Vision needs: Yes Physical Exam Const Other: Well-nourished well-developed very friendly male awake alert and oriented x3 in no acute distress Extrem Other: Right knee examination shows a minimal effusion, palpable crepitus with range of motion, pain with range of motion, no instability Results Reviewed Results Reviewed: X-rays of the patient's right knee taken previously show joint space narrowing, subchondral sclerosis, no acute bony abnormalities Assessment & Plan Assessment & Plan (1) Osteoarthritis of right knee: Code(s): M17.11 - Unilateral primary osteoarthritis, right knee Category: Medical Plan Mr. Walter presents with progressively worsening right knee pain due to osteoarthritis. The risks and benefits of a right knee Durolane viscosupplementation injection were discussed at length with the patient. The patient wished to proceed. He tolerated the injection well. The patient also has left knee pain due to osteoarthritis. I will see if the patient's insurance company will cover another Durolane injection for his left knee. I will see him back once the injection is available. Feel free to call me at any time should questions regarding his orthopedic management arise. I spent 21 minutes in reviewing the patient's records and imaging studies, seeing the patient and documenting in the medical record. Orders: Orders AMB Joint Injection/Aspiration Today M17.11 - Unilateral primary osteoarthritis, right knee Coding Level of Care Code Est Pt Level 3 (26480) Complex EM visit Add On G2211 Diagnoses Osteoarthritis of right knee M17.11
--- OUTSIDE RECORDS SUMMARY | 2025-07-15 09:55 | XMS_ITS | Patient Health Record ---
Author Organization [facility] Address [address] [place] [address] Care Team Providers Care Supervisor Of Operations Name Role Phone Homer Akers Primary Care Provider Geovanny e SamyZuly Unavailable [phone] Allergies Allergen (clinical drug ingredient) Drug/Non Drug [...] Polyneuropathy due to type 2 diabetes mellitus (977679175) Type 2 diabetes mellitus with diabetic polyneuropathy (E11.42) Active confirmed Vital Signs Blood pressure diastolic 89 mm Hg 04/24/2025 Height 5 ft 6 in in 04/24/2025 Blood pressure systolic 150 mm Hg 04/24/2025 Weight 243 lbs 04/24/2025 BMI 39.22 kg/m2 04/24/2025 Procedures Procedure Date Ordered Date Performed Result Body Sit e 34698-Mqngzjnf Plate 10/24/2024 N/A 72295-EYQN SKIN LESIONS, 2 TO 4 10/24/2024 N/A L6786-GFLFIOPL DYSTROPHIC NAILS ANY # 10/24/2024 N/A 90521-Bwmruqkv Plate 04/24/2025 N/A 01795-VUAY SKIN LESIONS, 2 TO 4 04/24/2025 N/A C5711-TVSJAZWU DYSTROPHIC NAILS ANY # 04/24/2025 N/A Encounters Encounter Location Date Provider Diagnosis [facility] [place] [address] [place] [address] 10/24/2024 Zuly Black Type 2 diabetes mellitus with diabetic polyneuropathy E11.42 ; Other hammer toe(s) (acquired), right foot M20.41 ; Ingrown nail L60.0 ; Xerosis of skin L85.3 and Other hammer toe(s) (acquired), left foot M20.42 [facility] [address] [address] 04/24/2025 Zluy Pablo Type 2 diabetes mellitus with diabetic polyneuropathy E11.42 and Ingrowing nail L60.[address] [facility] [address] 04/24/2025 Zuly Pablo Assessments Encounter Date Diagnosis [...] Treatment Pending Test Test Name Order Date 39954-TSWTHLX NAIL, 1-12/26/2011 07411-LRVSRUK NAIL, -09/24/2012 89557-WCRCVKM NAIL, -09/23/2013 77986-XUPIBNW NAIL, -01/29/2014 21159-ZGPWBOV NAIL, 10-2009/22/2014 69525-Rimefqlo Plate 09/22/2014 45149-Oesrbzeu Plate 01/29/2014 75829-Dqzrxtbx Plate 09/22/2016 33865-Xkwobzvj Plate 09/23/2013 96375-Forrhluc Plate 09/24/2018 24695-Pcjswvps Plate 09/24/2020 99156-Rdbssega Plate 10/21/2021 19092-Rhvsasze Plate 10/24/2022 08125-Klnfnetn Plate 10/26/2023 12595-Xemugsdf Plate 10/24/2024 55511-Rfzlenbm Plate 04/24/2025 18212-Lmybjfze Plate Each Additional 08/2024 34192-Hpiouyld Plate Each Additional 06/2023 46806-Oklocxtm Plate Each Additional 03/2022 37391-AGMG SKIN LESIONS, 2 TO 4 10/24/19 23 79575-VYAD SKIN LESIONS, 2 TO 4 09/24/20 20 05968-RIDF SKIN LESIONS, 2 TO 4 10/21/19 22 45986-GNML SKIN LESIONS, 2 TO 4 09/26/20 19 11570-QHDW SKIN LESIONS, 2 TO 4 09/24/20 18 35944-UYEF SKIN LESIONS, 2 TO 4 09/25/20 17 29005-LGCE SKIN LESIONS, 2 TO 4 01/30/20 14 33747-QNFM SKIN LESIONS, 2 TO 4 09/23/20 13 37117-BETZ SKIN LESIONS, 2 TO 4 09/24/20 12 25159-NRYI SKIN LESIONS, 2 TO 4 09/22/20 14 85209-XIWF SKIN LESIONS, 2 TO 4 09/21/20 15 70803-ZOMM SKIN LESIONS, 2 TO 4 09/22/20 16 18685-YWEV SKIN LESIONS, 2 TO 4 10/26/19 24 21084-YQYA SKIN LESIONS, 2 TO 4 10/24/19 25 90124-ALVM SKIN LESIONS, 2 TO 4 04/24/20 25 00657-TACF NAIL(S) 09/22/2014 76930-BHTR NAIL(S) 09/23/2013 70303-MNFA NAIL(S) 01/29/2014 L0372-DHHBTPHS DYSTROPHIC NAILS ANY # O0512-GHSRSSDA DYSTROPHIC NAILS ANY # V8852-IPLTKXXS DYSTROPHIC NAILS ANY # U7414-HAPMBQJB DYSTROPHIC NAILS ANY # A6976-RMSNIMCN DYSTROPHIC NAILS ANY # L0927-HGBIJTJE DYSTROPHIC NAILS ANY # L8568-GXZOPIRX DYSTROPHIC NAILS ANY # O6162-WHVLYXLK DYSTROPHIC NAILS ANY # V7604-LMLXNSDK DYSTROPHIC NAILS ANY # J1813-BPARKKNZ DYSTROPHIC NAILS ANY # L1448-HVNRZYPJ DYSTROPHIC NAILS ANY # Next Appt Details Provider Name:Zuly Pablo , 10/30/2025 11:30:00 AM, [address] [place], [address], Insurance Providers Payer Name Payer Address Payer Phone Subscriber Number Group Number Insured Name Patient Relationship to Insured Coverage Start Date Coverage End Date Medicare National Govt Svcs Inc [address] [place] [address] [id number] Silvano Walter Self - patient is the insured [employer] [address] [place] [address] [phone] [id number] Silvano Walter Self - patient is the [...]
--- OUTSIDE RECORDS SUMMARY | 2025-07-15 09:55 | XMS_ITS | Patient Health Record ---
Author Organization [facility] Address [address] [place] [address] Care Team Providers Care Steffen House Supervisor Name Role Phone Homer Akers MD Primary Care Provider Lenny Venegas [phone] Allergies Allergen (clinical drug ingredient) Drug/Non Drug [...] Problem Status W/U Status Risk Notes Problem 893285012 Encounter for screening for malignant neoplasm of colon (Z12.11) Active confirmed Problem 167033522 Long-term use of aspirin therapy (Z79.82) Active confirmed Plan Of Treatment Future Test Test Name Order Date CT ABD & PELVIS WITH CONTRAST 08/23/2011 COLONOSCOPY 03/16/2017 Insurance Providers Payer Name Payer Address Payer Phone Subscriber Number Group Number Insured Name Patient Relationship to Insured Coverage Start Date Coverage End Date MEDICARE OF [place] [address] [place] [address] [id number] JEREMIAH GUERRERO Self - patient is the insured [employer] CLAIMS [address] [place] [address] [id number] JEREMIAH GUERRERO Self - patient is the insured Medical (General) History Medical History History ICD Code IDDM Asthma Hypertension Allergies Hyperlipidemia Kidney stones--cystoscopy with laser He denies any history of [place], stroke, nor renal disease otherwise Neg. colonoscopies in 1999 a nd 2005--hyperplastic polyps, diverticulosis, internal hemorrhoids Pericarditis Sleep apnea--uses CPAP Surgical History Surgery Date(Month/Year) Appendectomy Back surgery Broken right leg and ankle
== END 2025-07-15 09:37 | disposition home or self-care (01) ==
LOC: HO.HOS 09:11
PROVIDERS: PCP Internal Medicine; Visit Provider Orthopaedic Surgery
DX: M17.11 Unilateral primary osteoarthritis, right knee (principal)
CPT/HCPCS: 20610; 99213

== ENCOUNTER → 2025-07-15 09:11 | Outpatient (BNVA) | payer MEDICARE, SELFPAY | PROVIDERS: PCP Internal Medicine; Visit Provider Orthopaedic Surgery | DX: M17.11 Unilateral primary osteoarthritis, right knee (principal) | CPT/HCPCS: 20610; 99212; J2003; J7318 ==

== ENCOUNTER 2025-08-28 12:23 | Outpatient (REF) | payer MEDICARE, SELFPAY ==
--- NOTE | ~2025-08-28 | US_ITS ---
CLINICAL HISTORY: N20.0 - Calculus of kidney US Renal Comparison: US/NH/SR - US RENAL BI - 03/18/2024 10:05 AM EDT Findings: Right kidney normal size and echotexture, 11.2 cm length. Left kidney normal size and echotexture, 11.9 cm length. There are bilateral renal peripelvic cysts. There are left renal parenchymal calculi. No collecting system dilatation of either kidney. Normal color Doppler. IMPRESSION: 1. No acute findings. This document has been electronically signed by: Macario Downs MD on 08/29/2025 11:49:57
--- OUTSIDE RECORDS SUMMARY | 2025-08-28 15:33 | XMS_ITS | Patient Health Record ---
Author Organization [facility] Address [address] [facility] [place] [address] Care Team Providers Care Bonding Molder Name Role Phone Homer Akers Primary Care Provider eGovanny e Zuly Pablo Unavailable [phone] Allergies Allergen (clinical drug ingredient) Drug/Non Drug [...] Polyneuropathy due to type 2 diabetes mellitus (550914927) Type 2 diabetes mellitus with diabetic polyneuropathy (E11.42) Active confirmed Vital Signs Blood pressure diastolic 89 mm Hg 04/24/2025 Height 5 ft 6 in in 04/24/2025 Blood pressure systolic 150 mm Hg 04/24/2025 Weight 243 lbs 04/24/2025 BMI 39.22 kg/m2 04/24/2025 Procedures Procedure Date Ordered Date Performed Result Body Sit e 82544-Mzawxyax Plate 10/24/2024 N/A 18334-LCBS SKIN LESIONS, 2 TO 4 10/24/2024 N/A U8734-BRKXZMSJ DYSTROPHIC NAILS ANY # 10/24/2024 N/A 26809-Zafenilz Plate 04/24/2025 N/A 49356-WSBF SKIN LESIONS, 2 TO 4 04/24/2025 N/A Y6383-FXQSZAJG DYSTROPHIC NAILS ANY # 04/24/2025 N/A Encounters Encounter Location Date Provider Diagnosis [facility] [place] [address] [place] [address] 10/24/2024 Zuly Black Type 2 diabetes mellitus with diabetic polyneuropathy E11.42 ; Other hammer toe(s) (acquired), right foot M20.41 ; Ingrown nail L60.0 ; Xerosis of skin L85.3 and Other hammer toe(s) (acquired), left foot M20.42 [facility] [address] [address] 04/24/2025 Zuly Pablo Type 2 diabetes mellitus with diabetic polyneuropathy E11.42 and Ingrowing nail L60.0 [facility] [address] 04/24/2025 Zuly Pablo Assessments Encounter Date Diagnosis [...] Treatment Pending Test Test Name Order Date 62798-NWDTUPT NAIL, 1-12/26/2011 11065-PYNCFWY NAIL, -09/24/2012 73468-RVDHCKX NAIL, -09/23/2013 70124-JILOFRT NAIL, -01/29/2014 39607-MUCBRTY NAIL, 10-2009/22/2014 18140-Syupcibi Plate 09/22/2014 74424-Mrjobycd Plate 01/29/2014 59791-Caehxjrc Plate 09/22/2016 01797-Akgzydvp Plate 09/23/2013 23742-Cmofuipz Plate 09/24/2018 63756-Etcvsvqd Plate 09/24/2020 14129-Yngjdiko Plate 10/21/2021 50594-Ovjoywgv Plate 10/24/2022 79429-Gznypgwq Plate 10/26/2023 82731-Xwdwaufd Plate 10/24/2024 30089-Icmrdhud Plate 04/24/2025 08537-Emhwrfbq Plate Each Additional 08/2024 19049-Mexhfmqv Plate Each Additional 06/2023 11519-Zzlcvllw Plate Each Additional 03/2022 78304-ZUQE SKIN LESIONS, 2 TO 4 10/24/19 23 30907-UZNN SKIN LESIONS, 2 TO 4 09/24/20 20 28812-SRXN SKIN LESIONS, 2 TO 4 10/21/19 22 87149-ZCZG SKIN LESIONS, 2 TO 4 09/26/20 19 90340-CCQD SKIN LESIONS, 2 TO 4 09/24/20 18 66791-XXEM SKIN LESIONS, 2 TO 4 09/25/20 17 87682-UIOH SKIN LESIONS, 2 TO 4 01/30/20 14 16581-AQRJ SKIN LESIONS, 2 TO 4 09/23/20 13 42483-ZMXF SKIN LESIONS, 2 TO 4 09/24/20 12 31870-ARRZ SKIN LESIONS, 2 TO 4 09/22/20 14 75681-TZXC SKIN LESIONS, 2 TO 4 09/21/20 15 04304-FOII SKIN LESIONS, 2 TO 4 09/22/20 16 09281-OEGA SKIN LESIONS, 2 TO 4 10/26/19 24 80917-DOFT SKIN LESIONS, 2 TO 4 10/24/19 25 62477-DBIA SKIN LESIONS, 2 TO 4 04/24/20 25 11022-IWHN NAIL(S) 09/22/2014 85667-RYGO NAIL(S) 09/23/2013 63740-XFYY NAIL(S) 01/29/2014 D2689-ORETXRAV DYSTROPHIC NAILS ANY # D0062-JCWBCZJZ DYSTROPHIC NAILS ANY # U6907-RJXJPFEL DYSTROPHIC NAILS ANY # O1547-NFWTUEBO DYSTROPHIC NAILS ANY # F8539-FZCGUOVN DYSTROPHIC NAILS ANY # T0918-NUJRKRMS DYSTROPHIC NAILS ANY # D0402-DLVTJBPE DYSTROPHIC NAILS ANY # F4677-XDIRGPSX DYSTROPHIC NAILS ANY # G1048-IZEAZREA DYSTROPHIC NAILS ANY # P3155-WDXLLEYP DYSTROPHIC NAILS ANY # A6448-GYNISICI DYSTROPHIC NAILS ANY # Next Appt Details Provider Name:Zuly Pablo , 10/30/2025 11:30:00 AM, [address] [place], [address], Insurance Providers Payer Name Payer Address Payer Phone Subscriber Number Group Number Insured Name Patient Relationship to Insured Coverage Start Date Coverage End Date Medicare National Govt Svcs Inc [address] [place] [address] [id number] Silvano Walter Self - patient is the insured [employer] [address] [place] [address] [id number] Silvano Walter Self - patient is the [...]
--- OUTSIDE RECORDS SUMMARY | 2025-08-28 15:34 | XMS_ITS | Patient Health Record ---
Author Organization [facility] Address [address] [place] [address] Care Team Providers Care Breed To Wean Production Technician Name Role Phone Homer Akers MD Primary Care Provider Lenny Venegas [phone] Allergies Allergen (clinical drug ingredient) Drug/Non Drug [...] Problem Status W/U Status Risk Notes Problem Screening for malignant neoplasm of colon (777761143) Encounter for screening for malignant neoplasm of colon (Z12.11) Active confirmed Problem Long-term current use of antiplatelet drug (427720469664482) Long-term use of aspirin therapy (Z79.82) Active confirmed Plan Of Treatment Future Test Test Name Order Date CT ABD & PELVIS WITH CONTRAST 08/23/2011 COLONOSCOPY 03/16/2017 Insurance Providers Payer Name Payer Address Payer Phone Subscriber Number Group Number Insured Name Patient Relationship to Insured Coverage Start Date Coverage End Date MEDICARE OF [place] [address] [place] [address] [id number] JEREMIAH GUERRERO Self - patient is the insured [employer] ATT[employer] CLAIMS [address] [place] [address] [id number] JEREMIAH GUERRERO Self - patient is the insured Medical (General) History Medical History History ICD Code IDDM Asthma Hypertension Allergies Hyperlipidemia Kidney stones--cystoscopy with laser He denies any history of [place], stroke, nor renal disease otherwise Neg. colonoscopies in 1999 a nd 2005--hyperplastic polyps, diverticulosis, internal hemorrhoids Pericarditis Sleep apnea--uses CPAP Surgical History Surgery Date(Month/Year) Appendectomy Back surgery Broken right leg and ankle
== END 2025-08-28 12:24 | disposition home or self-care (01) ==
LOC: HO.US 12:23
PROVIDERS: PCP Internal Medicine; Visit Provider Urology
DX: N20.0 Calculus of kidney (principal)
CPT/HCPCS: 76775

== ENCOUNTER → 2025-08-28 12:26 | Outpatient (BNV) | payer MEDICARE, SELFPAY | PROVIDERS: PCP Internal Medicine; Visit Provider Specialist | DX: N20.0 Calculus of kidney (principal) | CPT/HCPCS: 76775 ==